=== PATIENT | female | born 1975 | race Caucasian/White ===

== ENCOUNTER 2016-10-02 15:24 | Inpatient (IN) | payer SELFPAY ==
[~2016-10-02] VITALS: Ht 167.6 cm; Wt 56.5 kg
[~2016-10-02 15:24] MED LIST: FLON0.053; OXYC1TAB13 PO; OXYC30TA3 PO; XANA2TAB2 PO; ZITHTAB6 PO
[2016-10-02 15:26] VITALS: BP 112/68; PULSE 117; RESP 15; TEMP 98.3; O2SAT 95
[2016-10-02] MEDS ORDERED: VANCOMYCIN INJ 1,150 MG in SODIUM CHLOR 0.9% 250 ML INJ 250 ML IV ONE (19:30)
[2016-10-02] MEDS ORDERED: SODIUM CHLOR 0.9% 1000 ML INJ 1,000 ML IV ONE ×2 (19:30)
[2016-10-02] MEDS ORDERED: HYDROmorphone HCL PF 1 MG/ML VIAL IV PUSH ONE (19:45)
[2016-10-02] MEDS ORDERED: ACETAMINOPHEN 500 MG CPLT PO ONE (19:45)
[2016-10-02] MEDS ORDERED: LORazepam 2 MG/ML VIAL IV PUSH ONE (19:45)
--- NOTE | 2016-10-02 19:53 | RADRPT ---
EXAM DATE/TIME: 10/02/2016 19:35 [facility] COMPARISON: CHEST PA & LAT, February 23, 2010, 18:14. INDICATIONS : Fever MEDICAL HISTORY : None. SURGICAL HISTORY : None. ENCOUNTER: Initial ACUITY: 4 - 6 days PAIN SCORE: 0/10 LOCATION: chest FINDINGS: A single view of the chest demonstrates the lungs to be symmetrically aerated without evidence of mas s, consolidative infiltrate or effusion. An azygos lobe there is again noted. There is mild hazy opac ity in the right lung base.. The cardiomediastinal contours are unremarkable. Osseous structures are intact. CONCLUSION: Mild hazy opacity in the right lung base. This could represent early infiltrate. Juan Carlos Powers MD on October 02, 2016 at 19:50 Board Certified Radiologist. This report was verified electronically.
--- NOTE | 2016-10-02 20:01 | PD ---
HPI Chief Complaint: Back/ Neck Pain or Injury Time Seen by Provider: 19:53 Travel History International Travel<30 days: No Contact w/Intl Traveler<30days: No Traveled to known affect area: No History of Present Illness HPI 41-year-old white female presents to emergency department comely by her mother for evaluation of neck pain. The patient states that she's been having sudden onset of severe neck pain for the past 4 days. She states that she had awoken from sleep at 3 AM 4 days ago. She states that she is unable to move her head. She has not been able to eat she's felt rundown, weak area and she states that she felt that she had some stool incontinence. She had diarrhea. Patient has a history of IV substance abuse. She states that she has been sober now since 2011. Her mother states that she does not believe that she is been sober. The patient admits to subjective fever and chills, headache, severe neck pain and stiffness. Decreased appetite with nausea. No vomiting. No abdominal pain. No urinary symptoms. No numbness, tingling or weakness. She does feel off balance and feels that she may fall over. [facility] Past Medical History Narrative Medical IV drug abuse, carpal tunnel, chronic back pain Diminished Hearing: No Fibromyalgia: Yes Musculoskeletal: Yes (SCIATICA- CHRONIC BACK PAIN) Tetanus Vaccination: < 5 Years ?: Not : 1 : 1 Past Surgical History Narrative Surgical Bilateral carpal tunnel release Social History Alcohol Use: Yes (SOCIAL) Tobacco Use: Yes (PPD) Substance Use: Yes (TAKES MARSHAL AND XANAX) Allergies-Medications (Allergen,Severity, Reaction): Coded Allergies: E-Mycin (Verified Allergy, Severe, UNKNOWN, 02/23/10) Reported Meds & Prescriptions Reported Meds & Active Scripts Active No Active Prescriptions or Reported Medications Review of Systems Except as stated in HPI: all other systems reviewed are Neg General / Constitutional: Positive: Fever, Chills Eyes: No: Blurred Vision, Photophobia HENT: Positive: Neck Stiffness, Neck Pain, No: Headaches, Sore Throat Cardiovascular: Positive: Tachycardia, No: Chest Pain or Discomfort, Palpitations Respiratory: No: Cough, Shortness of Breath Gastrointestinal: Positive: Nausea, Changes in Bowel Habits, Loss of Appetite, No: Vomiting, Diarrhea, Abdominal Pain Genitourinary: No: Frequency, Dysuria Musculoskeletal: Positive: Arthralgias, Limited ROM, Pain, No: Myalgias Skin: No Rash, No Itching Neurologic: Positive: Dizziness, Coordination Problem, Ataxia, Incontinence, No: Paresthesia Physical Exam Narrative GENERAL: Well-developed, well-nourished in no apparent distress. Nontoxic appearing. HEAD: Normocephalic, atraumatic. EYES: Pupils equal round and reactive. Extraocular motions intact. No scleral icterus. No injection or drainage. ENT: Nose clear. Dry mucous membranes. Throat without erythema, tonsillar hypertrophy or exudate. Uvula midline. Airway patent. NECK: Trachea midline. no central bony tenderness. Patient has significant bilateral paraspinal tenderness into the trapezius. Patient is holding her head midline and declining to move. CARDIOVASCULAR: Regular tachycardic rate and rhythm without murmurs, gallops, or rubs. RESPIRATORY: Clear to auscultation. Breath sounds equal bilaterally. No wheezes , rales, or rhonchi. GASTROINTESTINAL: Abdomen soft, non-tender, nondistended. No hepato-splenomegaly , or palpable masses. No guarding. EXTREMITIES: No clubbing, cyanosis, or edema. No joint tenderness. BACK: Nontender without deformity. No flank tenderness. NEUROLOGICAL: Awake, alert and oriented x 3 .Cranial nerves grossly intact. Unsteady gait. Deep tendon reflexes are 3+ bilaterally. Motor and sensory grossly within normal limits. Normal speech. Data Data Last Documented VS Vital Signs Date Time Temp Pulse Resp B/P Pulse Ox O2 Delivery O2 Flow Rate FiO2 10/02/16 15:26 98.3 117 15 112/68 95 Orders Complete Blood Count With Diff (10/02/16 19:22) Comprehensive Metabolic Panel (10/02/16 19:22) Prothrombin Time / Inr (Pt) (10/02/16 19:22) Act Partial Throm Time (Ptt) (10/02/16 19:22) Blood Culture (10/02/16 19:22) C-Reactive Protein (Crp) (10/02/16 19:22) Urinalysis - C+S If Indicated (10/02/16 19:22) Westergren Sedimentation Rate (10/02/16 19:22) Chest, Single Ap (10/02/16 19:22) Iv Access Insert/Monitor (10/02/16 19:22) Ecg Monitoring (10/02/16 19:22) Drug Screen, Random Urine (10/02/16 19:22) Alcohol (Ethanol) (10/02/16 19:22) Mri T Spine W & W/O Contrast (10/02/16 ) Mri C Spine W&W/O Contrast (10/02/16 ) Sodium Chlor 0.9% 1000 Ml Inj (Ns 1000 M (10/02/16 19:30) Sodium Chlor 0.9% 1000 Ml Inj (Ns 1000 M (10/02/16 19:30) Vancomycin Inj (Vancomycin Inj) (10/02/16 19:30) Mri L Spine W&W/O Contrast (10/02/16 ) Acetaminophen (Tylenol) (10/02/16 19:45) Lorazepam Inj (Ativan Inj) (10/02/16 19:45) Hydromorphone Pf Inj (Dilaudid Pf Inj) (10/02/16 19:45) Lactic Acid (10/02/16 19:38) Piperacil-Tazo 4.5 Gm Premix (Zosyn 4.5 (10/02/16 20:15) Gadodiamide Pf Inj (Omniscan Pf Inj) (10/02/16 20:50) Piperacil-Tazo 3.375 Gm Premix (Zosyn 3. (10/03/16 02:00) Vancomycin Consult Pharmacy (Vancomycin (10/02/16 22:15) Echo 2d Comp With Doppler (10/02/16 ) Labs Laboratory Tests Test 10/02/16 19:35 White Blood Count 24.3 TH/MM3 Red Blood Count 4.25 MIL/MM3 Hemoglobin 12.2 GM/DL Hematocrit 35.9 % Mean Corpuscular Volume 84.5 FL Mean Corpuscular Hemoglobin 28.6 PG Mean Corpuscular Hemoglobin 33.8 % Concent Red Cell Distribution Width 13.2 % Platelet Count 311 TH/MM3 Mean Platelet Volume 8.4 FL Neutrophils (%) (Auto) 79.8 % Lymphocytes (%) (Auto) 11.3 % Monocytes (%) (Auto) 8.5 % Eosinophils (%) (Auto) 0.0 % Basophils (%) (Auto) 0.4 % Neutrophils # (Auto) 19.4 TH/MM3 Lymphocytes # (Auto) 2.7 TH/MM3 Monocytes # (Auto) 2.1 TH/MM3 Eosinophils # (Auto) 0.0 TH/MM3 Basophils # (Auto) 0.1 TH/MM3 CBC Comment AUTO DIFF Differential Comment AUTO DIFF CONFIRMED Dohle Bodies PRESENT Platelet Estimate NORMAL Platelet Morphology Comment NORMAL Erythrocyte Sedimentation Rate 102 mm/hr Prothrombin Time 11.9 SEC Prothromb Time International 1.1 RATIO Ratio Activated Partial 39.1 SEC Thromboplast Time Sodium Level 129 MEQ/L Potassium Level 3.2 MEQ/L Chloride Level 96 MEQ/L Carbon Dioxide Level 22.6 MEQ/L Anion Gap 10 MEQ/L Blood Urea Nitrogen 26 MG/DL Creatinine 0.90 MG/DL Estimat Glomerular Filtration 68 ML/MIN Rate Random Glucose 121 MG/DL Lactic Acid Level 1.2 mmol/L Calcium Level 8.9 MG/DL Total Bilirubin 0.7 MG/DL Aspartate Amino Transf 14 U/L (AST/SGOT) Alanine Aminotransferase 12 U/L (ALT/SGPT) Alkaline Phosphatase 82 U/L C-Reactive Protein 18.00 MG/DL Total Protein 8.5 GM/DL Albumin 2.8 GM/DL Ethyl Alcohol Level LESS THAN 3 MG/DL MDM Medical Decision Making Medical Screen Exam Complete: Yes Emergency Medical Condition: Yes Medical Record Reviewed: Yes Interpretation(s) Laboratory Tests Test 10/02/16 19:35 White Blood Count 24.3 TH/MM3 Red Blood Count 4.25 MIL/MM3 Hemoglobin 12.2 GM/DL Hematocrit 35.9 % Mean Corpuscular Volume 84.5 FL Mean Corpuscular Hemoglobin 28.6 PG Mean Corpuscular Hemoglobin 33.8 % Concent Red Cell Distribution Width 13.2 % Platelet Count 311 TH/MM3 Mean Platelet Volume 8.4 FL Neutrophils (%) (Auto) 79.8 % Lymphocytes (%) (Auto) 11.3 % Monocytes (%) (Auto) 8.5 % Eosinophils (%) (Auto) 0.0 % Basophils (%) (Auto) 0.4 % Neutrophils # (Auto) 19.4 TH/MM3 Lymphocytes # (Auto) 2.7 TH/MM3 Monocytes # (Auto) 2.1 TH/MM3 Eosinophils # (Auto) 0.0 TH/MM3 Basophils # (Auto) 0.1 TH/MM3 CBC Comment AUTO DIFF Differential Comment AUTO DIFF CONFIRMED Dohle Bodies PRESENT Platelet Estimate NORMAL Platelet Morphology Comment NORMAL Erythrocyte Sedimentation Rate 102 mm/hr Prothrombin Time 11.9 SEC Prothromb Time International 1.1 RATIO Ratio Activated Partial 39.1 SEC Thromboplast Time Sodium Level 129 MEQ/L Potassium Level 3.2 MEQ/L Chloride Level 96 MEQ/L Carbon Dioxide Level 22.6 MEQ/L Anion Gap 10 MEQ/L Blood Urea Nitrogen 26 MG/DL Creatinine 0.90 MG/DL Estimat Glomerular Filtration 68 ML/MIN Rate Random Glucose 121 MG/DL Lactic Acid Level 1.2 mmol/L Calcium Level 8.9 MG/DL Total Bilirubin 0.7 MG/DL Aspartate Amino Transf 14 U/L (AST/SGOT) Alanine Aminotransferase 12 U/L (ALT/SGPT) Alkaline Phosphatase 82 U/L C-Reactive Protein 18.00 MG/DL Total Protein 8.5 GM/DL Albumin 2.8 GM/DL Ethyl Alcohol Level LESS THAN 3 MG/DL Last 24 hours Impressions Chest X-Ray 10/02/161921 Signed Impressions: Service Date/Time: Sunday, October 02, 2016 19:35 - CONCLUSION: Mild hazy opacity in the right lung base. This could represent early infiltrate. Juan Carlos Powers MD Thoracic Spine MRI 10/02/16 0000 Signed Impressions: Service Date/Time: Sunday, October 02, 2016 20:16 - CONCLUSION: Unremarkable exam. Juan Carlos Powers MD Lumbar Spine MRI 10/02/16 0000 Signed Impressions: Service Date/Time: Sunday, October 02, 2016 20:16 - CONCLUSION: 1. No evidence of osteomyelitis. 2. Annular disc bulge at the L4-5 level with mild mass effect on the anterior thecal sac. 3. Mild degenerative disc and degenerative joint changes. Juan Carlos Powers MD Cervical Spine MRI 10/02/16 0000 Signed Impressions: Service Date/Time: Sunday, October 02, 2016 20:16 - CONCLUSION: 1. Large left lateral and posterior epidural collection as described most characteristic of an abscess. There is mass effect and flattening of the cervical cord with no definite abnormal signal or enhancement in the cord. 2. Extensive soft tissue swelling and edema surrounding the upper neck. The prevertebral soft tissues are edematous and thickened. 3. Disc bulges at the C3-4 and C5-6 levels. 4. No evidence of osteomyelitis. Juan Carlos Powers MD Differential Diagnosis MDM: High Differential diagnoses: Fracture, sprain, strain, HNP, nerve or vascular injury , epidural abscess Narrative Course IV access is obtained. 2 blood cultures, 2 L normal saline, 1.125 g vancomycin IV, Zosyn 4.5 g IV, 1 g of Tylenol by mouth, Dilaudid 0.5 mg IV, Ativan 1 mg IV , routine laboratory testing including CBC, chemistry, CRP, sedimentation rate and lactic acid. MRI of the C-spine, T-spine, and L-spine a been ordered. The case has been discussed with Dr. Flores the neurosurgeon precision inspector. He has requested that the intensivists admit the patient. I have spoken with Dr. Sue who is excepted the patient. The patient will be admitted to the unit. Sepsis Criteria SIRS Criteria (2 or more): Temp > 100.9 or < 96.8, Heart rate over 90, WBC > 66758, < 4000 or > 10% bands Sepsis Criteria (SIRS+source): Infect source susp/known Diagnosis Primary Impression: Abscess in epidural space of cervical spine Additional Impression: Sepsis Qualified Code: A41.9 - Sepsis, due to unspecified organism Admitting Information Admitting Physician Requests: Admit Scripts No Active Prescriptions or Reported Meds Dinh Pillai Oct 02, 2016 20:00
[2016-10-02 20:02] LABS: AUTOMATED NEUTROPHIL # 19.4 TH/MM3 (1.8-7.7); BASOPHIL # 0.1 TH/MM3 (0-0.2); BASOPHIL % 0.4 % (0.0-2.0); HEMATOCRIT 35.9 % (35.0-46.0); LYMPH % 11.3 % (9.0-44.0); LYMPHOCYTE # 2.7 TH/MM3 (1.0-4.8); MEAN CELL VOLUME 84.5 FL (80.0-100.0); MEAN CORPUSCULAR HEMOGLOBIN 28.6 PG (27.0-34.0); MEAN CORPUSCULAR HGB CONC 33.8 % (32.0-36.0); MONO % 8.5 % (0.0-8.0); NEUT % 79.8 % (16.0-70.0); PLATELET COUNT 311 TH/MM3 (150-450); RED BLOOD COUNT 4.25 MIL/MM3 (4.00-5.30); RED CELL DISTRIBUTION WIDTH 13.2 % (11.6-17.2); WHITE BLOOD COUNT 24.3 TH/MM3 (4.0-11.0)
[2016-10-02 20:05] LABS: HEMO FLAGS AUTO DIFF
[2016-10-02 20:09] LABS: APTT (PATIENT) 39.1 SEC (24.3-30.1); INTERNATIONAL NORMALIZED RATIO 1.1 RATIO; PROTHROMBIN TIME - PATIENT 11.9 SEC (9.8-11.6)
[2016-10-02] MEDS ORDERED: PIPERACIL-TAZO 4.5 GM PREMIX 100 ML IV ONE (20:15)
[2016-10-02 20:19] LABS: ANION GAP 10 MEQ/L (5-15); AST (GOT) 14 U/L (15-37); BICARBONATE 22.6 MEQ/L (21.0-32.0); BLOOD UREA NITROGEN 26 MG/DL (7-18); CHLORIDE 96 MEQ/L (98-107); GLOMERULAR FILTRATION RATE 68 ML/MIN (>89); POTASSIUM 3.2 MEQ/L (3.5-5.1); SODIUM (NA) 129 MEQ/L (136-145)
[2016-10-02 20:20] LABS: ALT (GPT) 12 U/L (10-53)
[2016-10-02 20:23] LABS: ALKALINE PHOSPHATASE 82 U/L (45-117); TOTAL BILIRUBIN ADULT 0.7 MG/DL (0.2-1.0)
[2016-10-02 20:37] LABS: DOHLE BODIES PRESENT (NONE SEEN); SCAN/DIFF AUTO DIFF CONFIRMED
[2016-10-02 20:38] LABS: PLATELET ESTIMATE SMEAR NORMAL (NORMAL); PLATELET MORPHOLOGY NORMAL (NORMAL)
[2016-10-02] MEDS ORDERED: GADODIAMIDE PF 287 MG/ML 10 ML VIAL (for RAD MRI) IV ONE (20:50)
--- NOTE | 2016-10-02 21:12 | RADRPT ---
EXAM DATE/TIME: 10/02/2016 20:16 [facility] COMPARISON: No previous studies available for comparison. INDICATIONS : Evaluate for osteomyelitis. Head and neck pain. CONTRAST: 10 cc Omniscan (gadodiamide) IV MEDICAL HISTORY : None. SURGICAL HISTORY : Carpal tunnel syndrome. ENCOUNTER: Initial ACUITY: 1 day PAIN SCORE: 6/10 LOCATION: Paraspinal Known MRI Precautions: Sedation utilized? NO Anesthesia present? MRI reaction? If YES, explain: TECHNIQUE: Multiplanar multisequence MRI of the thoracic spine was performed. FINDINGS: VERTEBRA: Normal vertebral body height. Homogeneous marrow signal. ALIGNMENT: Normal. CORD: Normal position and configuration. POST CONTRAST: No abnormal areas of contrast enhancement seen. T1-T2: Normal. T2-T3: The thecal sac has a normal diameter. No evidence of disc bulge or protrusion. T3-T4: The thecal sac has a normal diameter. No evidence of disc bulge or protrusion. T4-T5: The thecal sac has a normal diameter. No evidence of disc bulge or protrusion. T5-T6: The thecal sac has a normal diameter. No evidence of disc bulge or protrusion. T6-T7: The thecal sac has a normal diameter. No evidence of disc bulge or protrusion. T7-T8: The thecal sac has a normal diameter. No evidence of disc bulge or protrusion. T8-T9: The thecal sac has a normal diameter. No evidence of disc bulge or protrusion. T9-T10: The thecal sac has a normal diameter. No evidence of disc bulge or protrusion. T10-T11: The thecal sac has a normal diameter. No evidence of disc bulge or protrusion. T11-T12: The thecal sac has a normal diameter. No evidence of disc bulge or protrusion. T12-L1: The thecal sac has a normal diameter. No evidence of disc bulge or protrusion. CONCLUSION: Unremarkable exam. Juan Carlos Powers MD on October 02, 2016 at 21:09 Board Certified Radiologist. This report was verified electronically.
--- NOTE | 2016-10-02 21:27 | RADRPT ---
EXAM DATE/TIME: 10/02/2016 20:16 [facility] COMPARISON: No previous studies available for comparison. INDICATIONS : Evaluate for infection and possible osteomyelitis. Head and neck pain. Fever. CONTRAST: 10 cc Omniscan (gadodiamide) IV MEDICAL HISTORY : None. SURGICAL HISTORY : Carpal tunnel syndrome. ENCOUNTER: Initial ACUITY: 1 day PAIN SCORE: 6/10 LOCATION: Paraspinal TECHNIQUE: Multiplanar, multisequence MRI examination of the cervical spine was performed. FINDINGS: There is extensive soft tissue swelling and edema involving the retropharyngeal soft tissues and prev ertebral soft tissues greatest from the skull base to be C4-5 interspace. There is a left lateral and posterior epidural collection measuring up to approximately 3.7 cm in greatest caudal cranial dimens ion by 9 mm in AP diameter on the sagittal images. After gadolinium there is peripheral enhancement a long the collection and low signal centrally. The collection emonstrates high signal on the T2-weight ed sequences and low signal on the T1-weighted sequences. On the axial images this measures up to 1.3 x 0.7 cm in greatest AP and transverse diameter. There is mass effect on the cord which is displaced to the right and flattened. There is no definite abnormal signal no cord or abnormal enhancement of the cord. The axial images again demonstrate the left sided epidural collection with displacement of the cord a nd flattening. There is extensive soft tissue edema throughout the upper neck. The vertebral bodies are intact. There are mild degenerative disc changes. There is no abnormal enhan cement any of the bony structures. There is an annular disc at the C3-4 and C5-6 levels with mild fla ttening the anterior thecal sac. CONCLUSION: 1. Large left lateral and posterior epidural collection as described most characteristic of an absces s. There is mass effect and flattening of the cervical cord with no definite abnormal signal or enhan cement in the cord. 2. Extensive soft tissue swelling and edema surrounding the upper neck. The prevertebral soft tissues are edematous and thickened. 3. Disc bulges at the C3-4 and C5-6 levels. 4. No evidence of osteomyelitis. Juan Carlos Powers MD on October 02, 2016 at 21:14 Board Certified Radiologist. This report was verified electronically.
--- NOTE | 2016-10-02 21:34 | RADRPT ---
EXAM DATE/TIME: 10/02/2016 20:16 [facility] COMPARISON: No previous studies available for comparison. INDICATIONS : Head and neck pain and fever. Evaluate for osteomyelitis. CONTRAST: 10 cc Omniscan (gadodiamide) IV MEDICAL HISTORY : None. SURGICAL HISTORY : Carpal tunnel syndrome. ENCOUNTER: Initial ACUITY: 1 day PAIN SCORE: 6/10 LOCATION: Paraspinal TECHNIQUE: Multiplanar multisequence MRI of the lumbar spine was performed with and without contrast. FINDINGS: The most caudal appearing lumbar vertebra is numbered as L5. VERTEBRAE: Homogeneous signal. Normal alignment. There is a mild scoliosis. DISCS: There is mild desiccation greatest at the L4-5 level with an anterior extradural defect noted on the sagittal images. CONUS: Normal level and configuration. POST CONTRAST: No abnormal areas of contrast enhancement are seen. T12-L1: The thecal sac has a normal diameter. No evidence of disc bulge or protrusion. The neural foramina are patent bilaterally. L1-L2: The thecal sac has a normal diameter. No evidence of disc bulge or protrusion. The neural foramina are patent bilaterally. L2-L3: The thecal sac has a normal diameter. No evidence of disc bulge or protrusion. The neural foramina are patent bilaterally. L3-L4: The thecal sac has a normal diameter. No evidence of disc bulge or protrusion. The neural foramina are patent bilaterally. L4-L5: There is a mild disc bulge with mild flattening the anterior thecal sac. There are mild degenerative changes involving the facet joints right greater than left.. The neural foramina are patent bilatera lly. L5-S1: The thecal sac has a normal diameter. No evidence of disc bulge or protrusion. The neural foramina are patent bilaterally. There are mild degenerative changes involving the facet joints. CONCLUSION: 1. No evidence of osteomyelitis. 2. Annular disc bulge at the L4-5 level with mild mass effect on the anterior thecal sac. 3. Mild degenerative disc and degenerative joint changes. Juan Carlos Powers MD on October 02, 2016 at 21:31 Board Certified Radiologist. This report was verified electronically.
[2016-10-02] MEDS ORDERED: SODIUM CHLOR 0.9% 1000 ML INJ 1,000 ML IV SCH (22:06)
[2016-10-02] MEDS ORDERED: CHLORHEXIDINE GLUCONATE 2 % 1 PACK (2 CLOTHS) TOP PRN (22:15)
[2016-10-02] MEDS ORDERED: RESP: ALBUTEROL 2.5 MG/3 ML NEB (PRN) INH (22:15)
[2016-10-02] MEDS ORDERED: MAGNESIUM HYDROXIDE SUSP 30 ML CUP PO PRN (22:15)
[2016-10-02] MEDS ORDERED: SODIUM CHLORIDE 0.9% FLUSH 10 ML FLUSH IV FLUSH PRN (22:15)
[2016-10-02] MEDS ORDERED: ONDANSETRON HCL 4 MG/2 ML VIAL IV PRN (22:15)
[2016-10-02] MEDS ORDERED: MISCELLANEOUS NURSING INFORMATION XX SCH (22:15)
[2016-10-02] MEDS ORDERED: SENNOSIDES 8.6 MG TAB PO PRN (22:15)
[2016-10-02] MEDS ORDERED: Vancomycin Consult Pharmacy 1 EA OTHER SCH (22:15)
[2016-10-02] MEDS ORDERED: BISACODYL 10 MG SUPP RECTAL PRN (22:15)
[2016-10-02] MEDS ORDERED: POTASSIUM CHLOR 20 MEQ PREMIX 100 ML IV ONE (22:15)
[2016-10-02 22:55] VITALS: BP 78/54; PULSE 60; RESP 16; O2SAT 96
--- NOTE | 2016-10-02 23:02 | PD.CONS ---
History of Present Illness Service Neurosurgery Consult Requested By Emergency room Reason for Consult Epidural abscess Primary Care Physician No Primary Care Physician Diagnoses: History of Present Illness 41-year-old female who according to her mother came home on 27 September not feeling well. She went to bed for most of the day. Over the past few days she has complained of progressive neck pain and has not been out of bed much in the past couple of days. The patient was seen at [facility] emergency room a few days ago. The mother is uncertain what testing was performed. The patient received a couple of injections in the emergency room and was discharged. The patient's mother states that she has been trying for the past 2 or 3 days to get the patient back to the emergency room and the patient has not wanted to get out of better, and the hospital. Patient's mother states that she believes the patient had a fever yesterday. This morning she had diarrhea. No nausea or vomiting. No definite confusion. Patient complains of severe neck pain. No significant pain weakness or numbness in the extremities or loss of bowel or bladder function. Patient does have a history of IV drug use. Review of Systems Constitutional: COMPLAINS OF: Fever, Change in appetite Eyes: DENIES: Blurred vision, Diplopia Ears, nose, mouth, throat: DENIES: Hearing loss, Vertigo Respiratory: DENIES: Cough, Shortness of breath Cardiovascular: DENIES: Chest pain, Palpitations Gastrointestinal: COMPLAINS OF: Diarrhea, Difficulty Swallowing, DENIES: Abdominal pain, Nausea, Vomiting Musculoskeletal: COMPLAINS OF: Back pain, Neck pain, DENIES: Joint pain Hematologic/lymphatic: DENIES: Bruising Neurologic: DENIES: Abnormal gait, Headache Psychiatric: DENIES: Anxiety, Confusion Past Family Social History Allergies: Coded Allergies: E-Mycin (Verified Allergy, Severe, UNKNOWN, 02/23/10) Past Medical History No history of cardiac pulmonary gastrointestinal disease diabetes or hypertension Past Surgical History Carpal tunnel release Reported Medications Reported Meds & Active Scripts Active No Active Prescriptions or Reported Medications Family History Cardiac disease on her mother's side and diabetes on her father's side. Social History She smokes 1 pack cigarettes a day No significant alcohol use Positive history IV drug use Physical Exam Vital Signs Vital Signs Date Time Temp Pulse Resp B/P Pulse Ox O2 Delivery O2 Flow Rate FiO2 10/02/16 15:26 98.3 117 15 112/68 95 Physical Exam GENERAL: Patient is a thin lady, appears somewhat malnourished. Painful and anxious during the examination. EYES: Sclerae are clear and nonicteric ENT: Oropharynx clear. Moderate hoarseness of voice and difficulty swallowing no anterior neck edema NECK: Significant diffuse cervical posterior paravertebral tenderness. Mild nuchal rigidity CARDIOVASCULAR: Regular rate and rhythm without murmurs, gallops, or rubs. RESPIRATORY: Coarse upper airway sounds. Breath sounds equal bilaterally. No wheezes, rales, or rhonchi. GASTROINTESTINAL: Abdomen soft, non-tender, nondistended. No hepato-splenomegaly , or palpable masses. No guarding. MUSCULOSKELETAL: Extremities without clubbing, cyanosis, or edema. No joint tenderness, effusion, or edema noted. No calf tenderness. Posterior tibial pulse 2+ bilateral NEUROLOGICAL: Awake and alert Oriented X 3 Speech is slightly slurred, hoarseness of voice. Conversant. Mild agitation. Follow simple commands with mild difficulty Answers questions appropriately Reasonable judgment and insight Recent and remote memory are intact Appears anxious during the examination. Pupils are equal and reactive to accommodation. Extra-ocular movements, visual paredes to confrontation, facial sensorimotor, tongue, palate, sternocleidomastoid testing, hearing to finger rub testing, and bilateral shoulder shrug are all intact. Sensation is intact to light touch in all extremities Strength normal major flexion and extension groups all extremities except 3+/5 bilateral hand intrinsics Madeleine's absent bilaterally Sustained left ankle clonus Plantar response is mildly flexor on the right, extensor on the left Fine motor movements impaired in the left greater than right upper extremity Laboratory Laboratory Tests Test 10/02/16 19:35 White Blood Count 24.3 Red Blood Count 4.25 Hemoglobin 12.2 Hematocrit 35.9 Mean Corpuscular Volume 84.5 Mean Corpuscular Hemoglobin 28.6 Mean Corpuscular Hemoglobin 33.8 Concent Red Cell Distribution Width 13.2 Platelet Count 311 Mean Platelet Volume 8.4 Neutrophils (%) (Auto) 79.8 Lymphocytes (%) (Auto) 11.3 Monocytes (%) (Auto) 8.5 Eosinophils (%) (Auto) 0.0 Basophils (%) (Auto) 0.4 Neutrophils # (Auto) 19.4 Lymphocytes # (Auto) 2.7 Monocytes # (Auto) 2.1 Eosinophils # (Auto) 0.0 Basophils # (Auto) 0.1 CBC Comment AUTO DIFF Differential Comment AUTO DIFF CONFIRMED Dohle Bodies PRESENT Platelet Estimate NORMAL Platelet Morphology Comment NORMAL Erythrocyte Sedimentation Rate 102 Prothrombin Time 11.9 Prothromb Time International 1.1 Ratio Activated Partial 39.1 Thromboplast Time Sodium Level 129 Potassium Level 3.2 Chloride Level 96 Carbon Dioxide Level 22.6 Anion Gap 10 Blood Urea Nitrogen 26 Creatinine 0.90 Estimat Glomerular Filtration 68 Rate Random Glucose 121 Lactic Acid Level 1.2 Calcium Level 8.9 Total Bilirubin 0.7 Aspartate Amino Transf 14 (AST/SGOT) Alanine Aminotransferase 12 (ALT/SGPT) Alkaline Phosphatase 82 C-Reactive Protein 18.00 Total Protein 8.5 Albumin 2.8 Ethyl Alcohol Level LESS THAN 3 Date/Time Procedure Status Source Growth 10/02/16 19:35 Aerobic Blood Culture Received Blood Peripheral Pending 10/02/16 19:35 Anaerobic Blood Culture Received Blood Peripheral Pending Result Diagram: 10/02/16193410/02/161934 Imaging MRI cervical thoracic and lumbar spine images are reviewed by the undersigned. Agree with findings as noted below: Chest X-Ray 10/02/16 192 Signed Impressions: Service Date/Time: Sunday, October 02, 2016 19:35 - CONCLUSION: Mild hazy opacity in the right lung base. This could represent early infiltrate. Juan Carlos Powers MD Thoracic Spine MRI 10/02/16 0000 Signed Impressions: Service Date/Time: Sunday, October 02, 2016 20:16 - CONCLUSION: Unremarkable exam. Juan Carlos Powers MD Lumbar Spine MRI 10/02/16 0000 Signed Impressions: Service Date/Time: Sunday, October 02, 2016 20:16 - CONCLUSION: 1. No evidence of osteomyelitis. 2. Annular disc bulge at the L4-5 level with mild mass effect on the anterior thecal sac. 3. Mild degenerative disc and degenerative joint changes. Juan Carlos Powers MD Cervical Spine MRI 10/02/16 0000 Signed Impressions: Service Date/Time: Sunday, October 02, 2016 20:16 - CONCLUSION: 1. Large left lateral and posterior epidural collection as described most characteristic of an abscess. There is mass effect and flattening of the cervical cord with no definite abnormal signal or enhancement in the cord. 2. Extensive soft tissue swelling and edema surrounding the upper neck. The prevertebral soft tissues are edematous and thickened. 3. Disc bulges at the C3-4 and C5-6 levels. 4. No evidence of osteomyelitis. Juan Carlos Powers MD Assessment and Plan Assessment and Plan Impression: 1. Cervical epidural abscess primarily C2-4 levels with significant dorsal cord compression without definite cord edema. 2. Significant cervical prevertebral inflammation without definite abscess formation 3. History of IV drug abuse 4. Cervical degenerative disc disease with moderate chronic appearing C5 6 posterior osteophytic disc complex with moderate stenosis without cord edema. Recommendations: Findings were discussed with the patient as well as with her mother in the emergency room. Due to the severity of the cervical epidural abscess and degree of cord compression, it is recommended that she proceed with urgent surgery for upper cervical semi-laminectomy, evacuation epidural abscess. The procedures been discussed in detail Risk and possible complications have been discussed including the risk of anesthesia, organ failure, stroke, , bleeding, infection, nerve damage, pain, weakness, numbness, paralysis, loss of bowel, bladder or sexual function, spinal fluid leak. Consents have been reviewed with the patient, signed and witnessed in the office today. All questions have been answered. He/She appears to understand the above and wishes to proceed with surgery . She does have significant stenosis at the C5 6 level, however no cord edema and this appears to be a chronic abnormality which would be best treated on an elective basis given the presence of the significant prevertebral inflammation and cervical epidural abscess. She will be admitted to the surgical intensive care unit postoperatively. Marlo Flores MD Oct 02, 2016 23:02
[2016-10-02 23:05] VITALS: BP 82/54; PULSE 58; RESP 18; O2SAT 96
[2016-10-02 23:30] LABS: BACTERIA, URINE FEW /hpf; BLOOD, URINE MOD (NEG); COMMENT (UR) CULT NOT INDICATED; CULTURE IF INDICATED CULT NOT INDICATED; GLUCOSE,URINE NEG (NEG); KETONE, URINE NEG (NEG); MUCUS URINE FEW /lpf (OCC); NITRITE,URINE NEG (NEG); PH, URINE 5.5 (5.0-8.5); SQUAMOUS EPITHELIAL CELL URINE 1 /hpf (0-5); TRANSITIONAL EPI CELLS, URINE <1 /hpf; URINE COLOR YELLOW (YELLW/STRAW)
[2016-10-02 23:32] LABS: AMPHETAMINE, URINE NEG (NEG); BARBITURATES, URINE NEG (NEG); COCAINE, URINE NEG (NEG)
[2016-10-03] VITALS (12 sets, daily range): BP systolic 100–118; BP diastolic 56–71; PULSE 46–77; RESP 17–20; TEMP 96.1–98.7; O2SAT 96–99
[2016-10-03] MEDS ORDERED: GENTAMICIN SULFATE 80 MG/2 ML VIAL IRRIGATION ONE (00:41)
[2016-10-03] MEDS ORDERED: GELFOAM SIZE 100 OTHER ONE (00:41)
[2016-10-03] MEDS ORDERED: THROMBIN (TOPICAL) 5,000 UNIT VIAL OTHER ONE (00:41)
[2016-10-03] MEDS ORDERED: LIDOCAINE 1%/EPINEPHrine 1:100,000 SOLN 30 ML VIAL INFIL ONE (00:41)
[2016-10-03] MEDS ORDERED: DO NOT ADM ANY ANTICOAGULANT DRUGS PRN (02:00)
[2016-10-03] MEDS ORDERED: PIPERACIL-TAZO 3.375 GM PREMIX 50 ML IV SCH (02:00)
[2016-10-03] MEDS ORDERED: VANCOMYCIN INJ 650 MG in SODIUM CHLOR 0.9% 250 ML INJ 250 ML IV SCH (02:00)
--- NOTE | 2016-10-03 02:06 | RADRPT ---
EXAM DATE/TIME: 10/03/2016 00:50 [facility] COMPARISON: No previous studies available for comparison. INDICATIONS : Laminectomy evacuation abcess C3. MEDICAL HISTORY : None. SURGICAL HISTORY : None. ENCOUNTER: Initial ACUITY: 1 day PAIN SCORE: 0/10 LOCATION: Bilateral c-spine FINDINGS: A single lateral view of the cervical spine was performed. Intraoperative markers overlie the spinous process of C2. CONCLUSION: Spinous process of C2 is localized. Ricco Beal MD on October 03, 2016 at 2:04 Board Certified Radiologist. This report was verified electronically.
[2016-10-03] MEDS ORDERED: PHENYLEPHRINE HCL 10 MG/ML VIAL ONE (02:13)
--- NOTE | 2016-10-03 02:18 | PD.OP ---
Operative Report Date of Surgery: Oct 03, 2016 Preoperative Diagnosis: (1) Abscess in epidural space of cervical spine Cervical epidural abscess Postoperative Diagnosis: (1) Abscess in epidural space of cervical spine Cervical epidural abscess Procedure: Left C2-3 semi-laminectomy, evacuation epidural abscess Anesthesia: Gen. endotracheal Surgeon: Marlo Flores Manager Actuarial(s): Reece Espinoza Operation and Findings: Findings: Large amount of epidural abscess at the left C2-3 level Procedure in detail: The patient was brought into the operating room and general endotracheal anesthesia induced without difficulty. Lines were established by anesthesia Knee high sequential compression devices were placed Appropriate timeout procedure was performed with all personnel present and in agreement The Cobb 3 point fixation device was placed. The patient was in a cervical collar for positioning Leads for intraoperative neuro monitoring were placed in a baseline study obtained The patient was turned into prone position on the 3080 table on the Anupam frame with the undersigned maintaining control of the head and neck. The head and neck were secured to the operating room table with the Cobb adapter with the neck slightly flexed with 3-4 fingerbreadths between the chin and chest. The neck position was checked with intraoperative C-arm and felt to be satisfactory. The cervical collar was removed. All extremities were appropriately padded. The back of the head and neck were shaved with clippers and sterilely prepped and draped. 1% Xylocaine with epinephrine was used for local infiltration over the incision site was made in the midline posterior neck and carried sharply down to the spinous processes of C2-C3. . On the right and left side the posterior muscle attachments and fascia were incised with the Bovie and elevated away from the lamina and facet and spinous processes at the C2-3 levels with a shin elevator out to the lateral margin of the facets. The TPS drill with a 5 mm bone bur was used to thin out the inferior left L2 and superior left L3 lamina, with the remaining lamina in these areas removed out to the level of the pedicle and medial facet with the thin ligament dissector and the 3 mm thin Kerrison rongeur. Ligamentum flavum was elevated away from the dura with the thin ligament dissector and resected with the Kerrison rongeur. Upon elevating the ligamentum flavum, a copious amount of purulent abscess material came forth from the epidural space. A specimen was obtained for routine cultures. The remaining abscess was evacuated with gentle suction and irrigation. Long blunt nerve hook was used to carefully probe the epidural space at the L2- 3 level. The thecal sac appeared well decompressed at the end of the procedure. The region was well irrigated with antibiotic irrigation. Bleeding was carefully controlled with bipolar forceps A 10 Thai drain was left at the operative site and brought out through an incision in the lower neck region and secured to the skin with nylon suture The closure was performed with 2-0 Vicryl interrupted for the deep and superficial fascia with 3-0 Vicryl interrupted subcutaneous closure and 4-0 Vicryl subcutaneous closure. A dressing of sterile Mastisol and Steri-Strips and a Primapore dressing was placed. The patient was placed back in a cervical collar and released from the Cobb adapter and turned back into supine position on the recovery room bed with the undersigned maintaining control of the head and neck. The Cobb 3 point fixation device was then removed. The patient was taken to recovery room in stable condition All counts were correct at the end of the case. Estimated blood loss was 50 cc No specimen was sent to pathology Specimen of the abscess was sent to microbiology for routine cultures Neural monitoring remained stable during the procedure Marlo Flores MD Oct 03, 2016 02:18
[2016-10-03] MEDS ORDERED: TERBUTALINE INJ 1 MG/ML AMP SQ PRN (02:30)
[2016-10-03 02:37] LABS: AUTOMATED NEUTROPHIL # 12.8 TH/MM3 (1.8-7.7); BASOPHIL % 0.2 % (0.0-2.0); EOSINOPHIL % 0.1 % (0.0-4.0); HEMATOCRIT 27.4 % (35.0-46.0); HEMO FLAGS DIFF FINAL; LYMPH % 8.8 % (9.0-44.0); LYMPHOCYTE # 1.3 TH/MM3 (1.0-4.8); MEAN CELL VOLUME 86.1 FL (80.0-100.0); MEAN CORPUSCULAR HEMOGLOBIN 29.4 PG (27.0-34.0); MEAN CORPUSCULAR HGB CONC 34.1 % (32.0-36.0); MONO % 5.6 % (0.0-8.0); NEUT % 85.3 % (16.0-70.0); PLATELET COUNT 218 TH/MM3 (150-450); RED BLOOD COUNT 3.18 MIL/MM3 (4.00-5.30); RED CELL DISTRIBUTION WIDTH 13.7 % (11.6-17.2)
[2016-10-03] MEDS: NS + KCL 20 MEQ INJ 1,000 ML IV SCH ×3 (02:42→22:30)
[2016-10-03] MEDS ORDERED: fentaNYL CITRATE 250 MCG/5 ML AMP ONE (02:43)
[2016-10-03] MEDS ORDERED: MIDAZOLAM HCL 2 MG/2 ML VIAL ONE (02:43)
[2016-10-03 03:03] LABS: BICARBONATE 21.3 MEQ/L (21.0-32.0); CALCIUM-PROTEIN CORRECTED 7.7 MG/DL (8.5-10.1); MAGNESIUM 1.6 MG/DL (1.5-2.5); POTASSIUM 3.2 MEQ/L (3.5-5.1); TOTAL BILIRUBIN ADULT 0.6 MG/DL (0.2-1.0)
[2016-10-03] MEDS ORDERED: PHENYLEPHRINE INJ 40 MG in DEXTROSE 5% IN WATE 500 ML INJ 496 ML IV SCH ×2 (03:30)
[2016-10-03] MEDS ORDERED: SODIUM PHOSPHATE INJ 30 MMOL in SODIUM CHLOR 0.9% 250 ML INJ 240 ML IV PRN (03:45)
[2016-10-03] MEDS ORDERED: POTASSIUM CHLORIDE 25 MEQ EFFERVESCENT TAB PO PRN (03:45)
[2016-10-03] MEDS ORDERED: MAGNESIUM SULFATE INJ 4 GM in SODIUM CHLORIDE 0.9% INJ 92 ML IV PRN (03:45)
[2016-10-03] MEDS ORDERED: MAGNESIUM SULFATE INJ 2 GM in SODIUM CHLORIDE 0.9% INJ 96 ML IV PRN (03:45)
[2016-10-03] MEDS ORDERED: POTASSIUM PHOSPHATE MONOBASIC 500 MG TAB PO/TUBE PRN (03:45)
[2016-10-03] MEDS ORDERED: POTASSIUM CHLOR 20 MEQ PREMIX 100 ML IV PRN ×2 (03:45)
[2016-10-03] MEDS ORDERED: MAGNESIUM OXIDE 400 MG TAB PO PRN (03:45)
[2016-10-03] MEDS ORDERED: POTASSIUM CHLOR 40 MEQ PREMIX 100 ML IV PRN ×2 (03:45)
[2016-10-03] MEDS ORDERED: POTASSIUM PHOSPHATE MONOBASIC 500 MG TAB PO PRN (03:45)
[2016-10-03] MEDS ORDERED: POTASSIUM PHOSPHATE INJ 30 MMOL in SODIUM CHLOR 0.9% 250 ML INJ 250 ML IV PRN (03:45)
[2016-10-03] MEDS: CHLORHEXIDINE GLUCONATE 2 % 1 PACK (2 CLOTHS) TOP SCH (04:00)
[2016-10-03] MEDS: PIPERACIL-TAZO 3.375 GM PREMIX 50 ML IV SCH ×2 (04:48→11:00)
[2016-10-03] MEDS ORDERED: NOREPINEPHRINE-DEXTROSE DRIP 250 ML IV ONE (06:35)
[2016-10-03] MEDS: PANTOPRAZOLE SODIUM 40 MG VIAL IV SCH (08:00)
[2016-10-03] MEDS: SODIUM CHLORIDE 0.9% FLUSH 10 ML FLUSH IV FLUSH SCH ×2 (08:00→19:53)
[2016-10-03] MEDS ORDERED: NOREPINEPHRINE 4 MG/D5W 250 ML IV SCH (08:00)
[2016-10-03] MEDS: DOCUSATE SODIUM 50 MG/SENNA 8.6 MG TAB PO SCH ×2 (08:01→19:53)
[2016-10-03] MEDS: MORPHINE SULFATE 8 MG/ML INJ IV PUSH PRN ×4 (08:24→19:53)
[2016-10-03] MEDS ORDERED: LACTATED RINGER'S 1000 ML INJ 1,000 ML IV ONE (12:00)
[2016-10-03] MEDS ORDERED: SODIUM CHLOR 0.9% 250 ML INJ 250 ML IV ONE (12:00)
[2016-10-03] MEDS ORDERED: PHENYLEPHRINE HCL 10 MG/ML VIAL IV ONE (12:00)
[2016-10-03] MEDS ORDERED: SODIUM CHLORID 0.9% 500 ML INJ 500 ML IV ONE (12:00)
[2016-10-03] MEDS ORDERED: PROPOFOL 200 MG/20 ML AMP IV ONE (12:00)
[2016-10-03] MEDS ORDERED: PHENYLEPH/NS 1000 MCG/10 ML SYR IV ONE (12:00)
[2016-10-03] MEDS ORDERED: VANCOMYCIN 1,000 MG/NS 250 ML IV SCH ×2 (12:00)
[2016-10-03] MEDS ORDERED: ONDANSETRON HCL 4 MG/2 ML VIAL IV PUSH ONE (12:00)
[2016-10-03] MEDS: VANCOMYCIN 1,000 MG/NS 250 ML IV SCH ×2 (14:00)
--- NOTE | 2016-10-03 14:25 | HHI.NSPN ---
(Juan Chicas) History Chief Complaint: Neck pain, lump to throat (Juan Chicas) Interval History 10/02: 41-year-old female who according to her mother came home on 27 September not feeling well. She went to bed for most of the day. Over the past few days she has complained of progressive neck pain and has not been out of bed much in the past couple of days. The patient was seen at [facility] emergency room a few days ago. The mother is uncertain what testing was performed. The patient received a couple of injections in the emergency room and was discharged. The patient's mother states that she has been trying for the past 2 or 3 days to get the patient back to the emergency room and the patient has not wanted to get out of better, and the hospital. Patient's mother states that she believes the patient had a fever yesterday. This morning she had diarrhea. No nausea or vomiting. No definite confusion. Patient complains of severe neck pain. No significant pain weakness or numbness in the extremities or loss of bowel or bladder function. Patient does have a history of IV drug use. 10/03: The patient went for a laminectomy & evacuation of a cervical abscess early this morning. Prior to being seen this afternoon Nursing called and stated that the patient's neck appeared swollen and that the patient felt like she had a lump to the throat. Dr Flores was notified and stated that the patient did have a significant amount of pharyngeal inflammation. When seen the patient complained of pain to the neck. She did state that if she tried to get up the pain went to the top of her head. (Juan Chicas) System Review Comments Constitutional: Patient feels weak. HEENT: Patient complains of throat pain and a lump as well as difficulty swallowing. If she attempts to get up the neck pain goes to the top of the head. She denies any visual or hearing difficulty. Respiratory: Patient denies any shortness of breath or productive cough. Cardiovascular: Patient denies any chest pain, palpitations or irregular heartbeat. Gastrointestinal: Patient has had an episode of incontinence of stool. She denies any abdominal pain, nausea or vomiting. Musculoskeletal: Patient complains of neck pain. She denies any back or extremity pain or extremity weakness. Neurologic: Patient denies any headache, dizziness, numbness or tingling. ( Juan Chicas) Exam Results Vital Signs Date Time Temp Pulse Resp B/P Pulse Ox O2 Delivery O2 Flow Rate FiO2 10/03/16 12:32 97 10/03/16 12:06 20 10/03/16 12:00 98.0 74 100/56 10/03/16 07:00 Room Air 21 10/03/16 04:00 2 (Juan Chicas) Physical Examination GENERAL: This is a thin female who appears moderately distressed, she readily interacts, her affect is flat. HEENT: Normocephalic, atraumatic. Unable to visualise pharynx well due to patient being unable to open mouth wide secondary to pain, what was visualised was erythemic. NECK: Diffuse midline & paravertebral TTP, intact surgical dressing w/small shadowing to mid dressing. RUDI drain to bulb suction w/serosanguinous drainage. Anterior neck mildly swollen and TTP. CARDIOVASCULAR: S1S2 w/RRR w/o M/G/R, radial & pedal pulses 2+ bilaterally, cap refill < 2 sec, no pedal edema. Monitor is sinus rhythm w/o any ectopy noted. RESPIRATORY: Slightly coarse breath sounds bilaterally, equal excursion, nonlaboured, on RA. GASTROINTESTINAL: Abdomen soft, nontender, positive bowel sounds. GENITOURINARY: [place] catheter to BSD w/clear yellow urine. MUSCULOSKELETAL: JARA w/o difficulty, NTTP, no evident deformity or clubbing. INTEGUMENTARY: Skin warm, dry & intact except for posterior cervical surgical incision w/intact dressing. No ulcerations, rashes or other lesions noted. NEUROLOGICAL: AAOx3 Speech slightly hoarse but appropriate Follows commands w/o any difficulty Sensation intact to light touch to all extremities Motor strength 4+ to 5/5 to BUE and 5/5 to BLE, apparent weakness due to pain, hand intrinsics not tested (Juan Chicas) Lab, Micro, Other Results Allergies Coded Allergies Type Severity Reaction Last Updated Verified E-Mycin Allergy Severe UNKNOWN 02/23/10 Yes Recent Impressions Cervical Spine X-Ray 10/03/16 0000 Signed Impressions: Service Date/Time: Monday, October 03, 2016 00:50 - CONCLUSION: Spinous process of C2 is localized. Ricco Beal MD Chest X-Ray 10/02/[id number] Signed Impressions: Service Date/Time: Sunday, October 02, 2016 19:35 - CONCLUSION: Mild hazy opacity in the right lung base. This could represent early infiltrate. Juan Carlos Powers MD Thoracic Spine MRI 10/02/16 0000 Signed Impressions: Service Date/Time: Sunday, October 02, 2016 20:16 - CONCLUSION: Unremarkable exam. Juan Carlos Powers MD Lumbar Spine MRI 10/02/16 0000 Signed Impressions: Service Date/Time: Sunday, October 02, 2016 20:16 - CONCLUSION: 1. No evidence of osteomyelitis. 2. Annular disc bulge at the L4-5 level with mild mass effect on the anterior thecal sac. 3. Mild degenerative disc and degenerative joint changes. Juan Carlos Powers MD Cervical Spine MRI 10/02/16 0000 Signed Impressions: Service Date/Time: Sunday, October 02, 2016 20:16 - CONCLUSION: 1. Large left lateral and posterior epidural collection as described most characteristic of an abscess. There is mass effect and flattening of the cervical cord with no definite abnormal signal or enhancement in the cord. 2. Extensive soft tissue swelling and edema surrounding the upper neck. The prevertebral soft tissues are edematous and thickened. 3. Disc bulges at the C3-4 and C5-6 levels. 4. No evidence of osteomyelitis. Juan Carlos Powers MD //// 06:00 18:00 06:00 18:00 06:00 18:00 Intake Total 2209 ml Output Total 1153 ml Balance 1056 ml Intake Oral 0 ml IV Total 809 ml Other 1400 ml Output Urine Total 1100 ml Drainage Total 3 ml Estimated Blood Loss 50 ml Laboratory Tests Test 10/02/16 10/02/16 10/03/16 10/03/16 19:35 23:15 02:23 04:15 White Blood Count 24.3 TH/MM3 15.0 TH/MM3 Red Blood Count 4.25 MIL/MM3 3.18 MIL/MM3 Hemoglobin 12.2 GM/DL 9.3 GM/DL Hematocrit 35.9 % 27.4 % Mean Corpuscular Volume 84.5 FL 86.1 FL Mean Corpuscular Hemoglobin 28.6 PG 29.4 PG Mean Corpuscular Hemoglobin 33.8 % 34.1 % Concent Red Cell Distribution Width 13.2 % 13.7 % Platelet Count 311 TH/MM3 218 TH/MM3 Mean Platelet Volume 8.4 FL 8.1 FL Neutrophils (%) (Auto) 79.8 % 85.3 % Lymphocytes (%) (Auto) 11.3 % 8.8 % Monocytes (%) (Auto) 8.5 % 5.6 % Eosinophils (%) (Auto) 0.0 % 0.1 % Basophils (%) (Auto) 0.4 % 0.2 % Neutrophils # (Auto) 19.4 TH/MM3 12.8 TH/MM3 Lymphocytes # (Auto) 2.7 TH/MM3 1.3 TH/MM3 Monocytes # (Auto) 2.1 TH/MM3 0.8 TH/MM3 Eosinophils # (Auto) 0.0 TH/MM3 0.0 TH/MM3 Basophils # (Auto) 0.1 TH/MM3 0.0 TH/MM3 CBC Comment AUTO DIFF DIFF FINAL Differential Comment AUTO DIFF CONFIRMED Dohle Bodies PRESENT Platelet Estimate NORMAL Platelet Morphology Comment NORMAL Erythrocyte Sedimentation Rate 102 mm/hr Prothrombin Time 11.9 SEC Prothromb Time International 1.1 RATIO Ratio Activated Partial 39.1 SEC Thromboplast Time Sodium Level 129 MEQ/L 139 MEQ/L Potassium Level 3.2 MEQ/L 3.2 MEQ/L Chloride Level 96 MEQ/L 107 MEQ/L Carbon Dioxide Level 22.6 MEQ/L 21.3 MEQ/L Anion Gap 10 MEQ/L 11 MEQ/L Blood Urea Nitrogen 26 MG/DL 23 MG/DL Creatinine 0.90 MG/DL 0.60 MG/DL Estimat Glomerular Filtration 68 ML/MIN 109 ML/MIN Rate Random Glucose 121 MG/DL 152 MG/DL Lactic Acid Level 1.2 mmol/L Calcium Level 8.9 MG/DL 7.3 MG/DL Total Bilirubin 0.7 MG/DL 0.6 MG/DL Aspartate Amino Transf 14 U/L 11 U/L (AST/SGOT) Alanine Aminotransferase 12 U/L 8 U/L (ALT/SGPT) Alkaline Phosphatase 82 U/L 60 U/L Total Creatine Kinase 61 U/L C-Reactive Protein 18.00 MG/DL Total Protein 8.5 GM/DL 6.4 GM/DL Albumin 2.8 GM/DL 2.0 GM/DL Ethyl Alcohol Level LESS THAN 3 MG/DL Urine Color YELLOW Urine Turbidity HAZY Urine pH 5.5 Urine Specific [place] 1.022 Urine Protein 30 mg/dL Urine Glucose (UA) NEG mg/dL Urine Ketones NEG mg/dL Urine Occult Blood MOD Urine Nitrite NEG Urine Bilirubin NEG Urine Urobilinogen LESS THAN 2.0 MG/DL Urine Leukocyte Esterase NEG Urine RBC 8 /hpf Urine WBC 4 /hpf Urine Squamous Epithelial 1 /hpf Cells Urine Transitional Epithelial <1 /hpf Cells Urine Amorphous Sediment RARE Urine Bacteria FEW /hpf Urine Mucus FEW /lpf Microscopic Urinalysis Comment CULT NOT INDICATED Urine Opiates Screen NEG Urine Barbiturates Screen NEG Urine Amphetamines Screen NEG Urine Benzodiazepines Screen NEG Urine Cocaine Screen NEG Urine Cannabinoids Screen NEG Protein Corrected Calcium 7.7 MG/DL Phosphorus Level 3.7 MG/DL Magnesium Level 1.6 MG/DL Nasal Screen MRSA (PCR) MRSA NOT DETECTED Test 10/03/16 07:01 Hepatitis A IgM Antibody NEGATIVE Hepatitis B Surface Antigen NEGATIVE Hepatitis B Core IgM Antibody NEGATIVE Hepatitis C Antibody REACTIVE Vital Signs Date Time Temp Pulse Resp B/P Pulse Ox O2 Delivery O2 Flow Rate FiO2 10/03/16 12:32 97 10/03/16 12:06 20 10/03/16 12:00 98.0 74 20 100/56 96 10/03/16 12:00 74 10/03/16 10:00 77 10/03/16 08:00 71 10/03/16 08:00 97.6 58 20 110/60 99 10/03/16 07:00 96 Room Air 21 10/03/16 07:00 98 Room Air 21 10/03/16 06:00 46 10/03/16 04:00 96 Room Air 10/03/16 04:00 96.1 50 20 106/58 96 Automatic Cuff 10/03/16 04:00 97.3 54 17 102/62 96 Nasal Cannula 2 95/52 10/03/16 04:00 50 10/03/16 03:45 59 18 104/56 98 Nasal Cannula 2 92/50 10/03/16 03:30 58 18 108/54 97 Nasal Cannula 2 91/50 10/03/16 03:15 56 19 96 Nasal Cannula 2 93/51 10/03/16 03:00 55 19 98/57 96 Nasal Cannula 2 96/52 10/03/16 02:45 51 21 112/65 100 Nasal Cannula 2 122/61 10/03/16 02:30 63 24 89/50 100 Simple Mask 6 88/46 10/03/16 02:15 65 24 105/57 100 Simple Mask 6 98/53 10/03/16 02:11 62 22 71/44 100 73/36 10/03/16 02:10 96.5 62 22 81/48 100 Simple Mask 6 10/02/16 23:05 58 18 82/54 96 Nasal Cannula 2 10/02/16 22:55 60 16 78/54 96 Nasal Cannula 2 10/02/16 15:26 98.3 117 15 112/68 95 (Juan Chicas) Medical Decision Making Impression and Plan Impression: 1. Cervical epidural abscess primarily C2-4 levels with significant dorsal cord compression without definite cord edema. 2. Significant cervical prevertebral inflammation without definite abscess formation 3. History of IV drug abuse 4. Cervical degenerative disc disease with moderate chronic appearing C5 6 posterior osteophytic disc complex with moderate stenosis without cord edema. POD #0 () s/p: Left C2-3 semi-laminectomy, evacuation epidural abscess Stable neurological examination Leukocytosis, improved (24.3=>15.0) Anaemia (12.2=>9.3) Hypokalemia (3.2=>3.2) Blood cultures x2 w/Gram positive cocci, one aerobic w/MRSA Plan: Primary management per [facility] Abx per Infectious Disease Frequent neuro checks PT eval & tx ST eval & tx D/C drain in AM CT neck soft tissues in AM, for increasing swelling, difficulty breathing or other concerns may do CT urgently/emergently Diet per (Juan Chicas) Attending Statement I have personally seen and examined the patient on the date of this note. Pertinent documentation and study results have been reviewed by the undersigned. I have personally developed the treatment plan and performed medical decision making. Agree with findings, exam, and treatment plan as noted above. The patient's neurologic exam per the undersigned today reveals possible mild increased edema over the left side of the neck along the sternocleidomastoid muscle versus 10/02/16 exam. However no significant erythema or palpable mass. She continues to have moderate difficulty with swallowing. She is nothing by mouth pending speech therapy evaluation. Infectious disease is following the patient and her antibiotics and ingested. Her neurologic exam today reveals no significant sensory motor dysfunction in the upper or lower extremities. Still has a few beats of left ankle clonus. Continuing ISC neuro checks and vital sign monitoring. Patient is at risk for respiratory problems due to rather severe prevertebral soft tissue inflammation and edema in the neck. Plan to discontinue drain on 10/04/16. Findings and treatment plan discussed with the patient as well as with her mother in the room today. (Marlo Flores MD) Juan Chicas Oct 03, 2016 14:25 Marlo Flores MD Oct 03, 2016 18:23
--- NOTE | 2016-10-03 14:27 | PD.ID.CON ---
History of Present Illness Service ID Consult Requested By Dr Sue Reason for Consult epidural abscess Primary Care Physician No Primary Care Physician Diagnoses: History of Present Illness 41-year-old female presented with fever, neck pain since 27 September The patient was seen at [facility] emergency room a few days ago, uncertain what testing was performed. Apparently patient received a couple of injections in the emergency room and was discharged. Patient does have a history of IV drug use. MRI showed large left lateral and posterior epidural collection as described most characteristic of an abscess with mass effect and flattening of the cervical cord with no definite abnormal signal or enhancement in the cord and extensive soft tissue swelling and edema surrounding the upper neck, prevertebral soft tissues are edematous and thickened. Blood clx growing MRSA, / bottles She was seen by neurosurgery last night , diagnosed with abscess in epidural space of cervical spine and underwent emergent Left C2-3 semi-laminectomy, evacuation epidural abscess by Dr Flores early this morning Review of Systems Except as stated in HPI: all other systems reviewed are Neg Past Family Social History Allergies: Coded Allergies: E-Mycin (Verified Allergy, Severe, UNKNOWN, 02/23/10) Past Medical History None Past Surgical History Carpal tunnel release Active Ordered Medications Medications where reviewed in EMR Antibiotics Include: vancomycin, zosyn Family History Cardiac disease on her mother's side and diabetes on her father's side. Social History She smokes 1 pack cigarettes a day No significant alcohol use Positive history IV drug use Physical Exam Vital Signs Vital Signs Date Time Temp Pulse Resp B/P Pulse Ox O2 Delivery O2 Flow Rate FiO2 10/03/16 12:32 97 10/03/16 12:06 20 10/03/16 12:00 98.0 74 20 100/56 96 10/03/16 12:00 74 10/03/16 10:00 77 10/03/16 08:00 71 10/03/16 08:00 97.6 58 20 110/60 99 10/03/16 07:00 96 Room Air 21 10/03/16 07:00 98 Room Air 21 10/03/16 06:00 46 10/03/16 04:00 96 Room Air 10/03/16 04:00 96.1 50 20 106/58 96 Automatic Cuff 10/03/16 04:00 97.3 54 17 102/62 96 Nasal Cannula 2 95/52 10/03/16 04:00 50 10/03/16 03:45 59 18 104/56 98 Nasal Cannula 2 92/50 10/03/16 03:30 58 18 108/54 97 Nasal Cannula 2 91/50 10/03/16 03:15 56 19 96 Nasal Cannula 2 93/51 10/03/16 03:00 55 19 98/57 96 Nasal Cannula 2 96/52 10/03/16 02:45 51 21 112/65 100 Nasal Cannula 2 122/61 10/03/16 02:30 63 24 89/50 100 Simple Mask 6 88/46 10/03/16 02:15 65 24 105/57 100 Simple Mask 6 98/53 10/03/16 02:11 62 22 71/44 100 73/36 10/03/16 02:10 96.5 62 22 81/48 100 Simple Mask 6 10/02/16 23:05 58 18 82/54 96 Nasal Cannula 2 10/02/16 22:55 60 16 78/54 96 Nasal Cannula 2 10/02/16 15:26 98.3 117 15 112/68 95 Physical Exam CONSTITUTIONAL/GENERAL: This is a malnourished desheveled patient, in no apparent distress. TUBES/LINES/DRAINS: SKIN: No jaundice, rashes, or lesions. + needle tracks in different stages of healing Skin temperature appropriate. Not diaphoretic. HEAD: Atraumatic. Normocephalic. EYES: Pupils equal and round and reactive. Extraocular motions intact. No scleral icterus. No injection or drainage. Fundi not examined. ENT: Hearing grossly normal. Nose without bleeding or purulent drainage. Throat without visible erythema, exudates, masses, or lesions. Poor dentition NECK: Trachea midline.+ tender. CARDIOVASCULAR: Regular rate and rhythm without murmurs, gallops, or rubs. No JVD. Peripheral pulses symmetric. RESPIRATORY/CHEST: Symmetric, unlabored respirations. Clear to auscultation. Breath sounds equal bilaterally. No wheezes, rales, or rhonchi. GASTROINTESTINAL: Abdomen soft, non-tender, nondistended. No hepato-splenomegaly , or palpable masses. No guarding. Bowel sounds present. GENITOURINARY: Without palpable bladder distension. MUSCULOSKELETAL: Extremities without clubbing, cyanosis, or edema. No mottling or clubbing. LYMPHATICS: No palpable cervical or supraclavicular adenopathy. NEUROLOGICAL: Awake and alert. Motor and sensory grossly within normal limits. Follows commands. Clear speeechp. Moves all extremities. PSYCHIATRIC: No obvious anxiety/depression. no apparent hallucinations or other psychotic thought process. Laboratory Laboratory Tests Test 10/02/16 10/02/16 10/03/16 10/03/16 19:35 23:15 02:23 04:15 White Blood Count 24.3 15.0 Red Blood Count 4.25 3.18 Hemoglobin 12.2 9.3 Hematocrit 35.9 27.4 Mean Corpuscular Volume 84.5 86.1 Mean Corpuscular Hemoglobin 28.6 29.4 Mean Corpuscular Hemoglobin 33.8 34.1 Concent Red Cell Distribution Width 13.2 13.7 Platelet Count 311 218 Mean Platelet Volume 8.4 8.1 Neutrophils (%) (Auto) 79.8 85.3 Lymphocytes (%) (Auto) 11.3 8.8 Monocytes (%) (Auto) 8.5 5.6 Eosinophils (%) (Auto) 0.0 0.1 Basophils (%) (Auto) 0.4 0.2 Neutrophils # (Auto) 19.4 12.8 Lymphocytes # (Auto) 2.7 1.3 Monocytes # (Auto) 2.1 0.8 Eosinophils # (Auto) 0.0 0.0 Basophils # (Auto) 0.1 0.0 CBC Comment AUTO DIFF DIFF FINAL Differential Comment AUTO DIFF CONFIRMED Dohle Bodies PRESENT Platelet Estimate NORMAL Platelet Morphology Comment NORMAL Erythrocyte Sedimentation Rate 102 Prothrombin Time 11.9 Prothromb Time International 1.1 Ratio Activated Partial 39.1 Thromboplast Time Sodium Level 129 139 Potassium Level 3.2 3.2 Chloride Level 96 107 Carbon Dioxide Level 22.6 21.3 Anion Gap 10 11 Blood Urea Nitrogen 26 23 Creatinine 0.90 0.60 Estimat Glomerular Filtration 68 109 Rate Random Glucose 121 152 Lactic Acid Level 1.2 Calcium Level 8.9 7.3 Total Bilirubin 0.7 0.6 Aspartate Amino Transf 14 11 (AST/SGOT) Alanine Aminotransferase 12 8 (ALT/SGPT) Alkaline Phosphatase 82 60 Total Creatine Kinase 61 C-Reactive Protein 18.00 Total Protein 8.5 6.4 Albumin 2.8 2.0 Ethyl Alcohol Level LESS THAN 3 Urine Color YELLOW Urine Turbidity HAZY Urine pH 5.5 Urine Specific [place] 1.022 Urine Protein 30 Urine Glucose (UA) NEG Urine Ketones NEG Urine Occult Blood MOD Urine Nitrite NEG Urine Bilirubin NEG Urine Urobilinogen LESS THAN 2.0 Urine Leukocyte Esterase NEG Urine RBC 8 Urine WBC 4 Urine Squamous Epithelial 1 Cells Urine Transitional Epithelial <1 Cells Urine Amorphous Sediment RARE Urine Bacteria FEW Urine Mucus FEW Microscopic Urinalysis Comment CULT NOT INDICATED Urine Opiates Screen NEG Urine Barbiturates Screen NEG Urine Amphetamines Screen NEG Urine Benzodiazepines Screen NEG Urine Cocaine Screen NEG Urine Cannabinoids Screen NEG Protein Corrected Calcium 7.7 Phosphorus Level 3.7 Magnesium Level 1.6 Nasal Screen MRSA (PCR) MRSA NOT DETECTED Test 10/03/16 07:01 Hepatitis A IgM Antibody NEGATIVE Hepatitis B Surface Antigen NEGATIVE Hepatitis B Core IgM Antibody NEGATIVE Hepatitis C Antibody REACTIVE Date/Time Procedure Status Source Growth 10/03/16 01:13 Gram Stain - Final Resulted Fluid Other 10/03/16 01:13 Body Fluid Culture Resulted Fluid Other Pending 10/03/16 01:13 Fungal Smear Received Fluid Other Pending 10/03/16 01:13 Fungal Culture Received Fluid Other Pending 10/03/16 01:13 Acid Fast Stain Received Fluid Other Pending 10/03/16 01:13 Mycobacterial Culture Received Fluid Other Pending 10/02/16 19:35 Aerobic Blood Culture - Preliminary Resulted Blood Peripheral Gram Positive Cocci 10/02/16 19:35 Anaerobic Blood Culture - Preliminary Resulted Gram Positive Cocci Result Diagram: 10/03/163 10/03/163 Imaging Last Impressions Cervical Spine X-Ray 10/03/16 0000 Signed Impressions: Service Date/Time: Monday, October 03, 2016 00:50 - CONCLUSION: Spinous process of C2 is localized. Ricco Beal MD Chest X-Ray 10/02/16 192 Signed Impressions: Service Date/Time: Sunday, October 02, 2016 19:35 - CONCLUSION: Mild hazy opacity in the right lung base. This could represent early infiltrate. Juan Carlos Powers MD Thoracic Spine MRI 10/02/16 0000 Signed Impressions: Service Date/Time: Sunday, October 02, 2016 20:16 - CONCLUSION: Unremarkable exam. Juan Carlos Powers MD Lumbar Spine MRI 10/02/16 0000 Signed Impressions: Service Date/Time: Sunday, October 02, 2016 20:16 - CONCLUSION: 1. No evidence of osteomyelitis. 2. Annular disc bulge at the L4-5 level with mild mass effect on the anterior thecal sac. 3. Mild degenerative disc and degenerative joint changes. Juan Carlos Powers MD Cervical Spine MRI 10/02/16 0000 Signed Impressions: Service Date/Time: Sunday, October 02, 2016 20:16 - CONCLUSION: 1. Large left lateral and posterior epidural collection as described most characteristic of an abscess. There is mass effect and flattening of the cervical cord with no definite abnormal signal or enhancement in the cord. 2. Extensive soft tissue swelling and edema surrounding the upper neck. The prevertebral soft tissues are edematous and thickened. 3. Disc bulges at the C3-4 and C5-6 levels. 4. No evidence of osteomyelitis. Juan Carlos Powers MD Assessment and Plan Assessment and Plan Cervical spine epiduralk abscess Left C2-3 semi-laminectomy, evacuation epidural abscess on 10/03 high grade MRSA bacteremia IVDU cont vancomycin 2 D echo repeat blood clx - Possibly ÁNGEL pending 2 D echo results Discussed Condition With family at b/s pt Mouna Caldwell MD Oct 03, 2016 14:27
[2016-10-03] MEDS ORDERED: Vancomycin Consult Pharmacy 1 EA OTHER SCH (14:30)
--- NOTE | 2016-10-03 16:28 | HHI.HP ---
HPI Service Critical Care Medicine Primary Care Physician No Primary Care Physician Admission Diagnosis cervical epidural abscess, sepsis, IV drug abuse Diagnosis: Chief Complaint: Neck pain Travel History International Travel<30 Days: No Contact w/Intl Traveler <30 Da: No Traveled to Known Affected Are: No History of Present Illness 41-year-old white female presents to emergency department comely by her mother for evaluation of neck pain. The patient states that she's been having sudden onset of severe neck pain for the past 4 days. She states that she had awoken from sleep at 3 AM 4 days ago. She states that she is unable to move her head. She has not been able to eat she's felt rundown, weak area and she states that she felt that she had some stool incontinence. She had diarrhea. Patient has a history of IV substance abuse. She states that she has been sober now since 2011. Her mother states that she does not believe that she is been sober. The patient admits to subjective fever and chills, headache, severe neck pain and stiffness. Decreased appetite with nausea. No vomiting. No abdominal pain. No urinary symptoms. No numbness, tingling or weakness. She does feel off balance and feels that she may fall over. The patient was seen at [facility] emergency room a few days ago, received a couple of injections in the emergency room and was discharged. MRI showed large left lateral and posterior epidural collection as described most characteristic of an abscess with mass effect and flattening of the cervical cord with no definite abnormal signal or enhancement in the cord and extensive soft tissue swelling and edema surrounding the upper neck, prevertebral soft tissues are edematous and thickened. Patient was evaluated by neurosurgery for epidural abscess involving C-spine and underwent emergent left C2-3 laminectomy with evacuation of epidural abscess. She was extubated following the procedure and transferred to [facility]. I evaluated the patient around 6 AM this morning. At that time she was drowsy, arousable, moving all 4 extremities. History was obtained by reviewing records and discussion with nursing staff. No family members available at the time of my evaluation. PFSH Past Medical History Narrative Medical IV drug abuse, carpal tunnel, chronic back pain Diminished Hearing: No Fibromyalgia: Yes Musculoskeletal: Yes (SCIATICA- CHRONIC BACK PAIN) Tetanus Vaccination: < 5 Years ?: Not : 1 : 1 Past Surgical History Narrative Surgical Bilateral carpal tunnel release Social History Alcohol Use: Yes (SOCIAL) Tobacco Use: Yes (PPD) Substance Use: Yes (TAKES MARSHAL AND XANAX) Allergies-Medications (Allergen,Severity, Reaction): Coded Allergies: E-Mycin (Verified Allergy, Severe, UNKNOWN, 02/23/10) Reported Meds & Prescriptions Reported Meds & Active Scripts Active No Active Prescriptions or Reported Medications Review of Systems Difficult to be obtained as patient was drowsy postoperatively following anesthesia and unable to give details. Physical Exam Vital Signs Vital Signs Date Time Temp Pulse Resp B/P Pulse Ox O2 Delivery O2 Flow Rate FiO2 10/03/16 12:32 97 10/03/16 12:06 20 10/03/16 12:00 98.0 74 20 100/56 96 10/03/16 12:00 74 10/03/16 10:00 77 10/03/16 08:00 71 10/03/16 08:00 97.6 58 20 110/60 99 10/03/16 07:00 96 Room Air 21 10/03/16 07:00 98 Room Air 21 10/03/16 06:00 46 10/03/16 04:00 96 Room Air 10/03/16 04:00 96.1 50 20 106/58 96 Automatic Cuff 10/03/16 04:00 97.3 54 17 102/62 96 Nasal Cannula 2 95/52 10/03/16 04:00 50 10/03/16 03:45 59 18 104/56 98 Nasal Cannula 2 92/50 10/03/16 03:30 58 18 108/54 97 Nasal Cannula 2 91/50 10/03/16 03:15 56 19 96 Nasal Cannula 2 93/51 10/03/16 03:00 55 19 98/57 96 Nasal Cannula 2 96/52 10/03/16 02:45 51 21 112/65 100 Nasal Cannula 2 122/61 10/03/16 02:30 63 24 89/50 100 Simple Mask 6 88/46 10/03/16 02:15 65 24 105/57 100 Simple Mask 6 98/53 10/03/16 02:11 62 22 71/44 100 73/36 10/03/16 02:10 96.5 62 22 81/48 100 Simple Mask 6 10/02/16 23:05 58 18 82/54 96 Nasal Cannula 2 10/02/16 22:55 60 16 78/54 96 Nasal Cannula 2 Physical Exam Physical Exam Narrative GENERAL: Well-developed, well-nourished female laying in bed in no acute distress HEAD: Normocephalic, atraumatic. EYES: Pupils equal round and reactive. No scleral icterus. No injection or drainage. ENT: Nose clear. Dry mucous membranes. Throat without erythema, tonsillar hypertrophy or exudate. Uvula midline. Airway patent. NECK: Trachea midline. Dressing over neck with RUDI drains in place. CARDIOVASCULAR: Regular rate and rhythm without murmurs, gallops, or rubs. RESPIRATORY: Clear to auscultation. Breath sounds equal bilaterally. No wheezes , rales, or rhonchi. GASTROINTESTINAL: Abdomen soft, non-tender, nondistended. No hepato-splenomegaly , or palpable masses. No guarding. EXTREMITIES: No clubbing, cyanosis, or edema. No joint tenderness. BACK: Nontender without deformity. No flank tenderness. NEUROLOGICAL: Drowsy, arousable.Cranial nerves grossly intact. Gait not tested. Deep tendon reflexes are 3+ bilaterally. Motor and sensory grossly within normal limits. Laboratory Laboratory Tests Test 10/02/16 10/02/16 10/03/16 10/03/16 19:35 23:15 02:23 04:15 White Blood Count 24.3 15.0 Red Blood Count 4.25 3.18 Hemoglobin 12.2 9.3 Hematocrit 35.9 27.4 Mean Corpuscular Volume 84.5 86.1 Mean Corpuscular Hemoglobin 28.6 29.4 Mean Corpuscular Hemoglobin 33.8 34.1 Concent Red Cell Distribution Width 13.2 13.7 Platelet Count 311 218 Mean Platelet Volume 8.4 8.1 Neutrophils (%) (Auto) 79.8 85.3 Lymphocytes (%) (Auto) 11.3 8.8 Monocytes (%) (Auto) 8.5 5.6 Eosinophils (%) (Auto) 0.0 0.1 Basophils (%) (Auto) 0.4 0.2 Neutrophils # (Auto) 19.4 12.8 Lymphocytes # (Auto) 2.7 1.3 Monocytes # (Auto) 2.1 0.8 Eosinophils # (Auto) 0.0 0.0 Basophils # (Auto) 0.1 0.0 CBC Comment AUTO DIFF DIFF FINAL Differential Comment AUTO DIFF CONFIRMED Dohle Bodies PRESENT Platelet Estimate NORMAL Platelet Morphology Comment NORMAL Erythrocyte Sedimentation Rate 102 Prothrombin Time 11.9 Prothromb Time International 1.1 Ratio Activated Partial 39.1 Thromboplast Time Sodium Level 129 139 Potassium Level 3.2 3.2 Chloride Level 96 107 Carbon Dioxide Level 22.6 21.3 Anion Gap 10 11 Blood Urea Nitrogen 26 23 Creatinine 0.90 0.60 Estimat Glomerular Filtration 68 109 Rate Random Glucose 121 152 Lactic Acid Level 1.2 Calcium Level 8.9 7.3 Total Bilirubin 0.7 0.6 Aspartate Amino Transf 14 11 (AST/SGOT) Alanine Aminotransferase 12 8 (ALT/SGPT) Alkaline Phosphatase 82 60 Total Creatine Kinase 61 C-Reactive Protein 18.00 Total Protein 8.5 6.4 Albumin 2.8 2.0 Ethyl Alcohol Level LESS THAN 3 Urine Color YELLOW Urine Turbidity HAZY Urine pH 5.5 Urine Specific [place] 1.022 Urine Protein 30 Urine Glucose (UA) NEG Urine Ketones NEG Urine Occult Blood MOD Urine Nitrite NEG Urine Bilirubin NEG Urine Urobilinogen LESS THAN 2.0 Urine Leukocyte Esterase NEG Urine RBC 8 Urine WBC 4 Urine Squamous Epithelial 1 Cells Urine Transitional Epithelial <1 Cells Urine Amorphous Sediment RARE Urine Bacteria FEW Urine Mucus FEW Microscopic Urinalysis Comment CULT NOT INDICATED Urine Opiates Screen NEG Urine Barbiturates Screen NEG Urine Amphetamines Screen NEG Urine Benzodiazepines Screen NEG Urine Cocaine Screen NEG Urine Cannabinoids Screen NEG Protein Corrected Calcium 7.7 Phosphorus Level 3.7 Magnesium Level 1.6 Nasal Screen MRSA (PCR) MRSA NOT DETECTED Test 10/03/16 07:01 Hepatitis A IgM Antibody NEGATIVE Hepatitis B Surface Antigen NEGATIVE Hepatitis B Core IgM Antibody NEGATIVE Hepatitis C Antibody REACTIVE Date/Time Procedure Status Source Growth 10/03/16 01:13 Gram Stain - Final Resulted Fluid Other 10/03/16 01:13 Body Fluid Culture Resulted Fluid Other Pending 10/03/16 01:13 Fungal Smear Received Fluid Other Pending 10/03/16 01:13 Fungal Culture Received Fluid Other Pending 10/03/16 01:13 Acid Fast Stain Received Fluid Other Pending 10/03/16 01:13 Mycobacterial Culture Received Fluid Other Pending 10/02/16 19:35 Aerobic Blood Culture - Preliminary Resulted Blood Peripheral Gram Positive Cocci 10/02/16 19:35 Anaerobic Blood Culture - Preliminary Resulted Gram Positive Cocci Result Diagram: 10/03/1622210/03/16222 Imaging Last Impressions Cervical Spine X-Ray 10/03/16 0000 Signed Impressions: Service Date/Time: Monday, October 03, 2016 00:50 - CONCLUSION: Spinous process of C2 is localized. Ricco Beal MD Chest X-Ray 10/02/161921 Signed Impressions: Service Date/Time: Sunday, October 02, 2016 19:35 - CONCLUSION: Mild hazy opacity in the right lung base. This could represent early infiltrate. Juan Carlos Powers MD Thoracic Spine MRI 10/02/16 0000 Signed Impressions: Service Date/Time: Sunday, October 02, 2016 20:16 - CONCLUSION: Unremarkable exam. Juan Carlos Powers MD Lumbar Spine MRI 10/02/16 0000 Signed Impressions: Service Date/Time: Sunday, October 02, 2016 20:16 - CONCLUSION: 1. No evidence of osteomyelitis. 2. Annular disc bulge at the L4-5 level with mild mass effect on the anterior thecal sac. 3. Mild degenerative disc and degenerative joint changes. Juan Carlos Powers MD Cervical Spine MRI 10/02/16 0000 Signed Impressions: Service Date/Time: Sunday, October 02, 2016 20:16 - CONCLUSION: 1. Large left lateral and posterior epidural collection as described most characteristic of an abscess. There is mass effect and flattening of the cervical cord with no definite abnormal signal or enhancement in the cord. 2. Extensive soft tissue swelling and edema surrounding the upper neck. The prevertebral soft tissues are edematous and thickened. 3. Disc bulges at the C3-4 and C5-6 levels. 4. No evidence of osteomyelitis. Juan Carlos Powers MD Septic Shock Reassessment Heart: Regular rate and rhythm Lungs: Clear Skin: Warm Peripheral Pulses: Bounding Right Radial Capillary Refill: Brisk Assessment and Plan Assessment and Plan 41-year-old female with: Cervical spine epidural abscess status post decompression Left C2-3 semi- laminectomy, evacuation epidural abscess (10/02) Sepsis MRSA bacteremia History of IV drug abuse Plan: Neuro: Follow neuro status. Continue pain medications as ordered by neurosurgery. Status post evacuation of C-spine epidural abscess with decompression left CT to 3 semi-laminectomy on 10/[address] Flores. Cardiovascular: Follow-up 2-D echo. IV hydration, watch for hypotension. Pulmonary: Supplemental O2 as needed. Watch airway. Bronchodilators as needed. GI/liver: Nothing by mouth for now till cleared by neurosurgery. Renal/: IV hydration, strict intake output, monitor and replete electrolytes, follow BUN/creatinine. ID: Follow-up cultures. Blood cultures with MRSA. ID consulted. On cefepime and vancomycin IV. Cefepime discontinued by ID. Continue antibiotics per ID. Follow-up 2-D echo to evaluate for endocarditis. Heme: Follow CBC Prophylaxis: PPI/SCDs. Subcutaneous heparin when okay with neurosurgery. Condition critical. Concern regarding airway and may require reintubation. Time spent on critical care excluding procedures 50 minutes Mir Carrasco MD Oct 03, 2016 16:28
[2016-10-04] VITALS (12 sets, daily range): BP systolic 93–113; BP diastolic 50–66; PULSE 60–108; RESP 20–26; TEMP 98.1–100.9; O2SAT 96–98
[2016-10-04] MEDS: VANCOMYCIN 1,000 MG/NS 250 ML IV SCH ×4 (00:59→14:22)
[2016-10-04] MEDS: CHLORHEXIDINE GLUCONATE 2 % 1 PACK (2 CLOTHS) TOP SCH (04:00)
[2016-10-04 05:02] LABS: ALKALINE PHOSPHATASE 62 U/L (45-117); ALT (GPT) 10 U/L (10-53); ANION GAP 6 MEQ/L (5-15); AST (GOT) 8 U/L (15-37); BICARBONATE 21.8 MEQ/L (21.0-32.0); BLOOD UREA NITROGEN 20 MG/DL (7-18); CHLORIDE 113 MEQ/L (98-107); GLOMERULAR FILTRATION RATE 138 ML/MIN (>89); POTASSIUM 4.8 MEQ/L (3.5-5.1); SODIUM (NA) 141 MEQ/L (136-145); TOTAL BILIRUBIN ADULT 0.3 MG/DL (0.2-1.0)
[2016-10-04 05:26] LABS: AUTOMATED NEUTROPHIL # 20.9 TH/MM3 (1.8-7.7); BASOPHIL % 0.1 % (0.0-2.0); HEMATOCRIT 28.4 % (35.0-46.0); HEMO FLAGS DIFF FINAL; LYMPH % 8.5 % (9.0-44.0); MEAN CELL VOLUME 86.2 FL (80.0-100.0); MEAN CORPUSCULAR HEMOGLOBIN 28.9 PG (27.0-34.0); MEAN CORPUSCULAR HGB CONC 33.6 % (32.0-36.0); MONO % 3.8 % (0.0-8.0); NEUT % 87.6 % (16.0-70.0); PLATELET COUNT 249 TH/MM3 (150-450); RED BLOOD COUNT 3.29 MIL/MM3 (4.00-5.30); RED CELL DISTRIBUTION WIDTH 13.8 % (11.6-17.2); WHITE BLOOD COUNT 23.9 TH/MM3 (4.0-11.0)
[2016-10-04] MEDS: MORPHINE SULFATE 8 MG/ML INJ IV PUSH PRN ×5 (06:48→23:56)
[2016-10-04] MEDS: NS + KCL 20 MEQ INJ 1,000 ML IV SCH ×2 (07:26→15:25)
[2016-10-04] MEDS: SODIUM CHLORIDE 0.9% FLUSH 10 ML FLUSH IV FLUSH SCH ×2 (07:53→21:00)
[2016-10-04] MEDS: PANTOPRAZOLE SODIUM 40 MG VIAL IV SCH (07:53)
[2016-10-04] MEDS: DOCUSATE SODIUM 50 MG/SENNA 8.6 MG TAB PO SCH ×2 (07:53→21:17)
[2016-10-04] MEDS ORDERED: IOHEXOL 350 MG/ML 10 ML VIAL (for RAD DIAG) IV ONE (09:26)
--- NOTE | 2016-10-04 09:49 | RADRPT ---
EXAM DATE/TIME: 10/04/2016 09:16 [place] COMPARISON: No previous studies available for comparison. INDICATIONS : Difficulty breathing IV CONTRAST: 50 cc Omnipaque 350 (iohexol) IV RADIATION DOSE: 16.30 CTDIvol (mGy) MEDICAL HISTORY : None SURGICAL HISTORY : cervical epidural abscess removal ENCOUNTER: Initial ACUITY: 1 day PAIN SCALE: 4/10 LOCATION: neck TECHNIQUE: Volumetric scanning of the neck was performed. Using automated exposure control and adjustment of th e mA and/or kV according to patient size, radiation dose was kept as low as reasonably achievable to obtain optimal diagnostic quality images. DICOM format image data is available electronically for r eview and comparison. FINDINGS: The examination demonstrates postsurgical changes in the neck posteriorly as well as the lamina and u pper cervical spine consistent with patient's history of epidural abscess removal. The soft tissues of the nasopharynx, oropharynx and larynx are unremarkable. The prevertebral soft ti ssues are unremarkable. No significant jugular or posterior cervical adenopathy is present. The thyroid is intact.. The limited portion of pulmonary parenchyma visualized demonstrate patchy groundglass infiltrate in t he left upper lobe concerning for possible pneumonia. CT of the chest would be of benefit for further assessment. CONCLUSION: 1. No definite abnormality of the nasopharynx oropharynx or larynx identified. 2. The patient has postsurgical changes in the neck and cervical spine consistent with previous epidu ral abscess drainage. 3. Multiple areas of groundglass infiltrate in the left upper lobe nonspecific but concerning for an underlying pneumonia. CT imaging of the chest would be warranted for further assessment. Kobe Carpenter MD on October 04, 2016 at 9:35 Board Certified Radiologist. This report was verified electronically.
--- NOTE | 2016-10-04 10:44 | ECHRPT ---
Indication: CONCLUSIONS Normal LV function. Excellent study quality. No evidence of endocarditis. BP: 102 / 62 HR: Rhythm: Sinus MEASUREMENTS (Male / Female) Normal Values Technical Quality:Fair 2D ECHO LV Diastolic Diameter PLAX 5.0 cm 4.2 - 5.9 / 3.9 - 5.3 cm LV Systolic Diameter PLAX 3.6 cm IVS Diastolic Thickness 0.5 cm 0.6 - 1.0 / 0.6 - 0.9 cm LVPW Diastolic Thickness 0.5 cm 0.6 - 1.0 / 0.6 - 0.9 cm LV Relative Wall Thickness 0.2 RV Internal Dim ED PLAX 2.1 cm LVOT Diameter 1.9 cm Aortic Root Diameter 2.5 cm LA Systolic Diameter LX 2.8 cm 3.0 - 4.0 / 2.7 - 3.8 cm M-MODE AV Cusp Separation MM 2.1 cm DOPPLER AV Peak Velocity 139.0 cm/s AV Peak Gradient 7.7 mmHg AV Mean Gradient 4.0 mmHg AV Velocity Time Integral 29.6 cm LVOT Peak Velocity 101.0 cm/s LVOT Peak Gradient 4.1 mmHg LVOT Velocity Time Integral 20.3 cm AV Area Cont Eq vti 1.9 cm AV Area Cont Eq pk 2.1 cm Mitral E Point Velocity 94.8 cm/s Mitral A Point Velocity 68.6 cm/s Mitral E to A Ratio 1.4 LV E' Lateral Velocity 7.6 cm/s Mitral E to LV E' Lateral Ratio 12.5 LV E' Septal Velocity 8.5 cm/s Mitral E to LV E' Septal Ratio 11.2 TR Peak Velocity 276.0 cm/s TR Peak Gradient 30.5 mmHg FINDINGS LEFT VENTRICLE Normal left ventricular size. Wall thickness is normal. The left ventricular systolic function is normal with an estimated ejection fraction in the range of 60-65%. No regional wall motion abnormalities are present. Left ventricular diastolic function parameters are normal. RIGHT VENTRICLE Normal right ventricular size and systolic function. LEFT ATRIUM The left atrium was not well visualized. The left atrial size is normal. The left atrium was not well visualized. RIGHT ATRIUM The right atrial size is normal. ATRIAL SEPTUM Normal atrial septal thickness without atrial level shunting by limited color doppler interrogation. AORTA The aortic root and proximal ascending aorta are not well visualized. The aortic root and proximal ascending aorta are not well visualized. The aortic root and proximal ascending aorta are normal in size on limited imaging. MITRAL VALVE Structurally normal mitral valve. No mitral valve stenosis or regurgitation. AORTIC VALVE Trileaflet aortic valve. No aortic valve stenosis or regurgitation. TRICUSPID VALVE Structurally normal tricuspid valve. There is trace tricuspid valve regurgitation. Modesto Bo MD Edited by: EduKoala CV Senior Telecommunications Technician (Electronically Signed) Final Date:03 October 2016 12:25 Amended: 04 October 2016 10:42
--- NOTE | 2016-10-04 10:57 | HHI.NSPN ---
(Juan Chicas) History Chief Complaint: Neck pain (Juan Chicas) Interval History 10/02: 41-year-old female who according to her mother came home on 27 September not feeling well. She went to bed for most of the day. Over the past few days she has complained of progressive neck pain and has not been out of bed much in the past couple of days. The patient was seen at [facility] emergency room a few days ago. The mother is uncertain what testing was performed. The patient received a couple of injections in the emergency room and was discharged. The patient's mother states that she has been trying for the past 2 or 3 days to get the patient back to the emergency room and the patient has not wanted to get out of better, and the hospital. Patient's mother states that she believes the patient had a fever yesterday. This morning she had diarrhea. No nausea or vomiting. No definite confusion. Patient complains of severe neck pain. No significant pain weakness or numbness in the extremities or loss of bowel or bladder function. Patient does have a history of IV drug use. 10/03: The patient went for a laminectomy & evacuation of a cervical abscess early this morning. Prior to being seen this afternoon Nursing called and stated that the patient's neck appeared swollen and that the patient felt like she had a lump to the throat. Dr Flores was notified and stated that the patient did have a significant amount of pharyngeal inflammation. When seen the patient complained of pain to the neck. She did state that if she tried to get up the pain went to the top of her head. 10/04: The patient complains of pain to the neck and states she is not able to lean her neck on anything. She states that she wasn't able to sleep during the night due to the pain. She went for a CT soft tissue neck this morning which was unremarkable for any abnormality of the nasopharynx, oropharynx or larynx with post-surgical changes noted. An incidental finding of the left upper lobe w /groundglass infiltrate is suspicious for REGAN pneumonia. (Juan Chicas ) Exam Results Vital Signs Date Time Temp Pulse Resp B/P Pulse Ox O2 Delivery O2 Flow Rate FiO2 10/04/16 10:00 87 10/04/16 08:27 Nasal Cannula 10/04/16 08:00 98.7 26 101/61 98 Arterial Line 10/03/16 20:10 21 10/03/16 04:00 2 Intake and Output 10/03/16 10/03/16 10/04/16 08:00 16:00 00:00 Intake Total 2209 ml 955 ml 1185 ml Output Total 1153 ml 1150 ml 810 ml Balance 1056 ml -195 ml 375 ml (Juan Chicas) Physical Examination GENERAL: This is a thin female who appears mildly distressed, readily interacts , affect remains flat. HEENT: Normocephalic, atraumatic. NECK: Diffuse midline & paravertebral TTP, intact surgical dressing w/shadowing to mid dressing. Anterior neck minimally swollen but TTP. CARDIOVASCULAR: S1S2 w/RRR w/o M/G/R, radial & pedal pulses 2+ bilaterally, cap refill < 2 sec, no pedal edema. Monitor is sinus rhythm w/o any ectopy noted. RESPIRATORY: Slightly coarse breath sounds bilaterally, equal excursion, nonlaboured, on RA. GASTROINTESTINAL: Abdomen soft, nontender, positive bowel sounds. GENITOURINARY: Grullon catheter to BSD w/clear yellow urine. MUSCULOSKELETAL: JARA w/o difficulty, NTTP, no evident deformity or clubbing. INTEGUMENTARY: Skin warm, dry & intact except for posterior cervical surgical incision w/intact dressing. No ulcerations, rashes or other lesions noted. NEUROLOGICAL: AAOx3 Speech minimally hoarse but appropriate Follows commands w/o any difficulty Sensation intact to light touch to all extremities Motor strength 5/5 to all major flexion & extension muscle groups (Juan Chicas) Lab, Micro, Other Results Allergies Coded Allergies Type Severity Reaction Last Updated Verified E-Mycin Allergy Severe UNKNOWN 02/23/10 Yes *MDRO Multi-Drug Resistant Organism Adverse Reaction Unknown 10/04/16 Yes Recent Impressions Neck CT 10/04/16 0600 Signed Impressions: Service Date/Time: Tuesday, October 04, 2016 09:16 - CONCLUSION: 1. No definite abnormality of the nasopharynx oropharynx or larynx identified. 2. The patient has postsurgical changes in the neck and cervical spine consistent with previous epidural abscess drainage. 3. Multiple areas of groundglass infiltrate in the left upper lobe nonspecific but concerning for an underlying pneumonia. CT imaging of the chest would be warranted for further assessment. Kobe Carpenter MD Cervical Spine X-Ray 10/03/16 0000 Signed Impressions: Service Date/Time: Monday, October 03, 2016 00:50 - CONCLUSION: Spinous process of C2 is localized. Ricco Beal MD Chest X-Ray 10/02/[id number] Signed Impressions: Service Date/Time: Sunday, October 02, 2016 19:35 - CONCLUSION: Mild hazy opacity in the right lung base. This could represent early infiltrate. Juan Carlos Powers MD Thoracic Spine MRI 10/02/16 0000 Signed Impressions: Service Date/Time: Sunday, October 02, 2016 20:16 - CONCLUSION: Unremarkable exam. Juan Carlos Powers MD Lumbar Spine MRI 10/02/16 0000 Signed Impressions: Service Date/Time: Sunday, October 02, 2016 20:16 - CONCLUSION: 1. No evidence of osteomyelitis. 2. Annular disc bulge at the L4-5 level with mild mass effect on the anterior thecal sac. 3. Mild degenerative disc and degenerative joint changes. Juan Carlos Powers MD Cervical Spine MRI 10/02/16 0000 Signed Impressions: Service Date/Time: Sunday, October 02, 2016 20:16 - CONCLUSION: 1. Large left lateral and posterior epidural collection as described most characteristic of an abscess. There is mass effect and flattening of the cervical cord with no definite abnormal signal or enhancement in the cord. 2. Extensive soft tissue swelling and edema surrounding the upper neck. The prevertebral soft tissues are edematous and thickened. 3. Disc bulges at the C3-4 and C5-6 levels. 4. No evidence of osteomyelitis. Juan Carlos Powers MD //// 06:00 18:00 06:00 18:00 06:00 18:00 Intake Total 2209 ml 955 ml 2095 ml Output Total 1153 ml 1150 ml 1380 ml Balance 1056 ml -195 ml 715 ml Intake Oral 0 ml IV Total 809 ml 955 ml 2095 ml Other 1400 ml Output Urine Total 1100 ml 1150 ml 1350 ml Drainage Total 3 ml 30 ml Estimated Blood Loss 50 ml # Bowel Movements 2 0 Laboratory Tests Test 10/02/16 10/02/16 10/03/16 10/03/16 19:35 23:15 02:23 04:15 White Blood Count 24.3 TH/MM3 15.0 TH/MM3 Red Blood Count 4.25 MIL/MM3 3.18 MIL/MM3 Hemoglobin 12.2 GM/DL 9.3 GM/DL Hematocrit 35.9 % 27.4 % Mean Corpuscular Volume 84.5 FL 86.1 FL Mean Corpuscular Hemoglobin 28.6 PG 29.4 PG Mean Corpuscular Hemoglobin 33.8 % 34.1 % Concent Red Cell Distribution Width 13.2 % 13.7 % Platelet Count 311 TH/MM3 218 TH/MM3 Mean Platelet Volume 8.4 FL 8.1 FL Neutrophils (%) (Auto) 79.8 % 85.3 % Lymphocytes (%) (Auto) 11.3 % 8.8 % Monocytes (%) (Auto) 8.5 % 5.6 % Eosinophils (%) (Auto) 0.0 % 0.1 % Basophils (%) (Auto) 0.4 % 0.2 % Neutrophils # (Auto) 19.4 TH/MM3 12.8 TH/MM3 Lymphocytes # (Auto) 2.7 TH/MM3 1.3 TH/MM3 Monocytes # (Auto) 2.1 TH/MM3 0.8 TH/MM3 Eosinophils # (Auto) 0.0 TH/MM3 0.0 TH/MM3 Basophils # (Auto) 0.1 TH/MM3 0.0 TH/MM3 CBC Comment AUTO DIFF DIFF FINAL Differential Comment AUTO DIFF CONFIRMED Dohle Bodies PRESENT Platelet Estimate NORMAL Platelet Morphology Comment NORMAL Erythrocyte Sedimentation Rate 102 mm/hr Prothrombin Time 11.9 SEC Prothromb Time International 1.1 RATIO Ratio Activated Partial 39.1 SEC Thromboplast Time Sodium Level 129 MEQ/L 139 MEQ/L Potassium Level 3.2 MEQ/L 3.2 MEQ/L Chloride Level 96 MEQ/L 107 MEQ/L Carbon Dioxide Level 22.6 MEQ/L 21.3 MEQ/L Anion Gap 10 MEQ/L 11 MEQ/L Blood Urea Nitrogen 26 MG/DL 23 MG/DL Creatinine 0.90 MG/DL 0.60 MG/DL Estimat Glomerular Filtration 68 ML/MIN 109 ML/MIN Rate Random Glucose 121 MG/DL 152 MG/DL Lactic Acid Level 1.2 mmol/L Calcium Level 8.9 MG/DL 7.3 MG/DL Total Bilirubin 0.7 MG/DL 0.6 MG/DL Aspartate Amino Transf 14 U/L 11 U/L (AST/SGOT) Alanine Aminotransferase 12 U/L 8 U/L (ALT/SGPT) Alkaline Phosphatase 82 U/L 60 U/L Total Creatine Kinase 61 U/L C-Reactive Protein 18.00 MG/DL Total Protein 8.5 GM/DL 6.4 GM/DL Albumin 2.8 GM/DL 2.0 GM/DL Ethyl Alcohol Level LESS THAN 3 MG/DL Urine Color YELLOW Urine Turbidity HAZY Urine pH 5.5 Urine Specific Joaquin 1.022 Urine Protein 30 mg/dL Urine Glucose (UA) NEG mg/dL Urine Ketones NEG mg/dL Urine Occult Blood MOD Urine Nitrite NEG Urine Bilirubin NEG Urine Urobilinogen LESS THAN 2.0 MG/DL Urine Leukocyte Esterase NEG Urine RBC 8 /hpf Urine WBC 4 /hpf Urine Squamous Epithelial 1 /hpf Cells Urine Transitional Epithelial <1 /hpf Cells Urine Amorphous Sediment RARE Urine Bacteria FEW /hpf Urine Mucus FEW /lpf Microscopic Urinalysis Comment CULT NOT INDICATED Urine Opiates Screen NEG Urine Barbiturates Screen NEG Urine Amphetamines Screen NEG Urine Benzodiazepines Screen NEG Urine Cocaine Screen NEG Urine Cannabinoids Screen NEG Protein Corrected Calcium 7.7 MG/DL Phosphorus Level 3.7 MG/DL Magnesium Level 1.6 MG/DL Nasal Screen MRSA (PCR) MRSA NOT DETECTED Test 10/03/16 10/04/16 07:01 04:10 Hepatitis A IgM Antibody NEGATIVE Hepatitis B Surface Antigen NEGATIVE Hepatitis B Core IgM Antibody NEGATIVE Hepatitis C Antibody REACTIVE White Blood Count 23.9 TH/MM3 Red Blood Count 3.29 MIL/MM3 Hemoglobin 9.5 GM/DL Hematocrit 28.4 % Mean Corpuscular Volume 86.2 FL Mean Corpuscular Hemoglobin 28.9 PG Mean Corpuscular Hemoglobin 33.6 % Concent Red Cell Distribution Width 13.8 % Platelet Count 249 TH/MM3 Mean Platelet Volume 9.3 FL Neutrophils (%) (Auto) 87.6 % Lymphocytes (%) (Auto) 8.5 % Monocytes (%) (Auto) 3.8 % Eosinophils (%) (Auto) 0.0 % Basophils (%) (Auto) 0.1 % Neutrophils # (Auto) 20.9 TH/MM3 Lymphocytes # (Auto) 2.0 TH/MM3 Monocytes # (Auto) 0.9 TH/MM3 Eosinophils # (Auto) 0.0 TH/MM3 Basophils # (Auto) 0.0 TH/MM3 CBC Comment DIFF FINAL Differential Comment Sodium Level 141 MEQ/L Potassium Level 4.8 MEQ/L Chloride Level 113 MEQ/L Carbon Dioxide Level 21.8 MEQ/L Anion Gap 6 MEQ/L Blood Urea Nitrogen 20 MG/DL Creatinine 0.49 MG/DL Estimat Glomerular Filtration 138 ML/MIN Rate Random Glucose 106 MG/DL Calcium Level 8.0 MG/DL Total Bilirubin 0.3 MG/DL Aspartate Amino Transf 8 U/L (AST/SGOT) Alanine Aminotransferase 10 U/L (ALT/SGPT) Alkaline Phosphatase 62 U/L Total Protein 6.3 GM/DL Albumin 1.9 GM/DL Vital Signs Date Time Temp Pulse Resp B/P Pulse Ox O2 Delivery O2 Flow Rate FiO2 10/04/16 10:00 87 10/04/16 08:27 Nasal Cannula 10/04/16 08:00 72 10/04/16 08:00 98.7 72 26 101/61 98 Arterial Line 10/04/16 07:00 99 Room Air 10/04/16 06:00 71 10/04/16 04:00 65 10/04/16 04:00 98.1 68 23 102/64 97 10/04/16 02:00 70 10/04/16 00:00 98.6 60 21 99/57 97 10/04/16 00:00 71 10/03/16 20:10 99 21 10/03/16 20:00 98.7 70 17 118/71 98 10/03/16 20:00 70 10/03/16 20:00 99 Room Air 21 10/03/16 19:58 15 10/03/16 18:00 70 10/03/16 17:00 98.5 66 18 114/62 98 10/03/16 16:00 66 10/03/16 14:00 69 10/03/16 12:32 97 10/03/16 12:00 98.0 74 20 100/56 96 10/03/16 12:00 74 10/03/16 10:00 77 10/03/16 08:00 71 10/03/16 08:00 97.6 58 20 110/60 99 10/03/16 07:00 96 Room Air 21 10/03/16 07:00 98 Room Air 21 10/03/16 06:00 46 10/03/16 04:00 96 Room Air 10/03/16 04:00 96.1 50 20 106/58 96 Automatic Cuff 10/03/16 04:00 97.3 54 17 102/62 96 Nasal Cannula 2 95/52 10/03/16 04:00 50 10/03/16 03:45 59 18 104/56 98 Nasal Cannula 2 92/50 10/03/16 03:30 58 18 108/54 97 Nasal Cannula 2 91/50 10/03/16 03:15 56 19 96 Nasal Cannula 2 93/51 10/03/16 03:00 55 19 98/57 96 Nasal Cannula 2 96/52 10/03/16 02:45 51 21 112/65 100 Nasal Cannula 2 122/61 10/03/16 02:30 63 24 89/50 100 Simple Mask 6 88/46 10/03/16 02:15 65 24 105/57 100 Simple Mask 6 98/53 10/03/16 02:11 62 22 71/44 100 73/36 10/03/16 02:10 96.5 62 22 81/48 100 Simple Mask 6 10/02/16 23:05 58 18 82/54 96 Nasal Cannula 2 10/02/16 22:55 60 16 78/54 96 Nasal Cannula 2 10/02/16 15:26 98.3 117 15 112/68 95 (Juan Chicas) Medical Decision Making Impression and Plan Impression: 1. Cervical epidural abscess primarily C2-4 levels with significant dorsal cord compression without definite cord edema. 2. Significant cervical prevertebral inflammation without definite abscess formation 3. History of IV drug abuse 4. Cervical degenerative disc disease with moderate chronic appearing C5 6 posterior osteophytic disc complex with moderate stenosis without cord edema. Stable neurological examination, pain not controlled CT soft tissue neck w/o any noted abnormality of the nasopharynx, oropharynx or larynx, post-surgical changes noted, left upper lobe w/groundglass infiltrate suspicious for REGAN pneumonia Leukocytosis, interval worsening (15.0=>23.9) Anaemia, stable (9.3=>9.5) Hypokalemia, resolved (3.2=>4.8) Blood cultures x2 w/Gram positive cocci, one aerobic w/MRSA High grade MRSA bacteremia per ID POD #1 () s/p: Left C2-3 semi-laminectomy, evacuation epidural abscess Plan: Primary management per [facility] Solderer Abx per Infectious Disease, currently on vancomycin Frequent neuro checks PT eval & tx ST eval & tx Diet per ST (Juan Chicas) Impression and Plan I have personally seen and examined the patient on the date of this note. Pertinent documentation and study results have been reviewed by the undersigned. I have personally developed the treatment plan and performed medical decision making. Agree with findings, exam, and treatment plan as noted above. Patient is awake and alert this morning, she is out of bed. Hoarseness of voice and swallowing seemed to be slowly improving. Upper and lower extremity sensorimotor function intact on today's examination. Clonus is now 3-4 beats on the left with flexor left plantar response. Improved compared to preoperative. Continuing IV antibiotics. Plan to check an MRI of the cervical spine later this week to make certain that there is no significant residual spinal cord compression and assess the prevertebral inflammation. (Marlo Flores MD) Juan Chicas Oct 04, 2016 10:56 Marlo Flores MD Oct 04, 2016 12:12
--- NOTE | 2016-10-04 13:22 | HHI.PR ---
Subjective Remarks Follow-up for cervical spine epidural abscess Patient complaining of neck pain. She stated that is not controlled. She denied any upper extremity or lower extreme weakness. Her nurse stated that patient did not require any pain medication at night. She only asked for when she is up. Patient remains afebrile. Objective Vitals Vital Signs Date Time Temp Pulse Resp B/P Pulse Ox O2 Delivery O2 Flow Rate FiO2 10/04/16 12:00 95 10/04/16 12:00 98.7 93 26 111/66 98 10/04/16 10:00 87 10/04/16 08:27 Nasal Cannula 10/04/16 08:00 72 10/04/16 08:00 98.7 72 26 101/61 98 Arterial Line 10/04/16 07:00 99 Room Air 10/04/16 06:00 71 10/04/16 04:00 65 10/04/16 04:00 98.1 68 23 102/64 97 10/04/16 02:00 70 10/04/16 00:00 98.6 60 21 99/57 97 10/04/16 00:00 71 10/03/16 20:10 99 21 10/03/16 20:00 98.7 70 17 118/71 98 10/03/16 20:00 70 10/03/16 20:00 99 Room Air 21 10/03/16 19:58 15 10/03/16 18:00 70 10/03/16 17:00 98.5 66 18 114/62 98 10/03/16 16:00 66 10/03/16 14:00 69 I/O 10/03/16 10/03/16 10/03/16 10/04/16 10/04/16 10/04/16 07:00 15:00 23:00 07:00 15:00 23:00 Intake Total 2209 ml 955 ml 1185 ml 910 ml Output Total 1153 ml 1150 ml 810 ml 570 ml Balance 1056 ml -195 ml 375 ml 340 ml Intake Oral 0 ml IV Total 809 ml 955 ml 1185 ml 910 ml Other 1400 ml Output Urine Total 1100 ml 1150 ml 800 ml 550 ml Drainage Total 3 ml 10 ml 20 ml Estimated Blood Loss 50 ml # Bowel Movements 2 0 0 Result Diagram: 10/04/160 10/04/16 0410 Imaging Last Impressions Neck CT 10/04/16 0600 Signed Impressions: Service Date/Time: Tuesday, October 04, 2016 09:16 - CONCLUSION: 1. No definite abnormality of the nasopharynx oropharynx or larynx identified. 2. The patient has postsurgical changes in the neck and cervical spine consistent with previous epidural abscess drainage. 3. Multiple areas of groundglass infiltrate in the left upper lobe nonspecific but concerning for an underlying pneumonia. CT imaging of the chest would be warranted for further assessment. Kobe Carpenter MD Cervical Spine X-Ray 10/03/16 0000 Signed Impressions: Service Date/Time: Monday, October 03, 2016 00:50 - CONCLUSION: Spinous process of C2 is localized. Ricco Beal MD Chest X-Ray 10/02/16 192 Signed Impressions: Service Date/Time: Sunday, October 02, 2016 19:35 - CONCLUSION: Mild hazy opacity in the right lung base. This could represent early infiltrate. Juan Carlos Powers MD Thoracic Spine MRI 10/02/16 0000 Signed Impressions: Service Date/Time: Sunday, October 02, 2016 20:16 - CONCLUSION: Unremarkable exam. Juan Carlos Powers MD Lumbar Spine MRI 10/02/16 0000 Signed Impressions: Service Date/Time: Sunday, October 02, 2016 20:16 - CONCLUSION: 1. No evidence of osteomyelitis. 2. Annular disc bulge at the L4-5 level with mild mass effect on the anterior thecal sac. 3. Mild degenerative disc and degenerative joint changes. Juan Carlos Powers MD Cervical Spine MRI 10/02/16 0000 Signed Impressions: Service Date/Time: Sunday, October 02, 2016 20:16 - CONCLUSION: 1. Large left lateral and posterior epidural collection as described most characteristic of an abscess. There is mass effect and flattening of the cervical cord with no definite abnormal signal or enhancement in the cord. 2. Extensive soft tissue swelling and edema surrounding the upper neck. The prevertebral soft tissues are edematous and thickened. 3. Disc bulges at the C3-4 and C5-6 levels. 4. No evidence of osteomyelitis. Juan Carlos Powers MD Objective Remarks GENERAL: in NAD NECK: no ROM due to pain. patient wont move neck. EYES: No scleral icterus. No injection or drainage. NECK: Supple, trachea midline. No JVD or lymphadenopathy. CARDIOVASCULAR: Regular rate and rhythm without murmurs, gallops, or rubs. RESPIRATORY: Breath sounds equal bilaterally. No accessory muscle use. GASTROINTESTINAL: Abdomen soft, non-tender, nondistended. MUSCULOSKELETAL: 5/5 upper and lower ext strength. sensation grossly intact. BACK: Nontender without obvious deformity. No CVA tenderness. Medications and IVs Current Medications Sodium Chloride 1,000 ml @ 999 mls/hr BOLUS ONCE IV Last administered on 19:45; Start 10/02/16 at 19:30; Stop 10/02/16 at 20:30; Status DC Sodium Chloride 1,000 ml @ 999 mls/hr BOLUS ONCE IV Last administered on 19:46; Start 10/02/16 at 19:30; Stop 10/02/16 at 20:30; Status DC Vancomycin HCl/ Sodium Chloride (Vancomycin Inj/ NS 250 ml Inj) 261.5 ml @ 250 mls/hr ONCE ONCE IV ; Start 10/02/16 at 19:30; Stop 10/02/16 at 20:32; Status Cancel Acetaminophen (Tylenol) 1,000 mg ONCE ONCE PO Last administered on 10/02/16 19 :47; Start 10/02/16 at 19:45; Stop 10/02/16 at 19:46; Status DC Lorazepam (Ativan Inj) 1 mg ONCE ONCE IV PUSH Last administered on 10/02/16 19 :46; Start 10/02/16 at 19:45; Stop 10/02/16 at 19:46; Status DC Hydromorphone HCl 0.5 mg 0.5 mg ONCE ONCE IV PUSH Last administered on 19:47; Start 10/02/16 at 19:45; Stop 10/02/16 at 19:46; Status DC Piperacillin Sod/ Tazobactam Sod (Zosyn 4.5 Gm Premix) 100 ml @ 200 mls/hr ONCE ONCE IV Last administered on 10/02/16 23:07; Start 10/02/16 at 20:15; Stop 10/02/16 at 20:44; Status DC Gadodiamide 10 ml 10 ml STK-MED ONCE IV Last administered on 10/02/16 20:37; Start 10/02/16 at 20:50; Stop 10/02/16 at 20:51; Status DC Piperacillin Sod/ Tazobactam Sod 50 ml @ 100 mls/hr Q6H IV ; Start 10/03/16 at 02:00; Stop 10/03/16 at 03:03; Status DC Pharmacy Profile Note 0 ml @ 0 mls/hr UNSCH OTHER ; Start 10/02/16 at 22:15; Stop 10/03/16 at 14:27; Status DC Sodium Chloride (NS 1000 ml Inj) 1,000 ml @ 84 mls/hr [id number] IV Last administered on 10/02/16 23:07; Start 10/02/16 at 22:06; Stop 10/03/16 at 02:36; Status DC Sodium Chloride (NS Flush) 2 ml UNSCH PRN IV FLUSH FLUSH AFTER USING IV ACCESS ; Start 10/02/16 at 22:15 Sodium Chloride (NS Flush) 2 ml BID IV FLUSH Last administered on 10/04/16 07: 53; Start 10/03/16 at 09:00 Morphine Sulfate (Morphine Inj) 2 mg Q2H PRN IV PUSH PAIN SCALE 6 TO 10 Last administered on 10/04/16 13:11; Start 10/02/16 at 22:15 Pantoprazole Sodium (Protonix Inj) 40 mg DAILY IV Last administered on 07:53; Start 10/03/16 at 09:00 Ondansetron HCl (Zofran Inj) 4 mg Q6H PRN IV NAUSEA OR VOMITING; Start 10/02/16 at 22:15 Albuterol Sulfate (Albuterol Neb) 2.5 mg Q2HR NEB PRN INH SOB/WHEEZING; Start 10/02/16 at 22:15 Miscellaneous Information 1 [id number] XX ; Start 10/02/16 at 22:15 Chlorhexidine Gluconate (Chlorhexidine 2% Cloth) 3 pack Taper DAILY@04 TOP Last administered on 10/04/16 04:00; Start 10/03/16 at 04:00; Stop 09/29/17 at 03:59 Chlorhexidine Gluconate (Chlorhexidine 2% Cloth) 3 pack UNSCH PRN TOP HYGIENIC CARE; Start 10/02/16 at 22:15 Senna/Docusate Sodium (Loree-Colace) 1 tab BID PO Last administered on 07:53; Start 10/03/16 at 09:00 Magnesium Hydroxide (Milk Of Magnesia Liq) 30 ml Q12H PRN PO MILD - MODERATE CONSTIPATION; Start 10/02/16 at 22:15 Sennosides (Senokot) 17.2 mg Q12H PRN PO MODERATE - SEVERE CONSTIPATION; Start 10/02/16 at 22:15 Bisacodyl 10 mg 10 mg DAILY PRN RECTAL SEVERE CONSITIPATION; Start 10/02/16 at 22:15 Potassium Chloride 100 ml @ 50 mls/hr BOLUS ONCE IV Last administered on 23:07; Start 10/02/16 at 22:15; Stop 10/03/16 at 00:14; Status DC Vancomycin HCl/ Sodium Chloride (Vancomycin Inj/ NS 250 ml Inj) 256.5 ml @ 250 mls/hr Q12H IV Last administered on 10/03/16 02:57; Start 10/03/16 at 02:00; Stop 10/03/16 at 14:31; Status DC Miscellaneous Information SPECIFIC LAB TO BE DRAWN:VA... ONCE ONCE .XX ; Start 10/04/16 at 13:45; Stop 10/04/16 at 13:46 Thrombin (Thrombin Top Soln) 10,000 units STK-MED ONCE OTHER Last administered on 10/03/16 00:41; Start 10/03/16 at 00:41; Stop 10/03/16 at 01:20; Status DC Gelatin (Gelfoam 100 Top) 1 foam STK-MED ONCE OTHER Last administered on 00:41; Start 10/03/16 at 00:41; Stop 10/03/16 at 01:20; Status DC Gentamicin Sulfate (Gentamicin Inj) 240 mg STK-MED ONCE IRRIGATION Last administered on 10/03/16 00:41; Start 10/03/16 at 00:41; Stop 10/03/16 at 01:20 ; Status DC Lidocaine/ Epinephrine (Xylocaine-Epi 1%-1:100,000 Inj) 30 ml STK-MED ONCE INFIL Last administered on 10/03/16 00:41; Start 10/03/16 at 00:41; Stop 10/03 at 01:20; Status DC Phenylephrine HCl 40 mg 40 mg STK-MED ONCE .ROUTE ; Start 10/03/16 at 02:13; Stop 10/03/16 at 02:14; Status DC Phenylephrine HCl/ Dextrose (Neosynephrine Inj/D5W 500 ml Inj) 500 ml @ 0 mls/ hr TITRATE IV Last administered on 10/03/16 02:20; Start 10/03/16 at 03:30 Terbutaline Sulfate 1 mg 1 mg UNSCH PRN SQ For Extravasation; Start 10/03/16 at 02:30 Potassium Chloride/Sodium Chloride (NS + KCl 20 Meq Inj) 1,000 ml @ 100 mls/hr Q10H IV Last administered on 10/04/16 07:26; Start 10/03/16 at 02:30 Midazolam HCl (Versed Inj) 2 mg STK-MED ONCE .ROUTE ; Start 10/03/16 at 02:43; Stop 10/03/16 at 02:44; Status DC Fentanyl Citrate (fentaNYL INJ) 100 mcg STK-MED ONCE .ROUTE ; Start 10/03/16 at 02:43; Stop 10/03/16 at 02:44; Status DC Fentanyl Citrate 250 mcg 250 mcg STK-MED ONCE .ROUTE ; Start 10/03/16 at 02:43; Stop 10/03/16 at 02:44; Status DC Piperacillin Sod/ Tazobactam Sod (Zosyn 3.375 Gm Premix) 50 ml @ 100 mls/hr Q6H IV Last administered on 10/03/16 11:00; Start 10/03/16 at 05:00; Stop 01/10 at 14:29; Status DC Miscellaneous Information ALL NURSING DEPARTME... UNSCH PRN .XX SEE LABEL COMMENTS; Start 10/03/16 at 02:00; Stop 10/04/16 at 01:59; Status DC Potassium Chloride 100 ml @ 50 mls/hr Q2H PRN IV For Potassium 2.8 - 3.2 mEq/L ; Start 10/03/16 at 03:45 Potassium Chloride (KCl 20 Meq Premix Inj) 100 ml @ 50 mls/hr Q2H PRN IV For Potassium 2.8 - 3.2 mEq/L Last administered on 10/03/16 04:48; Start 10/03/16 at 03:45 Potassium Bicarb/ Potassium Chloride 50 meq 50 meq UNSCH PRN PO For Potassium 3.3 - 3.5 mEq/L; Start 10/03/16 at 03:45 Potassium Chloride 100 ml @ 25 mls/hr UNSCH PRN IV For Potassium 3.3 - 3.5 mEq /L; Start 10/03/16 at 03:45 Potassium Chloride 100 ml @ 50 mls/hr Q2H PRN IV For Potassium 3.3 - 3.5 mEq/L ; Start 10/03/16 at 03:45 Magnesium Sulfate/ Sodium Chloride (Magnesium Sulfate Inj/NS Inj) 100 ml @ 50 mls/hr UNSCH PRN IV For Magnesium 0.9 - 1.1 mg/dL; Start 10/03/16 at 03:45 Magnesium Oxide 800 mg 800 mg UNSCH PRN PO For Magnesium 1.2 - 1.6 mg/dL; Start 10/03/16 at 03:45 Magnesium Sulfate/ Sodium Chloride (Magnesium Sulfate Inj/NS Inj) 100 ml @ 50 mls/hr UNSCH PRN IV For Magnesium 1.2 - 1.6 mg/dL; Start 10/03/16 at 03:45 Potassium Phosphate 2000 mg 2,000 mg Q4H PRN PO For Phosphorus < 2.5 mg/dL; Start 10/03/16 at 03:45 Sodium Phosphate/ Sodium Chloride (Sodium Phosphate Inj/NS 250 ml Inj) 250 ml @ 42 mls/hr UNSCH PRN IV For Phosphorus < 2.5 mg/dL; Start 10/03/16 at 03:45 Potassium Phosphate 2000 mg 2,000 mg UNSCH PRN PO/TUBE SEE LABEL COMMENTS; Start 10/03/16 at 03:45 Potassium Phosphate 30 mmol/ Sodium Chloride 260 ml @ 42 mls/hr UNSCH PRN IV SEE LABEL COMMENTS; Start 10/03/16 at 03:45 Norepinephrine Bitartrate 250 ml @ As Directed STK-MED ONCE IV ; Start at 06:35; Stop 10/03/16 at 06:36; Status DC Norepinephrine Bitartrate 250 ml @ 0 mls/hr TITRATE IV Last administered on t 08:02; Start 10/03/16 at 08:00 Pharmacy Profile Note 0 ml @ 0 mls/hr UNSCH OTHER ; Start 10/03/16 at 14:30 Vancomycin HCl 1000 mg/Sodium Chloride 250 ml @ 250 mls/hr Q12H IV ; Start 01/10 at 12:00; Stop 10/03/16 at 15:13; Status DC Vancomycin HCl/ Sodium Chloride (Vancomycin Inj/ NS 250 ml Inj) 250 ml @ 250 mls/hr Q12H IV Last administered on 10/04/16 00:59; Start 10/03/16 at 14:00 Iohexol (Omnipaque 350 Inj) 50 ml STK-MED ONCE IV Last administered on 09:26; Start 10/04/16 at 09:26; Stop 10/04/16 at 09:27; Status DC A/P Assessment and Plan 41-year-old female with hx of IVDU p/w neck pain Cervical spine epidural abscess -status post decompression Left C2-3 semi-laminectomy, evacuation epidural abscess (10/02) -Neurosurgery following. Continue PT/OT/ST. They also plan to check an MRI of the cervical spine later this week to make certain that there is no significant residual spinal compression and assess the prevertebral inflammation. -wound cultures grew and blood cultures + MRSA. zosyn d/c yesterday. on vancomycin. -continue vancomycin per ID Sepsis/MRSA bacteremia -Management per infectious disease. -Echo does not suggest endocarditis. -May consider ÁNGEL. -Patient is on vancomycin. History of IV drug abuse -Education given. -Will be cautious with pain medication. Prophylaxis: PPI/SCDs. Subcutaneous heparin when okay with neurosurgery. Summer Wetzel MD Oct 04, 2016 13:22 Summer Wetzel MD Oct 04, 2016 13:22
[2016-10-04] MEDS ORDERED: PHARMACY ORDERED LAB ONE (13:45)
--- NOTE | 2016-10-04 14:45 | HHI.IDPN ---
Subjective Subjective Remarks pt co sever neck pain CT did not show abscess No fever growing MRSA in blood 06/28 and abscess clx 2 D echo negative for veg's Antibiotics vancomycin Allergies: Coded Allergies: E-Mycin (Verified Allergy, Severe, UNKNOWN, 02/23/10) *MDRO Multi-Drug Resistant Organism (Verified Adverse Reaction, Unknown, ) MRSA (Blood) 10/02/16 Objective . Vital Signs Date Time Temp Pulse Resp B/P Pulse Ox O2 Delivery O2 Flow Rate FiO2 10/04/16 14:00 93 10/04/16 12:00 95 10/04/16 12:00 98.7 93 26 111/66 98 10/04/16 10:00 87 10/04/16 08:27 Nasal Cannula 10/04/16 08:00 72 10/04/16 08:00 98.7 72 26 101/61 98 Arterial Line 10/04/16 07:00 99 Room Air 10/04/16 06:00 71 10/04/16 04:00 65 10/04/16 04:00 98.1 68 23 102/64 97 10/04/16 02:00 70 10/04/16 00:00 98.6 60 21 99/57 97 10/04/16 00:00 71 10/03/16 20:10 99 21 10/03/16 20:00 98.7 70 17 118/71 98 10/03/16 20:00 70 10/03/16 20:00 99 Room Air 21 10/03/16 19:58 15 10/03/16 18:00 70 10/03/16 17:00 98.5 66 18 114/62 98 10/03/16 16:00 66 10/03/16 10/03/16 10/04/16 15:00 23:00 07:00 Intake Total 955 ml 1185 ml 910 ml Output Total 1150 ml 810 ml 570 ml Balance -195 ml 375 ml 340 ml IV Total 955 ml 1185 ml 910 ml Output Urine Total 1150 ml 800 ml 550 ml Drainage Total 10 ml 20 ml # Bowel Movements 2 0 0 . Laboratory Tests Test 10/02/16 10/03/16 10/04/16 19:35 02:23 04:10 White Blood Count 24.3 TH/MM3 15.0 TH/MM3 23.9 TH/MM3 Red Blood Count 4.25 MIL/MM3 3.18 MIL/MM3 3.29 MIL/MM3 Hemoglobin 12.2 GM/DL 9.3 GM/DL 9.5 GM/DL Hematocrit 35.9 % 27.4 % 28.4 % Mean Corpuscular Volume 84.5 FL 86.1 FL 86.2 FL Mean Corpuscular Hemoglobin 28.6 PG 29.4 PG 28.9 PG Mean Corpuscular Hemoglobin 33.8 % 34.1 % 33.6 % Concent Red Cell Distribution Width 13.2 % 13.7 % 13.8 % Platelet Count 311 TH/MM3 218 TH/MM3 249 TH/MM3 Mean Platelet Volume 8.4 FL 8.1 FL 9.3 FL Neutrophils (%) (Auto) 79.8 % 85.3 % 87.6 % Lymphocytes (%) (Auto) 11.3 % 8.8 % 8.5 % Monocytes (%) (Auto) 8.5 % 5.6 % 3.8 % Eosinophils (%) (Auto) 0.0 % 0.1 % 0.0 % Basophils (%) (Auto) 0.4 % 0.2 % 0.1 % Neutrophils # (Auto) 19.4 TH/MM3 12.8 TH/MM3 20.9 TH/MM3 Lymphocytes # (Auto) 2.7 TH/MM3 1.3 TH/MM3 2.0 TH/MM3 Monocytes # (Auto) 2.1 TH/MM3 0.8 TH/MM3 0.9 TH/MM3 Eosinophils # (Auto) 0.0 TH/MM3 0.0 TH/MM3 0.0 TH/MM3 Basophils # (Auto) 0.1 TH/MM3 0.0 TH/MM3 0.0 TH/MM3 CBC Comment AUTO DIFF DIFF FINAL DIFF FINAL Differential Comment AUTO DIFF CONFIRMED Dohle Bodies PRESENT Platelet Estimate NORMAL Platelet Morphology Comment NORMAL Erythrocyte Sedimentation Rate 102 mm/hr Laboratory Tests Test 10/02/16 10/03/16 10/04/16 19:35 02:23 04:10 Sodium Level 129 MEQ/L 139 MEQ/L 141 MEQ/L Potassium Level 3.2 MEQ/L 3.2 MEQ/L 4.8 MEQ/L Chloride Level 96 MEQ/L 107 MEQ/L 113 MEQ/L Carbon Dioxide Level 22.6 MEQ/L 21.3 MEQ/L 21.8 MEQ/L Anion Gap 10 MEQ/L 11 MEQ/L 6 MEQ/L Blood Urea Nitrogen 26 MG/DL 23 MG/DL 20 MG/DL Creatinine 0.90 MG/DL 0.60 MG/DL 0.49 MG/DL Estimat Glomerular Filtration 68 ML/MIN 109 ML/MIN 138 ML/MIN Rate Random Glucose 121 MG/DL 152 MG/DL 106 MG/DL Lactic Acid Level 1.2 mmol/L Calcium Level 8.9 MG/DL 7.3 MG/DL 8.0 MG/DL Total Bilirubin 0.7 MG/DL 0.6 MG/DL 0.3 MG/DL Aspartate Amino Transf 14 U/L 11 U/L 8 U/L (AST/SGOT) Alanine Aminotransferase 12 U/L 8 U/L 10 U/L (ALT/SGPT) Alkaline Phosphatase 82 U/L 60 U/L 62 U/L Total Creatine Kinase 61 U/L C-Reactive Protein 18.00 MG/DL Total Protein 8.5 GM/DL 6.4 GM/DL 6.3 GM/DL Albumin 2.8 GM/DL 2.0 GM/DL 1.9 GM/DL Protein Corrected Calcium 7.7 MG/DL Phosphorus Level 3.7 MG/DL Magnesium Level 1.6 MG/DL Microbiology Date/Time Procedure Status Source Growth 10/02/16 19:30 Aerobic Blood Culture - Preliminary Resulted Blood Peripheral S. Aureus Mrsa 10/02/16 19:30 Anaerobic Blood Culture - Final Resulted S. Aureus Mrsa 10/02/16 19:35 Aerobic Blood Culture - Final Complete Blood Peripheral S. Aureus Mrsa 10/02/16 19:35 Anaerobic Blood Culture - Final Complete S. Aureus Mrsa 10/03/16 01:13 Gram Stain - Final Resulted Fluid Other 10/03/16 01:13 Body Fluid Culture - Preliminary Resulted S. Aureus Mrsa 10/03/16 01:13 Acid Fast Stain - Final Resulted Fluid Other NO ACID FAST BACILLI SEEN 10/03/16 01:13 Mycobacterial Culture Resulted Fluid Other Pending 10/03/16 01:13 Fungal Smear Worksheet Fluid Other Pending 10/03/16 01:13 Fungal Culture Worksheet Fluid Other Pending Imaging Last Impressions Neck CT 10/04/16 0600 Signed Impressions: Service Date/Time: Tuesday, October 04, 2016 09:16 - CONCLUSION: 1. No definite abnormality of the nasopharynx oropharynx or larynx identified. 2. The patient has postsurgical changes in the neck and cervical spine consistent with previous epidural abscess drainage. 3. Multiple areas of groundglass infiltrate in the left upper lobe nonspecific but concerning for an underlying pneumonia. CT imaging of the chest would be warranted for further assessment. Kobe Carpenter MD Cervical Spine X-Ray 10/03/16 0000 Signed Impressions: Service Date/Time: Monday, October 03, 2016 00:50 - CONCLUSION: Spinous process of C2 is localized. Ricco Beal MD Chest X-Ray 10/02/161921 Signed Impressions: Service Date/Time: Sunday, October 02, 2016 19:35 - CONCLUSION: Mild hazy opacity in the right lung base. This could represent early infiltrate. Juan Carlos Powers MD Thoracic Spine MRI 10/02/16 0000 Signed Impressions: Service Date/Time: Sunday, October 02, 2016 20:16 - CONCLUSION: Unremarkable exam. Juan Carlos Powers MD Lumbar Spine MRI 10/02/16 0000 Signed Impressions: Service Date/Time: Sunday, October 02, 2016 20:16 - CONCLUSION: 1. No evidence of osteomyelitis. 2. Annular disc bulge at the L4-5 level with mild mass effect on the anterior thecal sac. 3. Mild degenerative disc and degenerative joint changes. Juan Carlos Powers MD Cervical Spine MRI 10/02/16 0000 Signed Impressions: Service Date/Time: Sunday, October 02, 2016 20:16 - CONCLUSION: 1. Large left lateral and posterior epidural collection as described most characteristic of an abscess. There is mass effect and flattening of the cervical cord with no definite abnormal signal or enhancement in the cord. 2. Extensive soft tissue swelling and edema surrounding the upper neck. The prevertebral soft tissues are edematous and thickened. 3. Disc bulges at the C3-4 and C5-6 levels. 4. No evidence of osteomyelitis. Juan Carlos Powers MD Physical Exam CONSTITUTIONAL/GENERAL: This is a malnourished desheveled patient, in no apparent distress. TUBES/LINES/DRAINS: SKIN: No jaundice, rashes, or lesions. + needle tracks in different stages of healing Skin temperature appropriate. Not diaphoretic. HEAD: Atraumatic. Normocephalic. EYES: Pupils equal and round and reactive. Extraocular motions intact. No scleral icterus. No injection or drainage. Fundi not examined. ENT: Hearing grossly normal. Nose without bleeding or purulent drainage. Throat without visible erythema, exudates, masses, or lesions. Poor dentition NECK: Trachea midline.+ tender. stiff Pt can move her neck a little bit Incison on posterior neck is with minimal serosangious drainage CARDIOVASCULAR: Regular rate and rhythm without murmurs, gallops, or rubs. No JVD. Peripheral pulses symmetric. RESPIRATORY/CHEST: Symmetric, unlabored respirations. Clear to auscultation. Breath sounds equal bilaterally. No wheezes, rales, or rhonchi. GASTROINTESTINAL: Abdomen soft, non-tender, nondistended. No hepato-splenomegaly , or palpable masses. No guarding. Bowel sounds present. GENITOURINARY: Without palpable bladder distension. MUSCULOSKELETAL: Extremities without clubbing, cyanosis, or edema. LYMPHATICS: No palpable cervical or supraclavicular adenopathy. NEUROLOGICAL: Awake and alert. Motor and sensory grossly within normal limits. Follows commands. Clear speech. Moves all extremities. PSYCHIATRIC: No obvious anxiety/depression. no apparent hallucinations or other psychotic thought process. Assessment & Plan Remarks Cervical spine epiduralk abscess Left C2-3 semi-laminectomy, evacuation epidural abscess on 10/03 high grade MRSA bacteremia IVDU cont vancomycin, keep trough 15-20 consult cardiology for ÁNGEL (dw Dr Sandra PETERS to have ÁNGEL from neurosurgery [facility]) repeat blood clx dw Mouna Coleman MD Oct 04, 2016 14:45
[2016-10-04] MEDS: ACETAMINOPHEN 325 MG TAB PO PRN ×2 (18:13→21:17)
[2016-10-05] VITALS (12 sets, daily range): BP systolic 92–117; BP diastolic 61–70; PULSE 66–110; RESP 19–30; TEMP 97.9–101.5; O2SAT 95–100
[2016-10-05] MEDS: VANCOMYCIN INJ 800 MG in SODIUM CHLOR 0.9% 250 ML INJ 250 ML IV SCH ×4 (00:01→23:19)
[2016-10-05] MEDS: CHLORHEXIDINE GLUCONATE 2 % 1 PACK (2 CLOTHS) TOP SCH (04:00)
[2016-10-05] MEDS: NS + KCL 20 MEQ INJ 1,000 ML IV SCH ×2 (04:30→14:27)
[2016-10-05] MEDS: ACETAMINOPHEN 325 MG TAB PO PRN ×2 (06:18→16:15)
[2016-10-05] MEDS: SODIUM CHLORIDE 0.9% FLUSH 10 ML FLUSH IV FLUSH SCH ×2 (07:34→20:06)
[2016-10-05] MEDS: PANTOPRAZOLE SODIUM 40 MG VIAL IV SCH (07:34)
[2016-10-05] MEDS: DOCUSATE SODIUM 50 MG/SENNA 8.6 MG TAB PO SCH ×2 (07:34→20:05)
[2016-10-05] MEDS: MORPHINE SULFATE 8 MG/ML INJ IV PUSH PRN ×2 (09:59→14:27)
--- NOTE | 2016-10-05 13:44 | HHI.NSPN ---
(Juan Chicas) History Chief Complaint: Neck & throat pain (Juan Chicas) Interval History 10/02: 41-year-old female who according to her mother came home on 27 September not feeling well. She went to bed for most of the day. Over the past few days she has complained of progressive neck pain and has not been out of bed much in the past couple of days. The patient was seen at [facility] emergency room a few days ago. The mother is uncertain what testing was performed. The patient received a couple of injections in the emergency room and was discharged. The patient's mother states that she has been trying for the past 2 or 3 days to get the patient back to the emergency room and the patient has not wanted to get out of better, and the hospital. Patient's mother states that she believes the patient had a fever yesterday. This morning she had diarrhea. No nausea or vomiting. No definite confusion. Patient complains of severe neck pain. No significant pain weakness or numbness in the extremities or loss of bowel or bladder function. Patient does have a history of IV drug use. 10/03: The patient went for a laminectomy & evacuation of a cervical abscess early this morning. Prior to being seen this afternoon Nursing called and stated that the patient's neck appeared swollen and that the patient felt like she had a lump to the throat. Dr Flores was notified and stated that the patient did have a significant amount of pharyngeal inflammation. When seen the patient complained of pain to the neck. She did state that if she tried to get up the pain went to the top of her head. 10/04: The patient complains of pain to the neck and states she is not able to lean her neck on anything. She states that she wasn't able to sleep during the night due to the pain. She went for a CT soft tissue neck this morning which was unremarkable for any abnormality of the nasopharynx, oropharynx or larynx with post-surgical changes noted. An incidental finding of the left upper lobe w /groundglass infiltrate is suspicious for REGAN pneumonia. 10/05: The patient still has pain to the neck and throat. She reports not being able to sleep due to the pain. When seen she is sitting up in a chair and has brushed her hair. (Juan Chicas) System Review Comments Constitutional: Patient complains of not being able to sleep due to pain. She denies any fever or chills. HEENT: Patient complains of throat pain and occasional difficulty swallowing. Neck: Patient complains she is not able to put any pressure on the neck to the surgical site. Respiratory: Patient denies any shortness of breath or productive cough. Cardiovascular: Patient denies any chest pain, palpitations or irregular heartbeat. Gastrointestinal: Patient denies any abdominal pain, nausea, vomiting or incontinence of stool. Genitourinary: Patient states she has a Grullon catheter in place. Musculoskeletal: Patient complains of neck pain. She denies any back or extremity pain or extremity weakness. Neurologic: Patient denies any headache, dizziness, numbness or tingling. ( Juan Chicas) Exam Results Vital Signs Date Time Temp Pulse Resp B/P Pulse Ox O2 Delivery O2 Flow Rate FiO2 10/05/16 12:00 99.1 100 19 100/67 100 10/05/16 07:00 Room Air 10/03/16 20:10 21 10/03/16 04:00 2 Intake and Output 10/04/16 10/04/16 10/05/16 08:00 16:00 00:00 Intake Total 910 ml 700 ml 1005 ml Output Total 570 ml 1270 ml 1000 ml Balance 340 ml -570 ml 5 ml (Juan Chicas) Physical Examination GENERAL: Readily interacts, affect flat, minimal distress r/t pain. HEENT: Normocephalic, atraumatic. NECK: Diffuse midline & paravertebral TTP, intact surgical dressing w/o any shadowing. Anterior neck w/o any swelling but TTP. CARDIOVASCULAR: S1S2 w/RRR w/o M/G/R. Monitor is sinus rhythm w/o any ectopy noted. RESPIRATORY: Breath sounds essentially clear bilaterally, equal excursion, nonlaboured, on RA. GASTROINTESTINAL: Abdomen soft, nontender, positive bowel sounds. GENITOURINARY: Grullon catheter to BSD w/clear yellow urine. MUSCULOSKELETAL: JARA w/o difficulty, NTTP, no evident deformity or clubbing. INTEGUMENTARY: Skin warm, dry & intact except for posterior cervical surgical incision w/intact dressing. No ulcerations, rashes or other lesions noted. NEUROLOGICAL: AAOx3 Speech hoarse but appropriate Follows commands w/o any difficulty Sensation intact to light touch to all extremities Motor strength 5/5 to all major flexion & extension muscle groups (Juan Chicas) Medical Decision Making Impression and Plan Impression: 1. Cervical epidural abscess primarily C2-4 levels with significant dorsal cord compression without definite cord edema. 2. Significant cervical prevertebral inflammation without definite abscess formation 3. History of IV drug abuse 4. Cervical degenerative disc disease with moderate chronic appearing C5 6 posterior osteophytic disc complex with moderate stenosis without cord edema. Patient remains stable neurologically CT soft tissue neck w/o any noted abnormality of the nasopharynx, oropharynx or larynx, post-surgical changes noted, left upper lobe w/ groundglass infiltrate suspicious for REGAN pneumonia Leukocytosis, interval worsening (15.0=>23.9) Anaemia, stable (9.3=>9.5) Hypokalemia, resolved (3.2=>4.8) Blood cultures x2 & abscess drainage positive for MRSA High grade MRSA bacteremia per ID POD #2 () s/p: Left C2-3 semi-laminectomy, evacuation epidural abscess Plan: Primary management per Lunchroom Food Service Supervisor Abx per Infectious Disease, currently on vancomycin Neuro checks PT eval & tx ST eval & tx Diet per ST Patient is able to be transferred to a regular med/surg floor from NSGY's perspective. (Juan Chicas) Attending Statement I have personally seen and examined the patient on the date of this note. Pertinent documentation and study results have been reviewed by the undersigned. I have personally developed the treatment plan and performed medical decision making. Agree with findings, exam, and treatment plan as noted above. Patient was examined today with her mother in the room. She is awake and alert. Neck dressing is dry and intact She has moderate cervical paraspinous muscle tenderness. Sensation intact to light touch all extremities Her strength is within normal limits all extremities Madeleine's response absent bilateral No ankle clonus She states that she does have chronic neck pain and secondary headaches. These been a little worse in the past few days. Her neurologic exam is stable. Plan is to check an MRI of her cervical spine towards the end of the week to make certain that there is no residual or recurrent abscess formation. (Marlo Flores MD) Juan Chicas Oct 05, 2016 13:44 Marlo Flores MD Oct 05, 2016 19:00
--- NOTE | 2016-10-05 15:30 | HHI.PR ---
Subjective Remarks Follow-up for cervical abscess Patient states she is doing better but she continues to have neck pain. She denies any upper or lower extremely weakness. Per nurse since. She remains afebrile since yesterday. Objective Vitals Vital Signs Date Time Temp Pulse Resp B/P Pulse Ox O2 Delivery O2 Flow Rate FiO2 10/05/16 14:00 110 10/05/16 12:00 99.1 100 19 100/67 100 10/05/16 12:00 100 10/05/16 10:00 102 10/05/16 08:00 90 10/05/16 08:00 100.3 92 30 92/61 95 10/05/16 07:00 94 Room Air 10/05/16 06:00 95 10/05/16 04:00 87 10/05/16 04:00 98.7 81 20 117/70 99 10/05/16 02:00 80 10/05/16 00:01 18 10/05/16 00:00 68 10/05/16 00:00 98.9 66 22 97/61 99 10/04/16 22:17 18 10/04/16 22:00 70 10/04/16 20:00 72 10/04/16 20:00 99 Room Air 10/04/16 20:00 99.6 82 20 93/50 96 10/04/16 18:00 98 10/04/16 16:00 100.9 108 26 113/64 98 10/04/16 16:00 106 I/O 10/04/16 10/04/16 10/04/16 10/05/16 10/05/16 10/05/16 07:00 15:00 23:00 07:00 15:00 23:00 Intake Total 910 ml 700 ml 1005 ml 1086 ml 1460 ml Output Total 570 ml 1270 ml 1000 ml 1500 ml 1350 ml Balance 340 ml -570 ml 5 ml -414 ml 110 ml Intake Oral 250 ml 300 ml 960 ml IV Total 910 ml 700 ml 755 ml 786 ml 500 ml Output Urine Total 550 ml 1250 ml 1000 ml 1500 ml 1350 ml Drainage Total 20 ml 20 ml # Bowel Movements 0 0 0 0 0 Result Diagram: 10/04/1640910/04/16409 Imaging Last Impressions Neck CT 10/04/16599 Signed Impressions: Service Date/Time: Tuesday, October 04, 2016 09:16 - CONCLUSION: 1. No definite abnormality of the nasopharynx oropharynx or larynx identified. 2. The patient has postsurgical changes in the neck and cervical spine consistent with previous epidural abscess drainage. 3. Multiple areas of groundglass infiltrate in the left upper lobe nonspecific but concerning for an underlying pneumonia. CT imaging of the chest would be warranted for further assessment. Kobe Carpenter MD Cervical Spine X-Ray 10/03/16 0000 Signed Impressions: Service Date/Time: Monday, October 03, 2016 00:50 - CONCLUSION: Spinous process of C2 is localized. Ricco Beal MD Chest X-Ray 10/02/161921 Signed Impressions: Service Date/Time: Sunday, October 02, 2016 19:35 - CONCLUSION: Mild hazy opacity in the right lung base. This could represent early infiltrate. Juan Carlos Powers MD Thoracic Spine MRI 10/02/16 0000 Signed Impressions: Service Date/Time: Sunday, October 02, 2016 20:16 - CONCLUSION: Unremarkable exam. Juan Carlos Powers MD Lumbar Spine MRI 10/02/16 0000 Signed Impressions: Service Date/Time: Sunday, October 02, 2016 20:16 - CONCLUSION: 1. No evidence of osteomyelitis. 2. Annular disc bulge at the L4-5 level with mild mass effect on the anterior thecal sac. 3. Mild degenerative disc and degenerative joint changes. Juan Carlos Powers MD Cervical Spine MRI 10/02/16 0000 Signed Impressions: Service Date/Time: Sunday, October 02, 2016 20:16 - CONCLUSION: 1. Large left lateral and posterior epidural collection as described most characteristic of an abscess. There is mass effect and flattening of the cervical cord with no definite abnormal signal or enhancement in the cord. 2. Extensive soft tissue swelling and edema surrounding the upper neck. The prevertebral soft tissues are edematous and thickened. 3. Disc bulges at the C3-4 and C5-6 levels. 4. No evidence of osteomyelitis. Juan Carlos Powers MD Objective Remarks GENERAL: in NAD sitting comfortably in the chair. NECK: decrease ROM due to pain. EYES: No scleral icterus. No injection or drainage. NECK: Supple, trachea midline. No JVD or lymphadenopathy. CARDIOVASCULAR: Regular rate and rhythm without murmurs, gallops, or rubs. RESPIRATORY: Breath sounds equal bilaterally. No accessory muscle use. GASTROINTESTINAL: Abdomen soft, non-tender, nondistended. MUSCULOSKELETAL: 5/5 upper and lower ext strength. sensation grossly intact. BACK: Nontender without obvious deformity. No CVA tenderness. Medications and IVs Current Medications Sodium Chloride 1,000 ml @ 999 mls/hr BOLUS ONCE IV Last administered on 19:45; Start 10/02/16 at 19:30; Stop 10/02/16 at 20:30; Status DC Sodium Chloride 1,000 ml @ 999 mls/hr BOLUS ONCE IV Last administered on 19:46; Start 10/02/16 at 19:30; Stop 10/02/16 at 20:30; Status DC Vancomycin HCl/ Sodium Chloride (Vancomycin Inj/ NS 250 ml Inj) 261.5 ml @ 250 mls/hr ONCE ONCE IV ; Start 10/02/16 at 19:30; Stop 10/02/16 at 20:32; Status Cancel Acetaminophen (Tylenol) 1,000 mg ONCE ONCE PO Last administered on 10/02/16 19 :47; Start 10/02/16 at 19:45; Stop 10/02/16 at 19:46; Status DC Lorazepam (Ativan Inj) 1 mg ONCE ONCE IV PUSH Last administered on 10/02/16 19 :46; Start 10/02/16 at 19:45; Stop 10/02/16 at 19:46; Status DC Hydromorphone HCl 0.5 mg 0.5 mg ONCE ONCE IV PUSH Last administered on 19:47; Start 10/02/16 at 19:45; Stop 10/02/16 at 19:46; Status DC Piperacillin Sod/ Tazobactam Sod (Zosyn 4.5 Gm Premix) 100 ml @ 200 mls/hr ONCE ONCE IV Last administered on 10/02/16 23:07; Start 10/02/16 at 20:15; Stop 10/02/16 at 20:44; Status DC Gadodiamide 10 ml 10 ml STK-MED ONCE IV Last administered on 10/02/16 20:37; Start 10/02/16 at 20:50; Stop 10/02/16 at 20:51; Status DC Piperacillin Sod/ Tazobactam Sod 50 ml @ 100 mls/hr Q6H IV ; Start 10/03/16 at 02:00; Stop 10/03/16 at 03:03; Status DC Pharmacy Profile Note 0 ml @ 0 mls/hr UNSCH OTHER ; Start 10/02/16 at 22:15; Stop 10/03/16 at 14:27; Status DC Sodium Chloride (NS 1000 ml Inj) 1,000 ml @ 84 mls/hr [id number] IV Last administered on 10/02/16 23:07; Start 10/02/16 at 22:06; Stop 10/03/16 at 02:36; Status DC Sodium Chloride (NS Flush) 2 ml UNSCH PRN IV FLUSH FLUSH AFTER USING IV ACCESS ; Start 10/02/16 at 22:15 Sodium Chloride (NS Flush) 2 ml BID IV FLUSH Last administered on 10/05/16 07: 34; Start 10/03/16 at 09:00 Morphine Sulfate (Morphine Inj) 2 mg Q2H PRN IV PUSH PAIN SCALE 6 TO 10 Last administered on 10/05/16 14:27; Start 10/02/16 at 22:15 Pantoprazole Sodium (Protonix Inj) 40 mg DAILY IV Last administered on 07:34; Start 10/03/16 at 09:00 Ondansetron HCl (Zofran Inj) 4 mg Q6H PRN IV NAUSEA OR VOMITING; Start 10/02/16 at 22:15 Albuterol Sulfate (Albuterol Neb) 2.5 mg Q2HR NEB PRN INH SOB/WHEEZING; Start 10/02/16 at 22:15 Miscellaneous Information 1 [id number] ; Start 10/02/16 at 22:15 Chlorhexidine Gluconate (Chlorhexidine 2% Cloth) 3 pack Taper DAILY@04 TOP Last administered on 10/05/16 04:00; Start 10/03/16 at 04:00; Stop 09/29/17 at 03:59 Chlorhexidine Gluconate (Chlorhexidine 2% Cloth) 3 pack UNSCH PRN TOP HYGIENIC CARE; Start 10/02/16 at 22:15 Senna/Docusate Sodium (Loree-Colace) 1 tab BID PO Last administered on 7/12/ 17at 07:34; Start 10/03/16 at 09:00 Magnesium Hydroxide (Milk Of Magnesia Liq) 30 ml Q12H PRN PO MILD - MODERATE CONSTIPATION; Start 10/02/16 at 22:15 Sennosides (Senokot) 17.2 mg Q12H PRN PO MODERATE - SEVERE CONSTIPATION; Start 10/02/16 at 22:15 Bisacodyl 10 mg 10 mg DAILY PRN RECTAL SEVERE CONSITIPATION; Start 10/02/16 at 22:15 Potassium Chloride 100 ml @ 50 mls/hr BOLUS ONCE IV Last administered on 23:07; Start 10/02/16 at 22:15; Stop 10/03/16 at 00:14; Status DC Vancomycin HCl/ Sodium Chloride (Vancomycin Inj/ NS 250 ml Inj) 256.5 ml @ 250 mls/hr Q12H IV Last administered on 10/03/16 02:57; Start 10/03/16 at 02:00; Stop 10/03/16 at 14:31; Status DC Miscellaneous Information SPECIFIC LAB TO BE DRAWN:VA... ONCE ONCE .XX Last administered on 10/04/16 13:45; Start 10/04/16 at 13:45; Stop 10/04/16 at 13:46 ; Status DC Thrombin (Thrombin Top Soln) 10,000 units STK-MED ONCE OTHER Last administered on 10/03/16 00:41; Start 10/03/16 at 00:41; Stop 10/03/16 at 01:20; Status DC Gelatin (Gelfoam 100 Top) 1 foam STK-MED ONCE OTHER Last administered on 00:41; Start 10/03/16 at 00:41; Stop 10/03/16 at 01:20; Status DC Gentamicin Sulfate (Gentamicin Inj) 240 mg STK-MED ONCE IRRIGATION Last administered on 10/03/16 00:41; Start 10/03/16 at 00:41; Stop 10/03/16 at 01:20 ; Status DC Lidocaine/ Epinephrine (Xylocaine-Epi 1%-1:100,000 Inj) 30 ml STK-MED ONCE INFIL Last administered on 10/03/16 00:41; Start 10/03/16 at 00:41; Stop 10/03 at 01:20; Status DC Phenylephrine HCl 40 mg 40 mg STK-MED ONCE .ROUTE ; Start 10/03/16 at 02:13; Stop 10/03/16 at 02:14; Status DC Phenylephrine HCl/ Dextrose (Neosynephrine Inj/D5W 500 ml Inj) 500 ml @ 0 mls/ hr TITRATE IV Last administered on 10/03/16 02:20; Start 10/03/16 at 03:30 Terbutaline Sulfate 1 mg 1 mg UNSCH PRN SQ For Extravasation; Start 10/03/16 at 02:30 Potassium Chloride/Sodium Chloride (NS + KCl 20 Meq Inj) 1,000 ml @ 100 mls/hr Q10H IV Last administered on 10/05/16 14:27; Start 10/03/16 at 02:30 Midazolam HCl (Versed Inj) 2 mg STK-MED ONCE .ROUTE ; Start 10/03/16 at 02:43; Stop 10/03/16 at 02:44; Status DC Fentanyl Citrate (fentaNYL INJ) 100 mcg STK-MED ONCE .ROUTE ; Start 10/03/16 at 02:43; Stop 10/03/16 at 02:44; Status DC Fentanyl Citrate 250 mcg 250 mcg STK-MED ONCE .ROUTE ; Start 10/03/16 at 02:43; Stop 10/03/16 at 02:44; Status DC Piperacillin Sod/ Tazobactam Sod (Zosyn 3.375 Gm Premix) 50 ml @ 100 mls/hr Q6H IV Last administered on 10/03/16 11:00; Start 10/03/16 at 05:00; Stop 01/10 at 14:29; Status DC Miscellaneous Information ALL NURSING DEPARTME... UNSCH PRN .XX SEE LABEL COMMENTS; Start 10/03/16 at 02:00; Stop 10/04/16 at 01:59; Status DC Potassium Chloride 100 ml @ 50 mls/hr Q2H PRN IV For Potassium 2.8 - 3.2 mEq/L ; Start 10/03/16 at 03:45 Potassium Chloride (KCl 20 Meq Premix Inj) 100 ml @ 50 mls/hr Q2H PRN IV For Potassium 2.8 - 3.2 mEq/L Last administered on 10/03/16 04:48; Start 10/03/16 at 03:45 Potassium Bicarb/ Potassium Chloride 50 meq 50 meq UNSCH PRN PO For Potassium 3.3 - 3.5 mEq/L; Start 10/03/16 at 03:45 Potassium Chloride 100 ml @ 25 mls/hr UNSCH PRN IV For Potassium 3.3 - 3.5 mEq /L; Start 10/03/16 at 03:45 Potassium Chloride 100 ml @ 50 mls/hr Q2H PRN IV For Potassium 3.3 - 3.5 mEq/L ; Start 10/03/16 at 03:45 Magnesium Sulfate/ Sodium Chloride (Magnesium Sulfate Inj/NS Inj) 100 ml @ 50 mls/hr UNSCH PRN IV For Magnesium 0.9 - 1.1 mg/dL; Start 10/03/16 at 03:45 Magnesium Oxide 800 mg 800 mg UNSCH PRN PO For Magnesium 1.2 - 1.6 mg/dL; Start 10/03/16 at 03:45 Magnesium Sulfate/ Sodium Chloride (Magnesium Sulfate Inj/NS Inj) 100 ml @ 50 mls/hr UNSCH PRN IV For Magnesium 1.2 - 1.6 mg/dL; Start 10/03/16 at 03:45 Potassium Phosphate 2000 mg 2,000 mg Q4H PRN PO For Phosphorus < 2.5 mg/dL; Start 10/03/16 at 03:45 Sodium Phosphate/ Sodium Chloride (Sodium Phosphate Inj/NS 250 ml Inj) 250 ml @ 42 mls/hr UNSCH PRN IV For Phosphorus < 2.5 mg/dL; Start 10/03/16 at 03:45 Potassium Phosphate 2000 mg 2,000 mg UNSCH PRN PO/TUBE SEE LABEL COMMENTS; Start 10/03/16 at 03:45 Potassium Phosphate 30 mmol/ Sodium Chloride 260 ml @ 42 mls/hr UNSCH PRN IV SEE LABEL COMMENTS; Start 10/03/16 at 03:45 Norepinephrine Bitartrate 250 ml @ As Directed STK-MED ONCE IV ; Start at 06:35; Stop 10/03/16 at 06:36; Status DC Norepinephrine Bitartrate 250 ml @ 0 mls/hr TITRATE IV Last administered on t 08:02; Start 10/03/16 at 08:00 Pharmacy Profile Note 0 ml @ 0 mls/hr UNSCH OTHER ; Start 10/03/16 at 14:30 Vancomycin HCl 1000 mg/Sodium Chloride 250 ml @ 250 mls/hr Q12H IV ; Start 01/10 at 12:00; Stop 10/03/16 at 15:13; Status DC Vancomycin HCl/ Sodium Chloride (Vancomycin Inj/ NS 250 ml Inj) 250 ml @ 250 mls/hr Q12H IV Last administered on 10/04/16 14:22; Start 10/03/16 at 14:00; Stop 10/04/16 at 22:03; Status DC Iohexol (Omnipaque 350 Inj) 50 ml STK-MED ONCE IV Last administered on 09:26; Start 10/04/16 at 09:26; Stop 10/04/16 at 09:27; Status DC Acetaminophen 650 mg 650 mg Q4H PRN PO fever>101 Last administered on 06:18; Start 10/04/16 at 18:00 Vancomycin HCl/ Sodium Chloride (Vancomycin Inj/ NS 250 ml Inj) 258 ml @ 250 mls/hr Q8H IV Last administered on 10/05/16 07:34; Start 10/05/16 at 00:00 Miscellaneous Information SPECIFIC LAB TO BE DRAWN:VA... ONCE ONCE .XX ; Start 10/05/16 at 15:45; Stop 10/05/16 at 15:46 A/P Assessment and Plan 41-year-old female with hx of IVDU p/w neck pain Cervical spine epidural abscess -status post decompression Left C2-3 semi-laminectomy, evacuation epidural abscess (10/02) -Neurosurgery following. Continue PT/OT/ST. They also plan to check an MRI of the cervical spine later this week to make certain that there is no significant residual spinal compression and assess the prevertebral inflammation. -wound cultures grew and blood cultures + MRSA. zosyn 07/04. on vancomycin. -continue vancomycin per ID -CT scan the neck repeated today showed definite abnormality of the nasopharynx oropharynx or larynx identified, postsurgical changes in the neck and cervical spine consistent with previous epidural abscess drainage, and multiple areas of ground glass infiltrate in the left upper lobe nonspecific but concerning for an underlying pneumonia. -Per patient pain is uncontrolled but she looks very comfortable. Patient is on morphine at the moment. Will add norco to be given first for pain control. If not controlled with oral medication may give morphine. Sepsis/MRSA bacteremia -Management per infectious disease. -Echo does not suggest endocarditis. -Chief Talent Officer consulted for ÁNGEL. -Patient is on vancomycin. History of IV drug abuse -Education given. -Will be cautious with pain medication. Prophylaxis: PPI/SCDs. Subcutaneous heparin when okay with neurosurgery. Discharge Planning can transfer to neuro floor if okay with neurosurgeon. d/w patient's nurse. Summer Wetzel MD Oct 05, 2016 15:30
[2016-10-05] MEDS: ACETAMINOPHEN/HYDROcodone 325 MG/5 MG TAB PO PRN ×2 (15:44→21:43)
[2016-10-05] MEDS ORDERED: PHARMACY ORDERED LAB ONE (15:45)
[2016-10-06] VITALS (10 sets, daily range): BP systolic 108–121; BP diastolic 62–67; PULSE 64–96; RESP 19–24; TEMP 98.1–98.9; O2SAT 97–99
[2016-10-06] MEDS: ACETAMINOPHEN 325 MG TAB PO PRN (00:08)
[2016-10-06] MEDS: NS + KCL 20 MEQ INJ 1,000 ML IV SCH ×2 (00:30→08:50)
[2016-10-06] MEDS: CHLORHEXIDINE GLUCONATE 2 % 1 PACK (2 CLOTHS) TOP SCH (04:00)
[2016-10-06] MEDS: ACETAMINOPHEN/HYDROcodone 325 MG/5 MG TAB PO PRN ×3 (05:19→21:15)
[2016-10-06 05:30] LABS: HEMATOCRIT 31.3 % (35.0-46.0); MEAN CORPUSCULAR HEMOGLOBIN 28.7 PG (27.0-34.0); PLATELET COUNT 286 TH/MM3 (150-450); RED CELL DISTRIBUTION WIDTH 13.9 % (11.6-17.2); WHITE BLOOD COUNT 20.3 TH/MM3 (4.0-11.0)
--- NOTE | 2016-10-06 06:30 | MB ---
cc: LUIS MARTINEZ MD DATE OF CONSULTATION 10/05/2016 HISTORY OF PRESENT ILLNESS Ms. Marcus is a 41-year-old white female with a history of IV drug use. She presented with severe neck pain and was found to have epidural abscess. She underwent evacuation of the epidural abscess and C2-3 laminectomy. She was seen by ID and transesophageal echogram is requested to evaluate for endocarditis. The patient denies any chest pain or shortness of breath. PAST MEDICAL HISTORY 1. Positive for chronic back pain, sciatica. 2. Fibromyalgia. 3. Carpal tunnel syndrome. 4. IV drug use. 5. Surgery for bilateral carpal tunnel release. MEDICATIONS Erythromycin. SOCIAL HISTORY The patient smokes one-pack a day. She takes Celi and Xanax. She drinks alcohol socially. She has history of IV drug use. FAMILY HISTORY Positive for heart disease. REVIEW OF SYSTEMS Otherwise negative. PHYSICAL EXAMINATION VITAL SIGNS: Blood pressure 111/69, pulse 110 and regular. HEENT: Negative. NECK: 2+ upstrokes, no bruits. LUNGS: Clear. HEART: Regular with no murmur, gallop or rub. ABDOMEN: Soft, no bruits. EXTREMITIES: Without edema. 2+ distal pulses. NEUROLOGIC: Exam is grossly nonfocal. TELEMETRY Sinus tachycardia. LABORATORY DATA Hemoglobin 9.5. Potassium 4.8, creatinine 0.5. AST and ALT normal. CK 61. DIAGNOSES 1. Epidural abscess, status post evacuation and cervical laminectomy. 2. History of IV drug use. 3. MRSA bacteremia. 4. Sepsis. DISPOSITION 1. Ms. Marcus will continue her current medical program including antibiotic therapy as per ID. 2. She will be scheduled for transesophageal echocardiogram to evaluate for endocarditis. This was discussed with the patient, she understands the risks and benefits, and wishes to proceed. MD KERVIN Hernandez/SSB /4:41 PM /6:22 AM [email or web address]
[2016-10-06 07:04] LABS: REVIEW FLAG FINAL
--- NOTE | 2016-10-06 08:11 | PD.CARD.PN ---
Subjective Subjective Remarks No CP or SOB, c/o RIGGINS Objective Medications Current Medications Medications (Trade) Dose Ordered Sig/Shade Route Start Time Stop Time Status Last Admin (NS Flush) 2 ml UNSCH PRN IV FLUSH 10/02/16 22:15 (NS Flush) 2 ml BID IV FLUSH 10/03/16 09:00 10/05/16 07:34 (Morphine Inj) 2 mg Q2H PRN IV PUSH 10/02/16 22:15 10/05/16 14:27 (Protonix Inj) 40 mg DAILY IV 10/03/16 09:00 10/05/16 07:34 (Zofran Inj) 4 mg Q6H PRN IV 10/02/16 22:15 Miscellaneous Information 1 Q361D XX 10/02/16 22:15 (Chlorhexidine 2% Cloth) 3 pack Taper DAILY@04 TOP 10/03/16 04:00 09/29/17 03:59 10/06/16 04:00 (Chlorhexidine 2% Cloth) 3 pack UNSCH PRN TOP 10/02/16 22:15 (Loree-Colace) 1 tab BID PO 10/03/16 09:00 10/05/16 20:05 (Milk Of Magnesia Liq) 30 ml Q12H PRN PO 10/02/16 22:15 (Senokot) 17.2 mg Q12H PRN PO 10/02/16 22:15 Bisacodyl 10 mg 10 mg DAILY PRN RECTAL 10/02/16 22:15 (Neosynephrine Inj/D5W 500 ml Inj) 500 ml @ 0 mls/hr TITRATE IV 10/03/16 03:30 10/03/16 02:20 Terbutaline Sulfate 1 mg 1 mg UNSCH PRN SQ 10/03/16 02:30 Potassium Chloride/Sodium Chloride 1,000 ml @ 100 mls/hr Q10H IV 10/03/16 02:30 10/05/16 14:27 Potassium Chloride 100 ml @ 50 mls/hr Q2H PRN IV 10/03/16 03:45 (KCl 20 Meq Premix Inj) 100 ml @ 50 mls/hr Q2H PRN IV 10/03/16 03:45 10/03/16 04:48 Potassium Bicarb/ Potassium Chloride 50 meq 50 meq UNSCH PRN PO 10/03/16 03:45 Potassium Chloride 100 ml @ 25 mls/hr UNSCH PRN IV 10/03/16 03:45 Potassium Chloride 100 ml @ 50 mls/hr Q2H PRN IV 10/03/16 03:45 (Magnesium Sulfate Inj/NS Inj) 100 ml @ 50 mls/hr UNSCH PRN IV 10/03/16 03:45 Magnesium Oxide 800 mg 800 mg UNSCH PRN PO 10/03/16 03:45 (Magnesium Sulfate Inj/NS Inj) 100 ml @ 50 mls/hr UNSCH PRN IV 10/03/16 03:45 Potassium Phosphate 2000 mg 2,000 mg Q4H PRN PO 10/03/16 03:45 (Sodium Phosphate Inj/NS 250 ml Inj) 250 ml @ 42 mls/hr UNSCH PRN IV 10/03/16 03:45 Potassium Phosphate 2000 mg 2,000 mg UNSCH PRN PO/TUBE 10/03/16 03:45 Potassium Phosphate 30 mmol/ Sodium Chloride 260 ml @ 42 mls/hr UNSCH PRN IV 10/03/16 03:45 Norepinephrine Bitartrate 250 ml @ 0 mls/hr TITRATE IV 10/03/16 08:00 10/03/16 08:02 (Vancomycin Consult Pharmacy) 0 ml @ 0 mls/hr UNSCH OTHER 10/03/16 14:30 Acetaminophen 650 mg 650 mg Q4H PRN PO 10/04/16 18:00 10/06/16 00:08 (Vancomycin Inj/ NS 250 ml Inj) 258 ml @ 250 mls/hr Q8H IV 10/05/16 00:00 10/05/16 23:19 ([place] 5-325 Mg) 1 tab Q6H PRN PO 10/05/16 15:30 10/06/16 05:19 ([place] 5-325 Mg) 2 tab Q6H PRN PO 10/05/16 15:30 Vital Signs / I&O Vital Signs Date Time Temp Pulse Resp B/P Pulse Ox O2 Delivery O2 Flow Rate FiO2 10/06/16 07:00 100 Room Air 10/06/16 06:19 15 10/06/16 06:00 68 10/06/16 04:00 98.7 64 22 98 10/06/16 04:00 64 10/06/16 00:00 98.1 76 19 110/66 99 10/06/16 00:00 76 10/05/16 22:00 80 10/05/16 20:00 79 10/05/16 20:00 98 Room Air 10/05/16 20:00 97.9 79 25 101/62 99 10/05/16 18:00 73 10/05/16 16:00 101.5 110 29 111/69 98 10/05/16 16:00 110 10/05/16 14:00 110 10/05/16 12:00 99.1 100 19 100/67 100 10/05/16 12:00 100 10/05/16 10:00 102 I/O 10/05/16 10/05/16 10/05/16 10/06/16 10/06/16 10/06/16 07:00 15:00 23:00 07:00 15:00 23:00 Intake Total 1086 ml 1460 ml 1066 ml 1159 ml Output Total 1500 ml 1350 ml 400 ml 500 ml Balance -414 ml 110 ml 666 ml 659 ml Intake Oral 300 ml 960 ml 500 ml 400 ml IV Total 786 ml 500 ml 566 ml 759 ml Output Urine Total 1500 ml 1350 ml 400 ml 500 ml # Bowel Movements 0 0 0 0 Physical Exam GENERAL: In mild distress due to RIGGINS SKIN: Warm and dry. HEAD: Normocephalic. EYES: No scleral icterus. No injection or drainage. NECK: Supple, trachea midline. No JVD or lymphadenopathy. CARDIOVASCULAR: Regular rate and rhythm without murmurs, gallops, or rubs. RESPIRATORY: Breath sounds equal bilaterally. No accessory muscle use. GASTROINTESTINAL: Abdomen soft, non-tender, nondistended. MUSCULOSKELETAL: No cyanosis, or edema. Laboratory Laboratory Tests Test 10/05/16 10/06/16 17:09 05:11 Vancomycin Level Trough 8.9 MCG/ML White Blood Count 20.3 TH/MM3 Red Blood Count 3.60 MIL/MM3 Hemoglobin 10.3 GM/DL Hematocrit 31.3 % Mean Corpuscular Volume 87.0 FL Mean Corpuscular Hemoglobin 28.7 PG Mean Corpuscular Hemoglobin 33.0 % Concent Red Cell Distribution Width 13.9 % Platelet Count 286 TH/MM3 Mean Platelet Volume 9.9 FL Hematology Comments Creatinine 0.42 MG/DL Estimat Glomerular Filtration 165 ML/MIN Rate Imaging Last Impressions Neck CT 10/04/16 0600 Signed Impressions: Service Date/Time: Tuesday, October 04, 2016 09:16 - CONCLUSION: 1. No definite abnormality of the nasopharynx oropharynx or larynx identified. 2. The patient has postsurgical changes in the neck and cervical spine consistent with previous epidural abscess drainage. 3. Multiple areas of groundglass infiltrate in the left upper lobe nonspecific but concerning for an underlying pneumonia. CT imaging of the chest would be warranted for further assessment. Kobe Carpenter MD Cervical Spine X-Ray 10/03/16 0000 Signed Impressions: Service Date/Time: Monday, October 03, 2016 00:50 - CONCLUSION: Spinous process of C2 is localized. Ricco Beal MD Chest X-Ray 10/02/16 192 Signed Impressions: Service Date/Time: Sunday, October 02, 2016 19:35 - CONCLUSION: Mild hazy opacity in the right lung base. This could represent early infiltrate. Juan Carlos Powers MD Thoracic Spine MRI 10/02/16 0000 Signed Impressions: Service Date/Time: Sunday, October 02, 2016 20:16 - CONCLUSION: Unremarkable exam. Juan Carlos Powers MD Lumbar Spine MRI 10/02/16 0000 Signed Impressions: Service Date/Time: Sunday, October 02, 2016 20:16 - CONCLUSION: 1. No evidence of osteomyelitis. 2. Annular disc bulge at the L4-5 level with mild mass effect on the anterior thecal sac. 3. Mild degenerative disc and degenerative joint changes. Juan Carlos Powers MD Cervical Spine MRI 10/02/16 0000 Signed Impressions: Service Date/Time: Sunday, October 02, 2016 20:16 - CONCLUSION: 1. Large left lateral and posterior epidural collection as described most characteristic of an abscess. There is mass effect and flattening of the cervical cord with no definite abnormal signal or enhancement in the cord. 2. Extensive soft tissue swelling and edema surrounding the upper neck. The prevertebral soft tissues are edematous and thickened. 3. Disc bulges at the C3-4 and C5-6 levels. 4. No evidence of osteomyelitis. Juan Carlos Powers MD Assessment and Plan Problem List: (1) Abscess in epidural space of cervical spine (2) Sepsis (3) Bacteremia (4) IV drug abuse Assessment and Plan Continue abxs as per ID. ÁNGEL scheduled for tomorrow. Pt understands the risks and benefits and wishes to proceed. Problem Qualifiers (1) Sepsis: Qualified Code: A41.9 - Sepsis, due to unspecified organism Paul Hawk MD Oct 06, 2016 08:11
--- NOTE | 2016-10-06 08:44 | HHI.PR ---
Subjective Remarks f/u epidural abscess, MRSA bacteremia Pt states that she is having a migraine headache associated w photophobia, located on the frontal and radiating down the occipital region and behind her eyes. she does have a hx of migraines. denies any nausea or vomiting associated w it. Denies any CP/SOB. Complains of a dry cough but states that she has been holding off on coughing. Has pain and stiffness around her neck. Nervous about getting a ÁNGEL but is agreeable. Tells me it will be for monday Objective Vitals Vital Signs Date Time Temp Pulse Resp B/P Pulse Ox O2 Delivery O2 Flow Rate FiO2 10/06/16 07:00 100 Room Air 10/06/16 06:19 15 10/06/16 06:00 68 10/06/16 04:00 98.7 64 22 98 10/06/16 04:00 64 10/06/16 00:00 98.1 76 19 110/66 99 10/06/16 00:00 76 10/05/16 22:00 80 10/05/16 20:00 79 10/05/16 20:00 98 Room Air 10/05/16 20:00 97.9 79 25 101/62 99 10/05/16 18:00 73 10/05/16 16:00 101.5 110 29 111/69 98 10/05/16 16:00 110 10/05/16 14:00 110 10/05/16 12:00 99.1 100 19 100/67 100 10/05/16 12:00 100 10/05/16 10:00 102 I/O 10/05/16 10/05/16 10/05/16 10/06/16 10/06/16 10/06/16 07:00 15:00 23:00 07:00 15:00 23:00 Intake Total 1086 ml 1460 ml 1066 ml 1159 ml Output Total 1500 ml 1350 ml 400 ml 500 ml Balance -414 ml 110 ml 666 ml 659 ml Intake Oral 300 ml 960 ml 500 ml 400 ml IV Total 786 ml 500 ml 566 ml 759 ml Output Urine Total 1500 ml 1350 ml 400 ml 500 ml # Bowel Movements 0 0 0 0 Result Diagram: 10/06/1651010/06/16510 Imaging Last Impressions Neck CT 10/04/16599 Signed Impressions: Service Date/Time: Tuesday, October 04, 2016 09:16 - CONCLUSION: 1. No definite abnormality of the nasopharynx oropharynx or larynx identified. 2. The patient has postsurgical changes in the neck and cervical spine consistent with previous epidural abscess drainage. 3. Multiple areas of groundglass infiltrate in the left upper lobe nonspecific but concerning for an underlying pneumonia. CT imaging of the chest would be warranted for further assessment. Kobe Carpenter MD Cervical Spine X-Ray 10/03/16 0000 Signed Impressions: Service Date/Time: Monday, October 03, 2016 00:50 - CONCLUSION: Spinous process of C2 is localized. Ricco Beal MD Chest X-Ray 10/02/161921 Signed Impressions: Service Date/Time: Sunday, October 02, 2016 19:35 - CONCLUSION: Mild hazy opacity in the right lung base. This could represent early infiltrate. Juan Carlos Powers MD Thoracic Spine MRI 10/02/16 0000 Signed Impressions: Service Date/Time: Sunday, October 02, 2016 20:16 - CONCLUSION: Unremarkable exam. Juan Carlos Powers MD Lumbar Spine MRI 10/02/16 0000 Signed Impressions: Service Date/Time: Sunday, October 02, 2016 20:16 - CONCLUSION: 1. No evidence of osteomyelitis. 2. Annular disc bulge at the L4-5 level with mild mass effect on the anterior thecal sac. 3. Mild degenerative disc and degenerative joint changes. Juan Carlos Powers MD Cervical Spine MRI 10/02/16 0000 Signed Impressions: Service Date/Time: Sunday, October 02, 2016 20:16 - CONCLUSION: 1. Large left lateral and posterior epidural collection as described most characteristic of an abscess. There is mass effect and flattening of the cervical cord with no definite abnormal signal or enhancement in the cord. 2. Extensive soft tissue swelling and edema surrounding the upper neck. The prevertebral soft tissues are edematous and thickened. 3. Disc bulges at the C3-4 and C5-6 levels. 4. No evidence of osteomyelitis. Juan Carlos Powers MD Objective Remarks GENERAL: appears uncomfortable w movement. NECK: decrease ROM due to pain. dressing in place d/c/i. trachea midline EYES: No scleral icterus. mild erythema noted on sclera on the right. Pupils are equal CARDIOVASCULAR: Regular rate and rhythm without murmurs RESPIRATORY: Breath sounds equal bilaterally. No accessory muscle use. no crackles or wheezing GASTROINTESTINAL: Abdomen soft, non-tender, nondistended. MUSCULOSKELETAL: moves extremities well. sensation grossly intact. NEURO: CN grossly intact PSYCH: pleasant, answers questions appropriately Procedures status post decompression Left C2-3 semi-laminectomy, evacuation epidural abscess (10/02) A/P Assessment and Plan 41-year-old female with hx of IVDU p/w neck pain Cervical spine epidural abscess -status post decompression Left C2-3 semi-laminectomy, evacuation epidural abscess (10/02) -Neurosurgery following. Continue PT/OT/ST. Plan is to check an MRI of the cervical spine later this week to make certain that there is no residual or recurrent abscess formation. -wound cultures grew and blood cultures + MRSA. zosyn 10/02-10/03. on vancomycin per ID, continue and monitor Cr levels. -CT scan the neck 10/04/16 No definite abnormality of the nasopharynx oropharynx or larynx identified. Multiple areas of groundglass infiltrate in the left upper lobe nonspecific. Will check CT chest. Order IS and encouraged use q1 hr while awake -Pain control w morphing prn breakthrough and norco po prn. I have added fioricet for her migraines as well. Sepsis/MRSA bacteremia -Management per infectious disease. -Echo does not suggest endocarditis. -Life Science Research Assistant consulted for ÁNGEL. -Patient is on vancomycin. ? PNA noted on CT neck. CT chest ordered. Pt only complaining of dry cough but is avoiding cough secondary to pain. Will encourage IS use and check CT chest. History of IV drug abuse -Education given. -Will be cautious with pain medication. Prophylaxis: PPI/SCDs. Subcutaneous heparin when okay with neurosurgery. Encourage ambulation Discharge Planning Transfer to floor per neurosx. CT chest ordered. Debbie Cade MD Oct 06, 2016 08:44
[2016-10-06] MEDS: PANTOPRAZOLE SODIUM 40 MG VIAL IV SCH (08:47)
[2016-10-06] MEDS: DOCUSATE SODIUM 50 MG/SENNA 8.6 MG TAB PO SCH ×2 (08:47→21:00)
[2016-10-06] MEDS: SODIUM CHLORIDE 0.9% FLUSH 10 ML FLUSH IV FLUSH SCH ×2 (08:48→21:15)
[2016-10-06] MEDS: ACETAMIN 325 MG/BUTALBITAL 50 MG/CAFFEINE 40 MG TAB PO PRN ×2 (10:04→18:47)
[2016-10-06] MEDS: MORPHINE SULFATE 8 MG/ML INJ IV PUSH PRN ×3 (10:05→22:42)
[2016-10-06] MEDS: VANCOMYCIN INJ 1,250 MG in SODIUM CHLOR 0.9% 250 ML INJ 250 ML IV SCH ×2 (10:06→18:47)
--- NOTE | 2016-10-06 12:46 | HHI.NSPN ---
(Juan Chicas) History Chief Complaint: Throat is sore, some pain to the neck (Juan Chicas) Interval History 10/02: 41-year-old female who according to her mother came home on 27 September not feeling well. She went to bed for most of the day. Over the past few days she has complained of progressive neck pain and has not been out of bed much in the past couple of days. The patient was seen at [facility] emergency room a few days ago. The mother is uncertain what testing was performed. The patient received a couple of injections in the emergency room and was discharged. The patient's mother states that she has been trying for the past 2 or 3 days to get the patient back to the emergency room and the patient has not wanted to get out of better, and the hospital. Patient's mother states that she believes the patient had a fever yesterday. This morning she had diarrhea. No nausea or vomiting. No definite confusion. Patient complains of severe neck pain. No significant pain weakness or numbness in the extremities or loss of bowel or bladder function. Patient does have a history of IV drug use. 10/03: The patient went for a laminectomy & evacuation of a cervical abscess early this morning. Prior to being seen this afternoon Nursing called and stated that the patient's neck appeared swollen and that the patient felt like she had a lump to the throat. Dr Flores was notified and stated that the patient did have a significant amount of pharyngeal inflammation. When seen the patient complained of pain to the neck. She did state that if she tried to get up the pain went to the top of her head. 10/04: The patient complains of pain to the neck and states she is not able to lean her neck on anything. She states that she wasn't able to sleep during the night due to the pain. She went for a CT soft tissue neck this morning which was unremarkable for any abnormality of the nasopharynx, oropharynx or larynx with post-surgical changes noted. An incidental finding of the left upper lobe w /groundglass infiltrate is suspicious for REGAN pneumonia. 10/05: The patient still has pain to the neck and throat. She reports not being able to sleep due to the pain. When seen she is sitting up in a chair and has brushed her hair. 10/06: The patient is sitting up in a chair with her hair brushed. She states that she is doing better and that her neck is aching and her throat is sore. She states that she does have a migraine headache to the back of the head. She also reports that she has hand tremors today which she has had before the surgery. (Juan Chicas) System Review Comments Constitutional: Patient denies any fever or chills. HEENT: Patient states her throat is sore but not painful. Neck: Patient states her neck is sore and that she still is not able to put any pressure on the neck to the surgical site. Respiratory: Patient denies any shortness of breath or productive cough. Cardiovascular: Patient denies any chest pain, palpitations or irregular heartbeat. Gastrointestinal: Patient denies any abdominal pain, nausea, vomiting or incontinence of stool. Genitourinary: Patient states she has a Grullon catheter in place. Musculoskeletal: Patient states her hands are trembling but that she has had that before. She denies any back or extremity pain or extremity weakness. Neurologic: Patient complains of a migraine headache to the back of the head. She denies any dizziness, numbness or tingling. (Juan Chicas) Exam Results Vital Signs Date Time Temp Pulse Resp B/P Pulse Ox O2 Delivery O2 Flow Rate FiO2 10/06/16 12:00 98.4 86 23 108/62 98 10/06/16 07:00 Room Air 10/03/16 20:10 21 10/03/16 04:00 2 Intake and Output 10/05/16 10/05/16 10/06/16 08:00 16:00 00:00 Intake Total 1086 ml 1460 ml 1066 ml Output Total 1500 ml 1350 ml 400 ml Balance -414 ml 110 ml 666 ml (Juan Chicas) Physical Examination GENERAL: Readily interacts, affect slightly flat, no apparent distress. HEENT: Normocephalic, atraumatic, TTP to right occipital region. NECK: Midline cervical spine NTTP, intact surgical dressing w/o any shadowing, TTP to mid right posterolateral neck > right occipital. Anterior neck w/o any swelling NTTP. CARDIOVASCULAR: S1S2 w/RRR w/o M/G/R. Monitor is sinus rhythm w/o any ectopy noted. RESPIRATORY: CTAB w/o W/R/R, equal excursion, nonlaboured, on RA. GASTROINTESTINAL: Abdomen soft, nontender, positive bowel sounds. GENITOURINARY: Grullon catheter to BSD w/clear yellow urine. MUSCULOSKELETAL: JARA w/o difficulty, NTTP, no evident deformity or clubbing. INTEGUMENTARY: Skin warm, dry & intact except for posterior cervical surgical incision w/intact dressing. No ulcerations, rashes or other lesions noted. NEUROLOGICAL: AAOx3 Speech w/minimal hoarseness, appropriate Follows commands w/o any difficulty Sensation intact to light touch to all extremities Motor strength 5/5 to all major flexion & extension muscle groups (Juan Chicas) Medical Decision Making Impression and Plan Impression: 1. Cervical epidural abscess primarily C2-4 levels with significant dorsal cord compression without definite cord edema. 2. Significant cervical prevertebral inflammation without definite abscess formation 3. History of IV drug abuse 4. Cervical degenerative disc disease with moderate chronic appearing C5 6 posterior osteophytic disc complex with moderate stenosis without cord edema. Patient remains stable neurologically CT soft tissue neck w/o any noted abnormality of the nasopharynx, oropharynx or larynx, post-surgical changes noted, left upper lobe w/ groundglass infiltrate suspicious for REGAN pneumonia Leukocytosis, interval improvement (23.9=>20.3) Anaemia, interval improvement (9.5=>11.0) Hypokalemia, resolved Blood cultures x2 () & abscess drainage () positive for MRSA Repeat blood cultures x2 () with Gram positive cocci High grade MRSA bacteremia per ID POD #3 () s/p: Left C2-3 semi-laminectomy, evacuation epidural abscess Plan: Primary management per [employer] Abx per Infectious Disease Neuro checks PT eval & tx ST eval & tx Diet per ST Patient is able to be transferred to a regular med/surg floor from NSGY's perspective. (Juan Chicas) Attending Statement I have personally seen and examined the patient on 10/06/16. Pertinent documentation and study results have been reviewed by the undersigned. I have personally developed the treatment plan and performed medical decision making. Agree with findings, exam, and treatment plan as noted above. Extremity neurologic exam stable today. No increased neck edema or tenderness. Plan to check MRI cervical spine with and without contrast 10/07/16 to assess for adequate spinal cord decompression and abscess evacuation as well as to monitor prevertebral soft tissue inflammation (Marlo Flores MD) Juan Chicas Oct 06, 2016 12:46 Marlo Flores MD Oct 06, 2016 20:17
[2016-10-06] MEDS ORDERED: MORPHINE SULFATE 8 MG/ML INJ IV PUSH PRN (14:15)
[2016-10-06] MEDS ORDERED: IOHEXOL 350 MG/ML 10 ML VIAL (for RAD DIAG) IV ONE (17:46)
--- NOTE | 2016-10-06 18:22 | RADRPT ---
EXAM DATE/TIME: 10/06/2016 17:58 [facility] COMPARISON: CT SOFT TISSUE NECK W CONTRAST, October 04, 2016, 9:16. INDICATIONS : Chest discomfort. Abnormal lung appearance on sot tissue neck CT. IV CONTRAST: 100 cc Omnipaque 350 (iohexol) IV RADIATION DOSE: 3.32 CTDIvol (mGy) MEDICAL HISTORY : None SURGICAL HISTORY : None. ENCOUNTER: Initial ACUITY: 1 day PAIN SCALE: 4/10 LOCATION: Bilateral chest TECHNIQUE: Volumetric scanning of the chest was performed. Using automated exposure control and adjustment of t he mA and/or kV according to patient size, radiation dose was kept as low as reasonably achievable to obtain optimal diagnostic quality images. DICOM format image data is available electronically for review and comparison. Follow-up recommendations for incidentally detected pulmonary nodules are based at a minimum on nodul e size and patient risk factors according to Fleischner Society Guidelines. FINDINGS: There are multiple lung nodules bilaterally. On the left side there are 3 separate nodules and m asses in left lower lobe the largest measures 2.7 cm in size with vague haziness involving the left u pper lobe. In the right lung there are 12 may be 13 separate nodular and masslike areas the largest o ne measures almost 2 cm in size in right lower lobe. There is a tiny pericardial effusion maximum thi ckness of 3 mm without any appreciable pathological adenopathy within the mediastinum. There is no pl eural effusion. CONCLUSION: Multiple lung nodules and masses nonspecific, however metastatic disease should be excluded. Unusual infectious processes or possibly septic emboli could also have this appearance. Erin Mahmood MD on October 06, 2016 at 18:15 Board Certified Radiologist. This report was verified electronically.
--- NOTE | 2016-10-06 23:16 | HHI.IDPN ---
Subjective Subjective Remarks ID deleayed entry - pt was seen earlier today around 3 pm pt co sever neck pain Neck pain sl;ightly improved afebrile Blood clx all positive 3/4 bottles Scheduled for ÁNGEL tomorrow Antibiotics vancomycin Allergies: Coded Allergies: E-Mycin (Verified Allergy, Severe, UNKNOWN, 02/23/10) *MDRO Multi-Drug Resistant Organism (Verified Adverse Reaction, Unknown, ) MRSA (Blood) 10/02/16 Objective . Vital Signs Date Time Temp Pulse Resp B/P Pulse Ox O2 Delivery O2 Flow Rate FiO2 10/06/16 18:00 96 10/06/16 16:00 98.9 96 24 121/65 97 10/06/16 16:00 96 10/06/16 15:57 15 10/06/16 15:12 22 10/06/16 14:00 84 10/06/16 12:00 98.4 86 23 108/62 98 10/06/16 12:00 86 10/06/16 11:04 18 10/06/16 10:00 86 10/06/16 08:00 68 10/06/16 08:00 98.6 68 21 115/67 98 10/06/16 07:00 100 Room Air 10/06/16 06:19 15 10/06/16 06:00 68 10/06/16 04:00 98.7 64 22 98 10/06/16 04:00 64 10/06/16 00:00 98.1 76 19 110/66 99 10/06/16 00:00 76 10/05/16 10/05/16 10/06/16 15:00 23:00 07:00 Intake Total 1460 ml 1066 ml 1159 ml Output Total 1350 ml 400 ml 500 ml Balance 110 ml 666 ml 659 ml Intake Oral 960 ml 500 ml 400 ml IV Total 500 ml 566 ml 759 ml Output Urine Total 1350 ml 400 ml 500 ml # Bowel Movements 0 0 0 . Laboratory Tests Test 10/06/16 05:11 White Blood Count 20.3 TH/MM3 Red Blood Count 3.60 MIL/MM3 Hemoglobin 10.3 GM/DL Hematocrit 31.3 % Mean Corpuscular Volume 87.0 FL Mean Corpuscular Hemoglobin 28.7 PG Mean Corpuscular Hemoglobin 33.0 % Concent Red Cell Distribution Width 13.9 % Platelet Count 286 TH/MM3 Mean Platelet Volume 9.9 FL Hematology Comments Laboratory Tests Test 10/06/16 05:11 Creatinine 0.42 MG/DL Estimat Glomerular Filtration 165 ML/MIN Rate Microbiology Date/Time Procedure Status Source Growth 10/05/16 17:05 Aerobic Blood Culture - Preliminary Resulted Blood Peripheral NO GROWTH IN 1 DAY 10/05/16 17:05 Anaerobic Blood Culture - Preliminary Resulted Gram Positive Cocci 10/05/16 17:10 Aerobic Blood Culture - Preliminary Resulted Blood Peripheral Gram Positive Cocci 10/05/16 17:10 Anaerobic Blood Culture - Preliminary Resulted Gram Positive Cocci Imaging Last Impressions Chest CT 10/06/16 0000 Signed Impressions: Service Date/Time: September 17:58 - CONCLUSION: Multiple lung nodules and masses nonspecific, however metastatic disease should be excluded. Unusual infectious processes or possibly septic emboli could also have this appearance. Erin Mahmood MD Neck CT 10/04/16 0600 Signed Impressions: Service Date/Time: Tuesday, October 04, 2016 09:16 - CONCLUSION: 1. No definite abnormality of the nasopharynx oropharynx or larynx identified. 2. The patient has postsurgical changes in the neck and cervical spine consistent with previous epidural abscess drainage. 3. Multiple areas of groundglass infiltrate in the left upper lobe nonspecific but concerning for an underlying pneumonia. CT imaging of the chest would be warranted for further assessment. Kobe Carpenter MD Cervical Spine X-Ray 10/03/16 0000 Signed Impressions: Service Date/Time: Monday, October 03, 2016 00:50 - CONCLUSION: Spinous process of C2 is localized. Ricco Beal MD Chest X-Ray 10/02/16 192 Signed Impressions: Service Date/Time: Sunday, October 02, 2016 19:35 - CONCLUSION: Mild hazy opacity in the right lung base. This could represent early infiltrate. Juan Carlos Powers MD Thoracic Spine MRI 10/02/16 0000 Signed Impressions: Service Date/Time: Sunday, October 02, 2016 20:16 - CONCLUSION: Unremarkable exam. Juan Carlos Powers MD Lumbar Spine MRI 10/02/16 0000 Signed Impressions: Service Date/Time: Sunday, October 02, 2016 20:16 - CONCLUSION: 1. No evidence of osteomyelitis. 2. Annular disc bulge at the L4-5 level with mild mass effect on the anterior thecal sac. 3. Mild degenerative disc and degenerative joint changes. Juan Carlos Powers MD Cervical Spine MRI 10/02/16 0000 Signed Impressions: Service Date/Time: Sunday, October 02, 2016 20:16 - CONCLUSION: 1. Large left lateral and posterior epidural collection as described most characteristic of an abscess. There is mass effect and flattening of the cervical cord with no definite abnormal signal or enhancement in the cord. 2. Extensive soft tissue swelling and edema surrounding the upper neck. The prevertebral soft tissues are edematous and thickened. 3. Disc bulges at the C3-4 and C5-6 levels. 4. No evidence of osteomyelitis. Juan Carlos Powers MD Physical Exam CONSTITUTIONAL/GENERAL: This is a malnourished desheveled patient, in no apparent distress. TUBES/LINES/DRAINS: SKIN: No jaundice, rashes, or lesions. + needle tracks in different stages of healing Skin temperature appropriate. Not diaphoretic. EYES: Pupils equal and round and reactive. Extraocular motions intact. No scleral icterus. No injection or drainage. Fundi not examined. ENT: Hearing grossly normal. Nose without bleeding or purulent drainage. Throat without visible erythema, exudates, masses, or lesions. Poor dentition NECK: Trachea midline.+ tender. more on the R Pt can move her neck a little bit CARDIOVASCULAR: Regular rate and rhythm without murmurs, gallops, or rubs. No JVD. Peripheral pulses symmetric. RESPIRATORY/CHEST: Symmetric, unlabored respirations. Clear to auscultation. Breath sounds equal bilaterally. No wheezes, rales, or rhonchi. GASTROINTESTINAL: Abdomen soft, non-tender, nondistended. No hepato-splenomegaly , or palpable masses. No guarding. Bowel sounds present. MUSCULOSKELETAL: Extremities without clubbing, cyanosis, or edema. LYMPHATICS: No palpable cervical or supraclavicular adenopathy. NEUROLOGICAL: Awake and alert. Motor and sensory grossly within normal limits. Follows commands. Clear speech. Moves all extremities. PSYCHIATRIC: No obvious anxiety/depression. no apparent hallucinations or other psychotic thought process. Assessment & Plan Remarks Cervical spine epiduralk abscess Left C2-3 semi-laminectomy, evacuation epidural abscess on 10/03 high grade MRSA bacteremia, susteined IVDU cont vancomycin, keep trough 15-20 will fu ÁNGEL results repeat blood clx again until clearance documented ; once clears bacteremia will put PICC line for intermediate accountant abx ; anticipate vancomycin vs televancin Mouna Caldwell MD Oct 06, 2016 23:16
[2016-10-07] VITALS (10 sets, daily range): BP systolic 91–125; BP diastolic 52–68; PULSE 64–91; RESP 18–23; TEMP 97.9–103.3; O2SAT 96–99
[2016-10-07] MEDS: ACETAMINOPHEN 325 MG TAB PO PRN ×3 (01:31→21:06)
[2016-10-07] MEDS: VANCOMYCIN INJ 1,250 MG in SODIUM CHLOR 0.9% 250 ML INJ 250 ML IV SCH ×3 (02:09→19:04)
[2016-10-07] MEDS: CHLORHEXIDINE GLUCONATE 2 % 1 PACK (2 CLOTHS) TOP SCH (04:00)
[2016-10-07] MEDS: MORPHINE SULFATE 8 MG/ML INJ IV PUSH PRN ×2 (05:56→16:30)
[2016-10-07] MEDS: NS + KCL 20 MEQ INJ 1,000 ML IV SCH ×2 (06:30→16:30)
[2016-10-07] MEDS: SODIUM CHLORIDE 0.9% FLUSH 10 ML FLUSH IV FLUSH SCH ×2 (08:15→20:58)
[2016-10-07] MEDS: PANTOPRAZOLE SODIUM 40 MG VIAL IV SCH (08:15)
[2016-10-07] MEDS: DOCUSATE SODIUM 50 MG/SENNA 8.6 MG TAB PO SCH ×3 (08:15→20:58)
[2016-10-07] MEDS: ACETAMINOPHEN/HYDROcodone 325 MG/5 MG TAB PO PRN ×3 (08:15→19:02)
--- NOTE | 2016-10-07 08:35 | HHI.PR ---
Subjective Remarks Pt feels better this morning. Migraine much improved. has been getting up and walking around room. no CP/SOB/N/V Objective Vitals Vital Signs Date Time Temp Pulse Resp B/P Pulse Ox O2 Delivery O2 Flow Rate FiO2 10/07/16 04:00 98.2 68 18 100/56 10/07/16 00:00 99 Room Air 10/07/16 00:00 98.6 68 18 91/52 99 10/06/16 20:00 97 Room Air 10/06/16 20:00 90 10/06/16 18:00 96 10/06/16 16:00 98.9 96 24 121/65 97 10/06/16 16:00 96 10/06/16 15:57 15 10/06/16 15:12 22 10/06/16 14:00 84 10/06/16 12:00 98.4 86 23 108/62 98 10/06/16 12:00 86 10/06/16 11:04 18 10/06/16 10:00 86 I/O 10/06/16 10/06/16 10/06/16 10/07/16 10/07/16 10/07/16 07:00 15:00 23:00 07:00 15:00 23:00 Intake Total 1159 ml 1342 ml 861 ml 571 ml Output Total 500 ml 800 ml 850 ml 900 ml Balance 659 ml 542 ml 11 ml -329 ml Intake Oral 400 ml 720 ml 480 ml 120 ml IV Total 759 ml 622 ml 381 ml 451 ml Output Urine Total 500 ml 800 ml 850 ml 900 ml # Bowel Movements 0 0 Result Diagram: 10/06/16 0511 10/06/16 0511 Imaging Last Impressions Chest CT 10/06/16 0000 Signed Impressions: Service Date/Time: September 17:58 - CONCLUSION: Multiple lung nodules and masses nonspecific, however metastatic disease should be excluded. Unusual infectious processes or possibly septic emboli could also have this appearance. Erin Mahmood MD Neck CT 10/04/16 0600 Signed Impressions: Service Date/Time: Tuesday, October 04, 2016 09:16 - CONCLUSION: 1. No definite abnormality of the nasopharynx oropharynx or larynx identified. 2. The patient has postsurgical changes in the neck and cervical spine consistent with previous epidural abscess drainage. 3. Multiple areas of groundglass infiltrate in the left upper lobe nonspecific but concerning for an underlying pneumonia. CT imaging of the chest would be warranted for further assessment. Kobe Carpenter MD Cervical Spine X-Ray 10/03/16 0000 Signed Impressions: Service Date/Time: Monday, October 03, 2016 00:50 - CONCLUSION: Spinous process of C2 is localized. Ricco Beal MD Chest X-Ray 10/02/16 192 Signed Impressions: Service Date/Time: Sunday, October 02, 2016 19:35 - CONCLUSION: Mild hazy opacity in the right lung base. This could represent early infiltrate. Juan Carlos Powers MD Thoracic Spine MRI 10/02/16 0000 Signed Impressions: Service Date/Time: Sunday, October 02, 2016 20:16 - CONCLUSION: Unremarkable exam. Juan Carlos Powers MD Lumbar Spine MRI 10/02/16 0000 Signed Impressions: Service Date/Time: Sunday, October 02, 2016 20:16 - CONCLUSION: 1. No evidence of osteomyelitis. 2. Annular disc bulge at the L4-5 level with mild mass effect on the anterior thecal sac. 3. Mild degenerative disc and degenerative joint changes. Juan Carlos Powers MD Cervical Spine MRI 10/02/16 0000 Signed Impressions: Service Date/Time: Sunday, October 02, 2016 20:16 - CONCLUSION: 1. Large left lateral and posterior epidural collection as described most characteristic of an abscess. There is mass effect and flattening of the cervical cord with no definite abnormal signal or enhancement in the cord. 2. Extensive soft tissue swelling and edema surrounding the upper neck. The prevertebral soft tissues are edematous and thickened. 3. Disc bulges at the C3-4 and C5-6 levels. 4. No evidence of osteomyelitis. Juan Carlos Powers MD Objective Remarks GENERAL: appears more comfortable today. NECK: decrease ROM due to pain. dressing in place d/c/i. trachea midline EYES: No scleral icterus. EMOI CARDIOVASCULAR: Regular rate and rhythm without murmurs RESPIRATORY: Breath sounds equal bilaterally. No accessory muscle use. no crackles or wheezing GASTROINTESTINAL: Abdomen soft, non-tender, nondistended. MUSCULOSKELETAL: moves extremities well. sensation grossly intact. NEURO: CN grossly intact PSYCH: pleasant, answers questions appropriately Procedures status post decompression Left C2-3 semi-laminectomy, evacuation epidural abscess (10/02) A/P Assessment and Plan 41-year-old female with hx of IVDU p/w neck pain Cervical spine epidural abscess -status post decompression Left C2-3 semi-laminectomy, evacuation epidural abscess (10/02) -Neurosurgery following. Continue PT/OT/ST. Plan is to check an MRI of the cervical spine later today -wound cultures grew and blood cultures + MRSA. zosyn 10/02-10/03. on vancomycin per ID, continue and monitor Cr levels. -CT scan the neck 10/04/16 No definite abnormality of the nasopharynx oropharynx or larynx identified. Multiple areas of groundglass infiltrate in the left upper lobe nonspecific. CT chest showed Multiple lung nodules and masses nonspecific. concerning for metastatic disease vs Unusual infectious processes or possibly septic emboli. I suspect this may most likely be septic emboli due to pt's Hx however since there is concerns for metastatic disease, will consult oncology for any recommendations. Encouraged IS use q1 hr while awake -Pain control w morphing prn breakthrough and norco po prn. fioricet for her migraines prn Sepsis/MRSA bacteremia -Management per infectious disease. -Echo does not suggest endocarditis. -Provider Relations Rep consulted for ÁNGEL which is scheduled for later today. -Patient is on vancomycin. History of IV drug abuse -Education given. -Will be cautious with pain medication. Prophylaxis: PPI/SCDs. Subcutaneous heparin when okay with neurosurgery. Encourage ambulation Discharge Planning Transfer to floor per neurosx. Repeat MRI of neck per neurosx today f/u on ÁNGEL results. Repeat blood cx pending and once clearance documented will need to place PICC for lobsterman IV abx. Debbie Cade MD Oct 07, 2016 08:35
[2016-10-07] MEDS ORDERED: PHARMACY ORDERED LAB ONE (09:45)
--- NOTE | 2016-10-07 09:54 | HHI.NSPN ---
(Juan Chicas Vane CRESPOP) History Chief Complaint: Dull headache (Juan ChicasAndrew CRESPOP) Interval History 10/02: 41-year-old female who according to her mother came home on 27 September not feeling well. She went to bed for most of the day. Over the past few days she has complained of progressive neck pain and has not been out of bed much in the past couple of days. The patient was seen at [facility] emergency room a few days ago. The mother is uncertain what testing was performed. The patient received a couple of injections in the emergency room and was discharged. The patient's mother states that she has been trying for the past 2 or 3 days to get the patient back to the emergency room and the patient has not wanted to get out of better, and the hospital. Patient's mother states that she believes the patient had a fever yesterday. This morning she had diarrhea. No nausea or vomiting. No definite confusion. Patient complains of severe neck pain. No significant pain weakness or numbness in the extremities or loss of bowel or bladder function. Patient does have a history of IV drug use. 10/03: The patient went for a laminectomy & evacuation of a cervical abscess early this morning. Prior to being seen this afternoon Nursing called and stated that the patient's neck appeared swollen and that the patient felt like she had a lump to the throat. Dr Flores was notified and stated that the patient did have a significant amount of pharyngeal inflammation. When seen the patient complained of pain to the neck. She did state that if she tried to get up the pain went to the top of her head. 10/04: The patient complains of pain to the neck and states she is not able to lean her neck on anything. She states that she wasn't able to sleep during the night due to the pain. She went for a CT soft tissue neck this morning which was unremarkable for any abnormality of the nasopharynx, oropharynx or larynx with post-surgical changes noted. An incidental finding of the left upper lobe w /groundglass infiltrate is suspicious for REGAN pneumonia. 10/05: The patient still has pain to the neck and throat. She reports not being able to sleep due to the pain. When seen she is sitting up in a chair and has brushed her hair. 10/06: The patient is sitting up in a chair with her hair brushed. She states that she is doing better and that her neck is aching and her throat is sore. She states that she does have a migraine headache to the back of the head. She also reports that she has hand tremors today which she has had before the surgery. 10/07: The patient is doing well this morning. She endorses a dull headache. She did report some abdominal pain yesterday afternoon which resolved and has not had any since. When seen Physical Therapy is with the patient and getting her up to a wheelchair to go for her MRI. The patient is able to ambulate to the wheelchair and turn around on her own without any difficulty. (Juan Chicas) System Review Comments Constitutional: Patient denies any fever or chills. HEENT: Patient states mildly sore throat. Neck: Patient reports aching to neck. Respiratory: Patient denies any shortness of breath or productive cough. Cardiovascular: Patient denies any chest pain, palpitations or irregular heartbeat. Gastrointestinal: Patient states she had some abdominal pain yesterday afternoon but none since. She denies any nausea, vomiting or incontinence of stool. Genitourinary: Patient denies any incontinence of urine. Musculoskeletal: Patient denies any hand tremors, back or extremity pain or extremity weakness. Neurologic: Patient endorses a dull headache to the back of the head. She denies any dizziness, numbness or tingling. (Juan Chicas) Exam Results Vital Signs Date Time Temp Pulse Resp B/P Pulse Ox O2 Delivery O2 Flow Rate FiO2 10/07/16 04:00 98.2 68 18 100/56 10/07/16 00:00 99 Room Air 10/03/16 20:10 21 Intake and Output 10/06/16 10/06/16 10/07/16 08:00 16:00 00:00 Intake Total 1159 ml 1342 ml 861 ml Output Total 500 ml 800 ml 850 ml Balance 659 ml 542 ml 11 ml (Juan Chicas) Physical Examination GENERAL: Readily interacts, affect slightly flat, no apparent distress. HEENT: Normocephalic, atraumatic, TTP to right occipital region. NECK: Midline cervical spine NTTP, intact surgical dressing w/o any shadowing, TTP to mid right posterolateral neck > right occipital. Anterior neck w/o any swelling NTTP. CARDIOVASCULAR: S1S2 w/RRR w/o M/G/R. Monitor is sinus rhythm w/o any ectopy noted. RESPIRATORY: CTAB w/o W/R/R, equal excursion, nonlaboured, on RA. GASTROINTESTINAL: Abdomen soft, nontender, positive bowel sounds. GENITOURINARY: Deferred MUSCULOSKELETAL: JARA w/o difficulty, NTTP, no evident deformity or clubbing. INTEGUMENTARY: Skin warm, dry & intact except for posterior cervical surgical incision w/intact dressing. No ulcerations, rashes or other lesions noted. NEUROLOGICAL: AAOx3 Speech w/o any hoarseness, appropriate Follows commands w/o any difficulty Sensation intact to light touch to all extremities Motor strength 5/5 to all major flexion & extension muscle groups (Juan Chicas) Lab, Micro, Other Results Allergies Coded Allergies Type Severity Reaction Last Updated Verified E-Mycin Allergy Severe UNKNOWN 02/23/10 Yes *MDRO Multi-Drug Resistant Organism Adverse Reaction Unknown 10/04/16 Yes Recent Impressions Chest CT 10/06/16 0000 Signed Impressions: Service Date/Time: September 17:58 - CONCLUSION: Multiple lung nodules and masses nonspecific, however metastatic disease should be excluded. Unusual infectious processes or possibly septic emboli could also have this appearance. Erin Mahmood MD //// 06:00 18:00 06:00 18:00 06:00 18:00 Intake Total 2091 ml 1460 ml 2225 ml 1342 ml 1432 ml Output Total 2500 ml 1350 ml 900 ml 800 ml 1750 ml Balance -409 ml 110 ml 1325 ml 542 ml -318 ml Intake Oral 550 ml 960 ml 900 ml 720 ml 600 ml IV Total 1541 ml 500 ml 1325 ml 622 ml 832 ml Output Urine Total 2500 ml 1350 ml 900 ml 800 ml 1750 ml # Bowel Movements 0 0 0 0 Laboratory Tests Test 10/04/16 10/05/16 10/06/16 13:45 17:09 05:11 Vancomycin Level Trough 11.3 MCG/ML 8.9 MCG/ML White Blood Count 20.3 TH/MM3 Red Blood Count 3.60 MIL/MM3 Hemoglobin 10.3 GM/DL Hematocrit 31.3 % Mean Corpuscular Volume 87.0 FL Mean Corpuscular Hemoglobin 28.7 PG Mean Corpuscular Hemoglobin 33.0 % Concent Red Cell Distribution Width 13.9 % Platelet Count 286 TH/MM3 Mean Platelet Volume 9.9 FL Hematology Comments Creatinine 0.42 MG/DL Estimat Glomerular Filtration 165 ML/MIN Rate Vital Signs Date Time Temp Pulse Resp B/P Pulse Ox O2 Delivery O2 Flow Rate FiO2 10/07/16 04:00 98.2 68 18 100/56 10/07/16 00:00 99 Room Air 10/07/16 00:00 98.6 68 18 91/52 99 10/06/16 20:00 97 Room Air 10/06/16 20:00 90 10/06/16 18:00 96 10/06/16 16:00 98.9 96 24 121/65 97 10/06/16 16:00 96 10/06/16 15:57 15 10/06/16 15:12 22 10/06/16 14:00 84 10/06/16 12:00 98.4 86 23 108/62 98 10/06/16 12:00 86 10/06/16 11:04 18 10/06/16 10:00 86 10/06/16 08:00 68 10/06/16 08:00 98.6 68 21 115/67 98 10/06/16 07:00 100 Room Air 10/06/16 06:19 15 10/06/16 06:00 68 10/06/16 04:00 98.7 64 22 98 10/06/16 04:00 64 10/06/16 00:00 98.1 76 19 110/66 99 10/06/16 00:00 76 10/05/16 22:00 80 10/05/16 20:00 79 10/05/16 20:00 98 Room Air 10/05/16 20:00 97.9 79 25 101/62 99 10/05/16 18:00 73 10/05/16 16:00 101.5 110 29 111/69 98 10/05/16 16:00 110 10/05/16 14:00 110 10/05/16 12:00 99.1 100 19 100/67 100 10/05/16 12:00 100 10/05/16 10:00 102 10/05/16 08:00 90 10/05/16 08:00 100.3 92 30 92/61 95 10/05/16 07:00 94 Room Air 10/05/16 06:00 95 10/05/16 04:00 87 10/05/16 04:00 98.7 81 20 117/70 99 10/05/16 02:00 80 10/05/16 00:01 18 10/05/16 00:00 68 10/05/16 00:00 98.9 66 22 97/61 99 10/04/16 22:17 18 10/04/16 22:00 70 10/04/16 20:00 72 10/04/16 20:00 99 Room Air 10/04/16 20:00 99.6 82 20 93/50 96 10/04/16 18:00 98 10/04/16 16:00 100.9 108 26 113/64 98 10/04/16 16:00 106 10/04/16 14:00 93 10/04/16 12:00 95 10/04/16 12:00 98.7 93 26 111/66 98 10/04/16 10:00 87 (Juan Chicas) Medical Decision Making Impression and Plan Impression: 1. Cervical epidural abscess primarily C2-4 levels with significant dorsal cord compression without definite cord edema. 2. Significant cervical prevertebral inflammation without definite abscess formation 3. History of IV drug abuse 4. Cervical degenerative disc disease with moderate chronic appearing C5 6 posterior osteophytic disc complex with moderate stenosis without cord edema. Patient continues to be neurologically stable, improving pain control CT soft tissue neck w/o any noted abnormality of the nasopharynx, oropharynx or larynx, post-surgical changes noted, left upper lobe w/ groundglass infiltrate suspicious for REGAN pneumonia CT chest w/IV contrast demonstrates multiple nonspecific lung nodules & masses w/metastatic disease excluded, findings consistent w/unusual infectious processes or possibly septic emboli in appearance Leukocytosis, interval improvement (23.9=>20.3) Anaemia, interval improvement (9.5=>11.0) Hypokalemia, resolved Labs results pending this morning Blood cultures x2 () & abscess drainage () positive for MRSA Repeat blood cultures x2 () with Gram positive cocci High grade MRSA bacteremia per ID POD #4 () s/p: Left C2-3 semi-laminectomy, evacuation epidural abscess Plan: Primary management per Plumbing Mechanic Abx per Infectious Disease Neuro checks PT eval & tx ST eval & tx Diet per ST Patient is able to be transferred to a regular med/surg floor from NSGY's perspective. (Juan Chicas) Attending Statement I have personally seen and examined the patient on 10/07/16. Pertinent documentation and study results have been reviewed by the undersigned. I have personally developed the treatment plan and performed medical decision making. Agree with findings, exam, and treatment plan as noted above. 10/07/16 MRI cervical spine images reviewed. The study reveals good evacuation of the previous large cervical epidural abscess. There is significant diminished prevertebral soft tissue inflammation. Patient is neurologically stable May transfer to floor from neurosurgery standpoint Continue antibiotics per infectious disease Continuing therapy (Marlo Flores MD) Juan Chicas Oct 07, 2016 09:53 Marlo Flores MD Oct 11, 2016 20:31
[2016-10-07] MEDS ORDERED: GADODIAMIDE PF 287 MG/ML 10 ML VIAL (for RAD MRI) IV ONE (10:33)
--- NOTE | 2016-10-07 11:47 | RADRPT ---
EXAM DATE/TIME: 10/07/2016 10:07 [place] COMPARISON: SPINE CERVICAL LATERAL ONLY, October 03, 2016, 0:50. MRI CERVICAL SPINE W & W/O CONTRAST, October 02, 2016 , 20:16. INDICATIONS : Abscess. CONTRAST: 10 cc Omniscan (gadodiamide) IV MEDICAL HISTORY : None. SURGICAL HISTORY : Carpal tunnel. ENCOUNTER: Initial ACUITY: 1 day PAIN SCORE: 0/10 LOCATION: [facility] TECHNIQUE: Multiplanar, multisequence MRI examination of the cervical spine was performed. FINDINGS: The patient has undergone surgery since the prior examination in this site fluid collection on t he left side posterolaterally adjacent to the laminectomy defect measures 1.9 cm in size probably pos tsurgical change. Previously seen epidural abscess has been evacuated completely surgically. There is fairly extensive prevertebral soft tissue swelling which demonstrates enhancement and extends from t he base of the skull all the way down to C5-6 level. There is also enhancement with edema of the soft tissues of the patient's neck in the upper portion of the neck. C2-C3: There is no evidence for any significant compromise to the thecal sac, or the exiting nerve roots. N o appreciable thecal sac stenosis is seen. The neural foramina and lateral recess appear patent bila terally. C3-C4: There is slight neural foramina compromise bilaterally due to bulging disc and hypertrophic changes. Slight bulging disc and hypertrophic changes are seen with indentation on the thecal sac and no signi ficant compromise to the thecal sac. C4-C5: Slight bulging disc and hypertrophic changes are seen with indentation on the thecal sac and no signi ficant compromise to the thecal sac or the exiting nerve roots. C5-C6: Moderate overall thecal sac stenosis is seen due to right sided disc herniation and hypertrophic mcgovern ges. There is slight neural foramina compromise bilaterally due to bulging disc and hypertrophic mcgovern ges. Slight degenarative changes are seen within the disc space and facets. C6-C7: Slight degenarative changes are seen within the disc space and facets. Slight bulging disc and hypert rophic changes are seen with indentation on the thecal sac and no significant compromise to the theca l sac or the exiting nerve roots. C7-T1: There is no evidence for any significant compromise to the thecal sac, or the exiting nerve roots. N o appreciable thecal sac stenosis is seen. The neural foramina and lateral recess appear patent bila terally. CONCLUSION: 1. Evacuation of previously seen epidural abscess. 2. 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 3. Slight neural foramina compromise bilateral C3-C4, bilateral C5-C6. 4. Probable post operative fluid collection in the left upper C3-C4 levels adjacent to the laminectom y defect. KAndrew Mahmood MD on October 07, 2016 at 11:37 Board Certified Radiologist. This report was verified electronically.
[2016-10-07 12:09] LABS: AUTOMATED NEUTROPHIL # 9.1 TH/MM3 (1.8-7.7); BASOPHIL % 0.3 % (0.0-2.0); EOSINOPHIL # 0.2 TH/MM3 (0-0.4); EOSINOPHIL % 1.5 % (0.0-4.0); HEMATOCRIT 31.1 % (35.0-46.0); HEMO FLAGS DIFF FINAL; LYMPH % 17.8 % (9.0-44.0); LYMPHOCYTE # 2.3 TH/MM3 (1.0-4.8); MEAN CELL VOLUME 87.6 FL (80.0-100.0); MEAN CORPUSCULAR HEMOGLOBIN 27.6 PG (27.0-34.0); MEAN CORPUSCULAR HGB CONC 31.5 % (32.0-36.0); MONO % 8.6 % (0.0-8.0); NEUT % 71.8 % (16.0-70.0); PLATELET COUNT 474 TH/MM3 (150-450); RED BLOOD COUNT 3.55 MIL/MM3 (4.00-5.30); RED CELL DISTRIBUTION WIDTH 13.8 % (11.6-17.2); WHITE BLOOD COUNT 12.7 TH/MM3 (4.0-11.0)
--- NOTE | 2016-10-07 14:25 | PD.CARD.PN ---
Subjective Subjective Remarks No CP or SOB Objective Medications Current Medications Medications (Trade) Dose Ordered Sig/Shade Route Start Time Stop Time Status Last Admin (NS Flush) 2 ml UNSCH PRN IV FLUSH 10/02/16 22:15 (NS Flush) 2 ml BID IV FLUSH 10/03/16 09:00 10/07/16 08:15 (Protonix Inj) 40 mg DAILY IV 10/03/16 09:00 10/07/16 08:15 (Zofran Inj) 4 mg Q6H PRN IV 10/02/16 22:15 Miscellaneous Information 1 Q361D XX 10/02/16 22:15 (Chlorhexidine 2% Cloth) 3 pack Taper DAILY@04 TOP 10/03/16 04:00 09/29/17 03:59 10/07/16 04:00 (Chlorhexidine 2% Cloth) 3 pack UNSCH PRN TOP 10/02/16 22:15 (Loree-Colace) 1 tab BID PO 10/03/16 09:00 10/06/16 08:47 (Milk Of Magnesia Liq) 30 ml Q12H PRN PO 10/02/16 22:15 (Senokot) 17.2 mg Q12H PRN PO 10/02/16 22:15 Bisacodyl 10 mg 10 mg DAILY PRN RECTAL 10/02/16 22:15 (Neosynephrine Inj/D5W 500 ml Inj) 500 ml @ 0 mls/hr TITRATE IV 10/03/16 03:30 10/03/16 02:20 Terbutaline Sulfate 1 mg 1 mg UNSCH PRN SQ 10/03/16 02:30 Potassium Chloride/Sodium Chloride 1,000 ml @ 100 mls/hr Q10H IV 10/03/16 02:30 10/05/16 14:27 Potassium Chloride 100 ml @ 50 mls/hr Q2H PRN IV 10/03/16 03:45 (KCl 20 Meq Premix Inj) 100 ml @ 50 mls/hr Q2H PRN IV 10/03/16 03:45 10/03/16 04:48 Potassium Bicarb/ Potassium Chloride 50 meq 50 meq UNSCH PRN PO 10/03/16 03:45 Potassium Chloride 100 ml @ 25 mls/hr UNSCH PRN IV 10/03/16 03:45 Potassium Chloride 100 ml @ 50 mls/hr Q2H PRN IV 10/03/16 03:45 (Magnesium Sulfate Inj/NS Inj) 100 ml @ 50 mls/hr UNSCH PRN IV 10/03/16 03:45 Magnesium Oxide 800 mg 800 mg UNSCH PRN PO 10/03/16 03:45 (Magnesium Sulfate Inj/NS Inj) 100 ml @ 50 mls/hr UNSCH PRN IV 10/03/16 03:45 Potassium Phosphate 2000 mg 2,000 mg Q4H PRN PO 10/03/16 03:45 (Sodium Phosphate Inj/NS 250 ml Inj) 250 ml @ 42 mls/hr UNSCH PRN IV 10/03/16 03:45 Potassium Phosphate 2000 mg 2,000 mg UNSCH PRN PO/TUBE 10/03/16 03:45 Potassium Phosphate 30 mmol/ Sodium Chloride 260 ml @ 42 mls/hr UNSCH PRN IV 10/03/16 03:45 Norepinephrine Bitartrate 250 ml @ 0 mls/hr TITRATE IV 10/03/16 08:00 10/03/16 08:02 (Vancomycin Consult Pharmacy) 0 ml @ 0 mls/hr UNSCH OTHER 10/03/16 14:30 (Tylenol) 650 mg Q4H PRN PO 10/04/16 18:00 10/07/16 05:56 ([place] 5-325 Mg) 1 tab Q6H PRN PO 10/05/16 15:30 10/06/16 05:19 Acetaminophen/ Hydrocodone Bitart 2 tab 2 tab Q6H PRN PO 10/05/16 15:30 10/07/16 11:14 (Vancomycin Inj/ NS 250 ml Inj) 262.5 ml @ 250 mls/hr Q8H IV 10/06/16 10:00 10/07/16 11:14 (Fioricet 325-50-40) 1 tab Q8H PRN PO 10/06/16 08:45 10/06/16 18:47 (Morphine Inj) 2 mg Q6H PRN IV PUSH 10/06/16 10:00 10/07/16 05:56 Vital Signs / I&O Vital Signs Date Time Temp Pulse Resp B/P Pulse Ox O2 Delivery O2 Flow Rate FiO2 10/07/16 12:14 20 10/07/16 12:00 98.4 76 23 112/65 99 10/07/16 12:00 76 10/07/16 10:00 72 10/07/16 08:00 97.9 64 18 100/56 99 10/07/16 08:00 64 10/07/16 07:00 99 Room Air 10/07/16 04:00 98.2 68 18 100/56 10/07/16 00:00 99 Room Air 10/07/16 00:00 98.6 68 18 91/52 99 10/06/16 20:00 97 Room Air 10/06/16 20:00 90 10/06/16 18:00 96 10/06/16 16:00 98.9 96 24 121/65 97 10/06/16 16:00 96 10/06/16 15:57 15 I/O 10/06/16 10/06/16 10/06/16 10/07/16 10/07/16 10/07/16 06:59 14:59 22:59 06:59 14:59 22:59 Intake Total 1159 ml 1342 ml 861 ml 571 ml Output Total 500 ml 800 ml 850 ml 900 ml Balance 659 ml 542 ml 11 ml -329 ml Intake Oral 400 ml 720 ml 480 ml 120 ml IV Total 759 ml 622 ml 381 ml 451 ml Output Urine Total 500 ml 800 ml 850 ml 900 ml # Bowel Movements 0 0 Physical Exam GENERAL: In NAD SKIN: Warm and dry. HEAD: Normocephalic. EYES: No scleral icterus. No injection or drainage. NECK: Supple, trachea midline. No JVD or lymphadenopathy. CARDIOVASCULAR: Regular rate and rhythm without murmurs, gallops, or rubs. RESPIRATORY: Breath sounds equal bilaterally. No accessory muscle use. GASTROINTESTINAL: Abdomen soft, non-tender, nondistended. MUSCULOSKELETAL: No cyanosis, or edema. Laboratory Laboratory Tests Test 10/07/16 11:05 White Blood Count 12.7 TH/MM3 Red Blood Count 3.55 MIL/MM3 Hemoglobin 9.8 GM/DL Hematocrit 31.1 % Mean Corpuscular Volume 87.6 FL Mean Corpuscular Hemoglobin 27.6 PG Mean Corpuscular Hemoglobin 31.5 % Concent Red Cell Distribution Width 13.8 % Platelet Count 474 TH/MM3 Mean Platelet Volume 8.6 FL Neutrophils (%) (Auto) 71.8 % Lymphocytes (%) (Auto) 17.8 % Monocytes (%) (Auto) 8.6 % Eosinophils (%) (Auto) 1.5 % Basophils (%) (Auto) 0.3 % Neutrophils # (Auto) 9.1 TH/MM3 Lymphocytes # (Auto) 2.3 TH/MM3 Monocytes # (Auto) 1.1 TH/MM3 Eosinophils # (Auto) 0.2 TH/MM3 Basophils # (Auto) 0.0 TH/MM3 CBC Comment DIFF FINAL Differential Comment Vancomycin Level Trough 15.3 MCG/ML Imaging Last Impressions Cervical Spine MRI 10/07/16 0700 Signed Impressions: Service Date/Time: Friday, October 07, 2016 10:07 - CONCLUSION: 1. Evacuation of previously seen epidural abscess. 2. 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 3. Slight neural foramina compromise bilateral C3-C4, bilateral C5-C6. 4. Probable post operative fluid collection in the left upper C3-C4 levels adjacent to the laminectomy defect. Erin Mahmood MD Chest CT 10/06/16 0000 Signed Impressions: Service Date/Time: September 17:58 - CONCLUSION: Multiple lung nodules and masses nonspecific, however metastatic disease should be excluded. Unusual infectious processes or possibly septic emboli could also have this appearance. Erin Mahmood MD Neck CT 10/04/16 0600 Signed Impressions: Service Date/Time: Tuesday, October 04, 2016 09:16 - CONCLUSION: 1. No definite abnormality of the nasopharynx oropharynx or larynx identified. 2. The patient has postsurgical changes in the neck and cervical spine consistent with previous epidural abscess drainage. 3. Multiple areas of groundglass infiltrate in the left upper lobe nonspecific but concerning for an underlying pneumonia. CT imaging of the chest would be warranted for further assessment. Kobe Carpenter MD Cervical Spine X-Ray 10/03/16 0000 Signed Impressions: Service Date/Time: Monday, October 03, 2016 00:50 - CONCLUSION: Spinous process of C2 is localized. Ricco Beal MD Chest X-Ray 10/02/16 1922 Signed Impressions: Service Date/Time: Sunday, October 02, 2016 19:35 - CONCLUSION: Mild hazy opacity in the right lung base. This could represent early infiltrate. Juan Carlos Powers MD Thoracic Spine MRI 10/02/16 0000 Signed Impressions: Service Date/Time: Sunday, October 02, 2016 20:16 - CONCLUSION: Unremarkable exam. Juan Carlos Powers MD Lumbar Spine MRI 10/02/16 0000 Signed Impressions: Service Date/Time: Sunday, October 02, 2016 20:16 - CONCLUSION: 1. No evidence of osteomyelitis. 2. Annular disc bulge at the L4-5 level with mild mass effect on the anterior thecal sac. 3. Mild degenerative disc and degenerative joint changes. Juan Carlos Powers MD Assessment and Plan Problem List: (1) Abscess in epidural space of cervical spine (2) Sepsis (3) Bacteremia (4) IV drug abuse Assessment and Plan No new cardiac issues. Continue abxs as per ID. ÁNGEL today. Pt understands the risks and benefits and wishes to proceed. Problem Qualifiers (1) Sepsis: Qualified Code: A41.9 - Sepsis, due to unspecified organism Paul Hawk MD Oct 07, 2016 14:25
--- NOTE | 2016-10-07 18:47 | PD.WCN.NOT ---
Wound Consult Description: Coccyx and buttock area Communicated with: REINA Boyd, and Doctor Rayo Recommendation: Please cleanse bilateral buttock and coccyx area with soap and water and apply Calazime barrier cream BID and PRN and leave open to air. Additional Information: Patient seen on for evaluation of wound to coccyx and buttock area. Patient able to stand with minimal assistance of bid writer to reveal coccyx area with small deflated blister with opened area to partial thickness skin loss measuring ~0.2cm x ~0.2cm x~<0.1cm surrounding intact skin is macerated. R buttock presents with non blanchable erythematous area of intact skin measuring ~3cm x ~1cm. Non blanchable erythema to intact skin indicates stage 1 pressure injury to R buttock. Deflated blister over coccyx to partial thickness skin loss indicates stage 2 . Left buttock and coccyx area opened to air Ostomy Date of Surgery: Oct 03, 2016 Demetrice Dorsey [facility] Oct 07, 2016 18:47
[2016-10-07] MEDS: ACETAMIN 325 MG/BUTALBITAL 50 MG/CAFFEINE 40 MG TAB PO PRN (23:52)
[2016-10-08] VITALS (9 sets, daily range): BP systolic 81–120; BP diastolic 47–74; PULSE 71–88; RESP 16–20; TEMP 96.7–99.3; O2SAT 95–100
[2016-10-08] MEDS: NS + KCL 20 MEQ INJ 1,000 ML IV SCH ×3 (02:52→22:30)
[2016-10-08] MEDS: VANCOMYCIN INJ 1,250 MG in SODIUM CHLOR 0.9% 250 ML INJ 250 ML IV SCH ×3 (02:52→17:45)
[2016-10-08] MEDS: ACETAMINOPHEN/HYDROcodone 325 MG/5 MG TAB PO PRN ×3 (03:04→17:45)
[2016-10-08] MEDS: CHLORHEXIDINE GLUCONATE 2 % 1 PACK (2 CLOTHS) TOP SCH (04:00)
[2016-10-08] MEDS: PANTOPRAZOLE SODIUM 40 MG VIAL IV SCH (08:27)
[2016-10-08] MEDS: DOCUSATE SODIUM 50 MG/SENNA 8.6 MG TAB PO SCH ×2 (08:33→21:00)
[2016-10-08] MEDS: SODIUM CHLORIDE 0.9% FLUSH 10 ML FLUSH IV FLUSH SCH ×2 (08:40→21:00)
--- NOTE | 2016-10-08 11:29 | HHI.NSPN ---
History Chief Complaint: Incisional discomfort. Interval History 10/02: 41-year-old female who according to her mother came home on 27 September not feeling well. She went to bed for most of the day. Over the past few days she has complained of progressive neck pain and has not been out of bed much in the past couple of days. The patient was seen at [facility] emergency room a few days ago. The mother is uncertain what testing was performed. The patient received a couple of injections in the emergency room and was discharged. The patient's mother states that she has been trying for the past 2 or 3 days to get the patient back to the emergency room and the patient has not wanted to get out of better, and the hospital. Patient's mother states that she believes the patient had a fever yesterday. This morning she had diarrhea. No nausea or vomiting. No definite confusion. Patient complains of severe neck pain. No significant pain weakness or numbness in the extremities or loss of bowel or bladder function. Patient does have a history of IV drug use. 10/03: The patient went for a laminectomy & evacuation of a cervical abscess early this morning. Prior to being seen this afternoon Nursing called and stated that the patient's neck appeared swollen and that the patient felt like she had a lump to the throat. Dr Flores was notified and stated that the patient did have a significant amount of pharyngeal inflammation. When seen the patient complained of pain to the neck. She did state that if she tried to get up the pain went to the top of her head. 10/04: The patient complains of pain to the neck and states she is not able to lean her neck on anything. She states that she wasn't able to sleep during the night due to the pain. She went for a CT soft tissue neck this morning which was unremarkable for any abnormality of the nasopharynx, oropharynx or larynx with post-surgical changes noted. An incidental finding of the left upper lobe w /groundglass infiltrate is suspicious for REGAN pneumonia. 10/05: The patient still has pain to the neck and throat. She reports not being able to sleep due to the pain. When seen she is sitting up in a chair and has brushed her hair. 10/06: The patient is sitting up in a chair with her hair brushed. She states that she is doing better and that her neck is aching and her throat is sore. She states that she does have a migraine headache to the back of the head. She also reports that she has hand tremors today which she has had before the surgery. 10/07: The patient is doing well this morning. She endorses a dull headache. She did report some abdominal pain yesterday afternoon which resolved and has not had any since. When seen Physical Therapy is with the patient and getting her up to a wheelchair to go for her MRI. The patient is able to ambulate to the wheelchair and turn around on her own without any difficulty. 10/08/16: Pt complains of incisional pain. No radiculopathy or paresthesias. Headaches radiating into frontal area. No nausea or vomiting. Pt states headaches usually respond to ibuprofen. Review of Systems General: Negative for: fever, chills, insomnia Respiratory: Negative for: shortness of breath, cough, sputum Cardiovascular: Negative for: chest pain Gastrointestinal: Negative for: nausea, vomitting, diarrhea, constipation Exam Results Vital Signs Date Time Temp Pulse Resp B/P Pulse Ox O2 Delivery O2 Flow Rate FiO2 10/08/16 08:00 96.7 75 16 120/74 97 10/07/16 18:00 Room Air Intake and Output 10/07/16 10/07/16 10/08/16 08:00 16:00 00:00 Intake Total 571 ml 622 ml Output Total 900 ml 800 ml Balance -329 ml -178 ml Physical Examination Resp: CTA bilaterally Heart: NSR no murmurs Abd: Soft positive bs Skin: No cyanosis or erythema. Incision bandaged dry. Muscle: Moves all 4 extremities well. Neuro: Pt awake and alert. Follows commands well. Speech clear and appropriate. Lab, Micro, Other Results 10/07/16 10/07/16 10/08/16 15:00 23:00 07:00 Intake Total 622 ml Output Total 800 ml Balance -178 ml Intake Oral 0 ml IV Total 622 ml Output Urine Total 800 ml # Voids 2 2 # Bowel Movements 0 0 Medical Decision Making Impression and Plan A: 41 y/o FM s/p Left C2-3 semi-laminectomy, evacuation epidural abscess Blood cultures were positive for MRSA. P: Continue to monitor antibiotics continue with pain control. Will add once a day ibuprofen for headaches. Continue with Protonix for GI prophylaxis. Continue to get oob and ambulate. Esteban Kim Oct 08, 2016 11:29
[2016-10-08] MEDS: IBUPROFEN 600 MG TAB PO PRN (13:17)
[2016-10-08 13:49] LABS: AUTOMATED NEUTROPHIL # 7.2 TH/MM3 (1.8-7.7); BASOPHIL % 0.3 % (0.0-2.0); EOSINOPHIL # 0.2 TH/MM3 (0-0.4); EOSINOPHIL % 1.8 % (0.0-4.0); HEMATOCRIT 32.7 % (35.0-46.0); HEMO FLAGS DIFF FINAL; LYMPH % 21.1 % (9.0-44.0); LYMPHOCYTE # 2.3 TH/MM3 (1.0-4.8); MEAN CORPUSCULAR HEMOGLOBIN 29.6 PG (27.0-34.0); MEAN CORPUSCULAR HGB CONC 33.6 % (32.0-36.0); MONO % 9.9 % (0.0-8.0); NEUT % 66.9 % (16.0-70.0); PLATELET COUNT 559 TH/MM3 (150-450); RED BLOOD COUNT 3.72 MIL/MM3 (4.00-5.30); RED CELL DISTRIBUTION WIDTH 13.7 % (11.6-17.2); WHITE BLOOD COUNT 10.8 TH/MM3 (4.0-11.0)
--- NOTE | 2016-10-08 14:53 | HHI.PR ---
Subjective Remarks Follow up epidural abscess, lung nodules. Patient states that she feels "like a fever is coming on". She describes neck and upper back/shoulder pain. She is having vision changes today, describing "white lights spinning like tire tracks ". Objective Vitals Vital Signs Date Time Temp Pulse Resp B/P Pulse Ox O2 Delivery O2 Flow Rate FiO2 10/08/16 12:00 97.5 88 18 92/50 96 10/08/16 08:30 Room Air 10/08/16 08:00 96.7 75 16 120/74 97 10/08/16 04:00 99.1 74 20 112/68 97 10/08/16 00:00 98.6 77 20 111/61 95 10/07/16 20:00 103.3 90 20 114/60 96 10/07/16 18:23 102.5 91 20 125/62 98 10/07/16 18:00 Room Air 10/07/16 18:00 76 10/07/16 16:00 99.4 72 20 119/68 98 10/07/16 16:00 72 I/O 10/07/16 10/07/16 10/07/16 10/08/16 10/08/16 10/08/16 07:00 15:00 23:00 07:00 15:00 23:00 Intake Total 571 ml 622 ml Output Total 900 ml 800 ml Balance -329 ml -178 ml Intake Oral 120 ml 0 ml IV Total 451 ml 622 ml Output Urine Total 900 ml 800 ml # Voids 2 2 # Bowel Movements 0 0 Result Diagram: 10/08/16 1300 10/08/16 1300 Imaging Last Impressions Cervical Spine MRI 10/07/16 0700 Signed Impressions: Service Date/Time: Friday, October 07, 2016 10:07 - CONCLUSION: 1. Evacuation of previously seen epidural abscess. 2. 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 3. Slight neural foramina compromise bilateral C3-C4, bilateral C5-C6. 4. Probable post operative fluid collection in the left upper C3-C4 levels adjacent to the laminectomy defect. Erin Mahmood MD Chest CT 10/06/16 0000 Signed Impressions: Service Date/Time: September 17:58 - CONCLUSION: Multiple lung nodules and masses nonspecific, however metastatic disease should be excluded. Unusual infectious processes or possibly septic emboli could also have this appearance. Erin Mahmood MD Neck CT 10/04/16 0600 Signed Impressions: Service Date/Time: Tuesday, October 04, 2016 09:16 - CONCLUSION: 1. No definite abnormality of the nasopharynx oropharynx or larynx identified. 2. The patient has postsurgical changes in the neck and cervical spine consistent with previous epidural abscess drainage. 3. Multiple areas of groundglass infiltrate in the left upper lobe nonspecific but concerning for an underlying pneumonia. CT imaging of the chest would be warranted for further assessment. Kobe Carpenter MD Cervical Spine X-Ray 10/03/16 0000 Signed Impressions: Service Date/Time: Monday, October 03, 2016 00:50 - CONCLUSION: Spinous process of C2 is localized. Ricco Beal MD Chest X-Ray 10/02/16 1922 Signed Impressions: Service Date/Time: Sunday, October 02, 2016 19:35 - CONCLUSION: Mild hazy opacity in the right lung base. This could represent early infiltrate. Juan Carlos Powers MD Thoracic Spine MRI 10/02/16 0000 Signed Impressions: Service Date/Time: Sunday, October 02, 2016 20:16 - CONCLUSION: Unremarkable exam. Juan Carlos Powers MD Lumbar Spine MRI 10/02/16 0000 Signed Impressions: Service Date/Time: Sunday, October 02, 2016 20:16 - CONCLUSION: 1. No evidence of osteomyelitis. 2. Annular disc bulge at the L4-5 level with mild mass effect on the anterior thecal sac. 3. Mild degenerative disc and degenerative joint changes. Juan Carlos Powers MD Objective Remarks General: No acute distress. Heart: Regular rate and rhythm. No murmur. Lungs: Clear to auscultation bilaterally. No wheezes, rales, or rhonchi. Breathing is nonlabored. Abdomen: Soft, nontender, nondistended. Extremities: No lower extremity edema. Psych: Alert and oriented. Procedures 10/04/15 status post decompression Left C2-3 semi-laminectomy, evacuation of epidural abscess Urinary Catheter: No Vascular Central Line Catheter: No A/P Problem List: (1) Abscess in epidural space of cervical spine ICD Code: G06.1 Status: Acute (2) Bacteremia ICD Code: R78.81 Status: Acute Assessment and Plan 1. Cervical spine epidural abscess: Status post decompression laminectomy with evacuation of abscess on 10/03/16. Appreciate neurosurgery recommendations. Continue PT/OT/ST. 2. MRSA bacteremia, sepsis: Appreciate infectious disease recommendations. Continue IV antibiotics. ÁNGEL results pending. 3. History of IV drug abuse: Patient has been counseled. 4. Multiple lung nodules: Nonspecific. Concerning for metastatic disease. Medical oncology consultation is pending. This may be secondary to septic emboli. 5. GI prophylaxis: PPI. 6. DVT prophylaxis: SCDs. Heparin when okay with neurosurgery. Steffen Mondragon MD Oct 08, 2016 14:53
--- NOTE | 2016-10-08 18:33 | MB ---
cc: RAINER BELTRE DATE OF CONSULTATION October 07, 2016 DATE OF 1975 REASON FOR CONSULTATION Patient with a history of IV drug abuse. Cervical epidural abscess and endocarditis who was found to have multiple lung nodules. HISTORY OF PRESENT ILLNESS This is a 41-year-old female who presented to the emergency department with neck pain. She has a history of IV drug abuse. She has been injecting Dilaudid. She developed sudden onset of severe neck pain 4 days before admission. She initially presented to [facility] and was discharged from the emergency room. She then presented to [facility]. She had imaging of the spine. The cervical spine MRI showed extensive soft tissue swelling and edema involving the retropharyngeal soft tissues and prevertebral soft tissues from the skull base to the C4-C5 interspace. There is also left lateral and posterior epidural collection which was 3.7 cm. There was a mass effect and flattening of the cervical cord. The patient was evaluated by neurosurgery. She underwent urgent upper cervical laminectomy and evacuation of epidural abscess. The patient has been evaluated by infectious disease as well and is currently on antibiotics. She has MRSA bacteremia. She is on IV vancomycin. The patient has also been evaluated by cardiology to determine whether she has endocarditis and a ÁNGEL is scheduled. During the course of her admission she had CT of the chest which showed multiple lung nodules bilaterally. On the left side there were three separate nodules and masses in the left lower lobe. The largest one was 2.7 cm in size with vague haziness involving the left upper lobe. In the right lung there was multiple approximately 13 mass-like nodules that were almost 2 cm in size in the right lower lobe. It was difficult to determine the etiology but differential includes infectious versus septic emboli which are more likely and possibly metastatic disease. I have been consulted to make further recommendations. The patient has a longstanding history of tobacco abuse of approximately 20 pack-years. REVIEW OF SYSTEMS A comprehensive 13 point review of systems was completed which is negative except as described in the HPI. PAST MEDICAL HISTORY IV drug abuse, carpal syndrome, chronic back pain, tobacco abuse. PAST SURGICAL HISTORY Recent cervical laminectomy, history of bilateral carpal tunnel syndrome release. SOCIAL HISTORY Alcohol abuse, tobacco abuse, polysubstance abuse. She takes Roxicodone, xanax and Dilaudid. OUTPATIENT MEDICATIONS None. Currently the patient is on: Vancomycin 1250 milligrams IV q.8 hours. Ibuprofen 600 milligrams p.o. daily. 1. Morphine injection 2 milligrams IV q.6 hours p.r.n. 2. [place] 5/325 1 tablet p.o. q. 6 hours p.r.n. 3. Tylenol 650 p.o. q. 4 hours p.r.n. 4. Pantoprazole 40 milligrams IV daily, 5. Loree-Colace 1 tablet p.o. b.i.d. ALLERGIES ERYTHROMYCIN. PHYSICAL EXAMINATION VITAL SIGNS: Blood pressure is 114/60, pulse is in the 90s, temperature 103.3, O2 sats are 96% on room air. GENERAL: Cachectic and chronically ill-appearing female, has peripheral wasting. HEENT: Pupils are equal, round, reactive to light. EOMI. No oral thrush. No oral lesions. NECK: Neck is supple. No JVD, no bruits or lymphadenopathy. CHEST: Clear to auscultation. CARDIAC: S1-S2, regular rate and rhythm. ABDOMEN: Abdomen is soft, nontender, nondistended. EXTREMITIES: Bilateral arm needle tracking morales. 2+ pulses. No edema, erythema or cyanosis. SKIN: Without any petechiae or bruises. NEURO: No focal deficit. PSYCHIATRIC: Mood and affect is appropriate. IMAGING STUDIES Reviewed in the EMR. LABORATORY DATA WBC 12.7, hemoglobin 9.8, platelet count 474. Serum chemistries show sodium 141, potassium 4.8, chloride 113, CO2 21.8, BUN 20, creatinine 0.49, GFR 138, glucose is 106, calcium is 8. Total bilirubin is 0.3, ALK phos is 62, total protein is 6.3, albumin is 1.9. ASSESSMENT/PLAN This is a 41-year-old female with significant history of polysubstance abuse, IV drug use who presents with neck pain and was found to have an epidural abscess. She underwent urgent laminectomy and drainage of the epidural abscess. She is found to have multiple lung nodules that are approximately 12 to 13 in number. I have been asked to make further recommendations. 1. Multiple lung nodules in the left upper lobe as well as in the right lung. There is one lesion in the left upper lobe which is 2.7 cm with vague haziness. There are approximately 13 separate nodule lesions in the right lower lung. In the setting of IV drug use these could be septic emboli. I will discuss this case with radiology to see if we can better characterize these with a CT angiogram, especially if they are septic emboli. We will also ask pulmonary to assess this patient for possible bronchoscopy. Again, it is highly likely that these are septic emboli. 2. Polysubstance abuse - IV drug abuse. 3. Epidural abscess status post laminectomy and drainage of the abscess. She is currently on antibiotics. 4. Normocytic anemia, obtain anemia studies. 5. Thank you for allowing me to participate in the care of this patient. I will continue to follow this patient along. MD ELVER Kim/JORDAN /5:49 PM /6:11 PM MTDD
[2016-10-09] VITALS (8 sets, daily range): BP systolic 97–161; BP diastolic 55–81; PULSE 64–88; RESP 17–20; TEMP 97.3–100.3; O2SAT 96–98
[2016-10-09] MEDS: ACETAMINOPHEN/HYDROcodone 325 MG/5 MG TAB PO PRN ×3 (00:14→17:48)
[2016-10-09] MEDS: VANCOMYCIN INJ 1,250 MG in SODIUM CHLOR 0.9% 250 ML INJ 250 ML IV SCH ×3 (02:05→17:48)
[2016-10-09] MEDS: CHLORHEXIDINE GLUCONATE 2 % 1 PACK (2 CLOTHS) TOP SCH (02:32)
[2016-10-09] MEDS: IBUPROFEN 600 MG TAB PO PRN ×2 (04:44→21:28)
[2016-10-09] MEDS: NS + KCL 20 MEQ INJ 1,000 ML IV SCH ×2 (08:30→18:30)
[2016-10-09] MEDS: SODIUM CHLORIDE 0.9% FLUSH 10 ML FLUSH IV FLUSH SCH ×2 (09:00→21:29)
[2016-10-09] MEDS: PANTOPRAZOLE SODIUM 40 MG VIAL IV SCH (09:24)
[2016-10-09] MEDS: DOCUSATE SODIUM 50 MG/SENNA 8.6 MG TAB PO SCH ×2 (09:24→21:29)
--- NOTE | 2016-10-09 10:10 | HHI.NSPN ---
History Chief Complaint: Incisional discomfort. Interval History 10/02: 41-year-old female who according to her mother came home on 27 September not feeling well. She went to bed for most of the day. Over the past few days she has complained of progressive neck pain and has not been out of bed much in the past couple of days. The patient was seen at [facility] emergency room a few days ago. The mother is uncertain what testing was performed. The patient received a couple of injections in the emergency room and was discharged. The patient's mother states that she has been trying for the past 2 or 3 days to get the patient back to the emergency room and the patient has not wanted to get out of better, and the hospital. Patient's mother states that she believes the patient had a fever yesterday. This morning she had diarrhea. No nausea or vomiting. No definite confusion. Patient complains of severe neck pain. No significant pain weakness or numbness in the extremities or loss of bowel or bladder function. Patient does have a history of IV drug use. 10/03: The patient went for a laminectomy & evacuation of a cervical abscess early this morning. Prior to being seen this afternoon Nursing called and stated that the patient's neck appeared swollen and that the patient felt like she had a lump to the throat. Dr Flores was notified and stated that the patient did have a significant amount of pharyngeal inflammation. When seen the patient complained of pain to the neck. She did state that if she tried to get up the pain went to the top of her head. 10/04: The patient complains of pain to the neck and states she is not able to lean her neck on anything. She states that she wasn't able to sleep during the night due to the pain. She went for a CT soft tissue neck this morning which was unremarkable for any abnormality of the nasopharynx, oropharynx or larynx with post-surgical changes noted. An incidental finding of the left upper lobe w /groundglass infiltrate is suspicious for REGAN pneumonia. 10/05: The patient still has pain to the neck and throat. She reports not being able to sleep due to the pain. When seen she is sitting up in a chair and has brushed her hair. 10/06: The patient is sitting up in a chair with her hair brushed. She states that she is doing better and that her neck is aching and her throat is sore. She states that she does have a migraine headache to the back of the head. She also reports that she has hand tremors today which she has had before the surgery. 10/07: The patient is doing well this morning. She endorses a dull headache. She did report some abdominal pain yesterday afternoon which resolved and has not had any since. When seen Physical Therapy is with the patient and getting her up to a wheelchair to go for her MRI. The patient is able to ambulate to the wheelchair and turn around on her own without any difficulty. 10/08/16: Pt complains of incisional pain. No radiculopathy or paresthesias. Headaches radiating into frontal area. No nausea or vomiting. Pt states headaches usually respond to ibuprofen. 10/09/16: Pt complains of incisional pain. Headaches improved with ibuprofen. No radiculopathy or paresthesias in UEs. Review of Systems General: Negative for: fever, chills, insomnia Respiratory: Negative for: shortness of breath, cough, sputum Cardiovascular: Negative for: chest pain Gastrointestinal: Negative for: nausea, vomitting, diarrhea, constipation Exam Results Vital Signs Date Time Temp Pulse Resp B/P Pulse Ox O2 Delivery O2 Flow Rate FiO2 10/09/16 08:00 97.3 75 17 110/59 98 10/08/16 20:58 Room Air Intake and Output 10/08/16 10/08/16 10/08/16 07:59 15:59 23:59 Intake Total 1714 ml Balance 1714 ml Physical Examination Resp: CTA bilaterally Heart: NSR no murmurs Abd: Soft positive bs Skin: No cyanosis or erythema. Incision bandaged dry. Bandaged changed by me. Incision clean and dry. No signs of infection. Muscle: Moves all 4 extremities well. Neuro: Pt awake and alert. Follows commands well. Speech clear and appropriate. Lab, Micro, Other Results Last Impressions Cervical Spine MRI 10/07/16 0700 Signed Impressions: Service Date/Time: Friday, October 07, 2016 10:07 - CONCLUSION: 1. Evacuation of previously seen epidural abscess. 2. 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 3. Slight neural foramina compromise bilateral C3-C4, bilateral C5-C6. 4. Probable post operative fluid collection in the left upper C3-C4 levels adjacent to the laminectomy defect. Erin Mahmood MD Chest CT 10/06/16 0000 Signed Impressions: Service Date/Time: September 17:58 - CONCLUSION: Multiple lung nodules and masses nonspecific, however metastatic disease should be excluded. Unusual infectious processes or possibly septic emboli could also have this appearance. Erin Mahmood MD Neck CT 10/04/16 0600 Signed Impressions: Service Date/Time: Tuesday, October 04, 2016 09:16 - CONCLUSION: 1. No definite abnormality of the nasopharynx oropharynx or larynx identified. 2. The patient has postsurgical changes in the neck and cervical spine consistent with previous epidural abscess drainage. 3. Multiple areas of groundglass infiltrate in the left upper lobe nonspecific but concerning for an underlying pneumonia. CT imaging of the chest would be warranted for further assessment. Kobe Carpenter MD Cervical Spine X-Ray 10/03/16 0000 Signed Impressions: Service Date/Time: Monday, October 03, 2016 00:50 - CONCLUSION: Spinous process of C2 is localized. Ricco Beal MD Chest X-Ray 10/02/16 192 Signed Impressions: Service Date/Time: Sunday, October 02, 2016 19:35 - CONCLUSION: Mild hazy opacity in the right lung base. This could represent early infiltrate. Juan Carlos Powers MD Thoracic Spine MRI 10/02/16 0000 Signed Impressions: Service Date/Time: Sunday, October 02, 2016 20:16 - CONCLUSION: Unremarkable exam. Juan Carlos Powers MD Lumbar Spine MRI 10/02/16 0000 Signed Impressions: Service Date/Time: Sunday, October 02, 2016 20:16 - CONCLUSION: 1. No evidence of osteomyelitis. 2. Annular disc bulge at the L4-5 level with mild mass effect on the anterior thecal sac. 3. Mild degenerative disc and degenerative joint changes. Juan Carlos Powers MD Laboratory Tests Test 10/08/16 10/09/16 13:00 08:04 White Blood Count 10.8 TH/MM3 Red Blood Count 3.72 MIL/MM3 Hemoglobin 11.0 GM/DL Hematocrit 32.7 % Mean Corpuscular Volume 88.0 FL Mean Corpuscular Hemoglobin 29.6 PG Mean Corpuscular Hemoglobin 33.6 % Concent Red Cell Distribution Width 13.7 % Platelet Count 559 TH/MM3 Mean Platelet Volume 8.1 FL Neutrophils (%) (Auto) 66.9 % Lymphocytes (%) (Auto) 21.1 % Monocytes (%) (Auto) 9.9 % Eosinophils (%) (Auto) 1.8 % Basophils (%) (Auto) 0.3 % Neutrophils # (Auto) 7.2 TH/MM3 Lymphocytes # (Auto) 2.3 TH/MM3 Monocytes # (Auto) 1.1 TH/MM3 Eosinophils # (Auto) 0.2 TH/MM3 Basophils # (Auto) 0.0 TH/MM3 CBC Comment DIFF FINAL Differential Comment Creatinine 0.51 MG/DL 0.53 MG/DL Estimat Glomerular Filtration 132 ML/MIN 126 ML/MIN Rate Random Vancomycin Level 37.9 COMMENT 10/08/16 10/08/16 10/09/16 14:59 22:59 06:59 Intake Total 1714 ml 350 ml Balance 1714 ml 350 ml IV Total 1714 ml 350 ml # Voids 4 4 # Bowel Movements 1 Medical Decision Making Impression and Plan A: 41 y/o FM s/p Left C2-3 semi-laminectomy, evacuation epidural abscess Initial Blood cultures were positive for MRSA. Repeat blood cultures negative at 24 hours. P: Continue to monitor antibiotics continue with pain control. Continue with once a day ibuprofen for headaches. Continue with Protonix for GI prophylaxis. Continue to get oob and ambulate. Esteban Kim Oct 09, 2016 10:09
--- NOTE | 2016-10-09 11:38 | PD.ONC.PN ---
Subjective Subjective Remarks Afebrile overnight C/o migraine headaches Has been getting OOB Denies chest pain, SOB. Objective Data Date Time Temp Pulse Resp B/P Pulse Ox O2 Delivery O2 Flow Rate FiO2 10/09/16 11:07 66 10/09/16 08:00 97.3 75 17 110/59 98 10/09/16 04:00 98.2 64 18 97/55 98 10/09/16 00:00 99.6 88 20 161/81 98 10/08/16 20:58 Room Air 10/08/16 20:58 73 10/08/16 20:42 92/58 Automatic Cuff 10/08/16 20:00 98.0 71 18 81/47 99 10/08/16 18:45 19 10/08/16 16:00 99.3 77 17 100/56 100 10/08/16 14:17 18 10/08/16 12:00 97.5 88 18 92/50 96 10/09/16 10/09/16 10/09/16 07:00 15:00 23:00 Intake Total 350 ml Balance 350 ml Result Diagram: 10/08/16 1300 10/09/16 0804 Laboratory Results Laboratory Tests Test 10/08/16 10/09/16 13:00 08:04 White Blood Count 10.8 TH/MM3 Red Blood Count 3.72 MIL/MM3 Hemoglobin 11.0 GM/DL Hematocrit 32.7 % Mean Corpuscular Volume 88.0 FL Mean Corpuscular Hemoglobin 29.6 PG Mean Corpuscular Hemoglobin 33.6 % Concent Red Cell Distribution Width 13.7 % Platelet Count 559 TH/MM3 Mean Platelet Volume 8.1 FL Neutrophils (%) (Auto) 66.9 % Lymphocytes (%) (Auto) 21.1 % Monocytes (%) (Auto) 9.9 % Eosinophils (%) (Auto) 1.8 % Basophils (%) (Auto) 0.3 % Neutrophils # (Auto) 7.2 TH/MM3 Lymphocytes # (Auto) 2.3 TH/MM3 Monocytes # (Auto) 1.1 TH/MM3 Eosinophils # (Auto) 0.2 TH/MM3 Basophils # (Auto) 0.0 TH/MM3 CBC Comment DIFF FINAL Differential Comment Creatinine 0.51 MG/DL 0.53 MG/DL Estimat Glomerular Filtration 132 ML/MIN 126 ML/MIN Rate Random Vancomycin Level 37.9 COMMENT Culture Results Microbiology Date/Time Procedure Status Source Growth 10/07/16 06:09 Aerobic Blood Culture - Preliminary Resulted Blood Peripheral NO GROWTH IN 2 DAYS 10/07/16 06:09 Anaerobic Blood Culture - Final Resulted Blood Peripheral QNS - SEE AEROBE REPORT 10/07/16 06:14 Aerobic Blood Culture - Preliminary Resulted Blood Peripheral NO GROWTH IN 2 DAYS 10/07/16 06:14 Anaerobic Blood Culture - Final Resulted Blood Peripheral QNS - SEE AEROBE REPORT Administered Medications Medications (Trade) Dose Ordered Sig/Shade Route PRN Reason Start Time Stop Time Status Last Admin Dose Admin Sodium Chloride (NS Flush) 2 ml BID IV FLUSH 10/03/16 09:00 10/07/16 20:58 Pantoprazole Sodium (Protonix Inj) 40 mg DAILY IV 10/03/16 09:00 10/09/16 09:24 Chlorhexidine Gluconate (Chlorhexidine 2% Cloth) Taper DAILY@04 TOP 10/03/16 04:00 09/29/17 03:59 10/07/16 04:00 Senna/Docusate Sodium 1 tab 1 tab BID PO 10/03/16 09:00 10/09/16 09:24 Phenylephrine HCl 40 mg/Dextrose 500 ml @ 0 mls/hr TITRATE IV 10/03/16 03:30 10/03/16 02:20 Potassium Chloride/Sodium Chloride 1,000 ml @ 100 mls/hr Q10H IV 10/03/16 02:30 10/08/16 15:20 Norepinephrine Bitartrate (Levophed-Dextrose Drip) 250 ml @ 0 mls/hr TITRATE IV 10/03/16 08:00 10/03/16 08:02 Acetaminophen (Tylenol) 650 mg Q4H PRN PO fever>101 10/04/16 18:00 10/07/16 21:06 Acetaminophen/ Hydrocodone Bitart ([place] 5-325 Mg) 1 tab Q6H PRN PO pain 1-7 10/05/16 15:30 10/08/16 03:04 Acetaminophen/ Hydrocodone Bitart 2 tab 2 tab Q6H PRN PO pain 8-10 10/05/16 15:30 10/09/16 00:14 Vancomycin HCl/ Sodium Chloride (Vancomycin Inj/ NS 250 ml Inj) 262.5 ml @ 250 mls/hr Q8H IV 10/06/16 10:00 10/09/16 10:46 Acetaminophen/ Butalbital/ Caffeine (Fioricet 325-50-40) 1 tab Q8H PRN PO MIGRAINE 10/06/16 08:45 10/07/16 23:52 Morphine Sulfate (Morphine Inj) 2 mg Q6H PRN IV PUSH BREAKTHROUGH PAIN 10/06/16 10:00 10/07/16 16:30 Ibuprofen (Motrin) 600 mg DAILY PRN PO HEADACHE 10/08/16 11:30 10/09/16 04:44 Objective Remarks GENERAL: Middle-aged female sitting in bed watching TV in no distress SKIN: Warm and dry. Bandage to posterior neck. Clean and dry HEAD: Normocephalic. EYES: No injection or drainage. NECK: Supple, trachea midline. CARDIOVASCULAR: + S1/S2. RESPIRATORY: Clear posteriorly. Breathing unlabored. GASTROINTESTINAL: Abdomen soft, non-tender, nondistended. EXTREMITIES: No cyanosis, or edema. MUSCULOSKELETAL: Adequate muscle tone. NEUROLOGICAL: Normal speech. Moving all extremities. No obvious focal deficit. Assessment/Plan Problem List: (1) Abscess in epidural space of cervical spine Status: Acute Plan: -- Status post surgery with Dr. Flores on 10/03/16. -- MRSA bacteremia -- On vancomycin -- ID following Hx/Workup: Patient states she had severe pain 4 days prior to admission. MRI answered cervical spine showed extensive soft tissue swelling and edema involving the retropharyngeal soft tissues and prevertebral soft tissues from the skull base to the C4-C5 interspace. Patient underwent urgent upper cervical laminectomy and evacuation of epidural abscess on (2) Lung nodule, multiple Status: Acute Plan: -- CT thorax with IV contrast on 10/07 showed multiple bilateral nodules; the largest one was 2.7 cm in the left upper lobe -- The patient has a [id number] smoking history -- Plain to get CTA chest to rule out metastases versus septic emboli Assessment 41 y/o female with history of IV drug abuse admitted for cervical spine abscess. Oncology consulted for multiple lung nodules found on CT chest. Plan 1. CTA of chest to rule out septic emboli versus metastases 2. Continue antibiotics per infectious disease 3. Obtain anemia workup for normocytic anemia 4. Supportive care Attending Statement The exam, history, and the medical decision-making described in the above note were completed with the assistance of the mid-level provider. I reviewed and agree with the findings presented. I attest that I had a [id number] encounter with the patient on the same day, and personally performed and documented my assessment and findings in the medical record. Pulmonary consult for bronchoscopy CTA chest anemia studies d/w Sabra Acharya Oct 09, 2016 11:38 Joel Mckeon MD Oct 09, 2016 16:51
--- NOTE | 2016-10-09 13:06 | HHI.PR ---
Subjective Remarks Follow up neck pain, headache. Patient reports migraine headache today. Just received [place]. Had ibuprofen this morning. Denies chest pain, dyspnea. Objective Vitals Vital Signs Date Time Temp Pulse Resp B/P Pulse Ox O2 Delivery O2 Flow Rate FiO2 10/09/16 12:00 97.4 68 19 112/62 97 10/09/16 11:07 66 10/09/16 08:00 97.3 75 17 110/59 98 10/09/16 04:00 98.2 64 18 97/55 98 10/09/16 00:00 99.6 88 20 161/81 98 10/08/16 20:58 Room Air 10/08/16 20:58 73 10/08/16 20:42 92/58 Automatic Cuff 10/08/16 20:00 98.0 71 18 81/47 99 10/08/16 18:45 19 10/08/16 16:00 99.3 77 17 100/56 100 10/08/16 14:17 18 I/O 10/08/16 10/08/16 10/08/16 10/09/16 10/09/16 10/09/16 07:00 15:00 23:00 07:00 15:00 23:00 Intake Total 1714 ml 350 ml Balance 1714 ml 350 ml IV Total 1714 ml 350 ml # Voids 2 4 4 # Bowel Movements 0 1 Result Diagram: 10/08/16 1300 10/09/16 0804 Imaging Last Impressions Cervical Spine MRI 10/07/16 0700 Signed Impressions: Service Date/Time: Friday, October 07, 2016 10:07 - CONCLUSION: 1. Evacuation of previously seen epidural abscess. 2. 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 3. Slight neural foramina compromise bilateral C3-C4, bilateral C5-C6. 4. Probable post operative fluid collection in the left upper C3-C4 levels adjacent to the laminectomy defect. Erin Mahmood MD Chest CT 10/06/16 0000 Signed Impressions: Service Date/Time: September 17:58 - CONCLUSION: Multiple lung nodules and masses nonspecific, however metastatic disease should be excluded. Unusual infectious processes or possibly septic emboli could also have this appearance. Erin Mahmood MD Neck CT 10/04/16 0600 Signed Impressions: Service Date/Time: Tuesday, October 04, 2016 09:16 - CONCLUSION: 1. No definite abnormality of the nasopharynx oropharynx or larynx identified. 2. The patient has postsurgical changes in the neck and cervical spine consistent with previous epidural abscess drainage. 3. Multiple areas of groundglass infiltrate in the left upper lobe nonspecific but concerning for an underlying pneumonia. CT imaging of the chest would be warranted for further assessment. Kobe Carpenter MD Cervical Spine X-Ray 10/03/16 0000 Signed Impressions: Service Date/Time: Monday, October 03, 2016 00:50 - CONCLUSION: Spinous process of C2 is localized. Ricco Beal MD Chest X-Ray 10/02/16 1922 Signed Impressions: Service Date/Time: Sunday, October 02, 2016 19:35 - CONCLUSION: Mild hazy opacity in the right lung base. This could represent early infiltrate. Juan Carlos Powers MD Thoracic Spine MRI 10/02/16 0000 Signed Impressions: Service Date/Time: Sunday, October 02, 2016 20:16 - CONCLUSION: Unremarkable exam. Juan Carlos Powers MD Lumbar Spine MRI 10/02/16 0000 Signed Impressions: Service Date/Time: Sunday, October 02, 2016 20:16 - CONCLUSION: 1. No evidence of osteomyelitis. 2. Annular disc bulge at the L4-5 level with mild mass effect on the anterior thecal sac. 3. Mild degenerative disc and degenerative joint changes. Juan Carlos Powers MD Objective Remarks General: No acute distress. Sitting up in a chair. Heart: Regular rate and rhythm. No murmur. Lungs: Clear to auscultation bilaterally. No wheezes, rales, or rhonchi. Breathing is nonlabored. Abdomen: Soft, nontender, nondistended. Extremities: No lower extremity edema. Psych: Alert and oriented. Procedures 10/04/15 status post decompression Left C2-3 semi-laminectomy, evacuation of epidural abscess Urinary Catheter: No Vascular Central Line Catheter: No A/P Problem List: (1) Abscess in epidural space of cervical spine ICD Code: G06.1 Status: Acute (2) Bacteremia ICD Code: R78.81 Status: Acute Assessment and Plan 1. Cervical spine epidural abscess: Status post decompression laminectomy with evacuation of abscess on 10/03/16. Appreciate neurosurgery recommendations. Continue PT/OT/ST. 2. MRSA bacteremia, sepsis: Appreciate infectious disease recommendations. Continue IV antibiotics. ÁNGEL results pending. Repeat blood cultures ordered. 3. History of IV drug abuse: Patient has been counseled. 4. Multiple lung nodules: Nonspecific. Concerning for metastatic disease, but more likely secondary to septic emboli. Appreciate oncology recommendations. CT ordered to further evaluate. 5. GI prophylaxis: PPI. 6. DVT prophylaxis: SCDs. Heparin when okay with neurosurgery. Steffen Mondragon MD Oct 09, 2016 13:06
[2016-10-09 13:56] LABS: FERRITIN 301 NG/ML (8-252); TRANSFERRIN IRON PROFILE 143 MG/DL (200-360)
[2016-10-09] MEDS ORDERED: IOHEXOL 350 MG/ML 10 ML VIAL (for RAD DIAG) IV ONE (15:37)
--- NOTE | 2016-10-09 16:10 | RADRPT ---
EXAM DATE/TIME: 10/09/2016 15:37 [place] COMPARISON: CT THORAX W CONTRAST, October 06, 2016, 17:58. INDICATIONS : Abnormal prior CT. IV CONTRAST: 70 cc Omnipaque 350 (iohexol) IV RADIATION DOSE: 11.03 CTDIvol (mGy) MEDICAL HISTORY : None SURGICAL HISTORY : None. ENCOUNTER: Initial ACUITY: 1 day PAIN SCALE: 0/10 LOCATION: Bilateral chest TECHNIQUE: Volumetric scanning of the chest was performed using a pulmonary embolism protocol MIP images were re constructed. Using automated exposure control and adjustment of the mA and/or kV according to patien t size, radiation dose was kept as low as reasonably achievable to obtain optimal diagnostic quality images. DICOM format image data is available electronically for review and comparison. Follow-up recommendations for incidentally detected pulmonary nodules are based at a minimum on nodul e size and patient risk factors according to Fleischner Society Guidelines. FINDINGS: Multiple lung masses and nodules are again seen not significantly changed since 3 days ago. The rest of the examination has not significantly changed. CONCLUSION: No appreciable change. Erin Mahmood MD on October 09, 2016 at 16:04 Board Certified Radiologist. This report was verified electronically.
[2016-10-10] VITALS: BP 115/68; PULSE 68; RESP 18; TEMP 98.2; O2SAT 96
[2016-10-10] MEDS: ACETAMINOPHEN/HYDROcodone 325 MG/5 MG TAB PO PRN ×3 (01:00→17:57)
[2016-10-10] MEDS: VANCOMYCIN INJ 1,250 MG in SODIUM CHLOR 0.9% 250 ML INJ 250 ML IV SCH ×2 (01:00→10:33)
[2016-10-10 04:00] VITALS: BP 114/67; PULSE 66; RESP 18; TEMP 98; O2SAT 97
[2016-10-10] MEDS: CHLORHEXIDINE GLUCONATE 2 % 1 PACK (2 CLOTHS) TOP SCH (04:00)
[2016-10-10] MEDS: NS + KCL 20 MEQ INJ 1,000 ML IV SCH (05:23)
[2016-10-10 08:00] VITALS: BP 118/68; PULSE 60; PULSE 66; RESP 19; TEMP 97.2; O2SAT 100
[2016-10-10] MEDS: PANTOPRAZOLE SODIUM 40 MG VIAL IV SCH (10:28)
[2016-10-10] MEDS: IBUPROFEN 600 MG TAB PO PRN ×2 (10:31→17:58)
[2016-10-10] MEDS: DOCUSATE SODIUM 50 MG/SENNA 8.6 MG TAB PO SCH (10:32)
--- NOTE | 2016-10-10 11:01 | HHI.NSPN ---
History Chief Complaint: Slight headache developing Interval History 10/02: 41-year-old female who according to her mother came home on 27 September not feeling well. She went to bed for most of the day. Over the past few days she has complained of progressive neck pain and has not been out of bed much in the past couple of days. The patient was seen at [facility] emergency room a few days ago. The mother is uncertain what testing was performed. The patient received a couple of injections in the emergency room and was discharged. The patient's mother states that she has been trying for the past 2 or 3 days to get the patient back to the emergency room and the patient has not wanted to get out of better, and the hospital. Patient's mother states that she believes the patient had a fever yesterday. This morning she had diarrhea. No nausea or vomiting. No definite confusion. Patient complains of severe neck pain. No significant pain weakness or numbness in the extremities or loss of bowel or bladder function. Patient does have a history of IV drug use. 10/03: The patient went for a laminectomy & evacuation of a cervical abscess early this morning. Prior to being seen this afternoon Nursing called and stated that the patient's neck appeared swollen and that the patient felt like she had a lump to the throat. Dr Flores was notified and stated that the patient did have a significant amount of pharyngeal inflammation. When seen the patient complained of pain to the neck. She did state that if she tried to get up the pain went to the top of her head. 10/04: The patient complains of pain to the neck and states she is not able to lean her neck on anything. She states that she wasn't able to sleep during the night due to the pain. She went for a CT soft tissue neck this morning which was unremarkable for any abnormality of the nasopharynx, oropharynx or larynx with post-surgical changes noted. An incidental finding of the left upper lobe w /groundglass infiltrate is suspicious for REGAN pneumonia. 10/05: The patient still has pain to the neck and throat. She reports not being able to sleep due to the pain. When seen she is sitting up in a chair and has brushed her hair. 10/06: The patient is sitting up in a chair with her hair brushed. She states that she is doing better and that her neck is aching and her throat is sore. She states that she does have a migraine headache to the back of the head. She also reports that she has hand tremors today which she has had before the surgery. 10/07: The patient is doing well this morning. She endorses a dull headache. She did report some abdominal pain yesterday afternoon which resolved and has not had any since. When seen Physical Therapy is with the patient and getting her up to a wheelchair to go for her MRI. The patient is able to ambulate to the wheelchair and turn around on her own without any difficulty. 10/08/16: Pt complains of incisional pain. No radiculopathy or paresthesias. Headaches radiating into frontal area. No nausea or vomiting. Pt states headaches usually respond to ibuprofen. 10/09/16: Pt complains of incisional pain. Headaches improved with ibuprofen. No radiculopathy or paresthesias in UEs. 10/10: The patient states she is doing good this morning when seen although she states she has a slight headache developing. Nursing reports that the patient has complained of chills but has been afebrile. System Review Comments Constitutional: Patient with chills but has been afebrile. HEENT: Patient denies any sore throat. Neck: Patient endorses aching to the right lower neck into the shoulder. Respiratory: Patient denies any shortness of breath or productive cough. Cardiovascular: Patient denies any chest pain, palpitations or irregular heartbeat. Gastrointestinal: Patient denies any abdominal pain nausea, vomiting or incontinence of stool. Genitourinary: Patient denies any incontinence of urine. Musculoskeletal: Patient with pain into the right proximal shoulder from the neck. She denies back or any other extremity pain or extremity weakness. Neurologic: Patient states she has a slight headache starting. She denies any dizziness, numbness or tingling. Exam Results Vital Signs Date Time Temp Pulse Resp B/P Pulse Ox O2 Delivery O2 Flow Rate FiO2 10/10/16 08:00 97.2 66 19 118/68 100 10/09/16 09:24 Room Air Intake and Output 10/09/16 10/09/16 10/10/16 08:00 16:00 00:00 Intake Total 350 ml 480 ml Balance 350 ml 480 ml Physical Examination GENERAL: Readily interacts, affect slightly flat, no apparent distress. HEENT: Normocephalic, atraumatic, NTTP to right occipital region. NECK: Midline cervical spine NTTP, intact surgical dressing w/o any shadowing, minimally TTP to lower right posterolateral neck. MUSCULOSKELETAL: JARA w/o difficulty, minimally TTP to right proximal shoulder, no evident deformity or clubbing. INTEGUMENTARY: Skin warm, dry & intact except for posterior cervical surgical incision w/intact dressing. No ulcerations, rashes or other lesions noted. NEUROLOGICAL: AAOx3 Speech w/o any hoarseness, appropriate Follows commands w/o any difficulty Sensation intact to light touch to all extremities Motor strength 5/5 to all major flexion & extension muscle groups Medical Decision Making Impression and Plan Impression: 1. Cervical epidural abscess primarily C2-4 levels with significant dorsal cord compression without definite cord edema. 2. Significant cervical prevertebral inflammation without definite abscess formation 3. History of IV drug abuse 4. Cervical degenerative disc disease with moderate chronic appearing C5 6 posterior osteophytic disc complex with moderate stenosis without cord edema. Patient neurologically stable, pain controlled, doing well from a neurosurgical perspective CT soft tissue neck w/o any noted abnormality of the nasopharynx, oropharynx or larynx, post-surgical changes noted, left upper lobe w/ groundglass infiltrate suspicious for REGAN pneumonia CT chest w/IV contrast demonstrates multiple nonspecific lung nodules & masses w/metastatic disease excluded, findings consistent w/unusual infectious processes or possibly septic emboli in appearance CTA chest with multiple lung masses & nodules w/o significant change Leukocytosis, resolved Anaemia, improved (11.0) Thrombocytosis (559) Hypokalemia, resolved Blood cultures x2 () & abscess drainage () positive for MRSA Repeat blood cultures x2 () positive for MRSA High grade MRSA bacteremia per ID POD #7 () s/p: Left C2-3 semi-laminectomy, evacuation epidural abscess Plan: Primary management per [facility] Abx per Infectious Disease Neuro checks PT eval & tx ST eval & tx Diet per Juan Buenrostro Oct 10, 2016 11:01
[2016-10-10 12:00] VITALS: BP 105/69; PULSE 85; RESP 19; TEMP 98.4; O2SAT 98
--- NOTE | 2016-10-10 13:07 | MB ---
cc: Jenifer KEITH DATE OF CONSULTATION 10/10/2016 HISTORY Ms. Marcus is a 41-year-old white female with a history of IV drug abuse who has recently been injecting Dilaudid. She developed an acute cervical spine discomfort and presented to the hospital at the insistence of her mother. She was found to have a cervical spine epidural abscess that was drained surgically and she has been followed by Infectious Disease and is currently on vancomycin. A CT scan of the thorax was done because the cervical spine films were revealing something in the apex of the lung. Initial scan was done on the , a followup CTA was done on 10/09 and basically what the patient has is about 8-10 peripheral nodular infiltrates some of which are appearing to cavitate and are consistent with septic emboli. She has had multiple positive blood cultures for MRSA on the , the , the , but the most recent on the now on antibiotic therapy have cleared. The patient has also been a pack per day smoker for 30 years right up to the time of admission. She has had recurrent bronchitis in the past but never was aware that she had pneumonia, has had no previous malignancies. She has been coughing up purulent sputum. No kanu hemoptysis. PAST MEDICAL HISTORY 1. Lab work during this admission is positive for hepatitis C. 2. She has had one previous . 3. She has apparently got fibromyalgia and back pain, chronic. SOCIAL HISTORY Smoking noted. Alcohol occasionally. FAMILY HISTORY Her mother is here with her and she is in good health. SOCIAL HISTORY As noted above. 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 ALLERGIES ERYTHROMYCIN. MEDICATIONS Reviewed in the chart/EMR. PHYSICAL EXAMINATION GENERAL: Awake, alert. Very comfortable at rest. VITAL SIGNS: Currently afebrile, 118/68, pulse 60, respirations 18, sat is 100% on room air. HEENT: Sclerae anicteric. NECK: She had a cervical spine dressing in place. No adenopathy in the neck. CHEST: Clear. No wheezes, rales or congestion. CARDIOVASCULAR: Regular rhythm. No harsh murmur audible. ABDOMEN: Soft. No peripheral edema or cyanosis. DISCUSSION Ms. Marcus presents with MRSA septicemia with a neck epidural abscess that has been drained and now with probably six to eight peripheral nodular densities consistent with septic emboli. There are really too many of these to biopsy. I do not think that would add anything at this point but I would suggest that, if she does very well clinically, within the next 4 weeks or so she have a follow-up scan to ensure that these he are clearing and then, if there not completely clear, follow-up scan to ensure that they all clear completely. This is particularly important in light of her prior smoking history. The patient has been counseled on smoking cessation and drug rehab. R. MD LYNETTE Lainez/ESTHER /12:41 PM /1:03 PM
[2016-10-10 13:11] LABS: AUTOMATED NEUTROPHIL # 6.7 TH/MM3 (1.8-7.7); BASOPHIL # 0.1 TH/MM3 (0-0.2); BASOPHIL % 0.7 % (0.0-2.0); EOSINOPHIL # 0.3 TH/MM3 (0-0.4); EOSINOPHIL % 2.6 % (0.0-4.0); HEMATOCRIT 29.7 % (35.0-46.0); HEMO FLAGS DIFF FINAL; LYMPH % 23.1 % (9.0-44.0); LYMPHOCYTE # 2.3 TH/MM3 (1.0-4.8); MEAN CELL VOLUME 88.2 FL (80.0-100.0); MEAN CORPUSCULAR HEMOGLOBIN 29.9 PG (27.0-34.0); MEAN CORPUSCULAR HGB CONC 33.9 % (32.0-36.0); NEUT % 66.6 % (16.0-70.0); PLATELET COUNT 701 TH/MM3 (150-450); RED BLOOD COUNT 3.37 MIL/MM3 (4.00-5.30); RED CELL DISTRIBUTION WIDTH 13.5 % (11.6-17.2)
--- NOTE | 2016-10-10 13:17 | HHI.PR ---
Subjective Remarks Follow-up bacteremia, abnormal chest CT. Patient still feeling a little short of breath. Reports cough productive of "purplish" sputum. No chest pain. Objective Vitals Vital Signs Date Time Temp Pulse Resp B/P Pulse Ox O2 Delivery O2 Flow Rate FiO2 10/10/16 08:00 97.2 66 19 118/68 100 10/10/16 04:00 98.0 66 18 114/67 97 10/10/16 00:00 98.2 68 18 115/68 96 10/09/16 20:00 98.8 75 18 113/67 96 10/09/16 18:11 100.3 10/09/16 16:00 98.7 64 19 124/78 98 I/O 10/09/16 10/09/16 10/09/16 10/10/16 10/10/16 10/10/16 07:00 15:00 23:00 07:00 15:00 23:00 Intake Total 350 ml 480 ml Balance 350 ml 480 ml Intake Oral 480 ml IV Total 350 ml # Voids 4 4 6 # Bowel Movements 1 Result Diagram: 10/10/16 1222 10/09/16 [address] Angiography 10/09/16 0000 Signed Impressions: Service Date/Time: Sunday, October 09, 2016 15:37 - CONCLUSION: No appreciable change. Erin Mahmood MD Cervical Spine MRI 10/07/16 0700 Signed Impressions: Service Date/Time: Friday, October 07, 2016 10:07 - CONCLUSION: 1. Evacuation of previously seen epidural abscess. 2. 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 3. Slight neural foramina compromise bilateral C3-C4, bilateral C5-C6. 4. Probable post operative fluid collection in the left upper C3-C4 levels adjacent to the laminectomy defect. Erin Mahmood MD Chest CT 10/06/16 0000 Signed Impressions: Service Date/Time: September 17:58 - CONCLUSION: Multiple lung nodules and masses nonspecific, however metastatic disease should be excluded. Unusual infectious processes or possibly septic emboli could also have this appearance. Erin Mahmood MD Neck CT 10/04/16 0600 Signed Impressions: Service Date/Time: Tuesday, October 04, 2016 09:16 - CONCLUSION: 1. No definite abnormality of the nasopharynx oropharynx or larynx identified. 2. The patient has postsurgical changes in the neck and cervical spine consistent with previous epidural abscess drainage. 3. Multiple areas of groundglass infiltrate in the left upper lobe nonspecific but concerning for an underlying pneumonia. CT imaging of the chest would be warranted for further assessment. Kobe Carpenter MD Cervical Spine X-Ray 10/03/16 0000 Signed Impressions: Service Date/Time: Monday, October 03, 2016 00:50 - CONCLUSION: Spinous process of C2 is localized. Ricco Beal MD Chest X-Ray 10/02/16 192 Signed Impressions: Service Date/Time: Sunday, October 02, 2016 19:35 - CONCLUSION: Mild hazy opacity in the right lung base. This could represent early infiltrate. Juan Carlos Powers MD Thoracic Spine MRI 10/02/16 0000 Signed Impressions: Service Date/Time: Sunday, October 02, 2016 20:16 - CONCLUSION: Unremarkable exam. Juan Carlos Powers MD Lumbar Spine MRI 10/02/16 0000 Signed Impressions: Service Date/Time: Sunday, October 02, 2016 20:16 - CONCLUSION: 1. No evidence of osteomyelitis. 2. Annular disc bulge at the L4-5 level with mild mass effect on the anterior thecal sac. 3. Mild degenerative disc and degenerative joint changes. Juan Carlos Powers MD Objective Remarks General: No acute distress. Heart: Regular rate and rhythm. No murmur. Lungs: Clear to auscultation bilaterally. No wheezes, rales, or rhonchi. Breathing is nonlabored. Abdomen: Soft, nontender, nondistended. Extremities: No lower extremity edema. Psych: Alert and oriented. Procedures 10/04/15 status post decompression Left C2-3 semi-laminectomy, evacuation of epidural abscess Urinary Catheter: No Vascular Central Line Catheter: No A/P Problem List: (1) Abscess in epidural space of cervical spine ICD Code: G06.1 Status: Acute (2) Bacteremia ICD Code: R78.81 Status: Acute (3) Lung nodule, multiple ICD Code: R91.8 Status: Acute (4) IV drug abuse ICD Code: F19.10 Status: Acute Assessment and Plan 1. Cervical spine epidural abscess: Status post decompression laminectomy with evacuation of abscess on 10/03/16. Appreciate neurosurgery recommendations. Continue PT/OT/ST. 2. MRSA bacteremia, sepsis: Appreciate infectious disease recommendations. Continue IV antibiotics. ÁNGEL results pending. Repeat blood cultures ordered. 3. History of IV drug abuse: Patient has been counseled. 4. Multiple lung nodules: Nonspecific. Concerning for metastatic disease, but more likely secondary to septic emboli. Appreciate oncology recommendations. CT ordered to further evaluate. Discussed with Dr. Reardon, pulmonology. 5. GI prophylaxis: PPI. 6. DVT prophylaxis: SCDs. Heparin when okay with neurosurgery. Steffen Mondragon MD Oct 10, 2016 13:17
[2016-10-10 16:00] VITALS: BP 151/70; PULSE 76; RESP 20; TEMP 98.2; O2SAT 100
--- NOTE | 2016-10-10 16:03 | CF ---
cc: LUIS MARTINEZ PROCEDURE PERFORMED Transesophageal echocardiogram. INDICATION Epidural abscess, high-grade MRSA bacteremia, IV drug use. PROCEDURE After the patient was sedated by anesthesia, transesophageal probe was placed without difficulty. Tomographic images were obtained. The left ventricular function was preserved with estimated ejection fraction of 60% with no wall motion abnormalities. The left atrial appendage was visualized and there was no evidence of left atrial thrombus. Aortic valve was structurally normal. There was no evidence of aortic stenosis or regurgitation. The mitral valve was structurally normal. There was no evidence of mitral stenosis but there was evidence of trace mitral regurgitation. Tricuspid valve was structurally normal. There was no evidence of tricuspid stenosis but there is evidence of trace tricuspid regurgitation. There was no evidence of pulmonary insufficiency. There was no evidence of valvular vegetations. Bubble study was performed and there was no evidence of right to left shunt. Distal and thoracic aorta had no significant plaque. DIAGNOSIS 1. No evidence of valvular vegetations. 2. No evidence of patent foramen ovale. 3. Preserved left ventricular systolic function. IMPRESSION No evidence of endocarditis. MD KERVIN Hernandez/TLL /2:33 PM /3:50 PM
--- NOTE | 2016-10-10 17:04 | PD.CARD.PN ---
Subjective Subjective Remarks No CP or SOB, s/o SOB, eating without difficulty Objective Medications Current Medications Medications (Trade) Dose Ordered Sig/Shade Route Start Time Stop Time Status Last Admin (NS Flush) 2 ml UNSCH PRN IV FLUSH 10/02/16 22:15 (NS Flush) 2 ml BID IV FLUSH 10/03/16 09:00 10/09/16 21:29 (Protonix Inj) 40 mg DAILY IV 10/03/16 09:00 10/10/16 10:28 (Zofran Inj) 4 mg Q6H PRN IV 10/02/16 22:15 Miscellaneous Information 1 Q361D XX 10/02/16 22:15 (Chlorhexidine 2% Cloth) Taper DAILY@04 TOP 10/03/16 04:00 09/29/17 03:59 10/07/16 04:00 (Chlorhexidine 2% Cloth) 3 pack UNSCH PRN TOP 10/02/16 22:15 (Loree-Colace) 1 tab BID PO 10/03/16 09:00 10/10/16 10:32 (Milk Of Magnesia Liq) 30 ml Q12H PRN PO 10/02/16 22:15 (Senokot) 17.2 mg Q12H PRN PO 10/02/16 22:15 Bisacodyl 10 mg 10 mg DAILY PRN RECTAL 10/02/16 22:15 (Neosynephrine Inj/D5W 500 ml Inj) 500 ml @ 0 mls/hr TITRATE IV 10/03/16 03:30 10/03/16 02:20 Terbutaline Sulfate 1 mg 1 mg UNSCH PRN SQ 10/03/16 02:30 Potassium Chloride/Sodium Chloride 1,000 ml @ 100 mls/hr Q10H IV 10/03/16 02:30 10/10/16 05:23 Norepinephrine Bitartrate 250 ml @ 0 mls/hr TITRATE IV 10/03/16 08:00 10/03/16 08:02 (Vancomycin Consult Pharmacy) 0 ml @ 0 mls/hr UNSCH OTHER 10/03/16 14:30 (Tylenol) 650 mg Q4H PRN PO 10/04/16 18:00 10/07/16 21:06 ([place] 5-325 Mg) 1 tab Q6H PRN PO 10/05/16 15:30 10/10/16 01:00 Acetaminophen/ Hydrocodone Bitart 2 tab 2 tab Q6H PRN PO 10/05/16 15:30 10/10/16 10:32 (Vancomycin Inj/ NS 250 ml Inj) 262.5 ml @ 250 mls/hr Q8H IV 10/06/16 10:00 10/10/16 10:33 (Fioricet 325-50-40) 1 tab Q8H PRN PO 10/06/16 08:45 10/07/16 23:52 (Morphine Inj) 2 mg Q6H PRN IV PUSH 10/06/16 10:00 10/07/16 16:30 Miscellaneous Information SPECIFIC LAB TO BE CARIDAD... ONCE ONCE .XX 10/10/16 17:45 10/10/16 17:46 (Motrin) 600 mg Q8HR PRN PO 10/10/16 14:42 Vital Signs / I&O Vital Signs Date Time Temp Pulse Resp B/P Pulse Ox O2 Delivery O2 Flow Rate FiO2 10/10/16 12:00 98.4 85 19 105/69 98 10/10/16 08:00 97.2 66 19 118/68 100 10/10/16 04:00 98.0 66 18 114/67 97 10/10/16 00:00 98.2 68 18 115/68 96 10/09/16 20:00 98.8 75 18 113/67 96 10/09/16 18:11 100.3 I/O 10/09/16 10/09/16 10/09/16 10/10/16 10/10/16 10/10/16 06:59 14:59 22:59 06:59 14:59 22:59 Intake Total 350 ml 480 ml 480 ml Balance 350 ml 480 ml 480 ml Intake Oral 480 ml 480 ml IV Total 350 ml # Voids 4 4 6 4 # Bowel Movements 1 2 Physical Exam GENERAL: In NAD SKIN: Warm and dry. HEAD: Normocephalic. EYES: No scleral icterus. No injection or drainage. NECK: Supple, trachea midline. No JVD or lymphadenopathy. CARDIOVASCULAR: Regular rate and rhythm without murmurs, gallops, or rubs. RESPIRATORY: Breath sounds equal bilaterally. No accessory muscle use. GASTROINTESTINAL: Abdomen soft, non-tender, nondistended. MUSCULOSKELETAL: No cyanosis, or edema. Laboratory Laboratory Tests Test 10/10/16 10/10/16 05:13 12:22 Vancomycin Level Trough 30.9 MCG/ML White Blood Count 10.0 TH/MM3 Red Blood Count 3.37 MIL/MM3 Hemoglobin 10.1 GM/DL Hematocrit 29.7 % Mean Corpuscular Volume 88.2 FL Mean Corpuscular Hemoglobin 29.9 PG Mean Corpuscular Hemoglobin 33.9 % Concent Red Cell Distribution Width 13.5 % Platelet Count 701 TH/MM3 Mean Platelet Volume 7.6 FL Neutrophils (%) (Auto) 66.6 % Lymphocytes (%) (Auto) 23.1 % Monocytes (%) (Auto) 7.0 % Eosinophils (%) (Auto) 2.6 % Basophils (%) (Auto) 0.7 % Neutrophils # (Auto) 6.7 TH/MM3 Lymphocytes # (Auto) 2.3 TH/MM3 Monocytes # (Auto) 0.7 TH/MM3 Eosinophils # (Auto) 0.3 TH/MM3 Basophils # (Auto) 0.1 TH/MM3 CBC Comment DIFF FINAL Differential Comment Creatinine 0.49 MG/DL Estimat Glomerular Filtration 138 ML/MIN Rate Imaging Last Impressions CT Angiography 10/09/16 0000 Signed Impressions: Service Date/Time: Sunday, October 09, 2016 15:37 - CONCLUSION: No appreciable change. Erin Mahmood MD Cervical Spine MRI 10/07/16 0700 Signed Impressions: Service Date/Time: Friday, October 07, 2016 10:07 - CONCLUSION: 1. Evacuation of previously seen epidural abscess. 2. 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 3. Slight neural foramina compromise bilateral C3-C4, bilateral C5-C6. 4. Probable post operative fluid collection in the left upper C3-C4 levels adjacent to the laminectomy defect. Erin Mahmood MD Chest CT 10/06/16 0000 Signed Impressions: Service Date/Time: September 17:58 - CONCLUSION: Multiple lung nodules and masses nonspecific, however metastatic disease should be excluded. Unusual infectious processes or possibly septic emboli could also have this appearance. Erin Mahmood MD Neck CT 10/04/16 0600 Signed Impressions: Service Date/Time: Tuesday, October 04, 2016 09:16 - CONCLUSION: 1. No definite abnormality of the nasopharynx oropharynx or larynx identified. 2. The patient has postsurgical changes in the neck and cervical spine consistent with previous epidural abscess drainage. 3. Multiple areas of groundglass infiltrate in the left upper lobe nonspecific but concerning for an underlying pneumonia. CT imaging of the chest would be warranted for further assessment. Kobe Carpenter MD Cervical Spine X-Ray 10/03/16 0000 Signed Impressions: Service Date/Time: Monday, October 03, 2016 00:50 - CONCLUSION: Spinous process of C2 is localized. Ricco Beal MD Chest X-Ray 10/02/161921 Signed Impressions: Service Date/Time: Sunday, October 02, 2016 19:35 - CONCLUSION: Mild hazy opacity in the right lung base. This could represent early infiltrate. Juan Carlos Powers MD Thoracic Spine MRI 10/02/16 0000 Signed Impressions: Service Date/Time: Sunday, October 02, 2016 20:16 - CONCLUSION: Unremarkable exam. Juan Carlos Powers MD Lumbar Spine MRI 10/02/16 0000 Signed Impressions: Service Date/Time: Sunday, October 02, 2016 20:16 - CONCLUSION: 1. No evidence of osteomyelitis. 2. Annular disc bulge at the L4-5 level with mild mass effect on the anterior thecal sac. 3. Mild degenerative disc and degenerative joint changes. Juan Carlos Powers MD Assessment and Plan Problem List: (1) Abscess in epidural space of cervical spine (2) Sepsis (3) Bacteremia (4) IV drug abuse Assessment and Plan Remains stable from cardiac standpoint. ÁNGEL with no evidence of endocarditis. Continue abxs as per ID. No new cardiac issues. Problem Qualifiers (1) Sepsis: Qualified Code: A41.9 - Sepsis, due to unspecified organism Paul Hawk MD Oct 10, 2016 17:04
[2016-10-10] MEDS ORDERED: PHARMACY ORDERED LAB ONE (17:45)
[2016-10-10 20:00] VITALS: BP 124/77; PULSE 74; RESP 20; TEMP 97.8; O2SAT 94
[2016-10-10] MEDS: SODIUM CHLORIDE 0.9% FLUSH 10 ML FLUSH IV FLUSH SCH (21:00)
[2016-10-11] VITALS (8 sets, daily range): BP systolic 107–115; BP diastolic 62–74; PULSE 59–84; RESP 16–20; TEMP 96.4–97.9; O2SAT 97–98
[2016-10-11] MEDS: ACETAMINOPHEN/HYDROcodone 325 MG/5 MG TAB PO PRN ×4 (00:05→19:05)
[2016-10-11] MEDS: DOCUSATE SODIUM 50 MG/SENNA 8.6 MG TAB PO SCH ×3 (00:05→21:12)
[2016-10-11] MEDS: SODIUM CHLORIDE 0.9% FLUSH 10 ML FLUSH IV FLUSH SCH ×3 (00:05→21:00)
[2016-10-11] MEDS: NS + KCL 20 MEQ INJ 1,000 ML IV SCH ×3 (00:06→21:12)
[2016-10-11] MEDS: VANCOMYCIN 1,000 MG/NS 250 ML IV SCH ×6 (00:07→15:36)
[2016-10-11] MEDS: IBUPROFEN 600 MG TAB PO PRN ×3 (02:17→15:35)
[2016-10-11] MEDS: CHLORHEXIDINE GLUCONATE 2 % 1 PACK (2 CLOTHS) TOP SCH (03:27)
[2016-10-11] MEDS ORDERED: PHARMACY ORDERED LAB ONE (07:45)
[2016-10-11] MEDS: PANTOPRAZOLE SODIUM 40 MG VIAL IV SCH (08:53)
--- NOTE | 2016-10-11 13:54 | PD.ONC.PN ---
Subjective Subjective Remarks Afebrile overnight. Patient resting in room in nad, talking with aunts. Coughing up purple sputum. Still getting daily headache. Denies calf pain. Objective Data Date Time Temp Pulse Resp B/P Pulse Ox O2 Delivery O2 Flow Rate FiO2 10/11/16 12:09 97.6 65 20 108/62 98 10/11/16 09:57 98 Room Air 10/11/16 09:54 59 10/11/16 07:48 96.4 68 20 114/73 98 10/11/16 04:00 97.5 61 20 115/74 98 10/11/16 03:20 19 10/11/16 01:32 84 10/11/16 01:05 18 10/11/16 00:00 97.3 74 20 112/65 98 10/10/16 23:00 100 Room Air 10/10/16 21:45 99 Room Air 10/10/16 20:00 97.8 74 20 124/77 94 10/10/16 16:00 98.2 76 20 151/70 100 10/11/16 10/11/16 10/11/16 07:00 15:00 23:00 Intake Total 886 ml Balance 886 ml Result Diagram: 10/10/16 1222 10/10/16 1222 Laboratory Results Laboratory Tests Test 10/10/16 10/11/16 19:10 07:17 Vancomycin Level Trough 21.5 MCG/ML 9.2 MCG/ML Culture Results Microbiology Date/Time Procedure Status Source Growth 10/09/16 12:56 Aerobic Blood Culture - Preliminary Resulted Blood Peripheral S. Aureus Mrsa 10/09/16 12:56 Anaerobic Blood Culture - Preliminary Resulted Blood Peripheral NO GROWTH IN 2 DAYS 10/09/16 13:06 Aerobic Blood Culture - Preliminary Resulted Blood Peripheral NO GROWTH IN 2 DAYS 10/09/16 13:06 Anaerobic Blood Culture - Preliminary Resulted Blood Peripheral NO GROWTH IN 2 DAYS 10/11/16 07:16 Gram Stain - Final Resulted Sputum Expectorated Sputum 10/11/16 07:16 Sputum Culture Resulted Sputum Expectorated Sputum Pending Administered Medications Medications (Trade) Dose Ordered Sig/Shade Route PRN Reason Start Time Stop Time Status Last Admin Dose Admin Sodium Chloride (NS Flush) 2 ml BID IV FLUSH 10/03/16 09:00 10/10/16 21:00 Pantoprazole Sodium (Protonix Inj) 40 mg DAILY IV 7/10/17 09:00 10/11/16 08:53 Chlorhexidine Gluconate (Chlorhexidine 2% Cloth) Taper DAILY@04 TOP 10/03/16 04:00 09/29/17 03:59 10/07/16 04:00 Senna/Docusate Sodium 1 tab 1 tab BID PO 10/03/16 09:00 10/11/16 08:52 Phenylephrine HCl 40 mg/Dextrose 500 ml @ 0 mls/hr TITRATE IV 10/03/16 03:30 10/03/16 02:20 Potassium Chloride/Sodium Chloride 1,000 ml @ 100 mls/hr Q10H IV 10/03/16 02:30 10/11/16 08:56 Norepinephrine Bitartrate (Levophed-Dextrose Drip) 250 ml @ 0 mls/hr TITRATE IV 10/03/16 08:00 10/03/16 08:02 Acetaminophen (Tylenol) 650 mg Q4H PRN PO fever>101 10/04/16 18:00 10/07/16 21:06 Acetaminophen/ Hydrocodone Bitart ([place] 5-325 Mg) 1 tab Q6H PRN PO pain 1-7 10/05/16 15:30 10/10/16 01:00 Acetaminophen/ Hydrocodone Bitart ([place] 5-325 Mg) 2 tab Q6H PRN PO pain 8-10 10/05/16 15:30 10/11/16 13:14 Acetaminophen/ Butalbital/ Caffeine (Fioricet 325-50-40) 1 tab Q8H PRN PO MIGRAINE 10/06/16 08:45 10/07/16 23:52 Morphine Sulfate (Morphine Inj) 2 mg Q6H PRN IV PUSH BREAKTHROUGH PAIN 10/06/16 10:00 10/07/16 16:30 Ibuprofen 600 mg 600 mg Q8HR PRN PO HEADACHE 10/10/16 14:42 10/11/16 08:54 Vancomycin HCl/ Sodium Chloride (Vancomycin Inj/ NS 250 ml Inj) 250 ml @ 250 mls/hr Q8H IV 10/11/16 00:00 10/11/16 08:53 Objective Remarks GENERAL: Middle aged female upright in bed in [facility]. SKIN: Warm and dry. bandage along neck is c/d/i. HEAD: Normocephalic. EYES: No injection or drainage. NECK: Supple, trachea midline. CARDIOVASCULAR: +S1/S2 RESPIRATORY: Breath sounds equal bilaterally. No accessory muscle use. GASTROINTESTINAL: Abdomen soft, non-tender, nondistended. EXTREMITIES: No cyanosis NEUROLOGICAL: awake and alert, normal speech. Assessment/Plan Problem List: (1) Abscess in epidural space of cervical spine Status: Acute Plan: -- Status post urgent laminectomy and drainage of the epidural abscess with Dr. Flores on 10/03/16. -- MRSA bacteremia -- On vancomycin -- ID following --ÁNGEL showed no evidence of endocarditis (2) Lung nodule, multiple Status: Acute Plan: --Multiple lung nodules in the left upper lobe as well as in the right lung. --one lesion in the left upper lobe which is 2.7 cm with vague haziness. There are approximately 13 separate nodule lesions in the right lower lung. --In the setting of IV drug use these could be septic emboli. --CTA--characterized as multiple lung masses and nodules --pulmonary following, recommends obtaining repeat scan in 4 weeks to ensure lesions have cleared. (3) Normocytic anemia Status: Acute Plan: --ferritin elevated --B12 WNL --normocytic, normochromic anemia (4) Thrombocytosis Status: Acute Plan: --likely reactive, ESR elevated --monitor Assessment 41 y/o female with history of IV drug abuse admitted for cervical spine abscess. Oncology consulted for multiple lung nodules found on CT chest. Plan 1. continue antibiotics 2. supportive care 3. monitor CBC Attending Statement The exam, history, and the medical decision-making described in the above note were completed with the assistance of the mid-level provider. I reviewed and agree with the findings presented. I attest that I had a [id number] encounter with the patient on the same day, and personally performed and documented my assessment and findings in the medical record. Outpatient follow-up for monitoring of lung nodules. Mirella Mena Oct 11, 2016 13:53 Joel Mckeon MD Oct 12, 2016 00:07
--- NOTE | 2016-10-11 15:16 | HHI.PR ---
Subjective Remarks Follow-up bacteremia. Patient reporting headache again today. Still coughing, but nonproductive today. Denies shortness of breath, chest pain. Objective Vitals Vital Signs Date Time Temp Pulse Resp B/P Pulse Ox O2 Delivery O2 Flow Rate FiO2 10/11/16 12:09 97.6 65 20 108/62 98 10/11/16 09:57 98 Room Air 10/11/16 09:54 59 10/11/16 07:48 96.4 68 20 114/73 98 10/11/16 04:00 97.5 61 20 115/74 98 10/11/16 03:20 19 10/11/16 01:32 84 10/11/16 01:05 18 10/11/16 00:00 97.3 74 20 112/65 98 10/10/16 23:00 100 Room Air 10/10/16 21:45 99 Room Air 10/10/16 20:00 97.8 74 20 124/77 94 10/10/16 16:00 98.2 76 20 151/70 100 I/O 10/10/16 10/10/16 10/10/16 10/11/16 10/11/16 10/11/16 06:59 14:59 22:59 06:59 14:59 22:59 Intake Total 480 ml 240 ml 886 ml Balance 480 ml 240 ml 886 ml Intake Oral 480 ml 240 ml IV Total 886 ml # Voids 6 4 1 1 # Bowel Movements 2 Result Diagram: 10/10/16 1222 10/10/16 [address] Angiography 10/09/16 0000 Signed Impressions: Service Date/Time: Sunday, October 09, 2016 15:37 - CONCLUSION: No appreciable change. Erin Mahmood MD Cervical Spine MRI 10/07/16 0700 Signed Impressions: Service Date/Time: Friday, October 07, 2016 10:07 - CONCLUSION: 1. Evacuation of previously seen epidural abscess. 2. 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 3. Slight neural foramina compromise bilateral C3-C4, bilateral C5-C6. 4. Probable post operative fluid collection in the left upper C3-C4 levels adjacent to the laminectomy defect. Erin Mahmood MD Chest CT 10/06/16 0000 Signed Impressions: Service Date/Time: September 17:58 - CONCLUSION: Multiple lung nodules and masses nonspecific, however metastatic disease should be excluded. Unusual infectious processes or possibly septic emboli could also have this appearance. Erin Mahmood MD Neck CT 10/04/16 0600 Signed Impressions: Service Date/Time: Tuesday, October 04, 2016 09:16 - CONCLUSION: 1. No definite abnormality of the nasopharynx oropharynx or larynx identified. 2. The patient has postsurgical changes in the neck and cervical spine consistent with previous epidural abscess drainage. 3. Multiple areas of groundglass infiltrate in the left upper lobe nonspecific but concerning for an underlying pneumonia. CT imaging of the chest would be warranted for further assessment. Kobe Carpenter MD Cervical Spine X-Ray 10/03/16 0000 Signed Impressions: Service Date/Time: Monday, October 03, 2016 00:50 - CONCLUSION: Spinous process of C2 is localized. Ricco Beal MD Chest X-Ray 10/02/16 1922 Signed Impressions: Service Date/Time: Sunday, October 02, 2016 19:35 - CONCLUSION: Mild hazy opacity in the right lung base. This could represent early infiltrate. Juan Carlos Powers MD Thoracic Spine MRI 10/02/16 0000 Signed Impressions: Service Date/Time: Sunday, October 02, 2016 20:16 - CONCLUSION: Unremarkable exam. Juan Carlos Powers MD Lumbar Spine MRI 10/02/16 0000 Signed Impressions: Service Date/Time: Sunday, October 02, 2016 20:16 - CONCLUSION: 1. No evidence of osteomyelitis. 2. Annular disc bulge at the L4-5 level with mild mass effect on the anterior thecal sac. 3. Mild degenerative disc and degenerative joint changes. Juan Carlos Powers MD Objective Remarks General: No acute distress. Sitting up in a chair. Heart: Regular rate and rhythm. No murmur. Lungs: Clear to auscultation bilaterally. No wheezes, rales, or rhonchi. Breathing is nonlabored. Abdomen: Soft, nontender, nondistended. Extremities: No lower extremity edema. Psych: Alert and oriented. Procedures 10/04/15 status post decompression Left C2-3 semi-laminectomy, evacuation of epidural abscess Urinary Catheter: No Vascular Central Line Catheter: No A/P Problem List: (1) Abscess in epidural space of cervical spine ICD Code: G06.1 Status: Acute (2) Bacteremia ICD Code: R78.81 Status: Acute (3) Lung nodule, multiple ICD Code: R91.8 Status: Acute (4) IV drug abuse ICD Code: F19.10 Status: Acute Assessment and Plan 1. Cervical spine epidural abscess: Status post decompression laminectomy with evacuation of abscess on 10/03/16. Appreciate neurosurgery recommendations. Continue PT/OT/ST. 2. MRSA bacteremia, sepsis: Appreciate infectious disease recommendations. Continue IV antibiotics. ÁNGEL results pending. Repeat blood cultures from are positive. 3. History of IV drug abuse: Patient has been counseled. 4. Multiple lung nodules: Nonspecific. Concerning for metastatic disease, but more likely secondary to septic emboli. Appreciate oncology recommendations. CT ordered to further evaluate. Discussed with Dr. Reardon, pulmonology. 5. GI prophylaxis: PPI. 6. DVT prophylaxis: SCDs. Heparin when okay with neurosurgery. Steffen Mondragon MD Oct 11, 2016 15:15
--- NOTE | 2016-10-11 15:49 | HHI.IDPN ---
Subjective Subjective Remarks ÁNGEL negative co some neck pain and headache afebrile tolerates abx ok Anothe rblood cl is + Antibiotics vancomycin Allergies: Coded Allergies: E-Mycin (Verified Allergy, Severe, UNKNOWN, 02/23/10) *MDRO Multi-Drug Resistant Organism (Verified Adverse Reaction, Unknown, ) MRSA (Blood) 10/02/16, 10/05/16 MRSA Epidural Space Fluid 10/03/16 Objective . Vital Signs Date Time Temp Pulse Resp B/P Pulse Ox O2 Delivery O2 Flow Rate FiO2 10/11/16 12:09 97.6 65 20 108/62 98 10/11/16 09:57 98 Room Air 10/11/16 09:54 59 10/11/16 07:48 96.4 68 20 114/73 98 10/11/16 04:00 97.5 61 20 115/74 98 10/11/16 03:20 19 10/11/16 01:32 84 10/11/16 01:05 18 10/11/16 00:00 97.3 74 20 112/65 98 10/10/16 23:00 100 Room Air 10/10/16 21:45 99 Room Air 10/10/16 20:00 97.8 74 20 124/77 94 10/10/16 16:00 98.2 76 20 151/70 100 10/10/16 10/10/16 10/11/16 15:00 23:00 07:00 Intake Total 480 ml 240 ml Balance 480 ml 240 ml Intake Oral 480 ml 240 ml # Voids 4 1 1 # Bowel Movements 2 . Laboratory Tests Test 10/10/16 12:22 White Blood Count 10.0 TH/MM3 Red Blood Count 3.37 MIL/MM3 Hemoglobin 10.1 GM/DL Hematocrit 29.7 % Mean Corpuscular Volume 88.2 FL Mean Corpuscular Hemoglobin 29.9 PG Mean Corpuscular Hemoglobin 33.9 % Concent Red Cell Distribution Width 13.5 % Platelet Count 701 TH/MM3 Mean Platelet Volume 7.6 FL Neutrophils (%) (Auto) 66.6 % Lymphocytes (%) (Auto) 23.1 % Monocytes (%) (Auto) 7.0 % Eosinophils (%) (Auto) 2.6 % Basophils (%) (Auto) 0.7 % Neutrophils # (Auto) 6.7 TH/MM3 Lymphocytes # (Auto) 2.3 TH/MM3 Monocytes # (Auto) 0.7 TH/MM3 Eosinophils # (Auto) 0.3 TH/MM3 Basophils # (Auto) 0.1 TH/MM3 CBC Comment DIFF FINAL Differential Comment Laboratory Tests Test 10/10/16 12:22 Creatinine 0.49 MG/DL Estimat Glomerular Filtration 138 ML/MIN Rate Microbiology Date/Time Procedure Status Source Growth 10/09/16 12:56 Aerobic Blood Culture - Preliminary Resulted Blood Peripheral S. Aureus Mrsa 10/09/16 12:56 Anaerobic Blood Culture - Preliminary Resulted Blood Peripheral NO GROWTH IN 2 DAYS 10/09/16 13:06 Aerobic Blood Culture - Preliminary Resulted Blood Peripheral NO GROWTH IN 2 DAYS 10/09/16 13:06 Anaerobic Blood Culture - Preliminary Resulted Blood Peripheral NO GROWTH IN 2 DAYS 10/11/16 07:16 Gram Stain - Final Resulted Sputum Expectorated Sputum 10/11/16 07:16 Sputum Culture Resulted Sputum Expectorated Sputum Pending Imaging Last Impressions CT Angiography 10/09/16 0000 Signed Impressions: Service Date/Time: Sunday, October 09, 2016 15:37 - CONCLUSION: No appreciable change. Erin Mahmood MD Cervical Spine MRI 10/07/16 0700 Signed Impressions: Service Date/Time: Friday, October 07, 2016 10:07 - CONCLUSION: 1. Evacuation of previously seen epidural abscess. 2. 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 3. Slight neural foramina compromise bilateral C3-C4, bilateral C5-C6. 4. Probable post operative fluid collection in the left upper C3-C4 levels adjacent to the laminectomy defect. Erin Mahmood MD Chest CT 10/06/16 0000 Signed Impressions: Service Date/Time: September 17:58 - CONCLUSION: Multiple lung nodules and masses nonspecific, however metastatic disease should be excluded. Unusual infectious processes or possibly septic emboli could also have this appearance. Erin Mahmood MD Neck CT 10/04/16 0600 Signed Impressions: Service Date/Time: Tuesday, October 04, 2016 09:16 - CONCLUSION: 1. No definite abnormality of the nasopharynx oropharynx or larynx identified. 2. The patient has postsurgical changes in the neck and cervical spine consistent with previous epidural abscess drainage. 3. Multiple areas of groundglass infiltrate in the left upper lobe nonspecific but concerning for an underlying pneumonia. CT imaging of the chest would be warranted for further assessment. Kobe Carpenter MD Cervical Spine X-Ray 10/03/16 0000 Signed Impressions: Service Date/Time: Monday, October 03, 2016 00:50 - CONCLUSION: Spinous process of C2 is localized. Ricco Beal MD Chest X-Ray 10/02/16 192 Signed Impressions: Service Date/Time: Sunday, October 02, 2016 19:35 - CONCLUSION: Mild hazy opacity in the right lung base. This could represent early infiltrate. Juan Carlos Powers MD Thoracic Spine MRI 10/02/16 0000 Signed Impressions: Service Date/Time: Sunday, October 02, 2016 20:16 - CONCLUSION: Unremarkable exam. Juan Carlos Powers MD Lumbar Spine MRI 10/02/16 0000 Signed Impressions: Service Date/Time: Sunday, October 02, 2016 20:16 - CONCLUSION: 1. No evidence of osteomyelitis. 2. Annular disc bulge at the L4-5 level with mild mass effect on the anterior thecal sac. 3. Mild degenerative disc and degenerative joint changes. Juan Carlos Powers MD Physical Exam CONSTITUTIONAL/GENERAL: This is a malnourished desheveled patient, in no apparent distress. TUBES/LINES/DRAINS: SKIN: No jaundice, rashes, or lesions. + needle tracks in different stages of healing Skin temperature appropriate. Not diaphoretic. EYES: Pupils equal and round and reactive. Extraocular motions intact. No scleral icterus. No injection or drainage. Fundi not examined. ENT: Hearing grossly normal. Nose without bleeding or purulent drainage. Throat without visible erythema, exudates, masses, or lesions. Poor dentition NECK: Trachea midline.less tender. to plapation Pt can move her neck better Inciiosn with dresiing in place CARDIOVASCULAR: Regular rate and rhythm without murmurs, gallops, or rubs. RESPIRATORY/CHEST: Symmetric, unlabored respirations. Clear to auscultation. GASTROINTESTINAL: Abdomen soft, non-tender, nondistended. No hepato-splenomegaly , or palpable masses. Bowel sounds present. MUSCULOSKELETAL: Extremities without clubbing, cyanosis, or edema. NEUROLOGICAL: Awake and alert. Motor and sensory grossly within normal limits. Follows commands. Clear speech. Moves all extremities. PSYCHIATRIC: No obvious anxiety/depression. no apparent hallucinations or other psychotic thought process. Assessment & Plan Remarks Cervical spine epiduralk abscess Left C2-3 semi-laminectomy, evacuation epidural abscess on 10/03 high grade MRSA bacteremia, sustained - ÁNGEL negative Radiological studies cw pul emboli which will confirm retrospectively TV endocarditis CT with Multiple lung nodules Still bacteremic of 10/09 bl clx IVDU cont vancomycin, keep trough 15-20 repeat blood clx again until clearance documented ; once clears bacteremia will put PICC line for prison abx ; anticipate vancomycin vs televancin Mouna Caldwell MD Oct 11, 2016 15:49
[2016-10-12] VITALS (8 sets, daily range): BP systolic 103–128; BP diastolic 60–77; PULSE 55–79; RESP 16–20; TEMP 97.6–99; O2SAT 96–100
[2016-10-12] MEDS: VANCOMYCIN 1,000 MG/NS 250 ML IV SCH ×6 (00:42→16:17)
[2016-10-12] MEDS: IBUPROFEN 600 MG TAB PO PRN ×3 (00:42→17:51)
[2016-10-12] MEDS: CHLORHEXIDINE GLUCONATE 2 % 1 PACK (2 CLOTHS) TOP SCH (03:27)
[2016-10-12] MEDS: ACETAMINOPHEN/HYDROcodone 325 MG/5 MG TAB PO PRN ×3 (04:19→22:19)
[2016-10-12] MEDS: NS + KCL 20 MEQ INJ 1,000 ML IV SCH ×2 (06:11→16:17)
[2016-10-12] MEDS ORDERED: PHARMACY ORDERED LAB ONE (07:45)
[2016-10-12] MEDS: PANTOPRAZOLE SODIUM 40 MG VIAL IV SCH (08:52)
[2016-10-12] MEDS: DOCUSATE SODIUM 50 MG/SENNA 8.6 MG TAB PO SCH ×2 (08:52→20:55)
[2016-10-12] MEDS: SODIUM CHLORIDE 0.9% FLUSH 10 ML FLUSH IV FLUSH SCH ×2 (08:53→20:56)
[2016-10-12 08:57] LABS: BASOPHIL % 0.3 % (0.0-2.0); EOSINOPHIL # 0.3 TH/MM3 (0-0.4); EOSINOPHIL % 3.1 % (0.0-4.0); HEMATOCRIT 25.1 % (35.0-46.0); HEMO FLAGS DIFF FINAL; LYMPH % 34.1 % (9.0-44.0); MEAN CELL VOLUME 86.2 FL (80.0-100.0); MEAN CORPUSCULAR HEMOGLOBIN 29.7 PG (27.0-34.0); MEAN CORPUSCULAR HGB CONC 34.5 % (32.0-36.0); MONO % 6.2 % (0.0-8.0); NEUT % 56.3 % (16.0-70.0); PLATELET COUNT 589 TH/MM3 (150-450); RED BLOOD COUNT 2.92 MIL/MM3 (4.00-5.30); RED CELL DISTRIBUTION WIDTH 13.8 % (11.6-17.2); WHITE BLOOD COUNT 8.9 TH/MM3 (4.0-11.0)
--- NOTE | 2016-10-12 15:41 | HHI.PR ---
Subjective Remarks Follow-up bacteremia. Patient reports that her neck is stiff this morning because of how she slept last night. It has been getting better throughout the day. Denies chest pain, dyspnea, nausea, vomiting. Objective Vitals Vital Signs Date Time Temp Pulse Resp B/P Pulse Ox O2 Delivery O2 Flow Rate FiO2 10/12/16 12:42 98.4 71 18 103/60 100 10/12/16 08:30 Room Air 10/12/16 08:30 55 10/12/16 08:05 97.7 57 18 125/77 98 10/12/16 04:00 97.6 79 18 128/63 96 10/12/16 00:00 98.1 73 16 114/67 97 10/11/16 20:32 97.8 66 16 115/71 97 10/11/16 16:31 97.9 73 20 107/63 I/O 10/11/16 10/11/16 10/11/16 10/12/16 10/12/16 10/12/16 07:00 15:00 23:00 07:00 15:00 23:00 Intake Total 886 ml 720 ml Balance 886 ml 720 ml Intake Oral 720 ml IV Total 886 ml # Voids 1 7 2 6 # Bowel Movements 4 0 Result Diagram: 10/12/16 0800 10/12/16 [address] Angiography 10/09/16 0000 Signed Impressions: Service Date/Time: Sunday, October 09, 2016 15:37 - CONCLUSION: No appreciable change. Erin Mahmood MD Cervical Spine MRI 10/07/16 0700 Signed Impressions: Service Date/Time: Friday, October 07, 2016 10:07 - CONCLUSION: 1. Evacuation of previously seen epidural abscess. 2. 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 3. Slight neural foramina compromise bilateral C3-C4, bilateral C5-C6. 4. Probable post operative fluid collection in the left upper C3-C4 levels adjacent to the laminectomy defect. Erin Mahmood MD Chest CT 10/06/16 0000 Signed Impressions: Service Date/Time: September 17:58 - CONCLUSION: Multiple lung nodules and masses nonspecific, however metastatic disease should be excluded. Unusual infectious processes or possibly septic emboli could also have this appearance. Erin Mahmood MD Neck CT 10/04/16 0600 Signed Impressions: Service Date/Time: Tuesday, October 04, 2016 09:16 - CONCLUSION: 1. No definite abnormality of the nasopharynx oropharynx or larynx identified. 2. The patient has postsurgical changes in the neck and cervical spine consistent with previous epidural abscess drainage. 3. Multiple areas of groundglass infiltrate in the left upper lobe nonspecific but concerning for an underlying pneumonia. CT imaging of the chest would be warranted for further assessment. Kobe Carpenter MD Cervical Spine X-Ray 10/03/16 0000 Signed Impressions: Service Date/Time: Monday, October 03, 2016 00:50 - CONCLUSION: Spinous process of C2 is localized. Ricco Beal MD Chest X-Ray 10/02/16 1922 Signed Impressions: Service Date/Time: Sunday, October 02, 2016 19:35 - CONCLUSION: Mild hazy opacity in the right lung base. This could represent early infiltrate. Juan Carlos Powers MD Thoracic Spine MRI 10/02/16 0000 Signed Impressions: Service Date/Time: Sunday, October 02, 2016 20:16 - CONCLUSION: Unremarkable exam. Juan Carlos Powers MD Lumbar Spine MRI 10/02/16 0000 Signed Impressions: Service Date/Time: Sunday, October 02, 2016 20:16 - CONCLUSION: 1. No evidence of osteomyelitis. 2. Annular disc bulge at the L4-5 level with mild mass effect on the anterior thecal sac. 3. Mild degenerative disc and degenerative joint changes. Juan Carlos Powers MD Objective Remarks General: No acute distress. Sitting up in a chair. Heart: Regular rate and rhythm. No murmur. Lungs: Clear to auscultation bilaterally. No wheezes, rales, or rhonchi. Breathing is nonlabored. Abdomen: Soft, nontender, nondistended. Extremities: No lower extremity edema. Psych: Alert and oriented. Procedures 10/04/15 status post decompression Left C2-3 semi-laminectomy, evacuation of epidural abscess Urinary Catheter: No Vascular Central Line Catheter: No A/P Problem List: (1) Abscess in epidural space of cervical spine ICD Code: G06.1 Status: Acute (2) Bacteremia ICD Code: R78.81 Status: Acute (3) Lung nodule, multiple ICD Code: R91.8 Status: Acute (4) IV drug abuse ICD Code: F19.10 Status: Acute Assessment and Plan 1. Cervical spine epidural abscess: Status post decompression laminectomy with evacuation of abscess on 10/03/16. Appreciate neurosurgery recommendations. Continue PT/OT/ST. 2. MRSA bacteremia, sepsis: Appreciate infectious disease recommendations. Continue IV antibiotics. ÁNGEL negative for valvular vegetations, PFO. Repeat blood cultures from 10/09/16 are positive. 3. History of IV drug abuse: Patient has been counseled. 4. Multiple lung nodules: Nonspecific. Concerning for metastatic disease, but more likely secondary to septic emboli. Appreciate oncology recommendations. 5. GI prophylaxis: PPI. 6. DVT prophylaxis: SCDs. Heparin when okay with neurosurgery. Steffen Mondragon MD Oct 12, 2016 15:41
[2016-10-13] MEDS: NS + KCL 20 MEQ INJ 1,000 ML IV SCH (02:25)
[2016-10-13] MEDS: VANCOMYCIN 1,000 MG/NS 250 ML IV SCH ×6 (02:25→15:10)
[2016-10-13] MEDS: IBUPROFEN 600 MG TAB PO PRN ×3 (02:33→20:20)
[2016-10-13 04:00] VITALS: BP 130/66; PULSE 63; RESP 18; TEMP 98.1; O2SAT 97
[2016-10-13] MEDS: CHLORHEXIDINE GLUCONATE 2 % 1 PACK (2 CLOTHS) TOP SCH (04:00)
[2016-10-13] MEDS: ACETAMINOPHEN/HYDROcodone 325 MG/5 MG TAB PO PRN ×3 (05:35→18:26)
[2016-10-13 08:14] LABS: AUTOMATED NEUTROPHIL # 4.8 TH/MM3 (1.8-7.7); BASOPHIL % 0.4 % (0.0-2.0); EOSINOPHIL # 0.2 TH/MM3 (0-0.4); EOSINOPHIL % 2.8 % (0.0-4.0); HEMATOCRIT 23.1 % (35.0-46.0); LYMPH % 30.5 % (9.0-44.0); LYMPHOCYTE # 2.5 TH/MM3 (1.0-4.8); MEAN CORPUSCULAR HEMOGLOBIN 31.8 PG (27.0-34.0); MONO % 7.1 % (0.0-8.0); NEUT % 59.2 % (16.0-70.0); PLATELET COUNT 566 TH/MM3 (150-450); RED BLOOD COUNT 2.68 MIL/MM3 (4.00-5.30); RED CELL DISTRIBUTION WIDTH 13.7 % (11.6-17.2); WHITE BLOOD COUNT 8.1 TH/MM3 (4.0-11.0)
[2016-10-13 08:15] LABS: HEMO FLAGS AUTO DIFF
[2016-10-13 08:20] VITALS: BP 116/79; PULSE 68; RESP 16; TEMP 96.1; O2SAT 97
[2016-10-13] MEDS: PANTOPRAZOLE SODIUM 40 MG VIAL IV SCH (08:57)
[2016-10-13] MEDS: DOCUSATE SODIUM 50 MG/SENNA 8.6 MG TAB PO SCH ×2 (08:57→20:19)
[2016-10-13] MEDS: SODIUM CHLORIDE 0.9% FLUSH 10 ML FLUSH IV FLUSH SCH ×2 (08:57→20:19)
[2016-10-13 09:00] VITALS: PULSE 56
[2016-10-13 09:03] LABS: SCAN/DIFF AUTO DIFF CONFIRMED
--- NOTE | 2016-10-13 11:27 | HHI.NSPN ---
(Kai Chicassukh MALDONADO) History Chief Complaint: Some soreness to the shoulders and right lower neck (Aviva Juan MALDONADO) Interval History 10/02: 41-year-old female who according to her mother came home on 27 September not feeling well. She went to bed for most of the day. Over the past few days she has complained of progressive neck pain and has not been out of bed much in the past couple of days. The patient was seen at [facility] emergency room a few days ago. The mother is uncertain what testing was performed. The patient received a couple of injections in the emergency room and was discharged. The patient's mother states that she has been trying for the past 2 or 3 days to get the patient back to the emergency room and the patient has not wanted to get out of better, and the hospital. Patient's mother states that she believes the patient had a fever yesterday. This morning she had diarrhea. No nausea or vomiting. No definite confusion. Patient complains of severe neck pain. No significant pain weakness or numbness in the extremities or loss of bowel or bladder function. Patient does have a history of IV drug use. 10/03: The patient went for a laminectomy & evacuation of a cervical abscess early this morning. Prior to being seen this afternoon Nursing called and stated that the patient's neck appeared swollen and that the patient felt like she had a lump to the throat. Dr Flores was notified and stated that the patient did have a significant amount of pharyngeal inflammation. When seen the patient complained of pain to the neck. She did state that if she tried to get up the pain went to the top of her head. 10/04: The patient complains of pain to the neck and states she is not able to lean her neck on anything. She states that she wasn't able to sleep during the night due to the pain. She went for a CT soft tissue neck this morning which was unremarkable for any abnormality of the nasopharynx, oropharynx or larynx with post-surgical changes noted. An incidental finding of the left upper lobe w /groundglass infiltrate is suspicious for REGAN pneumonia. 10/05: The patient still has pain to the neck and throat. She reports not being able to sleep due to the pain. When seen she is sitting up in a chair and has brushed her hair. 10/06: The patient is sitting up in a chair with her hair brushed. She states that she is doing better and that her neck is aching and her throat is sore. She states that she does have a migraine headache to the back of the head. She also reports that she has hand tremors today which she has had before the surgery. 10/07: The patient is doing well this morning. She endorses a dull headache. She did report some abdominal pain yesterday afternoon which resolved and has not had any since. When seen Physical Therapy is with the patient and getting her up to a wheelchair to go for her MRI. The patient is able to ambulate to the wheelchair and turn around on her own without any difficulty. 10/08/16: Pt complains of incisional pain. No radiculopathy or paresthesias. Headaches radiating into frontal area. No nausea or vomiting. Pt states headaches usually respond to ibuprofen. 10/09/16: Pt complains of incisional pain. Headaches improved with ibuprofen. No radiculopathy or paresthesias in UEs. 10/10: The patient states she is doing good this morning when seen although she states she has a slight headache developing. Nursing reports that the patient has complained of chills but has been afebrile. 10/13: The patient is doing well and is in her own clothing when seen. She states that she has some aching to the right lower neck and the shoulders. She reports better ROM to the left side but limited on the right due to pain. Nursing reports that ID is waiting for culture results prior to placing a PICC line for further antibiotics. (Juan Chicas) System Review Comments Constitutional: Patient denies any fever or chills. HEENT: Patient denies any sore throat or difficulty swallowing. Neck: Patient endorses aching to the right lower neck into the shoulder. Respiratory: Patient denies any shortness of breath or productive cough. Cardiovascular: Patient denies any chest pain, palpitations or irregular heartbeat. Gastrointestinal: Patient denies any abdominal pain nausea, vomiting or incontinence of stool. Genitourinary: Patient denies any incontinence of urine. Musculoskeletal: Patient with pain into the both proximal shoulders. She denies back or any other extremity pain or extremity weakness. Neurologic: Patient denies any headache, dizziness, numbness or tingling. ( Juan Chicas) Exam Results Vital Signs Date Time Temp Pulse Resp B/P Pulse Ox O2 Delivery O2 Flow Rate FiO2 10/13/16 08:40 Room Air 10/13/16 08:20 96.1 68 16 116/79 97 (Juan Chicas) Physical Examination GENERAL: Readily interacts, normal affect, no apparent distress. HEENT: Normocephalic, atraumatic, NTTP to right occipital region. NECK: Midline cervical spine minimally TTP, surgical incision w/intact streri- strips, no drainage, erythema or streaking noted, minimally TTP to lower right posterolateral neck. MUSCULOSKELETAL: JARA w/o difficulty, minimally TTP across both proximal shoulders, no evident deformity or clubbing. INTEGUMENTARY: Skin warm, dry & intact except for posterior cervical surgical incision w/intact dressing. No ulcerations, rashes or other lesions noted. NEUROLOGICAL: AAOx3 Speech clear & appropriate Follows commands w/o any difficulty Sensation intact to light touch to all extremities Motor strength 5/5 to all major flexion & extension muscle groups (Juan Chicas) Lab, Micro, Other Results Allergies Coded Allergies Type Severity Reaction Last Updated Verified E-Mycin Allergy Severe UNKNOWN 02/23/10 Yes *MDRO Multi-Drug Resistant Organism Adverse Reaction Unknown 10/12/16 Yes /// 06:00 18:00 06:00 18:00 06:00 18:00 Intake Total 240 ml 1606 ml Balance 240 ml 1606 ml Intake Oral 240 ml 720 ml IV Total 886 ml # Voids 2 5 4 6 3 # Bowel Movements 2 2 3 Laboratory Tests Test 10/10/16 10/10/16 10/11/16 10/12/16 12:22 19:10 07:17 08:00 White Blood Count 10.0 TH/MM3 8.9 TH/MM3 Red Blood Count 3.37 MIL/MM3 2.92 MIL/MM3 Hemoglobin 10.1 GM/DL 8.7 GM/DL Hematocrit 29.7 % 25.1 % Mean Corpuscular Volume 88.2 FL 86.2 FL Mean Corpuscular Hemoglobin 29.9 PG 29.7 PG Mean Corpuscular Hemoglobin 33.9 % 34.5 % Concent Red Cell Distribution Width 13.5 % 13.8 % Platelet Count 701 TH/MM3 589 TH/MM3 Mean Platelet Volume 7.6 FL 7.9 FL Neutrophils (%) (Auto) 66.6 % 56.3 % Lymphocytes (%) (Auto) 23.1 % 34.1 % Monocytes (%) (Auto) 7.0 % 6.2 % Eosinophils (%) (Auto) 2.6 % 3.1 % Basophils (%) (Auto) 0.7 % 0.3 % Neutrophils # (Auto) 6.7 TH/MM3 5.0 TH/MM3 Lymphocytes # (Auto) 2.3 TH/MM3 3.0 TH/MM3 Monocytes # (Auto) 0.7 TH/MM3 0.6 TH/MM3 Eosinophils # (Auto) 0.3 TH/MM3 0.3 TH/MM3 Basophils # (Auto) 0.1 TH/MM3 0.0 TH/MM3 CBC Comment DIFF FINAL DIFF FINAL Differential Comment Creatinine 0.49 MG/DL 0.49 MG/DL Estimat Glomerular Filtration 138 ML/MIN 138 ML/MIN Rate Vancomycin Level Trough 21.5 MCG/ML 9.2 MCG/ML 15.6 MCG/ML Hematology Comments Test 10/13/16 07:07 White Blood Count 8.1 TH/MM3 Red Blood Count 2.68 MIL/MM3 Hemoglobin 8.5 GM/DL Hematocrit 23.1 % Mean Corpuscular Volume 86.0 FL Mean Corpuscular Hemoglobin 31.8 PG Mean Corpuscular Hemoglobin 37.0 % Concent Red Cell Distribution Width 13.7 % Platelet Count 566 TH/MM3 Mean Platelet Volume 7.8 FL Neutrophils (%) (Auto) 59.2 % Lymphocytes (%) (Auto) 30.5 % Monocytes (%) (Auto) 7.1 % Eosinophils (%) (Auto) 2.8 % Basophils (%) (Auto) 0.4 % Neutrophils # (Auto) 4.8 TH/MM3 Lymphocytes # (Auto) 2.5 TH/MM3 Monocytes # (Auto) 0.6 TH/MM3 Eosinophils # (Auto) 0.2 TH/MM3 Basophils # (Auto) 0.0 TH/MM3 CBC Comment AUTO DIFF Differential Comment AUTO DIFF CONFIRMED Hematology Comments Vital Signs Date Time Temp Pulse Resp B/P Pulse Ox O2 Delivery O2 Flow Rate FiO2 10/13/16 08:40 Room Air 10/13/16 08:20 96.1 68 16 116/79 97 10/13/16 04:00 98.1 63 18 130/66 97 10/13/16 01:00 100 Room Air 10/12/16 23:52 98.6 76 18 123/69 98 10/12/16 20:00 99.0 70 20 121/65 97 10/12/16 16:00 98.7 75 18 110/71 100 10/12/16 12:42 98.4 71 18 103/60 100 10/12/16 08:30 Room Air 10/12/16 08:30 55 10/12/16 08:05 97.7 57 18 125/77 98 10/12/16 04:00 97.6 79 18 128/63 96 10/12/16 00:00 98.1 73 16 114/67 97 10/11/16 20:32 97.8 66 16 115/71 97 10/11/16 16:31 97.9 73 20 107/63 10/11/16 12:09 97.6 65 20 108/62 98 10/11/16 09:57 98 Room Air 10/11/16 09:54 59 10/11/16 07:48 96.4 68 20 114/73 98 10/11/16 04:00 97.5 61 20 115/74 98 10/11/16 03:20 19 10/11/16 01:32 84 10/11/16 01:05 18 10/11/16 00:00 97.3 74 20 112/65 98 10/10/16 23:00 100 Room Air 10/10/16 21:45 99 Room Air 10/10/16 20:00 97.8 74 20 124/77 94 10/10/16 16:00 98.2 76 20 151/70 100 10/10/16 12:00 98.4 85 19 105/69 98 (Juan Chicas) Medical Decision Making Impression and Plan Impression: 1. Cervical epidural abscess primarily C2-4 levels with significant dorsal cord compression without definite cord edema. 2. Significant cervical prevertebral inflammation without definite abscess formation 3. History of IV drug abuse 4. Cervical degenerative disc disease with moderate chronic appearing C5 6 posterior osteophytic disc complex with moderate stenosis without cord edema. Patient is doing well from NSGY's perspective and is neurologically stable CT soft tissue neck w/o any noted abnormality of the nasopharynx, oropharynx or larynx, post-surgical changes noted, left upper lobe w/ groundglass infiltrate suspicious for REGAN pneumonia CT chest w/IV contrast demonstrates multiple nonspecific lung nodules & masses w/metastatic disease excluded, findings consistent w/unusual infectious processes or possibly septic emboli in appearance CTA chest with multiple lung masses & nodules w/o significant change Leukocytosis, resolved Anaemia, essentially stable (8.7=>8.5) Thrombocytosis (589=>566) Hypokalemia, resolved High grade MRSA bacteremia per ID POD #10 () s/p: Left C2-3 semi-laminectomy, evacuation epidural abscess Plan: Primary management per Hospitalist Abx per Infectious Disease Neuro checks PT eval & tx ST eval & tx Diet per ST (Juan Chicas) Attending Statement The exam, history, and the medical decision-making described in the above note were completed with the assistance of the mid-level provider. I reviewed and agree with the findings presented. I attest that I had a [id number] encounter with the patient on the same day, and personally performed and documented my assessment and findings in the medical record. Stable neurologic exam. Incision well healed. ID following. (Marlo Flores MD) Juan Chicas Oct 13, 2016 11:27 Marlo Flores MD Oct 15, 2016 11:52
--- NOTE | 2016-10-13 11:37 | HHI.PR ---
Subjective Remarks Follow-up bacteremia. Patient reporting neck stiffness. Otherwise no complaints at this time. Objective Vitals Vital Signs Date Time Temp Pulse Resp B/P Pulse Ox O2 Delivery O2 Flow Rate FiO2 10/13/16 08:40 Room Air 10/13/16 08:20 96.1 68 16 116/79 97 10/13/16 04:00 98.1 63 18 130/66 97 10/13/16 01:00 100 Room Air 10/12/16 23:52 98.6 76 18 123/69 98 10/12/16 20:00 99.0 70 20 121/65 97 10/12/16 16:00 98.7 75 18 110/71 100 10/12/16 12:42 98.4 71 18 103/60 100 I/O 10/12/16 10/12/16 10/12/16 10/13/16 10/13/16 10/13/16 07:00 15:00 23:00 07:00 15:00 23:00 # Voids 2 6 3 # Bowel Movements 0 2 1 Result Diagram: 10/13/16 0707 10/12/16 [address] Angiography 10/09/16 0000 Signed Impressions: Service Date/Time: Sunday, October 09, 2016 15:37 - CONCLUSION: No appreciable change. Erin Mahmood MD Cervical Spine MRI 10/07/16 0700 Signed Impressions: Service Date/Time: Friday, October 07, 2016 10:07 - CONCLUSION: 1. Evacuation of previously seen epidural abscess. 2. 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 3. Slight neural foramina compromise bilateral C3-C4, bilateral C5-C6. 4. Probable post operative fluid collection in the left upper C3-C4 levels adjacent to the laminectomy defect. Erin Mahmood MD Chest CT 10/06/16 0000 Signed Impressions: Service Date/Time: September 17:58 - CONCLUSION: Multiple lung nodules and masses nonspecific, however metastatic disease should be excluded. Unusual infectious processes or possibly septic emboli could also have this appearance. Erin Mahmood MD Neck CT 10/04/16 0600 Signed Impressions: Service Date/Time: Tuesday, October 04, 2016 09:16 - CONCLUSION: 1. No definite abnormality of the nasopharynx oropharynx or larynx identified. 2. The patient has postsurgical changes in the neck and cervical spine consistent with previous epidural abscess drainage. 3. Multiple areas of groundglass infiltrate in the left upper lobe nonspecific but concerning for an underlying pneumonia. CT imaging of the chest would be warranted for further assessment. Kobe Carpenter MD Cervical Spine X-Ray 10/03/16 0000 Signed Impressions: Service Date/Time: Monday, October 03, 2016 00:50 - CONCLUSION: Spinous process of C2 is localized. Ricco Beal MD Chest X-Ray 10/02/161921 Signed Impressions: Service Date/Time: Sunday, October 02, 2016 19:35 - CONCLUSION: Mild hazy opacity in the right lung base. This could represent early infiltrate. Juan Carlos Powers MD Thoracic Spine MRI 10/02/16 0000 Signed Impressions: Service Date/Time: Sunday, October 02, 2016 20:16 - CONCLUSION: Unremarkable exam. Juan Carlos Powers MD Lumbar Spine MRI 10/02/16 0000 Signed Impressions: Service Date/Time: Sunday, October 02, 2016 20:16 - CONCLUSION: 1. No evidence of osteomyelitis. 2. Annular disc bulge at the L4-5 level with mild mass effect on the anterior thecal sac. 3. Mild degenerative disc and degenerative joint changes. Juan Carlos Powers MD Objective Remarks General: No acute distress. Sitting up in a chair. Heart: Regular rate and rhythm. No murmur. Lungs: Clear to auscultation bilaterally. No wheezes, rales, or rhonchi. Breathing is nonlabored. Abdomen: Soft, nontender, nondistended. Extremities: No lower extremity edema. Psych: Alert and oriented. Procedures 10/04/15 status post decompression Left C2-3 semi-laminectomy, evacuation of epidural abscess Urinary Catheter: No Vascular Central Line Catheter: No A/P Problem List: (1) Abscess in epidural space of cervical spine ICD Code: G06.1 Status: Acute (2) Bacteremia ICD Code: R78.81 Status: Acute (3) Lung nodule, multiple ICD Code: R91.8 Status: Acute (4) IV drug abuse ICD Code: F19.10 Status: Acute Assessment and Plan 1. Cervical spine epidural abscess: Status post decompression laminectomy with evacuation of abscess on 10/03/16. Appreciate neurosurgery recommendations. Continue PT/OT/ST. 2. MRSA bacteremia, sepsis: Appreciate infectious disease recommendations. Continue IV antibiotics. ÁNGEL negative for valvular vegetations/PFO. Repeat blood cultures from 10/09/16 are positive for MRSA. Blood cultures from 10/11 and 10/12 are negative so far. 3. History of IV drug abuse: Patient has been counseled. 4. Multiple lung nodules: Nonspecific. Concerning for metastatic disease, but more likely secondary to septic emboli. Appreciate oncology recommendations. Sputum culture positive for Enterobacter and Escherichia coli. 5. GI prophylaxis: PPI. 6. DVT prophylaxis: SCDs. Heparin when okay with neurosurgery. Steffen Mondragon MD Oct 13, 2016 11:37
[2016-10-13 12:04] VITALS: BP 131/71; PULSE 69; RESP 17; TEMP 96.5; O2SAT 100
--- NOTE | 2016-10-13 16:24 | HHI.IDPN ---
Subjective Subjective Remarks pt is doing OK Her ÁNGEL is negative no fever blood clx + MRSA 1/4 Antibiotics vancomycin Allergies: Coded Allergies: E-Mycin (Verified Allergy, Severe, UNKNOWN, 02/23/10) *MDRO Multi-Drug Resistant Organism (Verified Adverse Reaction, Unknown, ) MRSA (Blood) 10/02/16, 10/05/16, 10/09/16 MRSA Epidural Space Fluid 10/03/16 Objective . Vital Signs Date Time Temp Pulse Resp B/P Pulse Ox O2 Delivery O2 Flow Rate FiO2 10/13/16 12:04 96.5 69 17 131/71 100 10/13/16 09:00 56 10/13/16 08:40 Room Air 10/13/16 08:20 96.1 68 16 116/79 97 10/13/16 04:00 98.1 63 18 130/66 97 10/13/16 01:00 100 Room Air 10/12/16 23:52 98.6 76 18 123/69 98 10/12/16 20:00 99.0 70 20 121/65 97 10/12/16 10/12/16 10/13/16 15:00 23:00 07:00 # Voids 6 3 # Bowel Movements 2 1 . Laboratory Tests Test 10/12/16 10/13/16 08:00 07:07 White Blood Count 8.9 TH/MM3 8.1 TH/MM3 Red Blood Count 2.92 MIL/MM3 2.68 MIL/MM3 Hemoglobin 8.7 GM/DL 8.5 GM/DL Hematocrit 25.1 % 23.1 % Mean Corpuscular Volume 86.2 FL 86.0 FL Mean Corpuscular Hemoglobin 29.7 PG 31.8 PG Mean Corpuscular Hemoglobin 34.5 % 37.0 % Concent Red Cell Distribution Width 13.8 % 13.7 % Platelet Count 589 TH/MM3 566 TH/MM3 Mean Platelet Volume 7.9 FL 7.8 FL Neutrophils (%) (Auto) 56.3 % 59.2 % Lymphocytes (%) (Auto) 34.1 % 30.5 % Monocytes (%) (Auto) 6.2 % 7.1 % Eosinophils (%) (Auto) 3.1 % 2.8 % Basophils (%) (Auto) 0.3 % 0.4 % Neutrophils # (Auto) 5.0 TH/MM3 4.8 TH/MM3 Lymphocytes # (Auto) 3.0 TH/MM3 2.5 TH/MM3 Monocytes # (Auto) 0.6 TH/MM3 0.6 TH/MM3 Eosinophils # (Auto) 0.3 TH/MM3 0.2 TH/MM3 Basophils # (Auto) 0.0 TH/MM3 0.0 TH/MM3 CBC Comment DIFF FINAL AUTO DIFF Differential Comment AUTO DIFF CONFIRMED Hematology Comments Laboratory Tests Test 10/12/16 08:00 Creatinine 0.49 MG/DL Estimat Glomerular Filtration 138 ML/MIN Rate Microbiology Date/Time Procedure Status Source Growth 10/11/16 07:16 Gram Stain - Final Complete Sputum Expectorated Sputum 10/11/16 07:16 Sputum Culture - Final Complete Enterobacter Cloacae Escherichia Coli 10/11/16 21:43 Aerobic Blood Culture - Preliminary Resulted Blood Peripheral NO GROWTH IN 2 DAYS 10/11/16 21:43 Anaerobic Blood Culture - Final Resulted Blood Peripheral QNS - SEE AEROBE REPORT 10/12/16 08:00 Aerobic Blood Culture - Preliminary Resulted Blood Peripheral NO GROWTH IN 1 DAY 10/12/16 08:00 Anaerobic Blood Culture - Final Resulted Blood Peripheral QNS - SEE AEROBE REPORT Imaging Last Impressions CT Angiography 10/09/16 0000 Signed Impressions: Service Date/Time: Sunday, October 09, 2016 15:37 - CONCLUSION: No appreciable change. Erin Mahmood MD Cervical Spine MRI 10/07/16 0700 Signed Impressions: Service Date/Time: Friday, October 07, 2016 10:07 - CONCLUSION: 1. Evacuation of previously seen epidural abscess. 2. 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 3. Slight neural foramina compromise bilateral C3-C4, bilateral C5-C6. 4. Probable post operative fluid collection in the left upper C3-C4 levels adjacent to the laminectomy defect. Erin Mahmood MD Chest CT 10/06/16 0000 Signed Impressions: Service Date/Time: September 17:58 - CONCLUSION: Multiple lung nodules and masses nonspecific, however metastatic disease should be excluded. Unusual infectious processes or possibly septic emboli could also have this appearance. Erin Mahmood MD Neck CT 10/04/16 0600 Signed Impressions: Service Date/Time: Tuesday, October 04, 2016 09:16 - CONCLUSION: 1. No definite abnormality of the nasopharynx oropharynx or larynx identified. 2. The patient has postsurgical changes in the neck and cervical spine consistent with previous epidural abscess drainage. 3. Multiple areas of groundglass infiltrate in the left upper lobe nonspecific but concerning for an underlying pneumonia. CT imaging of the chest would be warranted for further assessment. Kobe Carpenter MD Cervical Spine X-Ray 10/03/16 0000 Signed Impressions: Service Date/Time: Monday, October 03, 2016 00:50 - CONCLUSION: Spinous process of C2 is localized. Ricco Beal MD Chest X-Ray 10/02/161921 Signed Impressions: Service Date/Time: Sunday, October 02, 2016 19:35 - CONCLUSION: Mild hazy opacity in the right lung base. This could represent early infiltrate. Juan Carlos Powers MD Thoracic Spine MRI 10/02/16 0000 Signed Impressions: Service Date/Time: Sunday, October 02, 2016 20:16 - CONCLUSION: Unremarkable exam. Juan Carlos Powers MD Lumbar Spine MRI 10/02/16 0000 Signed Impressions: Service Date/Time: Sunday, October 02, 2016 20:16 - CONCLUSION: 1. No evidence of osteomyelitis. 2. Annular disc bulge at the L4-5 level with mild mass effect on the anterior thecal sac. 3. Mild degenerative disc and degenerative joint changes. Juan Carlos Powers MD Physical Exam CONSTITUTIONAL/GENERAL: in no apparent distress. TUBES/LINES/DRAINS: SKIN: No jaundice, rashes, or lesions. + needle tracks in different stages of healing Skin temperature appropriate. Not diaphoretic. EYES: Pupils equal and round and reactive. Extraocular motions intact. No scleral icterus. No injection or drainage. Fundi not examined. ENT: Hearing grossly normal. Nose without bleeding or purulent drainage. Throat without visible erythema, exudates, masses, or lesions. Poor dentition NECK: Trachea midline.less tender. to plapation Pt can move her neck better, though movements are still very limited Inciiosn with dresiing in place, dry and clean CARDIOVASCULAR: Regular rate and rhythm without murmurs, gallops, or rubs. RESPIRATORY/CHEST: Symmetric, unlabored respirations. Clear to auscultation. GASTROINTESTINAL: Abdomen soft, non-tender, nondistended. No hepato-splenomegaly , or palpable masses. Bowel sounds present. MUSCULOSKELETAL: Extremities without clubbing, cyanosis, or edema. NEUROLOGICAL: Awake and alert. Motor and sensory grossly within normal limits. Follows commands. Clear speech. Moves all extremities. PSYCHIATRIC: No obvious anxiety/depression. no apparent hallucinations or other psychotic thought process. Assessment & Plan Remarks Cervical spine epiduralk abscess Left C2-3 semi-laminectomy, evacuation epidural abscess on 10/03 high grade MRSA bacteremia, sustained - ÁNGEL negative, but ongoing persistent bactermia Still bacteremic as of 10/09 bl clx Radiological studies cw pul emboli which will confirm retrospectively TV endocarditis CT with Multiple lung nodules = doubt mets, more cw TV endocarditis Sputum clx with E.coli , Enterobacter, doubt clin significance; pts clinical presentation or radiological findings are not cw bronchopneumonia, but cw septic emboli IVDU cont vancomycin, keep trough 15-20 repeat blood clx again until clearance documented ; once clears bacteremia will put PICC line for [facility] abx ; anticipate vancomycin vs televancin PLAN: if last bl clx are negative for 3 days OK to put a PICC line and d/ c home on IV televancin weeks of abx (tenetively 8 week), while on-going bacterimeia will require additional w/u prior to dc dw Dr Springer formerly [facility] OPAT filled out Mouna Caldwell MD Oct 13, 2016 16:24
--- NOTE | 2016-10-13 16:25 | HHI.FF ---
Infusion Therapy Location of Infusion Therapy: Ambulatory Infusion Therapy Order Patient Information Patient Weight 57.7 kg Diagnosis: Diagnosis Abscess in epidural space of cervical spine Coded Allergies: E-Mycin (Verified Allergy, Severe, UNKNOWN, 02/23/10) *MDRO Multi-Drug Resistant Organism (Verified Adverse Reaction, Unknown, ) MRSA (Blood) 10/02/16, 10/05/16, 10/09/16 MRSA Epidural Space Fluid 10/03/16 Administer Medication Televancin 580 mg IV daily Start Treatment: Oct 16, 2016 Stop Treatment: Nov 22, 2016 Additional Information Venous access: PICC Line Additional Instructions [x] Peripheral flush and dressing changes per protocol [x] Implanted port and central sewer line repairer: * Implanted port: 10 ml Normal Saline followed by 5 ml Heparin 100 units/ml Heparin flush after each use and monthly to maintain. [] May leave port accessed during therapy. [] May leave peripheral site accessed for duration of therapy. [x] If patient has SOB or respiratory distress, check oxygen saturation. If less than 90% or clinical signs of respiratory distress, administer oxygen at 2 L/min. via nasal cannula and notify physician. [x] Anaphylaxis/Reaction orders: * Stop infusion. * Keep IV line open with saline flush. * Notify physician. * Monitor vital signs every 15 minutes until symptoms resolve. * Check Oxygen saturation; Oxygen at 2 L/min. via nasal cannula if less than 90% or clinical signs of respiratory distress. * Administer diphenhydramine (Benadryl) 25 mg IV STAT, (unless patient has received as pre-med). May repeat once, if necessary. * Solu-Cortef 250 mg IVP over 30-60 seconds, use 100 mg vials for each dissolution. * Epinephrine (1mg/1 ml) 0.3 mg subcutaneously or IVP now with any signs of respiratory distress. * Check with physician for new additional pre-med orders if patient is re- challenged or re-treated. [x] May remove PICC line when treatment complete, after confirming with Physician. [x] If the patient is admitted to the hospital, the ED, or transferred via [facility] , complete transfer form including medication reconciliation order sheet. Laboratory Tests Weekly Labs: CBC w/diff, Creatinine (q 72 hrs), SED Rate Mouna Caldwell MD Oct 13, 2016 16:25
[2016-10-13 16:30] VITALS: BP 121/76; PULSE 77; RESP 18; TEMP 96.6; O2SAT 98
[2016-10-13 20:45] VITALS: BP 115/62; PULSE 77; RESP 19; TEMP 98.5; O2SAT 98
[2016-10-14] VITALS (7 sets, daily range): BP systolic 101–120; BP diastolic 37–72; PULSE 50–79; RESP 17–20; TEMP 96.2–98.4; O2SAT 98–100
[2016-10-14] MEDS: VANCOMYCIN 1,000 MG/NS 250 ML IV SCH ×8 (00:14→23:46)
[2016-10-14] MEDS: ACETAMINOPHEN/HYDROcodone 325 MG/5 MG TAB PO PRN ×4 (00:15→21:00)
[2016-10-14] MEDS: CHLORHEXIDINE GLUCONATE 2 % 1 PACK (2 CLOTHS) TOP SCH (03:30)
[2016-10-14] MEDS: IBUPROFEN 600 MG TAB PO PRN ×3 (07:20→23:46)
[2016-10-14 08:16] LABS: AUTOMATED NEUTROPHIL # 5.4 TH/MM3 (1.8-7.7); BASOPHIL % 0.3 % (0.0-2.0); EOSINOPHIL # 0.2 TH/MM3 (0-0.4); EOSINOPHIL % 2.2 % (0.0-4.0); HEMATOCRIT 28.5 % (35.0-46.0); HEMO FLAGS DIFF FINAL; LYMPH % 32.9 % (9.0-44.0); MEAN CORPUSCULAR HEMOGLOBIN 30.2 PG (27.0-34.0); MEAN CORPUSCULAR HGB CONC 34.7 % (32.0-36.0); MONO % 5.9 % (0.0-8.0); NEUT % 58.7 % (16.0-70.0); PLATELET COUNT 672 TH/MM3 (150-450); RED BLOOD COUNT 3.28 MIL/MM3 (4.00-5.30); RED CELL DISTRIBUTION WIDTH 13.6 % (11.6-17.2); WHITE BLOOD COUNT 9.3 TH/MM3 (4.0-11.0)
[2016-10-14] MEDS: SODIUM CHLORIDE 0.9% FLUSH 10 ML FLUSH IV FLUSH SCH ×2 (09:00→21:00)
[2016-10-14] MEDS: DOCUSATE SODIUM 50 MG/SENNA 8.6 MG TAB PO SCH ×2 (09:00→20:59)
[2016-10-14] MEDS: PANTOPRAZOLE SODIUM 40 MG VIAL IV SCH (09:01)
[2016-10-14 10:35] LABS: BICARBONATE 30.5 MEQ/L (21.0-32.0); POTASSIUM 4.4 MEQ/L (3.5-5.1)
--- NOTE | 2016-10-14 11:52 | HHI.PR ---
Subjective Remarks Follow-up bacteremia, neck stiffness. The patient states that she feels a lot better today. Her neck is less stiff and she is able to move it better. She denies chest pain or dyspnea. Objective Vitals Vital Signs Date Time Temp Pulse Resp B/P Pulse Ox O2 Delivery O2 Flow Rate FiO2 10/14/16 08:00 96.6 62 20 120/71 98 120/71 10/14/16 04:00 96.2 58 20 100 10/14/16 02:11 79 10/14/16 01:24 18 10/14/16 00:00 96.5 66 20 111/69 98 10/13/16 22:00 99 Room Air 10/13/16 21:42 18 10/13/16 20:45 98.5 77 19 115/62 98 10/13/16 20:00 99 Room Air 10/13/16 16:30 96.6 77 18 121/76 98 10/13/16 12:04 96.5 69 17 131/71 100 I/O 10/13/16 10/13/16 10/13/16 10/14/16 10/14/16 10/14/16 07:00 15:00 23:00 07:00 15:00 23:00 Intake Total 480 ml 240 ml Balance 480 ml 240 ml Intake Oral 480 ml 240 ml # Voids 3 3 2 2 # Bowel Movements 1 1 Result Diagram: 10/14/16 0723 10/14/16 [address] Angiography 10/09/16 0000 Signed Impressions: Service Date/Time: Sunday, October 09, 2016 15:37 - CONCLUSION: No appreciable change. Erin Mahmood MD Cervical Spine MRI 10/07/16 0700 Signed Impressions: Service Date/Time: Friday, October 07, 2016 10:07 - CONCLUSION: 1. Evacuation of previously seen epidural abscess. 2. 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 3. Slight neural foramina compromise bilateral C3-C4, bilateral C5-C6. 4. Probable post operative fluid collection in the left upper C3-C4 levels adjacent to the laminectomy defect. Erin Mahmood MD Chest CT 10/06/16 0000 Signed Impressions: Service Date/Time: September 17:58 - CONCLUSION: Multiple lung nodules and masses nonspecific, however metastatic disease should be excluded. Unusual infectious processes or possibly septic emboli could also have this appearance. Erin Mahmood MD Neck CT 10/04/16 0600 Signed Impressions: Service Date/Time: Tuesday, October 04, 2016 09:16 - CONCLUSION: 1. No definite abnormality of the nasopharynx oropharynx or larynx identified. 2. The patient has postsurgical changes in the neck and cervical spine consistent with previous epidural abscess drainage. 3. Multiple areas of groundglass infiltrate in the left upper lobe nonspecific but concerning for an underlying pneumonia. CT imaging of the chest would be warranted for further assessment. Kobe Carpenter MD Cervical Spine X-Ray 10/03/16 0000 Signed Impressions: Service Date/Time: Monday, October 03, 2016 00:50 - CONCLUSION: Spinous process of C2 is localized. Ricco Beal MD Chest X-Ray 10/02/16 1922 Signed Impressions: Service Date/Time: Sunday, October 02, 2016 19:35 - CONCLUSION: Mild hazy opacity in the right lung base. This could represent early infiltrate. Juan Carlos Powers MD Thoracic Spine MRI 10/02/16 0000 Signed Impressions: Service Date/Time: Sunday, October 02, 2016 20:16 - CONCLUSION: Unremarkable exam. Juan Carlos Powers MD Lumbar Spine MRI 10/02/16 0000 Signed Impressions: Service Date/Time: Sunday, October 02, 2016 20:16 - CONCLUSION: 1. No evidence of osteomyelitis. 2. Annular disc bulge at the L4-5 level with mild mass effect on the anterior thecal sac. 3. Mild degenerative disc and degenerative joint changes. Juan Carlos Powers MD Objective Remarks General: No acute distress. Sitting up in a chair. Heart: Regular rate and rhythm. No murmur. Lungs: Clear to auscultation bilaterally. No wheezes, rales, or rhonchi. Breathing is nonlabored. Abdomen: Soft, nontender, nondistended. Extremities: No lower extremity edema. Psych: Alert and oriented. Procedures 10/04/15 status post decompression Left C2-3 semi-laminectomy, evacuation of epidural abscess Urinary Catheter: No Vascular Central Line Catheter: No A/P Problem List: (1) Abscess in epidural space of cervical spine ICD Code: G06.1 Status: Acute (2) Bacteremia ICD Code: R78.81 Status: Acute (3) Lung nodule, multiple ICD Code: R91.8 Status: Acute (4) IV drug abuse ICD Code: F19.10 Status: Acute Assessment and Plan 1. Cervical spine epidural abscess: Status post decompression laminectomy with evacuation of abscess on 10/03/16. Appreciate neurosurgery recommendations. Continue PT/OT/ST. 2. MRSA bacteremia, sepsis: Appreciate infectious disease recommendations. Continue IV antibiotics. ÁNGEL negative for valvular vegetations/PFO. Repeat blood cultures from 10/09/16 are positive for MRSA. Blood cultures from 10/11 and 10/12 are negative so far. 3. History of IV drug abuse: Patient has been counseled. 4. Multiple lung nodules: Nonspecific. Concerning for metastatic disease, but more likely secondary to septic emboli. Appreciate oncology recommendations. Sputum culture positive for Enterobacter and Escherichia coli. Continue antibiotics per infectious disease recommendations. 5. GI prophylaxis: PPI. 6. DVT prophylaxis: SCDs. Heparin when okay with neurosurgery. Discharge Planning Per infectious disease, if 10/12/16 blood cultures are negative for 3 days, okay to insert PICC line and discharge home on IV Telavancin. If blood cultures are positive, will require further workup prior to discharge. Steffen Mondragon MD Oct 14, 2016 11:52
--- NOTE | 2016-10-14 22:10 | HHI.PR ---
Subjective Remarks DRAFT pt not seen Follow-up bacteremia, neck stiffness. The patient states that she feels a lot better today. Her neck is less stiff and she is able to move it better. She denies chest pain or dyspnea. Objective Vitals Vital Signs Date Time Temp Pulse Resp B/P Pulse Ox O2 Delivery O2 Flow Rate FiO2 10/14/16 16:00 98.4 73 17 106/61 100 10/14/16 12:00 97.3 71 20 101/37 100 Manual Cuff/Palpation 10/14/16 08:19 18 10/14/16 08:19 18 10/14/16 08:00 96.6 62 20 120/71 98 120/71 10/14/16 08:00 50 10/14/16 08:00 Nasal Cannula 2.00 10/14/16 04:00 96.2 58 20 100 10/14/16 02:11 79 10/14/16 00:00 96.5 66 20 111/69 98 I/O 10/13/16 10/13/16 10/13/16 10/14/16 10/14/16 10/14/16 06:59 14:59 22:59 06:59 14:59 22:59 Intake Total 480 ml 240 ml Balance 480 ml 240 ml Intake Oral 480 ml 240 ml # Voids 3 3 2 2 10 # Bowel Movements 1 1 0 Result Diagram: 10/14/16 0723 10/14/16 [address] Angiography 10/09/16 0000 Signed Impressions: Service Date/Time: Sunday, October 09, 2016 15:37 - CONCLUSION: No appreciable change. Erin Mahmood MD Cervical Spine MRI 10/07/16 0700 Signed Impressions: Service Date/Time: Friday, October 07, 2016 10:07 - CONCLUSION: 1. Evacuation of previously seen epidural abscess. 2. 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 3. Slight neural foramina compromise bilateral C3-C4, bilateral C5-C6. 4. Probable post operative fluid collection in the left upper C3-C4 levels adjacent to the laminectomy defect. Erin Mahmood MD Chest CT 10/06/16 0000 Signed Impressions: Service Date/Time: September 17:58 - CONCLUSION: Multiple lung nodules and masses nonspecific, however metastatic disease should be excluded. Unusual infectious processes or possibly septic emboli could also have this appearance. Erin Mahmood MD Neck CT 10/04/16 0600 Signed Impressions: Service Date/Time: Tuesday, October 04, 2016 09:16 - CONCLUSION: 1. No definite abnormality of the nasopharynx oropharynx or larynx identified. 2. The patient has postsurgical changes in the neck and cervical spine consistent with previous epidural abscess drainage. 3. Multiple areas of groundglass infiltrate in the left upper lobe nonspecific but concerning for an underlying pneumonia. CT imaging of the chest would be warranted for further assessment. Kobe Carpenter MD Cervical Spine X-Ray 10/03/16 0000 Signed Impressions: Service Date/Time: Monday, October 03, 2016 00:50 - CONCLUSION: Spinous process of C2 is localized. Ricco Beal MD Chest X-Ray 10/02/16 1922 Signed Impressions: Service Date/Time: Sunday, October 02, 2016 19:35 - CONCLUSION: Mild hazy opacity in the right lung base. This could represent early infiltrate. Juan Carlos Powers MD Thoracic Spine MRI 10/02/16 0000 Signed Impressions: Service Date/Time: Sunday, October 02, 2016 20:16 - CONCLUSION: Unremarkable exam. Juan Carlos Powers MD Lumbar Spine MRI 10/02/16 0000 Signed Impressions: Service Date/Time: Sunday, October 02, 2016 20:16 - CONCLUSION: 1. No evidence of osteomyelitis. 2. Annular disc bulge at the L4-5 level with mild mass effect on the anterior thecal sac. 3. Mild degenerative disc and degenerative joint changes. Juan Carlos Powers MD Objective Remarks General: No acute distress. Sitting up in a chair. Heart: Regular rate and rhythm. No murmur. Lungs: Clear to auscultation bilaterally. No wheezes, rales, or rhonchi. Breathing is nonlabored. Abdomen: Soft, nontender, nondistended. Extremities: No lower extremity edema. Psych: Alert and oriented. Procedures 10/04/15 status post decompression Left C2-3 semi-laminectomy, evacuation of epidural abscess A/P Problem List: (1) Abscess in epidural space of cervical spine ICD Code: G06.1 Status: Acute (2) Bacteremia ICD Code: R78.81 Status: Acute (3) Lung nodule, multiple ICD Code: R91.8 Status: Acute (4) IV drug abuse ICD Code: F19.10 Status: Acute Assessment and Plan 1. Cervical spine epidural abscess: Status post decompression laminectomy with evacuation of abscess on 10/03/16. Appreciate neurosurgery recommendations. Continue PT/OT/ST. 2. MRSA bacteremia, sepsis: Appreciate infectious disease recommendations. Continue IV Vanco. ÁNGEL negative for valvular vegetations/PFO. Repeat blood cultures from 10/09/16 are positive for MRSA. Blood cultures from 10/11 and 10/12 are negative so far. 3. History of IV drug abuse: Patient has been counseled. Hep C op f/u 4. Multiple lung nodules: Nonspecific. Concerning for metastatic disease, but more likely secondary to septic emboli. Appreciate oncology recommendations. Sputum culture positive for Enterobacter and Escherichia coli. Continue antibiotics per infectious disease recommendations. 5. GI prophylaxis: PPI. 6. DVT prophylaxis: SCDs. Heparin when okay with neurosurgery. Discharge Planning Per infectious disease, if 10/12/16 blood cultures are negative for 3 days, okay to insert PICC line and discharge home on IV Telavancin vs Vanco. If blood cultures are positive, will require further workup prior to discharge. Alex Hi MD Oct 14, 2016 22:10
[2016-10-15 00:15] VITALS: BP 115/80; PULSE 69; RESP 18; TEMP 98; O2SAT 99
[2016-10-15] MEDS: CHLORHEXIDINE GLUCONATE 2 % 1 PACK (2 CLOTHS) TOP SCH (01:39)
[2016-10-15 04:15] VITALS: BP 123/62; PULSE 58; RESP 18; TEMP 97; O2SAT 99
[2016-10-15 04:49] VITALS: PULSE 77
[2016-10-15] MEDS: ACETAMINOPHEN/HYDROcodone 325 MG/5 MG TAB PO PRN ×4 (05:19→23:52)
[2016-10-15] MEDS ORDERED: PHARMACY ORDERED LAB ONE (07:45)
[2016-10-15 08:00] VITALS: BP 116/78; PULSE 60; RESP 16; TEMP 97.8; O2SAT 96
[2016-10-15] MEDS: VANCOMYCIN 1,000 MG/NS 250 ML IV SCH ×4 (08:00→23:51)
[2016-10-15] MEDS: SODIUM CHLORIDE 0.9% FLUSH 10 ML FLUSH IV FLUSH SCH ×2 (09:04→21:00)
[2016-10-15] MEDS: IBUPROFEN 600 MG TAB PO PRN ×2 (09:05→17:42)
[2016-10-15] MEDS: PANTOPRAZOLE SOD 40 MG DELAYED RELEASE TAB PO SCH (09:05)
[2016-10-15] MEDS: DOCUSATE SODIUM 50 MG/SENNA 8.6 MG TAB PO SCH ×2 (09:05→23:52)
--- NOTE | 2016-10-15 10:20 | HHI.PR ---
Addendum to Inpatient Note Additional Information last blood clx remain negative at 2 days If remain negative @ 3days OK to start PICC and dc home with televancin IV in infusion center 6 weeks from the first neg blood clx (10/11) and 8 weeks from her surgery (10/03) - creatinine needs to be monitored very closely q 48-72 hrs - monitor ESR - fu with neurosurgeon after all above arangements made pt can be d/c'd Mouna Caldwell MD Oct 15, 2016 10:20
[2016-10-15] MEDS ORDERED: EPIN1INJ21 IV PUSH (10:21)
[2016-10-15] MEDS ORDERED: VIBA750I IV (10:21)
[2016-10-15] MEDS ORDERED: EPIN1INJ21 SQ (10:21)
[2016-10-15] MEDS ORDERED: SOLU250I IV PUSH (10:21)
[2016-10-15 12:00] VITALS: BP 101/58; PULSE 80; RESP 20; TEMP 98.1; O2SAT 99
--- NOTE | 2016-10-15 15:25 | HHI.PR ---
Subjective Remarks Follow up on patient with cervical epidural abscess, MRSA bacteremia. Patient complaining of neck and upper back stiffness/discomfort. She reports chronic neck pain prior to her infection. Also reports vaginal itching, irritation and redness. Otherwise, she is feeling well. She denies any fever or chills. No N/V, abdominal pain, SOB or chest pain. Objective Vitals Vital Signs Date Time Temp Pulse Resp B/P Pulse Ox O2 Delivery O2 Flow Rate FiO2 10/15/16 12:00 98.1 80 20 101/58 99 10/15/16 09:57 Room Air 10/15/16 08:00 97.8 60 16 116/78 96 10/15/16 04:49 77 10/15/16 04:15 97.0 58 18 123/62 99 10/15/16 00:15 98.0 69 18 115/80 99 10/14/16 20:30 98.2 64 17 117/72 100 10/14/16 20:00 Room Air 10/14/16 16:00 98.4 73 17 106/61 100 I/O 10/14/16 10/14/16 10/14/16 10/15/16 10/15/16 10/15/16 07:00 15:00 23:00 07:00 15:00 23:00 Intake Total 600 ml 1390 ml Balance 600 ml 1390 ml Intake Oral 600 ml 1140 ml IV Total 250 ml # Voids 2 10 1 4 # Bowel Movements 0 0 0 Result Diagram: 10/14/16 0723 10/14/16 [address] Angiography 10/09/16 0000 Signed Impressions: Service Date/Time: Sunday, October 09, 2016 15:37 - CONCLUSION: No appreciable change. Erin Mahmood MD Cervical Spine MRI 10/07/16 0700 Signed Impressions: Service Date/Time: Friday, October 07, 2016 10:07 - CONCLUSION: 1. Evacuation of previously seen epidural abscess. 2. 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 3. Slight neural foramina compromise bilateral C3-C4, bilateral C5-C6. 4. Probable post operative fluid collection in the left upper C3-C4 levels adjacent to the laminectomy defect. Erin Mahmood MD Chest CT 10/06/16 0000 Signed Impressions: Service Date/Time: September 17:58 - CONCLUSION: Multiple lung nodules and masses nonspecific, however metastatic disease should be excluded. Unusual infectious processes or possibly septic emboli could also have this appearance. Erin Mahmood MD Neck CT 10/04/16 0600 Signed Impressions: Service Date/Time: Tuesday, October 04, 2016 09:16 - CONCLUSION: 1. No definite abnormality of the nasopharynx oropharynx or larynx identified. 2. The patient has postsurgical changes in the neck and cervical spine consistent with previous epidural abscess drainage. 3. Multiple areas of groundglass infiltrate in the left upper lobe nonspecific but concerning for an underlying pneumonia. CT imaging of the chest would be warranted for further assessment. Kobe Carpenter MD Cervical Spine X-Ray 10/03/16 0000 Signed Impressions: Service Date/Time: Monday, October 03, 2016 00:50 - CONCLUSION: Spinous process of C2 is localized. Ricco Beal MD Chest X-Ray 10/02/16 1922 Signed Impressions: Service Date/Time: Sunday, October 02, 2016 19:35 - CONCLUSION: Mild hazy opacity in the right lung base. This could represent early infiltrate. Juan Carlos Powers MD Thoracic Spine MRI 10/02/16 0000 Signed Impressions: Service Date/Time: Sunday, October 02, 2016 20:16 - CONCLUSION: Unremarkable exam. Juan Carlos Powers MD Lumbar Spine MRI 10/02/16 0000 Signed Impressions: Service Date/Time: Sunday, October 02, 2016 20:16 - CONCLUSION: 1. No evidence of osteomyelitis. 2. Annular disc bulge at the L4-5 level with mild mass effect on the anterior thecal sac. 3. Mild degenerative disc and degenerative joint changes. Juan Carlos Powers MD Objective Remarks GENERAL: Thin, WDWN female, in no acute distress. Awake and alert. Ambulating in room. HEENT: NC/AT, EOMI, MMM. Posterior cervical incision healing well. HEART: Regular rate and rhythm. No murmur. LUNGS: Clear to auscultation bilaterally. No wheezes, rales, or rhonchi. Breathing is nonlabored. ABDOMEN: Soft, nontender, nondistended. (+)BS. EXTREMITIES: No lower extremity edema appreciated. NEUROLOGIC: Able to move all extremities. No focal neuro deficit appreciated. Normal speech. PSYCHIATRIC: Alert and oriented. Procedures 10/04/15 status post decompression Left C2-3 semi-laminectomy, evacuation of epidural abscess Medications and IVs Current Medications Medications (Trade) Dose Ordered Sig/Shade Route Start Time Stop Time Status Last Admin (NS Flush) 2 ml UNSCH PRN IV FLUSH 10/02/16 22:15 (NS Flush) 2 ml BID IV FLUSH 10/03/16 09:00 10/15/16 09:04 (Zofran Inj) 4 mg Q6H PRN IV 10/02/16 22:15 Miscellaneous Information 1 Q361D XX 10/02/16 22:15 (Chlorhexidine 2% Cloth) Taper DAILY@04 TOP 10/03/16 04:00 09/29/17 03:59 10/07/16 04:00 (Chlorhexidine 2% Cloth) 3 pack UNSCH PRN TOP 10/02/16 22:15 (Loree-Colace) 1 tab BID PO 10/03/16 09:00 10/15/16 09:05 (Milk Of Magnloida Liq) 30 ml Q12H PRN PO 10/02/16 22:15 (Senokot) 17.2 mg Q12H PRN PO 10/02/16 22:15 Bisacodyl 10 mg 10 mg DAILY PRN RECTAL 10/02/16 22:15 (Vancomycin Consult Pharmacy) 0 ml @ 0 mls/hr UNSCH OTHER 10/03/16 14:30 (Tylenol) 650 mg Q4H PRN PO 10/04/16 18:00 10/07/16 21:06 ([place] 5-325 Mg) 1 tab Q6H PRN PO 10/05/16 15:30 10/15/16 11:32 ([place] 5-325 Mg) 2 tab Q6H PRN PO 10/05/16 15:30 10/15/16 05:19 (Fioricet 325-50-40) 1 tab Q8H PRN PO 10/06/16 08:45 10/07/16 23:52 (Morphine Inj) 2 mg Q6H PRN IV PUSH 10/06/16 10:00 10/07/16 16:30 Ibuprofen 600 mg 600 mg Q8HR PRN PO 10/10/16 14:42 10/15/16 09:05 (Vancomycin Inj/ NS 250 ml Inj) 250 ml @ 250 mls/hr Q8H IV 10/11/16 00:00 10/14/16 23:46 (Protonix) 40 mg DAILY PO 10/15/16 09:00 10/15/16 09:05 (Diflucan) 150 mg ONCE ONCE PO 10/15/16 15:30 10/15/16 15:31 UNV (Flexeril) 5 mg Q8H PRN PO 10/15/16 15:30 UNV A/P Problem List: (1) Abscess in epidural space of cervical spine ICD Code: G06.1 Status: Acute (2) Bacteremia ICD Code: R78.81 Status: Acute (3) Lung nodule, multiple ICD Code: R91.8 Status: Acute (4) IV drug abuse ICD Code: F19.10 Status: Acute Assessment and Plan 1. Cervical spine epidural abscess: Status post decompression laminectomy with evacuation of abscess on 10/03/16. Appreciate neurosurgery recommendations. Continue PT/OT/ST. Low dose Flexeril prn spasms. K thermia pad. 2. MRSA bacteremia, sepsis: Appreciate infectious disease recommendations. Continue IV Vanco. ÁNGEL negative for valvular vegetations/PFO. Repeat blood cultures from 10/09/16 are positive for MRSA. Blood cultures from 10/11 and 10/12 are negative so far. 3. History of IV drug abuse: Patient has been counseled. Hep C op f/u 4. Multiple lung nodules: Nonspecific. Concerning for metastatic disease, but more likely secondary to septic emboli. Appreciate oncology recommendations. Sputum culture positive for Enterobacter and Escherichia coli. Continue antibiotics per infectious disease recommendations. 5. Vaginal candidiasis: Diflucan x 1 dose. 6. GI prophylaxis: PPI. 7. DVT prophylaxis: SCDs. Heparin when okay with neurosurgery. Discharge Planning Plan to discharge tomorrow after PICC line placed on IV Telavancin vs Vanco pending ID recommendations. Gena Null Oct 15, 2016 15:25
[2016-10-15] MEDS ORDERED: FLUCONAZOLE 100 MG TAB PO ONE (15:30)
[2016-10-15] MEDS ORDERED: CYCLOBENZAPRINE HCL 10 MG TAB PO PRN (15:30)
[2016-10-15] MEDS ORDERED: PILL SPLITTER OTHER PRN (15:30)
[2016-10-15] MEDS ORDERED: SODIUM CHLORIDE 0.9% FLUSH 10 ML FLUSH IV FLUSH PRN (17:15)
--- NOTE | 2016-10-15 17:20 | RADRPT ---
EXAM DATE/TIME: 10/15/2016 17:08 [facility] COMPARISON: CHEST SINGLE AP, October 02, 2016, 19:35. INDICATIONS : Post PICC placement. MEDICAL HISTORY : None. SURGICAL HISTORY : None. ENCOUNTER: Initial ACUITY: 1 day PAIN SCORE: 0/10 LOCATION: Bilateral chest FINDINGS: A single view of the chest demonstrates minimal density right lower lobe. Subtle nodules are seen in the right lung. Right-sided PICC line with tip in the SVC. Osseous structures are intact. CONCLUSION: 1. Adequate placement of right-sided PICC line. 2. Minimal density and subtle nodules right lung. Esteban Muro MD on October 15, 2016 at 17:18 Board Certified Radiologist. This report was verified electronically.
[2016-10-15 20:00] VITALS: BP 121/71; PULSE 72; RESP 18; TEMP 98.5; O2SAT 97
[2016-10-16] MEDS: ACETAMINOPHEN/HYDROcodone 325 MG/5 MG TAB PO PRN ×3 (00:04→11:34)
[2016-10-16 00:29] VITALS: BP 112/58; PULSE 65; RESP 16; TEMP 98.1; O2SAT 97
[2016-10-16 04:00] VITALS: BP 130/61; PULSE 63; RESP 18; TEMP 98.4; O2SAT 98
[2016-10-16] MEDS: CHLORHEXIDINE GLUCONATE 2 % 1 PACK (2 CLOTHS) TOP SCH (04:00)
[2016-10-16] MEDS: IBUPROFEN 600 MG TAB PO PRN ×2 (05:34→14:10)
[2016-10-16] MEDS: PANTOPRAZOLE SOD 40 MG DELAYED RELEASE TAB PO SCH (07:24)
[2016-10-16] MEDS: DOCUSATE SODIUM 50 MG/SENNA 8.6 MG TAB PO SCH (07:24)
[2016-10-16] MEDS: SODIUM CHLORIDE 0.9% FLUSH 10 ML FLUSH IV FLUSH SCH (07:25)
[2016-10-16 08:00] VITALS: BP 144/66; PULSE 69; RESP 18; TEMP 97.5; O2SAT 97
[2016-10-16] MEDS ORDERED: SODIUM CHLORIDE 0.9% FLUSH 10 ML FLUSH IV FLUSH SCH (09:00)
[2016-10-16] MEDS: VANCOMYCIN 1,000 MG/NS 250 ML IV SCH ×2 (09:18)
[2016-10-16] MEDS ORDERED: HYDR-3535 PO (10:07)
--- NOTE | 2016-10-16 10:25 | HHI.FF ---
Face to Face Verification Diagnosis: (1) Normocytic anemia (2) Thrombocytosis (3) Bacteremia (4) Endocarditis (5) Sepsis (6) Septic embolism (7) MRSA bacteremia (8) Lung nodule, multiple (9) Abscess in epidural space of cervical spine Physical Therapy Order: Evaluate and Treat, Improve ambulation, Strength and gait training I have seen patient Charlee Marcus on 10/16/16. My clinical findings support the need for the requested home health care services because: Ltd mobility - disease progression Deconditioned w/ increased weakness I certify that my clinical findings support that this patient is homebound because: Post-op weakness Unsteady gait/balance Gena Null Oct 16, 2016 10:25
--- NOTE | 2016-10-16 10:54 | HHI.DS ---
Discharge Summary Admission Date Oct 02, 2016 at 22:07 Discharge Date: Oct 16, 2016 Admitting Diagnosis cervical epidural abscess, sepsis, IV drug abuse (1) MRSA bacteremia ICD Code: R78.81 (2) Sepsis ICD Code: A41.9 (3) Abscess in epidural space of cervical spine ICD Code: G06.1 (4) Bacteremia ICD Code: R78.81 (5) Lung nodule, multiple ICD Code: R91.8 (6) Endocarditis ICD Code: I38 (7) Septic embolism ICD Code: I26.90 (8) IV drug abuse ICD Code: F19.10 (9) Normocytic anemia ICD Code: D64.9 (10) Thrombocytosis ICD Code: D47.3 Procedures 10/04/15 status post decompression Left C2-3 semi-laminectomy, evacuation of epidural abscess Brief History - From Admission 41-year-old white female presents to emergency department comely by her mother for evaluation of neck pain. The patient states that she's been having sudden onset of severe neck pain for the past 4 days. She states that she had awoken from sleep at 3 AM 4 days ago. She states that she is unable to move her head. She has not been able to eat she's felt rundown, weak area and she states that she felt that she had some stool incontinence. She had diarrhea. Patient has a history of IV substance abuse. She states that she has been sober now since 2011. Her mother states that she does not believe that she is been sober. The patient admits to subjective fever and chills, headache, severe neck pain and stiffness. Decreased appetite with nausea. No vomiting. No abdominal pain. No urinary symptoms. No numbness, tingling or weakness. She does feel off balance and feels that she may fall over. The patient was seen at [facility] emergency room a few days ago, received a couple of injections in the emergency room and was discharged. MRI showed large left lateral and posterior epidural collection as described most characteristic of an abscess with mass effect and flattening of the cervical cord with no definite abnormal signal or enhancement in the cord and extensive soft tissue swelling and edema surrounding the upper neck, prevertebral soft tissues are edematous and thickened. Patient was evaluated by neurosurgery for epidural abscess involving C-spine and underwent emergent left C2-3 laminectomy with evacuation of epidural abscess. She was extubated following the procedure and transferred to [facility]. I evaluated the patient around 6 AM this morning. At that time she was drowsy, arousable, moving all 4 extremities. History was obtained by reviewing records and discussion with nursing staff. No family members available at the time of my evaluation. [facility] Past Medical History Narrative Medical IV drug abuse, carpal tunnel, chronic back pain Diminished Hearing: No Fibromyalgia: Yes Musculoskeletal: Yes (SCIATICA- CHRONIC BACK PAIN) Tetanus Vaccination: < 5 Years ?: Not : 1 : 1 Past Surgical History Narrative Surgical Bilateral carpal tunnel release Social History Alcohol Use: Yes (SOCIAL) Tobacco Use: Yes (PPD) Substance Use: Yes (TAKES MARSHAL AND XANAX) Allergies-Medications (Allergen,Severity, Reaction): Coded Allergies: E-Mycin (Verified Allergy, Severe, UNKNOWN, 02/23/10) Reported Meds & Prescriptions Reported Meds & Active Scripts Active No Active Prescriptions or Reported Medications Review of Systems Difficult to be obtained as patient was drowsy postoperatively following anesthesia and unable to give details. CBC/BMP: 10/14/16 0723 10/14/16 0934 Significant Findings Laboratory Tests Test 10/13/16 10/14/16 10/15/16 20:55 07:23 10:55 Erythrocyte Sedimentation Rate GREATER THAN 140 mm/hr (0-20) Red Blood Count 3.28 MIL/MM3 (4.00-5.30) Hemoglobin 9.9 GM/DL (11.6-15.3) Hematocrit 28.5 % (35.0-46.0) Platelet Count 672 TH/MM3 (150-450) Vancomycin Level Trough 28.7 MCG/ML (5.0-10.0) Imaging Last Impressions Chest X-Ray 10/15/16 0000 Signed Impressions: Service Date/Time: Saturday, October 15, 2016 17:08 - CONCLUSION: 1. Adequate placement of right-sided PICC line. 2. Minimal density and subtle nodules right lung. Esteban Muro MD CT Angiography 10/09/16 0000 Signed Impressions: Service Date/Time: Sunday, October 09, 2016 15:37 - CONCLUSION: No appreciable change. Erin Mahmood MD Cervical Spine MRI 10/07/16 0700 Signed Impressions: Service Date/Time: Friday, October 07, 2016 10:07 - CONCLUSION: 1. Evacuation of previously seen epidural abscess. 2. 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 3. Slight neural foramina compromise bilateral C3-C4, bilateral C5-C6. 4. Probable post operative fluid collection in the left upper C3-C4 levels adjacent to the laminectomy defect. Erin Mahmood MD Chest CT 10/06/16 0000 Signed Impressions: Service Date/Time: September 17:58 - CONCLUSION: Multiple lung nodules and masses nonspecific, however metastatic disease should be excluded. Unusual infectious processes or possibly septic emboli could also have this appearance. Erin Mahmood MD Neck CT 10/04/16 0600 Signed Impressions: Service Date/Time: Tuesday, October 04, 2016 09:16 - CONCLUSION: 1. No definite abnormality of the nasopharynx oropharynx or larynx identified. 2. The patient has postsurgical changes in the neck and cervical spine consistent with previous epidural abscess drainage. 3. Multiple areas of groundglass infiltrate in the left upper lobe nonspecific but concerning for an underlying pneumonia. CT imaging of the chest would be warranted for further assessment. Kobe Carpenter MD Cervical Spine X-Ray 10/03/16 0000 Signed Impressions: Service Date/Time: Monday, October 03, 2016 00:50 - CONCLUSION: Spinous process of C2 is localized. Ricco Beal MD Thoracic Spine MRI 10/02/16 0000 Signed Impressions: Service Date/Time: Sunday, October 02, 2016 20:16 - CONCLUSION: Unremarkable exam. Juan Carlos Powers MD Lumbar Spine MRI 10/02/16 0000 Signed Impressions: Service Date/Time: Sunday, October 02, 2016 20:16 - CONCLUSION: 1. No evidence of osteomyelitis. 2. Annular disc bulge at the L4-5 level with mild mass effect on the anterior thecal sac. 3. Mild degenerative disc and degenerative joint changes. Juan Carlos Powers MD PE at Discharge GENERAL: Thin, WDWN female, in no acute distress. Awake and alert. Sitting in bedside chair coloring. HEENT: NC/AT, EOMI, MMM. Posterior cervical incision healing well. HEART: Regular rate and rhythm. No murmur. LUNGS: Clear to auscultation bilaterally. No wheezes, rales, or rhonchi. Breathing is nonlabored. ABDOMEN: Soft, nontender, nondistended. (+)BS. EXTREMITIES: No lower extremity edema appreciated. NEUROLOGIC: Able to move all extremities. No focal neuro deficit appreciated. Normal speech. PSYCHIATRIC: Alert and oriented. Pt update on day of discharge Patient feels well today. Looking forward to going home. No issues overnight. Continues to have some right sided neck pain/stiffness. Patient is afebrile and VSS. Hospital Course Patient came in with complaints of progressive neck pain with fever and diarrhea. History of prior IV drug use. Imaging studies revealed cervical epidural abscess primarily C2 to C4 levels with significant dorsal cord compression without definite cord edema. Patient was seen in consultation by Dr. Flores who performed a left C2-C3 semi-laminectomy and evacuation of epidural abscess on 10/03/16. Blood cultures were significant for high-grade MRSA bacteremia and patient was treated with IV cefepime and vancomycin. Patient seen in consultation by infectious disease who continued the patient's vancomycin. 2D echocardiogram was ordered revealing EF of 60- 65% no evidence of endocarditis. She was seen in consultation by cardiology who ordered a transesophageal echocardiogram which negative for valvular vegetations/PFP showing no evidence of endocarditis. During the course of her admission, CT of the chest was obtained which showed multiple lung nodules bilaterally and patient was seen in consultation by hematology/oncology who was concern for possible septic emboli. CTA of the chest was ordered showing multiple nonspecific lung nodules which were felt to be more consistent with TV endocarditis. Sputum culture grew Escherichia coli and Enterobacter and per ID doubtful of clinical significance. Repeat blood cultures still positive for MRSA bacteremia. Per their assessment, patient with sustained high-grade MRSA bacteremia and although ÁNGEL is negative, radiologic studies consistent with pulmonary emboli confirming retrospectively TV endocarditis. Patient improved clinically. She remained afebrile and neurovascularly intact. She progressed well with physical therapy. Once her repeat blood cultures have been negative for 3 days, a PICC line was placed and she was cleared by ID for discharge to home continued IV therapy at the infusion center beginning the following day. Pt Condition on Discharge: Stable Discharge Disposition: Disch w/ Home Health Serv Discharge Time: > 30 minutes Discharge Instructions DIET: Follow Instructions for: As Tolerated, No Restrictions Speech Therapy-Diet Recommends: Other Activities you can perform: Regular-No Restrictions Follow up Referrals: Infectious Disease - 10/23/16 with Mouna Caldwell MD PCP Follow-up - 10/23/16 with Alissa Ferguson MD New Medications: Epinephrine Inj (Epinephrine Inj) 1 Mg/Ml Inj 0.3 MG IV PUSH ONCE PRN ALLERGIC REACTION #1 VIAL Epinephrine Inj (Epinephrine Inj) 1 Mg/Ml Inj 0.3 MG SQ ONCE Give with any signs of respiratory distress. PRN ALLERGIC REACTION #1 VIAL Hydrocodone-Acetaminophen (Lortab) 10-325 Mg Tab 1 TAB PO Q6H PRN PAIN #28 Ref 0 TAB Hydrocortisone Inj (Solu-Cortef Inj) 250 Mg Inj 250 MG IV PUSH ONCE Give over 30-60 seconds. PRN ALLERGIC REACTION #1 Ref 0 VIAL Telavancin Inj (Vibativ Inj) 750 Mg Inj 570 MG IV Q24H Infection Days 40 Ref 0 BAG Gena Null Oct 16, 2016 10:54 Alex Hi MD Oct 16, 2016 17:51
--- NOTE | 2016-10-16 11:23 | HHI.DCPOC ---
Discharge Care Plan Diagnosis: (1) Normocytic anemia (2) Thrombocytosis (3) Bacteremia (4) Endocarditis (5) Sepsis (6) Septic embolism (7) MRSA bacteremia (8) Lung nodule, multiple (9) Abscess in epidural space of cervical spine Goals to Promote Your Health * To prevent worsening of your condition and complications * To maintain your health at the optimal level Directions to Meet Your Goals PLEASE STOP USING ALL IV DRUGS AND ALL OTHER ILLICIT DRUGS PLEASE STOP SMOKING Take your medications as prescribed Follow your dietary instruction Follow activity as directed Keep your appointments as scheduled Take your immunizations and boosters as scheduled If your symptoms worsen call your PCP, if no PCP go to Urgent Care Center or Emergency Room Smoking is Dangerous to Your Health. Avoid second hand smoke Call the 24-hour hour crisis hotline for domestic abuse at Gena Null Oct 16, 2016 11:23
[2016-10-16 12:00] VITALS: BP 110/61; PULSE 68; RESP 18; TEMP 97.9; O2SAT 91
[2016-10-17] MEDS ORDERED: PHARMACY ORDERED LAB ONE (09:45)
== END 2016-10-16 15:51 | disposition home health service (06) | DRG 853 ==
LOC: NEPD 15:24 → NEDA 22:07 → N03B 10-03 04:02 → N05A 10-07 17:48
PROVIDERS: ADMIT Internal Medicine; ATTEND Internal Medicine
PROC: 00C Central Nervous System and Cranial Nerves, Extirpation (ICD-10-PCS; principal; 2016-10-03 23:50)
PROC: 02HV33Z Insertion of Infusion Device into Superior Vena Cava, Percutaneous Approach (ICD-10-PCS; 2016-10-15)
DX: A41.02 Sepsis due to Methicillin resistant Staphylococcus aureus (principal); G06.1 Intraspinal abscess and granuloma; I26.90 Septic pulmonary embolism without acute cor pulmonale; I33.0 Acute and subacute infective endocarditis; I76 Septic arterial embolism; L89.152 Pressure ulcer of sacral region, stage 2; B37.3 Candidiasis of vulva and vagina; F13.10 Sedative, hypnotic or anxiolytic abuse, uncomplicated; F11.10 Opioid abuse, uncomplicated; D64.9 Anemia, unspecified; M48.02 Spinal stenosis, cervical region; E87.6 Hypokalemia; M50.322 Other cervical disc degeneration at C5-C6 level; F17.210 Nicotine dependence, cigarettes, uncomplicated; G43.909 Migraine, unspecified, not intractable, without status migrainosus; L89.311 Pressure ulcer of right buttock, stage 1; B96.89 Other specified bacterial agents as the cause of diseases classified elsewhere; B96.20 Unspecified Escherichia coli [E. coli] as the cause of diseases classified elsewhere; Z88.1 Allergy status to other antibiotic agents
CPT/HCPCS: 36569; 70491; 71010; 71260; 71275; 72020; 72156; 72157; 72158; 76000; 76937; 80048; 80053; 80074; 80202; 80307; 81001; 82550; 82565; 82607; 82728; 82746; 82948; 83540; 83550; 83605; 83735; 84100; 85025; 85027; 85610; 85652; 85730; 86140; 86403; 87015; 87040; 87070; 87077; 87102; 87116; 87147; 87186; 87205; 87206; 87641; 93306; 93312; 93320; 93325; 96374; 96375; A9579; C1713; C9113; J1170; J1580; J1642; J2060; J2250; J2270; J2370; J2405; J2543; J3010; J3370; J3480; J7030; J7040; J7050; J7060; J7120; L0150; Q9967

== ENCOUNTER 2016-10-24 10:15 | Emergency (ER) | payer SELFPAY ==
[~2016-10-24] VITALS: Ht 167.6 cm; Wt 50.0 kg
[~2016-10-24 10:15] MED LIST changes: -FLON0.053; +HYDR-3535 PO; -OXYC1TAB13 PO; -OXYC30TA3 PO; +VIBA750I IV; -XANA2TAB2 PO; -ZITHTAB6 PO
[2016-10-24 10:16] VITALS: BP 143/76; PULSE 79; RESP 15; TEMP 98.3; O2SAT 98
--- NOTE | 2016-10-24 10:30 | PD ---
HPI Chief Complaint: Medication Refill Request Time Seen by Provider: 10:29 Travel History International Travel<30 days: No Contact w/Intl Traveler<30days: No Traveled to known affect area: No History of Present Illness HPI 41 YO female with history of IVDA, recent admission for cervical epidural abscess and hemilaminectomy presents to the ED requesting refill of narcotic pain medications. Last dose Lortab at 5am today. Patient complains of pain in the posterior neck, worsened by turning the head to the right. Denies wound irritation, discharge, bleeding. Denies fever, chills, headaches, numbness, tingling, weakness of the extremities. She is undergoing daily antibiotic infusions, has follow up with Dr. Flores 11/02. PCP Dr. Ferguson [facility] Past Medical History Arthritis: No Autoimmune Disease: Yes (Juvenile RA) Anxiety: No Depression: Yes (no treatment) Cancer: No Cardiovascular Problems: No Chemotherapy: No Cerebrovascular Accident: No Diabetes: No Diminished Hearing: No Endocrine: No Fibromyalgia: Yes Genitourinary: No Immune Disorder: No Musculoskeletal: Yes Neurologic: Yes Psychiatric: Yes Reproductive: No Respiratory: No Migraines: Yes (10 years) Radiation Therapy: No Sickle Cell Disease: No ?: Not : 1 : 1 Past Surgical History Abdominal Surgery: No Cardiac Surgery: No Ear Surgery: No Endocrine Surgery: No Eye Surgery: No Genitourinary Surgery: No Gynecologic Surgery: No Neurologic Surgery: Yes (SPINAL SURGERY C4-5 ABSCESS) Oral Surgery: No Thoracic Surgery: No Other Surgery: Yes Social History Alcohol Use: Yes (SOCIAL) Tobacco Use: Yes (PPD) Substance Use: Yes ( 2011) Allergies-Medications (Allergen,Severity, Reaction): Coded Allergies: E-Mycin (Verified Allergy, Severe, UNKNOWN, 10/24/16) *MDRO Multi-Drug Resistant Organism (Verified Adverse Reaction, Unknown, ) MRSA (Blood) 10/02/16, 10/05/16, 10/09/16 MRSA Epidural Space Fluid 10/03/16 Reported Meds & Prescriptions Reported Meds & Active Scripts Active Flexeril (Cyclobenzaprine HCl) 10 Mg Tab 10 Mg PO TID Lortab (Hydrocodone-Acetaminophen) 10-325 Mg Tab 1 Tab PO Q6H PRN Vibativ Inj (Telavancin) 750 Mg Inj 570 Mg IV Q24H 40 Days Review of Systems Except as stated in HPI: all other systems reviewed are Neg Physical Exam Narrative GENERAL: Well-nourished, well-developed white female in no acute distress. SKIN: Focused skin assessment warm/dry. 3 cm surgical incision in the midline of the posterior neck. No warmth, erythema, edema or TTP. PICC line in the right arm. HEAD: Normocephalic. EYES: No scleral icterus. No injection or drainage. NECK: Supple, trachea midline. No JVD or lymphadenopathy. Mild TTP of the paraspinal musculature of the right posterior paracervical musculature. CARDIOVASCULAR: Regular rate and rhythm without murmurs, gallops, or rubs. RESPIRATORY: Breath sounds equal bilaterally. No accessory muscle use. GASTROINTESTINAL: Abdomen soft, non-tender, nondistended. MUSCULOSKELETAL: No cyanosis, or edema. NEUROLOGICAL: Awake and alert. Cranial nerves II through XII intact. 5/5 muscle strength in all muscle groups. BACK: Nontender without obvious deformity. No CVA tenderness. Data Data Last Documented VS Vital Signs Date Time Temp Pulse Resp B/P Pulse Ox O2 Delivery O2 Flow Rate FiO2 10/24/16 10:16 98.3 79 15 143/76 98 Orders Acetamin-Hydrocod 325-10 Mg ([place] 10-32 (10/24/16 10:45) Cyclobenzaprine (Flexeril) (10/24/16 10:45) MDM Medical Decision Making Medical Screen Exam Complete: Yes Emergency Medical Condition: Yes Differential Diagnosis musculoskeletal pain versus muscle spasm versus post surgical pain versus medication refill versus drug seeking behavior versus other Narrative Course 41 YO female with recent admission for cervical epidural abscess and hemilaminectomy presents to the ED requesting refill of narcotic pain medications. Last dose Lortab at 5am today. Patient complains of pain in the posterior neck, worsened by turning the head to the right. Denies wound irritation, discharge, bleeding, fever, chills, headaches, numbness, tingling, weakness of the extremities. She has follow up with Dr. Flores 11/02. Vitals reviewed. Physical exam reveals a 3 cm surgical incision in the midline of the posterior neck. No warmth, erythema, edema or TTP. Mild TTP of the paraspinal musculature of the right posterior paracervical musculature. No neuro deficits. I explained to the patient that we do not refill narcotic pain medications to the emergency room. I did provide her a single dose of Lortab and 5 mg Flexeril in the ED. I prescribed a short course of the Flexeril and instructed the patient to follow-up with Dr. Flores today for medication refill. The patient and her mother indicated understanding of these instructions and are agreeable to a care plan. She is stable and discharged home. Diagnosis Primary Impression: Musculoskeletal neck pain Referrals: Marlo Flores MD Patient Instructions: General Instructions, Neck Pain (ED) Additional Instructions: Follow discharge instructions given on 10/17. Call Dr. Flores's office today for medication refill. Take Flexeril as prescribed. Do not drive while taking Flexeril. Follow-up with Dr. Ferguson as previously scheduled. Return to the ED for any urgent or emergent medical condition. Med/Other Pt SpecificInfo: Prescription(s) given Scripts Cyclobenzaprine (Flexeril)10 Mg Tab10 Mg PO TID #15 TAB Ref 0 Prov:Davi Sam MD 10/24/16 Disposition: 01 DISCHARGE HOME Condition: Stable Lolly Jackson Oct 24, 2016 10:30
[2016-10-24] MEDS ORDERED: CYCL1TAB29 PO (10:40)
[2016-10-24] MEDS ORDERED: ACETAMINOPHEN/HYDROcodone 325 MG/10 MG TAB PO ONE (10:45)
[2016-10-24] MEDS ORDERED: CYCLOBENZAPRINE HCL 10 MG TAB PO ONE (10:45)
[2016-10-25] MEDS ORDERED: HYDR-3583 PO (19:21)
[2016-10-28] MEDS ORDERED: VIBA750I IV (10:01)
== END 2016-10-24 10:58 | disposition home or self-care (01) ==
LOC: NEPK 10:15
DX: M54.2 Cervicalgia (principal); M79.7 Fibromyalgia; F17.210 Nicotine dependence, cigarettes, uncomplicated
CPT/HCPCS: 99283

== ENCOUNTER → 2016-12-09 | Outpatient (CLI) | payer OTHER ==
[~2016-12-09] MED LIST changes: +AZIT500T2 PO; +CIPR500T2 PO; +ETHA400T; +GADODIAMIDE PF 287 MG/ML 10 ML VIAL (for RAD MRI) IV PUSH ONE; -HYDR-3535 PO; -VIBA750I IV
--- NOTE | 2016-12-09 10:11 | RADRPT ---
EXAM DATE/TIME: 12/09/2016 07:45 [facility] COMPARISON: MRI LUMBAR SPINE W & W/O CONTRAST, October 02, 2016, 20:16. INDICATIONS : Abscess. CONTRAST: 10 cc Omniscan (gadodiamide) IV MEDICAL HISTORY : Post surgical cervical abscess SURGICAL HISTORY : Discectomy, cervical. ENCOUNTER: Initial ACUITY: 1 day PAIN SCORE: 0/10 LOCATION: Paraspinal TECHNIQUE: Multiplanar multisequence MRI of the lumbar spine was performed with and without contrast. FINDINGS: The most caudal appearing lumbar vertebra is numbered as L5. VERTEBRAE: Homogeneous signal. Normal alignment. CONUS: Normal level and configuration. POST CONTRAST: No abnormal areas of contrast enhancement are seen. T12-L1: The thecal sac has a normal diameter. No evidence of disc bulge or protrusion. The neural foramina are patent bilaterally. L1-L2: The thecal sac has a normal diameter. No evidence of disc bulge or protrusion. The neural foramina are patent bilaterally. L2-L3: The thecal sac has a normal diameter. No evidence of disc bulge or protrusion. The neural foramina are patent bilaterally. L3-L4: The thecal sac has a normal diameter. No evidence of disc bulge or protrusion. The neural foramina are patent bilaterally. L4-L5: Mild dysmotility is present slightly intrathecal space. Moderate facet disease is present worse on t he right unchanged in interval. Stable minimal signal is seen intraspinous ligament L4-L5 posteriorl y without enhancement. L5-S1: The thecal sac has a normal diameter. No evidence of disc bulge or protrusion. The neural foramina are patent bilaterally. CONCLUSION: 1. Negative for abscess, discitis or osteomyelitis. 2. Stable disc bulge L4-5. Mehdi Carpenter MD FACR on December 09, 2016 at 10:07 Board Certified Radiologist. This report was verified electronically.
--- NOTE | 2016-12-09 10:38 | RADRPT ---
EXAM DATE/TIME: 12/09/2016 07:45 [facility] COMPARISON: MRI CERVICAL SPINE W & W/O CONTRAST, October 02, 2016, 20:16. MRI CERVICAL SPINE W & W/O CONTRAST, October 07, 2016, 10:07. INDICATIONS : Abscess. CONTRAST: 10 cc Omniscan (gadodiamide) IV MEDICAL HISTORY : Post surgical cervical abscess. SURGICAL HISTORY : Discectomy, cervical. ENCOUNTER: Initial ACUITY: 1 day PAIN SCORE: 0/10 LOCATION: Paraspinal TECHNIQUE: Multiplanar, multisequence MRI examination of the cervical spine was performed. FINDINGS: Sagittal T1, T2 and postcontrast T1-weighted imaging is provided. The post contrast T1-weighted images demonstrate extensive abnormal marrow signal and contrast-enhanc ement involving the entire C2 vertebral body and the atlantodens joint. There is abnormal contrast en hancement in the anterior ring of C1. There is fluid within the atlantodens joint. This is concerning for osteomyelitis involving the atlantodens joint with a small joint effusion. There is some enhance ment of the dura extending from the clivus and enhancement of the posterior longitudinal ligament and dura extending down to the superior endplate of C3. There is no significant mass effect on the cervi lisbeth cord. No definite focal, drainable abscess is seen. The examination is concerning for osteomyelit is involving the atlantodens joint and body of C2. The post contrast images also demonstrate a sizable area of induration and soft tissue enhancement in volving the interspinous ligament and posterior soft tissues extending from C2 down to the spinous pr ocess of C4. There is no focal drainable fluid collection. This is felt to be postoperative from the patient's previous epidural abscess drainage. C2-C3: The thecal space and neural foramina are adequate. The previously seen epidural abscess is no longer identified. C3-C4: There is a degenerated disc with small broad based disc bulge which effaces the ventral thecal sac an d abuts the ventral aspect of the cord. There is flattening of the ventral aspect of the cord the for grace appear adequate. C4-C5: There is broad-based disc bulge with right paracentral disc protrusion. This effaces the ventral thec al sac and abuts the ventral aspect of the cord. There is flattening of the cord suggesting a moderat e to severe spinal stenosis at this level. This is not apparent on the axial T2-weighted images. The axial T2 weighted images suggest only mild narrowing of the thecal sac. No abnormal enhancement is se en in this area on the postcontrast T1-weighted images. No significant abnormal enhancing material is seen within the epidural space. C5-C6: There is a degenerated disc with a broad-based disc bulge and diffuse osteophytic ridging. This effac es the ventral thecal sac and abuts the ventral aspect of the cord. There is flattening of the ventra l aspect of the cord. There is uncovertebral osteophyte and disc protrusion evident projecting into t he lateral recess bilaterally. There is foraminal narrowing on the left. The foramina on the right ap pears. There is at least a moderate spinal stenosis at this level. C6-C7: There is a degenerated disc with a broad-based disc bulge. This effaces the ventral thecal sac and ab uts the ventral aspect of the cord. The foramina are adequate. C7-T1: No significant abnormality is identified. CONCLUSION: 1. There is extensive abnormal marrow edema and enhancement involving the atlantodens joint, the ante rior ring of C1 and the entire C2 vertebral body. There is an effusion within the atlantodens joint. Exam is concerning for osteomyelitis. There is abnormal enhancement and edema in the inferior aspect of the clivus and extending along the dura as well as the posterior longitudinal ligament of the uppe r cervical spine. The enhancement within the clivus would be concerning for osteomyelitis as well. 2. The large epidural abscess seen posterior to the cord at as been removed. 3. There are inflammatory changes and enhancement involving the posterior soft tissues of the neck fe lt to be postoperative. 4. There is spinal stenosis evident at C5-6. 5. On the gradient refocused echo imaging the exam would suggest some degree of spinal stenosis at C3 -4 and C4-5. This is not evident on the axial T2-weighted images and may be secondary to motion artif act. 6. No definite drainable abscess collection is seen. Kobe Carpenter MD on December 09, 2016 at 9:59 Board Certified Radiologist. This report was verified electronically.
== END ==
LOC: HRAD 07:02
PROVIDERS: ATTEND Neurological Surgery
DX: G06.1 Intraspinal abscess and granuloma (principal)
CPT/HCPCS: 72156; 72158; A9579

== ENCOUNTER → 2016-12-21 | Outpatient (CLI) | payer OTHER ==
[~2016-12-21] MED LIST changes: -GADODIAMIDE PF 287 MG/ML 10 ML VIAL (for RAD MRI) IV PUSH ONE
[2016-12-21 11:42] LABS: HEMATOCRIT 32.4 % (35.0-46.0); MEAN CELL VOLUME 88.6 FL (80.0-100.0); MEAN CORPUSCULAR HEMOGLOBIN 30.5 PG (27.0-34.0); MEAN CORPUSCULAR HGB CONC 34.4 % (32.0-36.0); PLATELET COUNT 343 TH/MM3 (150-450); RED BLOOD COUNT 3.65 MIL/MM3 (4.00-5.30); RED CELL DISTRIBUTION WIDTH 14.6 % (11.6-17.2); REVIEW FLAG FINAL; WHITE BLOOD COUNT 7.2 TH/MM3 (4.0-11.0)
[2016-12-21 12:04] LABS: ALT (GPT) 26 U/L (10-53); ANION GAP 5 MEQ/L (5-15); AST (GOT) 28 U/L (15-37); BICARBONATE 29.6 MEQ/L (21.0-32.0); BLOOD UREA NITROGEN 23 MG/DL (7-18); CHLORIDE 103 MEQ/L (98-107); GLOMERULAR FILTRATION RATE 63 ML/MIN (>89); GLUCOSE,FASTING 112 MG/DL (74-99); POTASSIUM 4.3 MEQ/L (3.5-5.1); SODIUM (NA) 138 MEQ/L (136-145)
[2016-12-21 12:08] LABS: ALKALINE PHOSPHATASE 82 U/L (45-117); TOTAL BILIRUBIN ADULT 0.3 MG/DL (0.2-1.0)
[2016-12-23 15:52] LABS: HCV RNA PCR IU/ML LESS THAN 15 IU/mL (0-14); HCV RNA PCR LOGIU/ML LESS THAN 1.18 (0-1.18)
[2016-12-24 03:48] LABS: HEPATITIS C RNA GENOTYPE NOT DETECTED (NOT DETECTD)
== END ==
LOC: CLAB 11:06
PROVIDERS: ATTEND Specialist
DX: G06.1 Intraspinal abscess and granuloma (principal); A31.9 Mycobacterial infection, unspecified
CPT/HCPCS: 36415; 80053; 85027; 86140; 87389; 87522; 87902

== ENCOUNTER → 2017-01-05 | Outpatient (CLI) | payer OTHER ==
[2017-01-05 10:58] LABS: HEMATOCRIT 31.5 % (35.0-46.0); MEAN CELL VOLUME 87.9 FL (80.0-100.0); MEAN CORPUSCULAR HEMOGLOBIN 30.1 PG (27.0-34.0); MEAN CORPUSCULAR HGB CONC 34.3 % (32.0-36.0); PLATELET COUNT 293 TH/MM3 (150-450); RED BLOOD COUNT 3.59 MIL/MM3 (4.00-5.30); RED CELL DISTRIBUTION WIDTH 13.1 % (11.6-17.2); REVIEW FLAG FINAL; WHITE BLOOD COUNT 5.2 TH/MM3 (4.0-11.0)
[2017-01-05 11:39] LABS: ANION GAP 8 MEQ/L (5-15); AST (GOT) 27 U/L (15-37); BICARBONATE 24.7 MEQ/L (21.0-32.0); BLOOD UREA NITROGEN 10 MG/DL (7-18); CHLORIDE 103 MEQ/L (98-107); GLOMERULAR FILTRATION RATE 84 ML/MIN (>89); GLUCOSE,FASTING 106 MG/DL (74-99); POTASSIUM 3.5 MEQ/L (3.5-5.1); SODIUM (NA) 136 MEQ/L (136-145)
[2017-01-05 11:41] LABS: ALT (GPT) 18 U/L (10-53)
[2017-01-05 11:43] LABS: ALKALINE PHOSPHATASE 77 U/L (45-117); TOTAL BILIRUBIN ADULT 0.3 MG/DL (0.2-1.0)
== END ==
LOC: CLAB 10:31
PROVIDERS: ATTEND Specialist
DX: G06.1 Intraspinal abscess and granuloma (principal); A31.9 Mycobacterial infection, unspecified
CPT/HCPCS: 36415; 80053; 85027; 86140

== ENCOUNTER → 2017-03-22 | Outpatient (CLI) | payer OTHER ==
[2017-03-22 12:06] LABS: HEMATOCRIT 37.9 % (35.0-46.0); HEMOGLOBIN 12.9 GM/DL (11.6-15.3); MEAN CELL VOLUME 85.7 FL (80.0-100.0); MEAN CORPUSCULAR HEMOGLOBIN 29.3 PG (27.0-34.0); MEAN CORPUSCULAR HGB CONC 34.2 % (32.0-36.0); MEAN PLATELET VOLUME 8.8 FL (7.0-11.0); PLATELET COUNT 313 TH/MM3 (150-450); RED BLOOD COUNT 4.42 MIL/MM3 (4.00-5.30); RED CELL DISTRIBUTION WIDTH 13.4 % (11.6-17.2); WHITE BLOOD COUNT 8.1 TH/MM3 (4.0-11.0)
[2017-03-22 12:21] LABS: ALBUMIN 3.9 GM/DL (3.4-5.0); AST (GOT) 27 U/L (15-37); BICARBONATE 24.4 MEQ/L (21.0-32.0); CALCIUM 9.6 MG/DL (8.5-10.1); CHLORIDE 104 MEQ/L (98-107); GLUCOSE,FASTING 104 MG/DL (74-99); SODIUM (NA) 136 MEQ/L (136-145)
[2017-03-22 12:24] LABS: ALKALINE PHOSPHATASE 82 U/L (45-117); ALT (GPT) 21 U/L (10-53); BLOOD UREA NITROGEN 12 MG/DL (7-18); C-REACTIVE PROTEIN 0.33 MG/DL (0.00-0.30); CREATININE 0.85 MG/DL (0.50-1.00); GLOMERULAR FILTRATION RATE 73 ML/MIN (>89); TOTAL BILIRUBIN ADULT 0.2 MG/DL (0.2-1.0); TOTAL PROTEIN 8.7 GM/DL (6.4-8.2)
[2017-03-22 12:35] LABS: WESTERGREN SEDIMENTATION RATE 42 mm/hr (0-20)
== END ==
LOC: CLAB 10:51
PROVIDERS: ATTEND Specialist
DX: G06.1 Intraspinal abscess and granuloma (principal); A31.9 Mycobacterial infection, unspecified
CPT/HCPCS: 36415; 80053; 85027; 85652; 86140

== ENCOUNTER 2017-04-20 21:37 | Emergency (ER) | payer OTHER ==
[~2017-04-20] VITALS: Ht 165.1 cm; Wt 65.0 kg
[2017-04-20 21:39] VITALS: BP 112/74; PULSE 88; RESP 16; TEMP 98.2; O2SAT 100
[2017-04-21] MEDS ORDERED: CLIN150C14 PO (00:09)
--- NOTE | 2017-04-21 00:09 | PD ---
HPI Chief Complaint: Pain: Acute or Chronic Time Seen by Provider: 23:07 Travel History International Travel<30 days: No Contact w/Intl Traveler<30days: No Traveled to known affect area: No History of Present Illness HPI 42-year-old female complains of right forearm pain associated with redness and swelling. The pain is constant. It's moderately severe. Onset was gradual about 2 days prior. Minimal redness has been noted moving proximally on the arm. She denies fever. Pain is worse with palpation. PFSH Past Medical History Arthritis: No Autoimmune Disease: Yes (Juvenile RA) Anxiety: No Depression: Yes (no treatment) Cancer: No Cardiovascular Problems: No Chemotherapy: No Cerebrovascular Accident: No Diabetes: No Diminished Hearing: No Endocrine: No Fibromyalgia: Yes Gastrointestinal Disorders: No Genitourinary: No Heparin Induced Thrombocytopen: No Immune Disorder: No Implanted Vascular Access Dvce: No Musculoskeletal: Yes Neurologic: Yes Psychiatric: Yes Reproductive: No Respiratory: No Immunizations Current: Yes Migraines: Yes (10 years) Radiation Therapy: No Sickle Cell Disease: No Tetanus Vaccination: Unknown Influenza Vaccination: Yes ?: Not : 1 : 1 Past Surgical History Abdominal Surgery: No Cardiac Surgery: No Ear Surgery: No Endocrine Surgery: No Eye Surgery: No Genitourinary Surgery: No Gynecologic Surgery: No Neurologic Surgery: Yes (SPINAL SURGERY C4-5 ABSCESS) Oral Surgery: No Thoracic Surgery: No Other Surgery: Yes Social History Alcohol Use: Yes (SOCIAL) Tobacco Use: Yes (PPD) Substance Use: Yes ( [id number]) Allergies-Medications (Allergen,Severity, Reaction): Coded Allergies: erythromycin base (Verified Allergy, Severe, UNKNOWN, 04/20/17) *MDRO Multi-Drug Resistant Organism (Verified Adverse Reaction, Unknown, ) MRSA (Blood) 10/02/16, 10/05/16, 10/09/16 MRSA Epidural Space Fluid 10/03/16 Reported Meds & Prescriptions Reported Meds & Active Scripts Active Clindamycin (Clindamycin HCl) 150 Mg Cap 450 Mg PO TID 10 Days Reported Azithromycin 500 Mg Tab 500 Mg PO DAILY Ethambutol (Ethambutol HCl) 400 Mg Tab Ciprofloxacin (Ciprofloxacin HCl) 500 Mg Tab 500 Mg PO BID Review of Systems Except as stated in HPI: all other systems reviewed are Neg General / Constitutional: No: Fever Physical Exam Narrative GENERAL: 42 yo F, WNWD, NAD SKIN: Warm and dry. Erythema, swelling, induration, tenderness R forearm without fluctuance. HEAD: Atraumatic. Normocephalic. EYES: Pupils equal and round. No scleral icterus. No injection or drainage. ENT: No nasal bleeding or discharge. Mucous membranes pink and moist. NECK: Trachea midline. No JVD. CARDIOVASCULAR: Regular rate and rhythm. 2+ radial artery bilaterally. RESPIRATORY: No accessory muscle use. Clear to auscultation. Breath sounds equal bilaterally. GASTROINTESTINAL: Abdomen soft, non-tender, nondistended. Hepatic and splenic margins not palpable. MUSCULOSKELETAL: Extremities without clubbing, cyanosis, or edema. No obvious deformities. NEUROLOGICAL: Awake and alert. No obvious cranial nerve deficits. Motor grossly within normal limits. Five out of 5 muscle strength in the arms and legs. Normal speech. Data Data Last Documented VS Vital Signs Date Time Temp Pulse Resp B/P (MAP) Pulse Ox O2 Delivery O2 Flow Rate FiO2 04/20/17 21:39 98.2 88 16 112/74 (87) 100 Room Air VS reviewed Orders Orders Clindamycin (Cleocin) (04/21/17 00:15) MDM Medical Decision Making Medical Screen Exam Complete: Yes Emergency Medical Condition: Yes Medical Record Reviewed: Yes Differential Diagnosis cellulitis, lymphangitis, abscess Narrative Course pt has cellulitis clindamycin script return precautions discussed Diagnosis Primary Impression: Cellulitis Qualified Codes: L03.113 - Cellulitis of right upper limb Referrals: Primary Care Physician 2 days Med/Other Pt SpecificInfo: Prescription(s) given Scripts Clindamycin (Clindamycin) 150 Mg Cap 450 MG PO TID for Infection for 10 Days, CAP 0 Refills Prov: Kobe Bledsoe MD 04/21/17 Disposition: DISCHARGE HOME Condition: Stable Kobe Bledsoe MD Apr 21, 2017 00:09
[2017-04-21] MEDS ORDERED: CLINDAMYCIN 150 MG CAP PO ONE (00:15)
== END 2017-04-21 00:12 | disposition home or self-care (01) ==
LOC: NEPD 21:37
DX: L03.113 Cellulitis of right upper limb (principal); M79.7 Fibromyalgia; F17.210 Nicotine dependence, cigarettes, uncomplicated
CPT/HCPCS: 99283

== ENCOUNTER → 2017-07-20 | Outpatient (CLI) | payer OTHER ==
[~2017-07-20] MED LIST changes: +CLIN150C14 PO
[2017-07-20 09:51] LABS: HEMATOCRIT 36.3 % (35.0-46.0); HEMOGLOBIN 12.7 GM/DL (11.6-15.3); MEAN CORPUSCULAR HGB CONC 34.9 % (32.0-36.0); MEAN PLATELET VOLUME 7.6 FL (7.0-11.0); PLATELET COUNT 312 TH/MM3 (150-450); RED BLOOD COUNT 4.22 MIL/MM3 (4.00-5.30); RED CELL DISTRIBUTION WIDTH 13.6 % (11.6-17.2); WHITE BLOOD COUNT 8.1 TH/MM3 (4.0-11.0)
[2017-07-20 10:17] LABS: WESTERGREN SEDIMENTATION RATE 61 mm/hr (0-20)
[2017-07-20 10:18] LABS: ALBUMIN 3.8 GM/DL (3.4-5.0); AST (GOT) 25 U/L (15-37); BICARBONATE 25.4 MEQ/L (21.0-32.0); BLOOD UREA NITROGEN 9 MG/DL (7-18); CALCIUM 9.8 MG/DL (8.5-10.1); CHLORIDE 107 MEQ/L (98-107); CREATININE 0.84 MG/DL (0.50-1.00); GLOMERULAR FILTRATION RATE 74 ML/MIN (>89); GLUCOSE,FASTING 118 MG/DL (74-99); SODIUM (NA) 140 MEQ/L (136-145)
[2017-07-20 10:20] LABS: ALT (GPT) 21 U/L (10-53)
[2017-07-20 10:22] LABS: ALKALINE PHOSPHATASE 99 U/L (45-117); TOTAL BILIRUBIN ADULT 0.4 MG/DL (0.2-1.0); TOTAL PROTEIN 8.8 GM/DL (6.4-8.2)
== END ==
LOC: CLAB 09:27
PROVIDERS: ATTEND Nurse Practitioner Acute Care
DX: G06.1 Intraspinal abscess and granuloma (principal)
CPT/HCPCS: 36415; 80053; 85027; 85652; 86140

== ENCOUNTER 2017-09-03 18:33 | Emergency (ER) | payer OTHER ==
[~2017-09-03] VITALS: Ht 157.5 cm; Wt 55.5 kg
[2017-09-03 18:35] VITALS: BP 136/67; PULSE 89; RESP 18; TEMP 98; O2SAT 87
[2017-09-03] MEDS ORDERED: BUPR8SUB SL (19:00)
[2017-09-03 19:04] VITALS: BP 132/77; PULSE 95; RESP 18; O2SAT 100
[2017-09-03] MEDS ORDERED: CEPHALEXIN MONOHYDRATE 500 MG CAP PO ONE (19:15)
[2017-09-03] MEDS ORDERED: SULFAMETHOXAZOLE-TRIMETHOPRIM DS 800-160 MG TAB PO ONE (19:15)
[2017-09-03] MEDS ORDERED: BACT800T5 PO (19:15)
[2017-09-03] MEDS ORDERED: CEPH-460 PO (19:15)
--- NOTE | 2017-09-03 19:26 | PD ---
HPI Chief Complaint: Skin Problem Time Seen by Provider: 18:56 Travel History International Travel<30 days: No Contact w/Intl Traveler<30days: No Traveled to known affect area: No History of Present Illness HPI The patient is a 42 year old female who presents to the [facility] emergency department with a history of having a burning sensation to the left dorsum of the hand that began when she was picking up a lady bug off of a brush on last Monday. The patient reports that she then began to have some redness to the dorsum of the hand. The patient reports that she works at a [employer] at work and then on Monday and accidentally scolded her left hand in hot water. She reports that she then noticed a day later small blisters on a few of her fingers. She reports that the swelling in her hand has increased with time and is worse with having a dependent. She denies having any fevers or chills. She reports that she is currently in a drug treatment program on Suboxone, however she did relapse related to some discomfort in her left hand using Dilaudid over the last couple of days. She reports that she has not used the Dilaudid in her hand. She reports that she is right-hand dominant. She denies having any neck or back pain that is new. She reports that she does have degenerative disc disease and sciatica involving her low back. On review of systems otherwise, the patient denies having any worsening cough or congestion, chest pain, shortness of breath, abdominal pain, vomiting, diarrhea , urinary symptoms, or neurologic symptoms. 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 Pathak a local infectious disease doctor and currently on antibiotic, prior history of IV drug use currently on Suboxone, history of an epidural abscess status post drainage by Dr. Flores in 2017, history of degenerative disc disease, history of sciatica, history of depression, history of juvenile rheumatoid arthritis Arthritis: No Autoimmune Disease: Yes (Juvenile RA) Anxiety: No Depression: Yes (no treatment) Cancer: No Cardiovascular Problems: No Chemotherapy: No Cerebrovascular Accident: No Diabetes: No Diminished Hearing: No Endocrine: No Fibromyalgia: Yes Gastrointestinal Disorders: No Genitourinary: No Heparin Induced Thrombocytopen: No Immune Disorder: No Implanted Vascular Access Dvce: No Musculoskeletal: Yes Neurologic: Yes Psychiatric: Yes Reproductive: No Respiratory: No Immunizations Current: Yes Migraines: Yes (10 years) Radiation Therapy: No Sickle Cell Disease: No ?: Unknown : 1 : 1 Past Surgical History Narrative Surgical The patient's past surgical history is significant for carpal tunnel surgery, left C2-3 semi-laminectomy in September 2016 Abdominal Surgery: No Cardiac Surgery: No Ear Surgery: No Endocrine Surgery: No Eye Surgery: No Genitourinary Surgery: No Gynecologic Surgery: No Neurologic Surgery: Yes (SPINAL SURGERY C4-5 ABSCESS) Oral Surgery: No Thoracic Surgery: No Other Surgery: Yes Social History Alcohol Use: Yes (SOCIAL) Tobacco Use: Yes (PPD) Substance Use: Yes (HX IVDU ) Allergies-Medications (Allergen,Severity, Reaction): Coded Allergies: erythromycin base (Verified Allergy, Severe, UNKNOWN, 09/03/17) *MDRO Multi-Drug Resistant Organism (Verified Adverse Reaction, Unknown, ) MRSA (Blood) 10/02/16, 10/05/16, 10/09/16 MRSA Epidural Space Fluid 10/03/16 Reported Meds & Prescriptions Reported Meds & Active Scripts Active Bactrim DS (Sulfamethoxazole-Trimethoprim) 800-160 Mg Tab 1 Tab PO BID Keflex (Cephalexin) 500 Mg Cap 500 Mg PO Q6H Reported Buprenorphine (Buprenorphine HCl) 8 Mg Subl 8 Mg SL BID Azithromycin 500 Mg Tab 500 Mg PO DAILY Ethambutol (Ethambutol HCl) 400 Mg Tab Review of Systems Except as stated in HPI: all other systems reviewed are Neg General / Constitutional: No: Fever, Chills Eyes: No: Visual changes HENT: No: Headaches Cardiovascular: No: Chest Pain or Discomfort Respiratory: No: Shortness of Breath Gastrointestinal: No: Nausea, Vomiting, Diarrhea, Abdominal Pain Genitourinary: No: Dysuria Musculoskeletal: Positive: Edema, Pain, No: Limited ROM Skin: Positive Rash Neurologic: No: Weakness Psychiatric: No: Depression Endocrine: No: Polydipsia Hematologic/Lymphatic: No: Easy Bruising Physical Exam Narrative General: The patient is a well-developed well-nourished female in no acute distress. Head and Neck exam: Head is normocephalic atraumatic. Eyes: EOMI, pupils are equal round and reactive to light. Nose: Midline septum with pink mucous membranes Mouth: Dentition unremarkable. Moist mucus membranes. Posterior oropharynx is not erythematous. No tonsillar hypertrophy. Uvula midline. Airway patent. Neck: No palpable lymphadenopathy. No nuchal rigidity. No thyromegaly. Cardiovascular: Regular rate and rhythm without murmurs, gallops, or rubs. No pulse deficit to the extremities on simultaneous auscultation and palpation of her radial artery. Lungs: Clear to auscultation bilaterally. No wheezes, rhonchi, or rales. Abdomen: Soft, without tenderness to palpation in all 4 quadrants of the abdomen. No guarding, rebound, or rigidity. Normal bowel sounds are audible. No tenderness on palpation of McBurney's point. Extremities: No clubbing, cyanosis, or edema. 2+ pulses in all 4 extremities. The area of interest is the patient's left hand. She is right-hand dominant. The patient has full range of motion of her left hand with some edema noted. There is no evidence of pain with resisted flexion or extension of her fingers. The patient has intact sensation over all finger pads. Please see diagram for description of small vesicles that are formed on her hand. The patient has an area of erythema along the left dorsum of the hand without any obvious open wound. There is no fluctuance or pointing. No axillary lymphadenopathy. No adenopathy noted at the elbow. Back: No spinous process tenderness to palpation. No step-off or crepitus. No erythema or ecchymosis. No costovertebral angle tenderness to palpation. Neurologic Exam: Grossly nonfocal. Skin Exam: Intact skin that is warm and dry. Exam Hand 1 - Erythema 2 - Burn 3 - Burn 4 - Burn Data Data Last Documented VS Vital Signs Date Time Temp Pulse Resp B/P (MAP) Pulse Ox O2 Delivery O2 Flow Rate FiO2 09/03/17 19:04 95 18 132/77 (95) 100 Room Air 09/03/17 18:35 98.0 Orders Orders Cephalexin (Keflex) (09/03/17 19:15) Sulfamet-Trimeth Ds 800-160 Mg (Bactrim (09/03/17 19:15) Silver Sulfadia 1% Crm (50 Gm) (Silvaden (09/03/17 19:30) Wound Care (09/03/17 19:21) [facility] Medical Decision Making Medical Screen Exam Complete: Yes Emergency Medical Condition: Yes Medical Record Reviewed: Yes Differential Diagnosis Dyshidrotic eczema, versus cellulitis, versus staph scalded skin syndrome, versus second-degree burn, versus inflammatory reaction from insect bite Narrative Course During the course of the patient's emergency department visit, the patient's history, examination, and differential diagnosis were reviewed with the patient. The patient was placed on a manager monitoring with oximetry and frequent blood pressure monitoring. The patient had on examination evidence of what appears to be erythema to the dorsum of the hand with vesicle formation along the first, second, and fifth digit of her hand. Patient reports a history of an insect bite on last Monday with a burning sensation to the dorsum of her hand. The patient also reports scalding her skin with hot water on Monday at work. The patient reports increased swelling gets worse throughout the day if her hands are dependent. The patient has a history of IV drug use, however no recent use in her hand. She reports that she last used earlier today, Dilaudid in the posterior aspect of the left arm. The patient has full range of motion of her left hand without any significant pain other than a tightening sensation. She denies having any fevers or chills. The patient's symptoms are most consistent with a skin infection. The patient has a history of complicated skin infections, therefore the patient will be treated for both staph and strep. The patient was given her first dose of Keflex and Bactrim. The patient will have Silvadene ointment applied to the small areas of blister formation on her hand with bandaging of her hand provided. She is instructed to continue this 1-2 times per day, depending on how often her hand or the bandaging gets dirty. She will be continued on this as an outpatient. She is instructed to follow-up in the next 24-48 hours for reexamination of her hand for improvement. She is given the information regarding the [facility] for follow-up. If she is unable to follow-up with the [facility] for recheck, she is instructed to be rechecked in the emergency department. The patient is resting comfortably and feels better, is alert and in no distress. The patient's examination findings were discussed with the patient. The history, exam, and current condition do not suggest any significant pathology to warrant further testing, continued ED treatment, admission, or surgical evaluation at this point. The vital signs have been stable. The patient does not have uncontrollable pain, intractable vomiting, or other significant symptoms. The patient's condition is stable and appropriate for discharge. The patient will pursue further outpatient evaluation with a primary care physician or other designated or consulting physician as indicated in the discharge instructions. The patient is instructed to report back to the emergency department immediately for reexamination in the mean time if she develops any new or worsening signs or symptoms. The patient expressed understanding and was agreeable with this plan. Diagnosis Primary Impression: Cellulitis Qualified Codes: L03.114 - Cellulitis of left upper limb Additional Impression: 2nd degree burn Referrals: [facility] 2 days Patient Instructions: Cellulitis (ED), General Instructions, Second Degree Burn (ED) Med/Other Pt SpecificInfo: Prescription(s) given Scripts Sulfamethoxazole-Trimethoprim (Bactrim DS) 800-160 Mg Tab 1 TAB PO BID for Infection, #19 TAB 0 Refills Prov: Tala Bo MD 09/03/17 Cephalexin (Keflex) 500 Mg Cap 500 MG PO Q6H for Infection, #39 CAP 0 Refills Prov: Tala Bo MD 09/03/17 Disposition: 01 DISCHARGE HOME Condition: Stable Tala Bo MD Sep 03, 2017 19:26
[2017-09-03] MEDS ORDERED: SILVER SULFADIAZINE 1% CR 50 GM JAR TOPICAL ONE (19:30)
== END 2017-09-03 19:56 | disposition home or self-care (01) ==
LOC: NEPC 18:33
DX: T23.202A Burn of second degree of left hand, unspecified site, initial encounter (principal); L03.114 Cellulitis of left upper limb; F17.210 Nicotine dependence, cigarettes, uncomplicated; X11.8XXA Contact with other hot tap-water, initial encounter; Y99.0 Civilian activity done for income or pay; Z88.1 Allergy status to other antibiotic agents
CPT/HCPCS: 16020